=== PATIENT | male | born 1990 | race Caucasian/White ===

== ENCOUNTER 2016-09-19 21:28 | Inpatient (IN) | payer OTHER ==
[~2016-09-19] VITALS: Ht 185.4 cm; Wt 108.2 kg
[~2016-09-19 21:28] MED LIST: BENTYL PO; CIPR500T4 PO; METR500T14 PO
[2016-09-19 22:50] VITALS: Ht 185.4 cm; Wt 108.2 kg
[2016-09-19 23:10] VITALS: BP 111/62; RESP 20
[2016-09-20] MEDS: SOD CHLORIDE 0.9% 1,000 ML IV SCH ×4 (02:37→23:41)
[2016-09-20] MEDS: HYDROmorphONE 1 MG/ML SYG IV PRN ×6 (02:40→22:21)
[2016-09-20] MEDS: ONDANSETRON 4 MG INJ IV PRN ×6 (03:16→22:31)
[2016-09-20] MEDS ORDERED: NACL 0.9% 3 ML SYG IV SCH (03:30)
--- NOTE | 2016-09-20 04:44 | HP ---
Date/Time of Note Date/Time of Note DATE: 09/20/16 TIME: 04:12 Assessment/Plan VTE Prophylaxis VTE Prophylaxis Intervention: LMWH Lines/Catheters IV [facility]ter Type (from [facility]): Peripheral IV Central line still needed: No Urinary Cath still in place: No Assessment/Plan Chief Complaint/Hosp Course This is a 26-year-old male being admitted to the [facility] floor for: #1. Acute sigmoid diverticulitis - recurrent type - will admit the patient to med/surg, start Zosyn 3.375 every 6hrs, Zofran for nausea and Dilaudid for pain control. check occult blood stool. Patient previously was seen by general surgery and resection was discussed. Will consult GI. Likely will need outpatient colonoscopy and then eventual follow-up with general surgery. #2. PADDY -likely secondary to dehydration. Continue IV fluids. Repeat CMP in the a.m. #3 headache: This likely appears secondary to his infection is going on. No signs of any nuchal rigidity. Will provide Tylenol. And continue to monitor. No focal neurological deficits noted on exam. #4 GI and DVT prophylaxis: Protonix, Lovenox Problems: HPI/ROS Admit Date/Time Admit Date/Time September 19, 2016 at 22:36 Hx of Present Illness This is a 26-year-old male who presented to [facility] complaining of abdominal pain and headache 3 days. Patient states that he had been experiencing headache he may have a possible history of migraines. He was taking Advil but with no relief. He also had bilateral lower quadrant abdominal pain greater on the left side. The pain was 8 out of 10 and sharp on the left side lower abdominal quadrant. Patient said he had nausea. He states that he gets a headache approximately 3 times a month. But has not been formally diagnosed with migraines. His vital signs on admission at the hospital there were temperature of 10 2.9 pulse was 115 respirations are 20 BP was 114/69 he was satting at 95% on room air. White blood cell count was within normal range. Lactate was 1.1. Creatinine was 1.18. Patient had a CT scan of the abdomen and pelvis. Which showed likely sigmoid diverticulitis. Infectious colitis inflammatory bowel disease and neoplasm was also recommended to be considered. Patient then was subsequently transferred to [facility]. Currently at the bedside patient has pain at the left lower quadrant. He feels nauseated. Allergies: NKDA Medications: None ROS Const: Nausea, mild headache Eyes : No pain discharge or redness or change in visual acuity ENT: No pain, sore throat, congestion, congestion, dysphagia or discharge Respiratory: No shortness of breath, cough, sputum, wheezing, or pleuritic pain Cardiovascular: No chest pain, palpitation, PND, or edema GI : As per HPI Genitourinary: No dysuria, hematuria, flank pain , discharge or CVA tenderness Musculoskeletal: No joint pain, back pain, neck pain, restricted range of motion in neck or joints Skin: No rash, bruising or hives Neuro: No headache, dizziness, syncope, seizure, focal weakness Endocrine: No polyuria, polydipsia, temperature intolerance Psych: No hallucination, depression, anxiety or suicidal ideation PMH/Family/Social Past Medical History Sigmoid diverticulitis Past Surgical History Left inguinal hernia repair Past Surgical Hx: other Family History Significant Family History: no pertinent family hx Social History Alcohol Use: rarely Smoking Status: Former smoker Exam/Review of Systems Vital Signs Vitals Vital Signs Date Time Temp Pulse Resp B/P Pulse Ox O2 Delivery O2 Flow Rate FiO2 09/19/16 23:10 100.3 89 20 111/62 98 Exam Exam General: Patient is in moderate distress from pain The patient is alert oriented -3 HEENT: Atraumatic, normocephalic. The pupils are equal, round and reactive. Extraocular motor are intact Neck: Supple with full range of motion. No rigidity or meningismus Chest: Nontender Lungs: Clear to auscultation bilaterally no crackles rales or wheezing Heart: Normal S1-S2, Regular rhythm and rate. No murmur, Abdomen: Soft, diffuse lower quadrant tenderness to palpation with left side greater than the right, positive bowel sounds Extremities: Normal to inspection, no edema no cyanosis Neurologic: Normal mental status, speech normal, cranial nerves II through XII are intact, motor and sensory are intact, no focal weakness Additional Comments CT of the abdomen and pelvis performed the transferring facility [place] showed likely sigmoid diverticulitis, infectious colitis inflammatory bowel disease or neoplasm also possibility Medications Medications Current Medications Hydromorphone HCl 1 mg 1 mg Q4H PRN IV PAIN Last administered on 09/20/16t 02:40 ; Admin Dose 1 MG; Start 09/20/16 at 01:30 Sodium Chloride (NS) 1,000 ml @ 100 mls/hr Q10H IV Last administered on 02:37; Admin Dose 100 MLS/HR; Start 09/20/16 at 01:30 Ondansetron HCl 4 mg 4 mg Q4H PRN IV NAUSEA AND/OR VOMITING Last administered on 09/20/16 03:16; Admin Dose 4 MG; Start 09/20/16 at 03:00 Piperacillin Sod/ Tazobactam Sod (Zosyn 3.375gm/ 100 ml (Pmx)) 100 ml @ 200 mls /hr Q6 IVPB ; Start 09/20/16 at 06:00 Acetaminophen (Tylenol Tab) 650 mg Q6H PRN PO PAIN LEVEL 1-3 OR FEVER; Start at 03:30 Pantoprazole (Protonix Iv) 40 mg DAILY@06 IV ; Start 09/20/16 at 06:00 PAM BERG September 20, 2016 04:23
[2016-09-20] MEDS: PIPER-TAZO 3.375 GM IV (PMX) 100 ML IVPB SCH ×4 (05:06→23:39)
[2016-09-20] MEDS: PANTOPRAZOLE 40 MG INJ IV SCH (05:06)
[2016-09-20 07:30] VITALS: BP 121/67; RESP 18
--- NOTE | 2016-09-20 08:57 | CONS ---
Date/Time of Note Date/Time of Note DATE: 09/20/16 TIME: 08:50 Assessment/Plan Assessment/Plan Additional Assessment/Plan Diverticulitis Continue antibiotic treatment Start trial of clears Colonoscopy in 6 - [address] abdomen Rule out abscess, recommend Surgical consult if positive Headache Management per Primary Obesity Management per Primary Encourage weight loss Further recommendations depend on clinical course Patient seen in collaboration with Dr. Ribeiro Consultation Date/Type/Reason Admit Date/Time September 19, 2016 at 22:36 Type of Consultation: Gastroenterology Reason for Consultation Diverticulitis Hx of Present Illness Mr. Melisa Andrews is a 26-year-old male that presented at [facility] secondary to fever and headache. Per patient, CT completed at [place] noted diverticulitis. Currently paper CT abdomen and pelvis report notes "sigmoid thickening at a location where there are several diverticula. There is mild perisigmoid edema at this location as well. The findings are probably due to acute sigmoid diverticulitis". Few segments of small intestine are mildly distended.. Patient notes diagnosis with diverticulitis 2 years ago and reports a total of 4 flares up till today since diagnosis. Presently patient denies nausea, vomiting, fever, chills, abdominal pain, diarrhea, sick contacts , and travel outside the [place]. Patient states that he did not feel flare symptoms and denies any pain with eating. Patient reports normal bowel movement yesterday and denies hematochezia or black tarry stools. On exam, patient experiencing lower abdominal tenderness with palpation only. Patient would like to start trial of clears and is currently receiving Zosyn every 6 hours for diverticulitis treatment. Patient does not report previous colonoscopy and significant past medical history other than diverticulitis and migraine headache. Past Surgical History Past Surgical Hx: other Social History Alcohol Use: rarely Smoking Status: Former smoker Exam/Review of Systems Vital Signs Vitals Vital Signs Date Time Temp Pulse Resp B/P Pulse Ox O2 Delivery O2 Flow Rate FiO2 09/20/16 07:30 99.6 94 18 121/67 97 Intake and Output 09/19/16 09/19/16 09/20/16 15:00 23:00 07:00 Intake Total 380 ml Balance 380 ml Exam Constitutional: alert, oriented, well developed Psych: nl mood/affect Head: normocephalic Eyes: EOMI, nl conjunctiva, nl lids ENMT: nl external ears & nose, nl lips & teeth, nl nasal mucosa & septum Respiratory: clear to auscultation, normal air movement Cardiovascular: regular rate and rhythm Gastrointestinal: soft, lower abdominal tenderness bilaterally Musculoskeletal: nl extremities to inspection Neurological: AIR TRANSPORTATION PROVIDER II-XII intact Medications Medications Current Medications Hydromorphone HCl 1 mg 1 mg Q4H PRN IV PAIN Last administered on 09/20/16 06:29 ; Admin Dose 1 MG; Start 09/20/16 at 01:30 Sodium Chloride (NS) 1,000 ml @ 100 mls/hr Q10H IV Last administered on 02:37; Admin Dose 100 MLS/HR; Start 09/20/16 at 01:30 Ondansetron HCl 4 mg 4 mg Q4H PRN IV NAUSEA AND/OR VOMITING Last administered on 09/20/16 06:29; Admin Dose 4 MG; Start 09/20/16 at 03:00 Piperacillin Sod/ Tazobactam Sod (Zosyn 3.375gm/ 100 ml (Pmx)) 100 ml @ 200 mls /hr Q6 IVPB Last administered on 09/20/16 05:06; Admin Dose 200 MLS/HR; Start 09/20/16 at 06:00 Acetaminophen (Tylenol Tab) 650 mg Q6H PRN PO PAIN LEVEL 1-3 OR FEVER; Start at 03:30 Pantoprazole (Protonix Iv) 40 mg DAILY@06 IV Last administered on 09/20/16 05: 06; Admin Dose 40 MG; Start 09/20/16 at 06:00 Enoxaparin Sodium (Lovenox) 40 mg DAILY SC ; Start 09/20/16 at 09:00 ROBERTO MARTINEZ September 20, 2016 08:57
[2016-09-20] MEDS: ENOXAPARIN 40 MG/0.4 ML SYG SC SCH (09:00)
--- NOTE | 2016-09-20 15:05 | CONS ---
Date/Time of Note Date/Time of Note DATE: 09/20/16 TIME: 15:00 Assessment/Plan Assessment/Plan Chief Complaint/Hosp Course 26-year-old male with recurrent acute sigmoid diverticulitis * Continue broad-spectrum intravenous antibiotics, IV fluid hydration, pain control * Patient with minimal left lower quadrant pain at this time. Agree with trial of clear liquids. * Again recommend colonoscopy in 6 weeks after resolution of acute inflammatory phase to evaluate the rest of the colon * This is now the fourth attack of recurrent diverticulitis for this young patient. I again strongly recommended elective colon resection to prevent further attacks and complications associated with recurrent diverticulitis. The patient verbalizes understanding. Further recommendations will be made based on patient's clinical course Problems: Consultation Date/Type/Reason Admit Date/Time September 19, 2016 at 22:36 Date of Consultation: September 20, 2016 Type of Consultation: GENERAL SURGERY Reason for Consultation Acute diverticulitis Hx of Present Illness Patient is an overweight 26-year-old male with a known history of recurrent sigmoid diverticulitis who was transferred from [facility] with a recurrent attack of diverticulitis. Patient presented there with a 3 day history of fever and lower back pain. He also reported some mild left lower quadrant abdominal pain. On arrival to the emergency room at [place] he was found to be febrile with a temperature of 102.6. CT scan of the abdomen and pelvis which was done showed mild sigmoid diverticulitis without abscess. Patient was transferred to [facility] for insurance reasons. I had actually seen the patient during an attack in November 2015. His last attack was in April 2016. Patient has not had a colonoscopy since his prior admission despite recommendations for so. Currently states he feels better with improvement in his pain. T-max since arrival to [facility] was 100.3. A 14 point review of systems was conducted and was negative except for that which is mentioned in HPI Past Medical History As in HPI Past Surgical History Past Surgical Hx: other Social History Alcohol Use: rarely Smoking Status: Former smoker Exam/Review of Systems Vital Signs Vitals Vital Signs Date Time Temp Pulse Resp B/P Pulse Ox O2 Delivery O2 Flow Rate FiO2 09/20/16 07:30 99.6 94 18 121/67 97 Intake and Output 09/19/16 09/19/16 09/20/16 15:00 23:00 07:00 Intake Total 380 ml Balance 380 ml Exam GENERAL: Awake, alert, oriented x 3. No acute distress. SKIN: No jaundice. HEENT: PERRLA, EOMI, No Scleral Icterus NECK: Supple without JVD CARDIOVASCULAR: S1S2, regular rate and rhythm. No murmurs appreciated. RESPIRATORY: Clear to auscultation bilaterally. ABDOMEN: Soft, bowel sounds present, nondistended, mild left lower quadrant tenderness to deep palpation without any rebound or guarding. No signs of diffuse peritonitis. EXTREMITIES: Free range of motion x 4. No cyanosis, edema, or clubbing. NEUROLOGIC: Cranial nerves II-XII are intact. Sensation is intact grossly. Medications Medications Current Medications Hydromorphone HCl 1 mg 1 mg Q4H PRN IV PAIN Last administered on 09/20/16 14:34 ; Admin Dose 1 MG; Start 09/20/16 at 01:30 Sodium Chloride (NS) 1,000 ml @ 100 mls/hr Q10H IV Last administered on 12:50; Admin Dose 100 MLS/HR; Start 09/20/16 at 01:30 Ondansetron HCl 4 mg 4 mg Q4H PRN IV NAUSEA AND/OR VOMITING Last administered on 09/20/16 14:33; Admin Dose 4 MG; Start 09/20/16 at 03:00 Piperacillin Sod/ Tazobactam Sod (Zosyn 3.375gm/ 100 ml (Pmx)) 100 ml @ 200 mls /hr Q6 IVPB Last administered on 09/20/16 12:50; Admin Dose 200 MLS/HR; Start 09/20/16 at 06:00 Acetaminophen (Tylenol Tab) 650 mg Q6H PRN PO PAIN LEVEL 1-3 OR FEVER; Start at 03:30 Pantoprazole (Protonix Iv) 40 mg DAILY@06 IV Last administered on 09/20/16 05: 06; Admin Dose 40 MG; Start 09/20/16 at 06:00 Enoxaparin Sodium (Lovenox) 40 mg DAILY SC ; Start 09/20/16 at 09:00 MIKE MONTENEGRO MD September 20, 2016 15:05
[2016-09-20 20:16] VITALS: BP 128/72; RESP 18
[2016-09-20] MEDS: ACETAMINOPHEN 325 MG TAB PO PRN (22:21)
[2016-09-21] MEDS: DIPHENHYDRAMINE 25 MG CAP PO PRN ×3 (00:10→23:57)
[2016-09-21] MEDS: ONDANSETRON 4 MG INJ IV PRN ×5 (03:12→20:17)
[2016-09-21] MEDS: HYDROmorphONE 1 MG/ML SYG IV PRN ×6 (03:12→23:58)
[2016-09-21 05:17] LABS: ADD SCAN DIFF NO
[2016-09-21 05:38] LABS: CHOL/HDL RATIO 7.3 RATIO
[2016-09-21 05:39] LABS: ABNORMAL IP MESSAGE 1; HEMATOCRIT 36.5 % (42.0-52.0); HEMOGLOBIN 12.4 g/dl (14.0-18.0); MEAN CORPUSCULAR HEMOGLOBIN 29.8 pg (29.0-33.0); MEAN CORPUSCULAR VOLUME 87.7 fl (82.0-101.0); RED BLOOD COUNT 4.16 10^6/ul (4.70-6.10); RED CELL DISTRIBUTION WIDTH 11.7 % (11.5-14.5)
[2016-09-21 05:40] LABS: ALBUMIN 3.5 g/dl (3.3-4.9); POTASSIUM 3.9 mmol/L (3.5-5.1)
[2016-09-21 05:42] LABS: ALBUMIN/GLOBULIN RATIO 0.97; CREATININE 1.04 mg/dl (0.61-1.24); TOTAL PROTEIN 7.1 g/dl (6.1-8.1)
[2016-09-21] MEDS: PANTOPRAZOLE 40 MG INJ IV SCH (05:42)
[2016-09-21] MEDS: PIPER-TAZO 3.375 GM IV (PMX) 100 ML IVPB SCH ×3 (05:42→18:13)
[2016-09-21 05:43] LABS: CALCIUM 8.3 mg/dl (8.4-10.2); PHOSPHORUS 3.6 mg/dl (2.5-4.9)
[2016-09-21] MEDS: SOD CHLORIDE 0.9% 1,000 ML IV SCH ×3 (07:30→17:30)
[2016-09-21 07:31] VITALS: BP 113/65; RESP 20
[2016-09-21 08:17] LABS: MEAN PLATELET VOLUME 10.5 fl (7.4-10.4); PLATELET COUNT 88 10^3/UL (140-415)
[2016-09-21] MEDS: ENOXAPARIN 40 MG/0.4 ML SYG SC SCH (09:00)
[2016-09-21 09:11] LABS: LYMPHOCYTES # 0.9 10^3/ul (0.8-2.9); MONOCYTE # 0.3 10^3/ul (0.3-0.9); NEUTROPHIL # 1.7 10^3/ul (1.6-7.5)
[2016-09-21 09:12] LABS: PLATELET ESTIMATE PLT APPEAR DECREASED
[2016-09-21] MEDS: ACETAMINOPHEN 325 MG TAB PO PRN ×2 (09:47→23:57)
--- NOTE | 2016-09-21 14:52 | PN ---
Date/Time of Note Date/Time of Note DATE: 09/21/16 TIME: 14:50 Assessment/Plan Lines/Catheters IV Catheter Type (from Nrs): Peripheral IV Navarro in Place (from Nrs): No Assessment/Plan Assessment/Plan 26-year-old male with recurrent acute sigmoid diverticulitis * Continue broad-spectrum intravenous antibiotics, IV fluid hydration, pain control * May need to repeat CT scan with p.o. and IV contrast to evaluate for abscess if the patient continues to have fever. Subjective 24 Hr Interval Summary Still with left lower quadrant abdominal pain, however controlled. Denies any nausea. Had a bowel movement. Tolerating diet. T-max 102.9 Exam/Review of Systems Vital Signs Vitals Vital Signs Date Time Temp Pulse Resp B/P Pulse Ox O2 Delivery O2 Flow Rate FiO2 09/21/16 07:31 100.0 90 20 113/65 95 Intake and Output 09/20/16 09/20/16 09/21/16 15:00 23:00 07:00 Intake Total 820 ml 1400 ml 2440 ml Balance 820 ml 1400 ml 2440 ml Exam Free Text/Dictation GENERAL: Awake, alert, oriented x 3. No acute distress. CARDIOVASCULAR: S1S2, regular rate and rhythm. No murmurs appreciated. RESPIRATORY: Clear to auscultation bilaterally. ABDOMEN: Soft, bowel sounds present, nondistended, mild left lower quadrant tenderness to deep palpation without any rebound or guarding. No signs of diffuse peritonitis. EXTREMITIES: Free range of motion x 4. No cyanosis, edema, or clubbing. Results Result Diagram: 09/21/16 0448 09/21/16 0448 MIKE MONTENEGRO MD September 21, 2016 14:52
--- NOTE | 2016-09-21 16:21 | PN ---
Date/Time of Note Date/Time of Note DATE: 09/21/16 TIME: 16:17 Assessment/Plan VTE Prophylaxis VTE Prophylaxis Intervention: SCD's Lines/Catheters IV Catheter Type (from Nrs): Peripheral IV Urinary Cath still in place: No Assessment/Plan Assessment/Plan Assessment * Abdominal pain improved * Diverticulitis,sigmoid * Plan * adequate hydration * pain control * continue IV antibiotics Subjective 24 Hr Interval Summary Free Text/Dictation * Course reviewed with RN * patient seen and examined * denies abdominal pain,afebrile Exam/Review of Systems Vital Signs Vitals Vital Signs Date Time Temp Pulse Resp B/P Pulse Ox O2 Delivery O2 Flow Rate FiO2 09/21/16 07:31 100.0 90 20 113/65 95 Intake and Output 09/20/16 09/20/16 09/21/16 14:59 22:59 06:59 Intake Total 820 ml 1400 ml 2440 ml Balance 820 ml 1400 ml 2440 ml Exam Constitutional: alert, oriented Neck: non-tender, supple Respiratory: clear to auscultation, normal air movement Cardiovascular: nl pulses, regular rate and rhythm Gastrointestinal: bowel sounds, nl liver, spleen, non-tender, soft, No rebound or guarding Musculoskeletal: nl extremities to inspection, nl gait and stance Results Result Diagram: 09/21/168 09/21/16 0448 Results 24 hrs Laboratory Tests Test 09/21/16 04:48 White Blood Count 3.0 #L Red Blood Count 4.16 L Hemoglobin 12.4 L Hematocrit 36.5 L Mean Corpuscular Volume 87.7 Mean Corpuscular Hemoglobin 29.8 Mean Corpuscular Hemoglobin Concent 34.0 Red Cell Distribution Width 11.7 Platelet Count 88 L Mean Platelet Volume 10.5 #H Neutrophils % 57.0 Band Neutrophils % 1.0 Lymphocytes % 31.0 Monocytes % 10.0 Eosinophils % Basophils % 1.0 Nucleated Red Blood Cells % Neutrophils # 1.7 Lymphocytes # 0.9 Monocytes # 0.3 Eosinophils # Basophils # 0.0 Nucleated Red Blood Cells # Platelet Estimate PLT APPEAR DECREASED Sodium Level 140 Potassium Level 3.9 Chloride Level 101 Carbon Dioxide Level 29 Anion Gap 14 Blood Urea Nitrogen 12 Creatinine 1.04 Glucose Level 85 Hemoglobin A1c 4.5 Calcium Level 8.3 L Phosphorus Level 3.6 Magnesium Level 2.0 Total Bilirubin 1.0 Direct Bilirubin 0.00 Indirect Bilirubin 1.0 Aspartate Amino Transf (AST/SGOT) 53 H Alanine Aminotransferase (ALT/SGPT) 60 Alkaline Phosphatase 39 L Total Protein 7.1 Albumin 3.5 Globulin 3.60 H Albumin/Globulin Ratio 0.97 Triglycerides Level 353 H Cholesterol Level 132 LDL Cholesterol, Calculated 43 HDL Cholesterol 18 L Cholesterol/HDL Ratio 7.3 Medications Medications Current Medications Hydromorphone HCl 1 mg 1 mg Q4H PRN IV PAIN Last administered on 09/21/16 11:40 ; Admin Dose 1 MG; Start 09/20/16 at 01:30 Sodium Chloride (NS) 1,000 ml @ 100 mls/hr Q10H IV Last administered on 11:37; Admin Dose 100 MLS/HR; Start 09/20/16 at 01:30 Ondansetron HCl 4 mg 4 mg Q4H PRN IV NAUSEA AND/OR VOMITING Last administered on 09/21/16 11:40; Admin Dose 4 MG; Start 09/20/16 at 03:00 Piperacillin Sod/ Tazobactam Sod (Zosyn 3.375gm/ 100 ml (Pmx)) 100 ml @ 200 mls /hr Q6 IVPB Last administered on 09/21/16 11:38; Admin Dose 200 MLS/HR; Start 09/20/16 at 06:00 Acetaminophen (Tylenol Tab) 650 mg Q6H PRN PO PAIN LEVEL 1-3 OR FEVER Last administered on 09/21/16 09:47; Admin Dose 650 MG; Start 09/20/16 at 03:30 Enoxaparin Sodium (Lovenox) 40 mg DAILY SC ; Start 09/20/16 at 09:00 Diphenhydramine HCl (Benadryl) 25 mg Q6H PRN PO ITCHING Last administered on 06:06; Admin Dose 25 MG; Start 09/21/16 at 00:00 Pantoprazole (Protonix Tab) 40 mg DAILY@06 PO ; Start 09/22/16 at 06:00 SKYE FORD MD September 21, 2016 16:21
--- NOTE | 2016-09-21 17:00 | PN ---
Date/Time of Note Date/Time of Note DATE: 09/21/16 TIME: 16:55 Assessment/Plan VTE Prophylaxis VTE Prophylaxis Intervention: SCD's Lines/Catheters IV Catheter Type (from Nrs): Peripheral IV Urinary Cath still in place: No Assessment/Plan Chief Complaint/Hosp Course Assessment and plan 1. Acute sigmoid diverticulitis (recurrent). Continue antibiotics. Noted with less pain at this time. Continue with analgesics as needed. Surgeon and GI following. Patient recommended for elective colon resection considering patient's recurrent attacks. Patient refusing intervention at this time. Follow-up with surgeon and GI recommendations 2. Reported acute kidney injury. Likely secondary to dehydration. Stable at present. Will monitor 3. Hypertriglyceridemia. Will start patient on antilipid medication DVT prophylaxis: Lovenox GERD prophylaxis: Protonix Disposition and plan: Still remains febrile. Continue on antibiotics and antipyretics as needed. Follow-up with surgeon and GI recommendations. Discharged in medically stable and cleared by consultants Discussed plan with Dr. Cali Problems: Subjective 24 Hr Interval Summary Free Text/Dictation Denies any abdominal pain at this time. Still noted to be febrile Exam/Review of Systems Vital Signs Vitals Vital Signs Date Time Temp Pulse Resp B/P Pulse Ox O2 Delivery O2 Flow Rate FiO2 09/21/16 07:31 100.0 90 20 113/65 95 Intake and Output 09/20/16 09/20/16 09/21/16 15:00 23:00 07:00 Intake Total 820 ml 1400 ml 2440 ml Balance 820 ml 1400 ml 2440 ml Exam Constitutional: alert, oriented Psych: nl mood/affect Head: normocephalic Eyes: nl conjunctiva Neck: non-tender, supple, No jvd Respiratory: clear to auscultation Cardiovascular: regular rate and rhythm Gastrointestinal: non-tender, soft Musculoskeletal: nl extremities to inspection Neurological: LEATHER TACKER II-XII intact, nl mental status, nl speech Skin: nl turgor Results Result Diagram: 09/21/168 09/21/16447 Results 24 hrs Laboratory Tests Test 09/21/16 04:48 White Blood Count 3.0 #L Red Blood Count 4.16 L Hemoglobin 12.4 L Hematocrit 36.5 L Mean Corpuscular Volume 87.7 Mean Corpuscular Hemoglobin 29.8 Mean Corpuscular Hemoglobin Concent 34.0 Red Cell Distribution Width 11.7 Platelet Count 88 L Mean Platelet Volume 10.5 #H Neutrophils % 57.0 Band Neutrophils % 1.0 Lymphocytes % 31.0 Monocytes % 10.0 Eosinophils % Basophils % 1.0 Nucleated Red Blood Cells % Neutrophils # 1.7 Lymphocytes # 0.9 Monocytes # 0.3 Eosinophils # Basophils # 0.0 Nucleated Red Blood Cells # Platelet Estimate PLT APPEAR DECREASED Sodium Level 140 Potassium Level 3.9 Chloride Level 101 Carbon Dioxide Level 29 Anion Gap 14 Blood Urea Nitrogen 12 Creatinine 1.04 Glucose Level 85 Hemoglobin A1c 4.5 Calcium Level 8.3 L Phosphorus Level 3.6 Magnesium Level 2.0 Total Bilirubin 1.0 Direct Bilirubin 0.00 Indirect Bilirubin 1.0 Aspartate Amino Transf (AST/SGOT) 53 H Alanine Aminotransferase (ALT/SGPT) 60 Alkaline Phosphatase 39 L Total Protein 7.1 Albumin 3.5 Globulin 3.60 H Albumin/Globulin Ratio 0.97 Triglycerides Level 353 H Cholesterol Level 132 LDL Cholesterol, Calculated 43 HDL Cholesterol 18 L Cholesterol/HDL Ratio 7.3 Medications Medications Current Medications Hydromorphone HCl 1 mg 1 mg Q4H PRN IV PAIN Last administered on 09/21/16 16:22 ; Admin Dose 1 MG; Start 09/20/16 at 01:30 Sodium Chloride (NS) 1,000 ml @ 100 mls/hr Q10H IV Last administered on 11:37; Admin Dose 100 MLS/HR; Start 09/20/16 at 01:30 Ondansetron HCl 4 mg 4 mg Q4H PRN IV NAUSEA AND/OR VOMITING Last administered on 09/21/16 16:16; Admin Dose 4 MG; Start 09/20/16 at 03:00 Piperacillin Sod/ Tazobactam Sod (Zosyn 3.375gm/ 100 ml (Pmx)) 100 ml @ 200 mls /hr Q6 IVPB Last administered on 09/21/16 11:38; Admin Dose 200 MLS/HR; Start 09/20/16 at 06:00 Acetaminophen (Tylenol Tab) 650 mg Q6H PRN PO PAIN LEVEL 1-3 OR FEVER Last administered on 09/21/16 09:47; Admin Dose 650 MG; Start 09/20/16 at 03:30 Enoxaparin Sodium (Lovenox) 40 mg DAILY SC ; Start 09/20/16 at 09:00 Diphenhydramine HCl (Benadryl) 25 mg Q6H PRN PO ITCHING Last administered on t 06:06; Admin Dose 25 MG; Start 09/21/16 at 00:00 Pantoprazole (Protonix Tab) 40 mg DAILY@06 PO ; Start 09/22/16 at 06:00 CAMILLE TANG September 21, 2016 17:00
[2016-09-22] MEDS: SOD CHLORIDE 0.9% 1,000 ML IV SCH ×4 (00:08→22:05)
[2016-09-22] MEDS: PIPER-TAZO 3.375 GM IV (PMX) 100 ML IVPB SCH ×5 (00:08→23:55)
[2016-09-22] MEDS: ONDANSETRON 4 MG INJ IV PRN ×6 (00:08→20:00)
[2016-09-22] MEDS: HYDROmorphONE 1 MG/ML SYG IV PRN ×5 (04:45→20:00)
[2016-09-22 06:12] LABS: ADD SCAN DIFF NO
[2016-09-22] MEDS: PANTOPRAZOLE (EC) 40 MG TAB PO SCH (06:19)
[2016-09-22 06:39] LABS: ABNORMAL IP MESSAGE 1; BASOPHILS % 0.3 % (0.0-2.0); EOSINOPHILS % 0.6 % (0.0-7.0); HEMATOCRIT 32.4 % (42.0-52.0); HEMOGLOBIN 10.9 g/dl (14.0-18.0); LYMPHOCYTES # 1.2 10^3/ul (0.8-2.9); LYMPHOCYTES % 33.6 % (15.0-51.0); MEAN CORPUSCULAR HEMOGLOBIN 29.5 pg (29.0-33.0); MEAN CORPUSCULAR HGB CONC 33.6 g/dl (32.0-37.0); MEAN CORPUSCULAR VOLUME 87.8 fl (82.0-101.0); MEAN PLATELET VOLUME 10.8 fl (7.4-10.4); MONOCYTE # 0.4 10^3/ul (0.3-0.9); NEUTROPHIL # 1.9 10^3/ul (1.6-7.5); NEUTROPHILS % 53.2 % (39.0-77.0); PLATELET COUNT 79 10^3/UL (140-415); RED BLOOD COUNT 3.69 10^6/ul (4.70-6.10); RED CELL DISTRIBUTION WIDTH 11.7 % (11.5-14.5); WHITE BLOOD COUNT 3.6 10^3/ul (4.8-10.8)
[2016-09-22 07:26] VITALS: BP 100/54; RESP 20
[2016-09-22 07:49] LABS: CALCIUM 8.6 mg/dl (8.4-10.2); CREATININE 1.04 mg/dl (0.61-1.24); POTASSIUM 4.5 mmol/L (3.5-5.1)
[2016-09-22] MEDS: ENOXAPARIN 40 MG/0.4 ML SYG SC SCH (08:34)
--- NOTE | 2016-09-22 09:37 | PN ---
Date/Time of Note Date/Time of Note DATE: 09/22/16 TIME: 09:36 Assessment/Plan Lines/Catheters IV Catheter Type (from Nrs): Peripheral IV Navarro in Place (from Nrs): No Assessment/Plan Assessment/Plan 26-year-old male with recurrent acute sigmoid diverticulitis * Continue broad-spectrum intravenous antibiotics, IV fluid hydration, pain control * Clinically improving, but still having fever * May need to repeat CT scan with p.o. and IV contrast to evaluate for abscess if the patient continues to have fever. Subjective 24 Hr Interval Summary No complaints. Denies abdominal pain. Is up in bed eating a burger. Did have a temperature as high as 102 last night. Currently afebrile. Bowel movement yesterday. Exam/Review of Systems Vital Signs Vitals Vital Signs Date Time Temp Pulse Resp B/P Pulse Ox O2 Delivery O2 Flow Rate FiO2 09/22/16 07:26 98.9 84 20 100/54 96 Intake and Output 09/21/16 09/21/16 09/22/16 15:00 23:00 07:00 Intake Total 400 ml 1660 ml 2170 ml Balance 400 ml 1660 ml 2170 ml Exam Free Text/Dictation GENERAL: Awake, alert, oriented x 3. No acute distress. CARDIOVASCULAR: S1S2, regular rate and rhythm. No murmurs appreciated. RESPIRATORY: Clear to auscultation bilaterally. ABDOMEN: Soft, bowel sounds present, nondistended, nontender to palpation. No signs of diffuse peritonitis. EXTREMITIES: Free range of motion x 4. No cyanosis, edema, or clubbing. Results Result Diagram: 09/22/16 0540 09/22/16 0540 MIKE MONTENEGRO MD September 22, 2016 09:37
--- NOTE | 2016-09-22 15:49 | PN ---
Date/Time of Note Date/Time of Note DATE: 09/22/16 TIME: 15:47 Assessment/Plan VTE Prophylaxis VTE Prophylaxis Intervention: ambulation Lines/Catheters IV Catheter Type (from Nrs): Peripheral IV Urinary Cath still in place: No Assessment/Plan Assessment/Plan Assessment * Abdominal pain improved * Diverticulitis,sigmoid * Plan * adequate hydration * pain control * continue IV antibiotics * progress diet Subjective 24 Hr Interval Summary Free Text/Dictation * Course reviewed with RN * patient seen and examined * Denies abdominal pain/afebrile Exam/Review of Systems Vital Signs Vitals Vital Signs Date Time Temp Pulse Resp B/P Pulse Ox O2 Delivery O2 Flow Rate FiO2 09/22/16 07:26 98.9 84 20 100/54 96 Intake and Output 09/21/16 09/21/16 09/22/16 15:00 23:00 07:00 Intake Total 400 ml 1660 ml 2170 ml Balance 400 ml 1660 ml 2170 ml Exam Constitutional: alert, oriented Eyes: nl conjunctiva Neck: non-tender, supple Respiratory: clear to auscultation, normal air movement Cardiovascular: nl pulses, regular rate and rhythm Gastrointestinal: bowel sounds, non-tender, soft Musculoskeletal: nl extremities to inspection, nl gait and stance Extremities: normal pulses Results Result Diagram: 09/22/16 0540 09/22/16 0540 Results 24 hrs Laboratory Tests Test 09/22/16 05:40 White Blood Count 3.6 L Red Blood Count 3.69 L Hemoglobin 10.9 L Hematocrit 32.4 L Mean Corpuscular Volume 87.8 Mean Corpuscular Hemoglobin 29.5 Mean Corpuscular Hemoglobin Concent 33.6 Red Cell Distribution Width 11.7 Platelet Count 79 L Mean Platelet Volume 10.8 H Neutrophils % 53.2 Lymphocytes % 33.6 Monocytes % 12.0 H Eosinophils % 0.6 Basophils % 0.3 Nucleated Red Blood Cells % 0.0 Neutrophils # 1.9 Lymphocytes # 1.2 Monocytes # 0.4 Eosinophils # 0.0 Basophils # 0.0 Nucleated Red Blood Cells # 0.0 Sodium Level 136 Potassium Level 4.5 Chloride Level 104 Carbon Dioxide Level 28 Anion Gap 9 # Blood Urea Nitrogen 9 Creatinine 1.04 Glucose Level 87 Calcium Level 8.6 Medications Medications Current Medications Hydromorphone HCl 1 mg 1 mg Q4H PRN IV PAIN Last administered on 09/22/16 12:35 ; Admin Dose 1 MG; Start 09/20/16 at 01:30 Sodium Chloride (NS) 1,000 ml @ 100 mls/hr Q10H IV Last administered on 11:12; Admin Dose 100 MLS/HR; Start 09/20/16 at 01:30 Ondansetron HCl 4 mg 4 mg Q4H PRN IV NAUSEA AND/OR VOMITING Last administered on 09/22/16 12:35; Admin Dose 4 MG; Start 09/20/16 at 03:00 Piperacillin Sod/ Tazobactam Sod (Zosyn 3.375gm/ 100 ml (Pmx)) 100 ml @ 200 mls /hr Q6 IVPB Last administered on 09/22/16 11:12; Admin Dose 200 MLS/HR; Start 09/20/16 at 06:00 Acetaminophen (Tylenol Tab) 650 mg Q6H PRN PO PAIN LEVEL 1-3 OR FEVER Last administered on 09/21/16 23:57; Admin Dose 650 MG; Start 09/20/16 at 03:30 Enoxaparin Sodium (Lovenox) 40 mg DAILY SC ; Start 09/20/16 at 09:00 Diphenhydramine HCl (Benadryl) 25 mg Q6H PRN PO ITCHING Last administered on 23:57; Admin Dose 25 MG; Start 09/21/16 at 00:00 Pantoprazole (Protonix Tab) 40 mg DAILY@06 PO Last administered on 09/22/16 06: 19; Admin Dose 40 MG; Start 09/22/16 at 06:00 Acetaminophen/ Butalbital/ Caffeine (Fioricet) 2 tab Q4H PRN PO cephalgia; Start 09/22/16 at 15:00 SKYE FORD MD September 22, 2016 15:49
[2016-09-22] MEDS: ACET/BUTAL/CAFF TAB PO PRN ×2 (17:45→22:05)
--- NOTE | 2016-09-22 17:48 | PN ---
Date/Time of Note Date/Time of Note DATE: 09/22/16 TIME: 17:46 Assessment/Plan VTE Prophylaxis VTE Prophylaxis Intervention: ambulation Lines/Catheters IV Catheter Type (from [facility]): Peripheral IV Urinary Cath still in place: No Assessment/Plan Chief Complaint/Hosp Course Assessment and plan 1. Acute sigmoid diverticulitis (recurrent). Continue antibiotics. Noted with less pain at this time. Continue with analgesics as needed. Surgeon and GI following. Patient recommended for elective colon resection considering patient's recurrent attacks. Patient refusing intervention at this time. advance diet per GI recs. 2. Reported acute kidney injury. Likely secondary to dehydration. Stable at present. Will monitor 3. Hypertriglyceridemia. cont on antilipid medication DVT prophylaxis: Lovenox GERD prophylaxis: Protonix Disposition and plan: continue on diet. monitor for fevers. d/c when medically stable and cleared by consultants Discussed plan with Dr. Cali Problems: Subjective 24 Hr Interval Summary Free Text/Dictation resting at this time. reports some occasional abdominal pain, but overall improved. Exam/Review of Systems Vital Signs Vitals Vital Signs Date Time Temp Pulse Resp B/P Pulse Ox O2 Delivery O2 Flow Rate FiO2 09/22/16 07:26 98.9 84 20 100/54 96 Intake and Output 09/21/16 09/21/16 09/22/16 15:00 23:00 07:00 Intake Total 400 ml 1660 ml 2170 ml Balance 400 ml 1660 ml 2170 ml Exam Constitutional: alert, oriented Psych: nl mood/affect Head: normocephalic Neck: supple, No jvd Respiratory: clear to auscultation Cardiovascular: regular rate and rhythm Gastrointestinal: soft, tender (minimally) Musculoskeletal: nl extremities to inspection Extremities: normal pulses Neurological: MISSILE INSPECTOR PREFLIGHT II-XII intact, nl mental status Skin: nl turgor Results Result Diagram: 09/22/16 0540 09/22/16 0540 Results 24 hrs Laboratory Tests Test 09/22/16 05:40 White Blood Count 3.6 L Red Blood Count 3.69 L Hemoglobin 10.9 L Hematocrit 32.4 L Mean Corpuscular Volume 87.8 Mean Corpuscular Hemoglobin 29.5 Mean Corpuscular Hemoglobin Concent 33.6 Red Cell Distribution Width 11.7 Platelet Count 79 L Mean Platelet Volume 10.8 H Neutrophils % 53.2 Lymphocytes % 33.6 Monocytes % 12.0 H Eosinophils % 0.6 Basophils % 0.3 Nucleated Red Blood Cells % 0.0 Neutrophils # 1.9 Lymphocytes # 1.2 Monocytes # 0.4 Eosinophils # 0.0 Basophils # 0.0 Nucleated Red Blood Cells # 0.0 Sodium Level 136 Potassium Level 4.5 Chloride Level 104 Carbon Dioxide Level 28 Anion Gap 9 # Blood Urea Nitrogen 9 Creatinine 1.04 Glucose Level 87 Calcium Level 8.6 Medications Medications Current Medications Hydromorphone HCl 1 mg 1 mg Q4H PRN IV PAIN Last administered on 09/22/16 16:08 ; Admin Dose 1 MG; Start 09/20/16 at 01:30 Sodium Chloride (NS) 1,000 ml @ 100 mls/hr Q10H IV Last administered on 11:12; Admin Dose 100 MLS/HR; Start 09/20/16 at 01:30 Ondansetron HCl 4 mg 4 mg Q4H PRN IV NAUSEA AND/OR VOMITING Last administered on 09/22/16 16:08; Admin Dose 4 MG; Start 09/20/16 at 03:00 Piperacillin Sod/ Tazobactam Sod (Zosyn 3.375gm/ 100 ml (Pmx)) 100 ml @ 200 mls /hr Q6 IVPB Last administered on 09/22/16 11:12; Admin Dose 200 MLS/HR; Start 09/20/16 at 06:00 Acetaminophen (Tylenol Tab) 650 mg Q6H PRN PO PAIN LEVEL 1-3 OR FEVER Last administered on 09/21/16 23:57; Admin Dose 650 MG; Start 09/20/16 at 03:30 Enoxaparin Sodium (Lovenox) 40 mg DAILY SC ; Start 09/20/16 at 09:00 Diphenhydramine HCl (Benadryl) 25 mg Q6H PRN PO ITCHING Last administered on 23:57; Admin Dose 25 MG; Start 09/21/16 at 00:00 Pantoprazole (Protonix Tab) 40 mg DAILY@06 PO Last administered on 09/22/16 06: 19; Admin Dose 40 MG; Start 09/22/16 at 06:00 Acetaminophen/ Butalbital/ Caffeine (Fioricet) 2 tab Q4H PRN PO cephalgia; Start 09/22/16 at 15:00 CAMILLE TANG September 22, 2016 17:48
[2016-09-22 20:06] VITALS: BP 115/58; RESP 16
[2016-09-22] MEDS: DIPHENHYDRAMINE 25 MG CAP PO PRN (23:55)
[2016-09-23] MEDS: ACET/BUTAL/CAFF TAB PO PRN ×4 (01:57→20:53)
[2016-09-23] MEDS: HYDROmorphONE 1 MG/ML SYG IV PRN ×6 (04:10→19:51)
[2016-09-23] MEDS: ONDANSETRON 4 MG INJ IV PRN ×5 (04:10→16:11)
[2016-09-23 05:48] LABS: ADD SCAN DIFF NO
[2016-09-23 05:51] LABS: ABNORMAL IP MESSAGE 1; BASOPHILS % 0.3 % (0.0-2.0); EOSINOPHILS # 0.1 10^3/ul (0.0-0.5); HEMATOCRIT 30.8 % (42.0-52.0); HEMOGLOBIN 10.4 g/dl (14.0-18.0); LYMPHOCYTES % 32.1 % (15.0-51.0); MEAN CORPUSCULAR HEMOGLOBIN 29.6 pg (29.0-33.0); MEAN CORPUSCULAR HGB CONC 33.8 g/dl (32.0-37.0); MEAN CORPUSCULAR VOLUME 87.7 fl (82.0-101.0); MEAN PLATELET VOLUME 10.8 fl (7.4-10.4); MONOCYTE # 0.2 10^3/ul (0.3-0.9); MONOCYTES % 7.4 % (0.0-11.0); NEUTROPHIL # 1.7 10^3/ul (1.6-7.5); NEUTROPHILS % 57.9 % (39.0-77.0); PLATELET COUNT 97 10^3/UL (140-415); RED BLOOD COUNT 3.51 10^6/ul (4.70-6.10); RED CELL DISTRIBUTION WIDTH 11.9 % (11.5-14.5)
[2016-09-23] MEDS: PANTOPRAZOLE (EC) 40 MG TAB PO SCH (06:01)
[2016-09-23] MEDS: PIPER-TAZO 3.375 GM IV (PMX) 100 ML IVPB SCH ×3 (06:01→17:47)
[2016-09-23 06:03] LABS: POTASSIUM 4.6 mmol/L (3.5-5.1)
[2016-09-23 06:05] LABS: CREATININE 1.04 mg/dl (0.61-1.24)
[2016-09-23 06:06] LABS: CALCIUM 8.5 mg/dl (8.4-10.2)
[2016-09-23 07:55] VITALS: BP 108/57; RESP 16
[2016-09-23] MEDS: ENOXAPARIN 40 MG/0.4 ML SYG SC SCH (08:21)
[2016-09-23] MEDS: SOD CHLORIDE 0.9% 1,000 ML IV SCH ×2 (10:11→19:56)
--- NOTE | 2016-09-23 11:52 | PN ---
Date/Time of Note Date/Time of Note DATE: 09/23/16 TIME: 11:50 Assessment/Plan VTE Prophylaxis VTE Prophylaxis Intervention: ambulation Lines/Catheters IV C[facility]ter Type (from [facility]): Peripheral IV Urinary Cath still in place: No Assessment/Plan Chief Complaint/Hosp Course Assessment and plan 1. Acute sigmoid diverticulitis (recurrent). Continue antibiotics. No pain reported today Continue with analgesics as needed. Surgeon and GI following. Patient recommended for elective colon resection considering patient's recurrent attacks. Patient refusing intervention at this time. Appears to be improving. No fevers today so far. Will follow up with surgeon/GI Recs 2. Reported acute kidney injury. Likely secondary to dehydration. Stable at present. Will monitor 3. Hypertriglyceridemia. cont on antilipid medication DVT prophylaxis: Lovenox GERD prophylaxis: Protonix Disposition and plan: No fever so far today. Noted with fever last night. Continue antibiotic therapy. Discharged when medically stable and cleared by consultants Discussed plan with Dr. Cali Problems: Subjective 24 Hr Interval Summary Free Text/Dictation Denies abdominal pain. Noted fever last night but none this morning. Appears comfortable at present Exam/Review of Systems Vital Signs Vitals Vital Signs Date Time Temp Pulse Resp B/P Pulse Ox O2 Delivery O2 Flow Rate FiO2 09/23/16 07:55 98.3 66 16 108/57 92 Intake and Output 09/22/16 09/22/16 09/23/16 15:00 23:00 07:00 Intake Total 250 ml 2660 ml 1120 ml Output Total 0 ml Balance 250 ml 2660 ml 1120 ml Exam Constitutional: alert, obese, oriented Psych: nl mood/affect Head: normocephalic Neck: non-tender, supple Respiratory: normal air movement Cardiovascular: regular rate and rhythm Gastrointestinal: ascites, soft Musculoskeletal: nl extremities to inspection Extremities: normal pulses Neurological: COMPLIANCE ASSISTANT II-XII intact, nl mental status, nl speech Skin: nl turgor Results Result Diagram: 09/23/1625 09/23/1625 Results 24 hrs Laboratory Tests Test 09/23/16 05:25 White Blood Count 3.0 L Red Blood Count 3.51 L Hemoglobin 10.4 L Hematocrit 30.8 L Mean Corpuscular Volume 87.7 Mean Corpuscular Hemoglobin 29.6 Mean Corpuscular Hemoglobin Concent 33.8 Red Cell Distribution Width 11.9 Platelet Count 97 #L Mean Platelet Volume 10.8 H Neutrophils % 57.9 Lymphocytes % 32.1 Monocytes % 7.4 Eosinophils % 2.0 Basophils % 0.3 Nucleated Red Blood Cells % 0.0 Neutrophils # 1.7 Lymphocytes # 1.0 Monocytes # 0.2 L Eosinophils # 0.1 Basophils # 0.0 Nucleated Red Blood Cells # 0.0 Sodium Level 141 Potassium Level 4.6 Chloride Level 104 Carbon Dioxide Level 30 Anion Gap 12 Blood Urea Nitrogen 8 Creatinine 1.04 Glucose Level 86 Calcium Level 8.5 Medications Medications Current Medications Hydromorphone HCl 1 mg 1 mg Q4H PRN IV PAIN Last administered on 09/23/16 08: 19; Admin Dose 1 MG; Start 09/20/16 at 01:30 Sodium Chloride (NS) 1,000 ml @ 100 mls/hr Q10H IV Last administered on 10:11; Admin Dose 100 MLS/HR; Start 09/20/16 at 01:30 Ondansetron HCl 4 mg 4 mg Q4H PRN IV NAUSEA AND/OR VOMITING Last administered on 09/23/16 08:18; Admin Dose 4 MG; Start 09/20/16 at 03:00 Piperacillin Sod/ Tazobactam Sod (Zosyn 3.375gm/ 100 ml (Pmx)) 100 ml @ 200 mls /hr Q6 IVPB Last administered on 09/23/16 06:01; Admin Dose 200 MLS/HR; Start 09/20/16 at 06:00 Acetaminophen (Tylenol Tab) 650 mg Q6H PRN PO PAIN LEVEL 1-3 OR FEVER Last administered on 09/21/16 23:57; Admin Dose 650 MG; Start 09/20/16 at 03:30 Enoxaparin Sodium (Lovenox) 40 mg DAILY SC ; Start 09/20/16 at 09:00 Diphenhydramine HCl (Benadryl) 25 mg Q6H PRN PO ITCHING Last administered on 23:55; Admin Dose 25 MG; Start 09/21/16 at 00:00 Pantoprazole (Protonix Tab) 40 mg DAILY@06 PO Last administered on 09/23/16 06 :01; Admin Dose 40 MG; Start 09/22/16 at 06:00 Acetaminophen/ Butalbital/ Caffeine (Fioricet) 2 tab Q4H PRN PO cephalgia Last administered on 09/23/16t 10:10; Admin Dose 2 TAB; Start 09/22/16 at 15:00 CAMILLE TANG September 23, 2016 11:52
--- NOTE | 2016-09-23 12:48 | PN ---
Date/Time of Note Date/Time of Note DATE: 09/23/16 TIME: 12:46 Assessment/Plan Lines/Catheters IV Catheter Type (from Nrs): Peripheral IV Navarro in Place (from Nrs): No Assessment/Plan Assessment/Plan 26-year-old male with recurrent acute sigmoid diverticulitis * Continue broad-spectrum intravenous antibiotics, IV fluid hydration, pain control * Clinically improved * If remains stable and afebrile then can d/c home on PO abx if medically cleared * Will need to follow up with GI for colonoscopy in 6 weeks. * Ultimately recommend elective colon resection Subjective 24 Hr Interval Summary No acute events. Denies abdominal pain. Tolerating diet. +BMs. Tmax 100.0 Exam/Review of Systems Vital Signs Vitals Vital Signs Date Time Temp Pulse Resp B/P Pulse Ox O2 Delivery O2 Flow Rate FiO2 09/23/16 07:55 98.3 66 16 108/57 92 Intake and Output 09/22/16 09/22/16 09/23/16 15:00 23:00 07:00 Intake Total 250 ml 2660 ml 1120 ml Output Total 0 ml Balance 250 ml 2660 ml 1120 ml Exam Free Text/Dictation GENERAL: Awake, alert, oriented x 3. No acute distress. CARDIOVASCULAR: S1S2, regular rate and rhythm. No murmurs appreciated. RESPIRATORY: Clear to auscultation bilaterally. ABDOMEN: Soft, bowel sounds present, nondistended, nontender to palpation. No signs of diffuse peritonitis. EXTREMITIES: Free range of motion x 4. No cyanosis, edema, or clubbing. Results Result Diagram: 09/23/16 0525 09/23/16 0525 MIKE MONTENEGRO MD September 23, 2016 12:48
--- NOTE | 2016-09-23 15:19 | PN ---
Date/Time of Note Date/Time of Note DATE: 09/23/16 TIME: 15:16 Assessment/Plan VTE Prophylaxis VTE Prophylaxis Intervention: ambulation Lines/Catheters IV [facility] Type (from [facility]): Peripheral IV Urinary Cath still in place: No Assessment/Plan Assessment/Plan Assessment * Abdominal pain improved * Diverticulitis,sigmoid * Plan * Stable for outpatient management * continue antibiotics for 2 weeks * for elective colonoscopy after 6-8 weeks Subjective 24 Hr Interval Summary Free Text/Dictation * Course reviewed with RN * patient seen and examined * Denies abdominal pain/afebrile * Tolerating diet Exam/Review of Systems Vital Signs Vitals Vital Signs Date Time Temp Pulse Resp B/P Pulse Ox O2 Delivery O2 Flow Rate FiO2 09/23/16 07:55 98.3 66 16 108/57 92 Intake and Output 09/22/16 09/22/16 09/23/16 15:00 23:00 07:00 Intake Total 250 ml 2660 ml 1120 ml Output Total 0 ml Balance 250 ml 2660 ml 1120 ml Exam Constitutional: alert, oriented Psych: no complaints Eyes: nl conjunctiva, nl sclera Neck: non-tender, supple Respiratory: clear to auscultation, normal air movement Cardiovascular: nl pulses, regular rate and rhythm Gastrointestinal: bowel sounds, non-tender, soft, No rebound or guarding Musculoskeletal: nl extremities to inspection, nl gait and stance Extremities: normal pulses Neurological: nl speech, nl strength Results Result Diagram: 09/23/16 0525 09/23/16 0525 Results 24 hrs Laboratory Tests Test 09/23/16 05:25 White Blood Count 3.0 L Red Blood Count 3.51 L Hemoglobin 10.4 L Hematocrit 30.8 L Mean Corpuscular Volume 87.7 Mean Corpuscular Hemoglobin 29.6 Mean Corpuscular Hemoglobin Concent 33.8 Red Cell Distribution Width 11.9 Platelet Count 97 #L Mean Platelet Volume 10.8 H Neutrophils % 57.9 Lymphocytes % 32.1 Monocytes % 7.4 Eosinophils % 2.0 Basophils % 0.3 Nucleated Red Blood Cells % 0.0 Neutrophils # 1.7 Lymphocytes # 1.0 Monocytes # 0.2 L Eosinophils # 0.1 Basophils # 0.0 Nucleated Red Blood Cells # 0.0 Sodium Level 141 Potassium Level 4.6 Chloride Level 104 Carbon Dioxide Level 30 Anion Gap 12 Blood Urea Nitrogen 8 Creatinine 1.04 Glucose Level 86 Calcium Level 8.5 Medications Medications Current Medications Hydromorphone HCl 1 mg 1 mg Q4H PRN IV PAIN Last administered on 09/23/16 12: 07; Admin Dose 1 MG; Start 09/20/16 at 01:30 Sodium Chloride (NS) 1,000 ml @ 100 mls/hr Q10H IV Last administered on 10:11; Admin Dose 100 MLS/HR; Start 09/20/16 at 01:30 Ondansetron HCl 4 mg 4 mg Q4H PRN IV NAUSEA AND/OR VOMITING Last administered on 09/23/16 12:06; Admin Dose 4 MG; Start 09/20/16 at 03:00 Piperacillin Sod/ Tazobactam Sod (Zosyn 3.375gm/ 100 ml (Pmx)) 100 ml @ 200 mls /hr Q6 IVPB Last administered on 09/23/16 12:07; Admin Dose 200 MLS/HR; Start 09/20/16 at 06:00 Acetaminophen (Tylenol Tab) 650 mg Q6H PRN PO PAIN LEVEL 1-3 OR FEVER Last administered on 09/21/16 23:57; Admin Dose 650 MG; Start 09/20/16 at 03:30 Enoxaparin Sodium (Lovenox) 40 mg DAILY SC ; Start 09/20/16 at 09:00 Diphenhydramine HCl (Benadryl) 25 mg Q6H PRN PO ITCHING Last administered on 23:55; Admin Dose 25 MG; Start 09/21/16 at 00:00 Pantoprazole (Protonix Tab) 40 mg DAILY@06 PO Last administered on 09/23/16 06 :01; Admin Dose 40 MG; Start 09/22/16 at 06:00 Acetaminophen/ Butalbital/ Caffeine (Fioricet) 2 tab Q4H PRN PO cephalgia Last administered on 09/23/16 10:10; Admin Dose 2 TAB; Start 09/22/16 at 15:00 SKYE FORD MD September 23, 2016 15:19
[2016-09-23 20:31] VITALS: BP 116/58; RESP 16
[2016-09-24] MEDS: HYDROmorphONE 1 MG/ML SYG IV PRN ×6 (00:06→21:07)
[2016-09-24] MEDS: ONDANSETRON 4 MG INJ IV PRN ×6 (00:06→21:07)
[2016-09-24] MEDS: PIPER-TAZO 3.375 GM IV (PMX) 100 ML IVPB SCH ×4 (00:17→17:29)
[2016-09-24] MEDS: PANTOPRAZOLE (EC) 40 MG TAB PO SCH (05:25)
[2016-09-24] MEDS: SOD CHLORIDE 0.9% 1,000 ML IV SCH ×3 (05:25→17:34)
[2016-09-24 05:32] LABS: ADD SCAN DIFF NO
[2016-09-24 05:36] LABS: EOSINOPHILS % 0.8 % (0.0-7.0); HEMATOCRIT 30.8 % (42.0-52.0); HEMOGLOBIN 10.6 g/dl (14.0-18.0); LYMPHOCYTES % 25.2 % (15.0-51.0); MEAN CORPUSCULAR HGB CONC 34.4 g/dl (32.0-37.0); MEAN CORPUSCULAR VOLUME 87.3 fl (82.0-101.0); MONOCYTE # 0.2 10^3/ul (0.3-0.9); NEUTROPHIL # 2.6 10^3/ul (1.6-7.5); NEUTROPHILS % 68.5 % (39.0-77.0); PLATELET COUNT 149 10^3/UL (140-415); RED BLOOD COUNT 3.53 10^6/ul (4.70-6.10); RED CELL DISTRIBUTION WIDTH 11.7 % (11.5-14.5); WHITE BLOOD COUNT 3.8 10^3/ul (4.8-10.8)
[2016-09-24 06:44] LABS: POTASSIUM 3.7 mmol/L (3.5-5.1)
[2016-09-24 06:47] LABS: CREATININE 1.17 mg/dl (0.61-1.24)
[2016-09-24 06:48] LABS: CALCIUM 8.2 mg/dl (8.4-10.2)
[2016-09-24 07:42] VITALS: BP 115/56; RESP 29
[2016-09-24] MEDS: ACET/BUTAL/CAFF TAB PO PRN (07:50)
[2016-09-24] MEDS: ENOXAPARIN 40 MG/0.4 ML SYG SC SCH (08:40)
--- NOTE | 2016-09-24 09:16 | PN ---
Date/Time of Note Date/Time of Note DATE: 09/24/16 TIME: 09:15 Assessment/Plan Lines/Catheters IV Catheter Type (from [facility]): Peripheral IV Navarro in Place (from [facility]): No Assessment/Plan Assessment/Plan 26-year-old male with recurrent acute sigmoid diverticulitis * Continue broad-spectrum intravenous antibiotics, IV fluid hydration, pain control * Clinically improved * If remains stable and afebrile then can d/c home on PO abx if medically cleared * Will need to follow up with GI for colonoscopy in 6 weeks. * Ultimately recommend elective colon resection Subjective 24 Hr Interval Summary Denies abdominal pain. Moving bowels. T-max 100.8. Currently afebrile. Exam/Review of Systems Vital Signs Vitals Vital Signs Date Time Temp Pulse Resp B/P Pulse Ox O2 Delivery O2 Flow Rate FiO2 09/24/16 07:42 98.8 87 29 115/56 96 Intake and Output 09/23/16 09/23/16 09/24/16 14:59 22:59 06:59 Intake Total 2720 ml 1920 ml Balance 2720 ml 1920 ml Exam Free Text/Dictation GENERAL: Awake, alert, oriented x 3. No acute distress. CARDIOVASCULAR: S1S2, regular rate and rhythm. No murmurs appreciated. RESPIRATORY: Clear to auscultation bilaterally. ABDOMEN: Soft, bowel sounds present, nondistended, nontender to palpation. No signs of diffuse peritonitis. EXTREMITIES: Free range of motion x 4. No cyanosis, edema, or clubbing. Results Result Diagram: 09/24/16 0500 09/24/16 0500 MIKE MONTENEGRO MD September 24, 2016 09:16
[2016-09-24] MEDS ORDERED: ONDA4TAB14 PO (11:01)
[2016-09-24] MEDS ORDERED: CIPR500T4 PO (11:01)
[2016-09-24] MEDS ORDERED: FIORICET PO (11:01)
[2016-09-24] MEDS ORDERED: METR500T14 PO (11:01)
[2016-09-24] MEDS ORDERED: HYDR-906 PO (11:01)
[2016-09-24] MEDS ORDERED: HYDROCODONE/APAP (5/325) TAB PO PRN ×2 (11:30)
[2016-09-24] MEDS ORDERED: morphine 2 MG INJ IV PRN (11:30)
--- NOTE | 2016-09-24 13:57 | CONS ---
DATE OF ADMISSION: 09/19/2016 DATE OF CONSULTATION: 09/24/2016 INFECTIOUS DISEASE CONSULTATION REASON FOR CONSULTATION: Antibiotic management. HISTORY OF PRESENT ILLNESS: Melisa Andrews is a 26-year-old male who presented to [facility] with abdominal pain and headaches for 3 days. He may have a possible history of cayetano anel. He takes Advil, with no relief. He had bilateral lower quadrant abdominal pain, greater on the left side. The pain was 8/10 and sharp, on the left side lower abdominal quadrant. He says he gets a headache 3 times a month. Vital signs: Temperature 102.9, pulse of 115, respirations 20 and BP 114/69 and oxygen saturation was 95%. On admission his white count was 3.0, H and H of 12.4 and 36.5, and platelet count 88,000. Today his white count is 3.8. His BUN and creatinine are 12/1.04 , today it is 7/1.17. Occult blood is negative. Blood cultures are negative. HOSPITAL COURSE: The patient was seen by Dr. Brasher, surgeon, who felt he had acute diverticulitis. Continued broad spectrum IV antibiotics. Agree with clear fluid and colonoscopy 6 weeks after reso lution of acute inflammatory phase to evaluate the rest of the colon. There is now the fourth attac k of recurrent diverticulitis in this young man. I strongly recommend elective colon resection to p revent further attacks and complications associated with recurrent diverticulitis. The patient was on Zosyn. The patient was also seen by Dr. Ribeiro, who noted abdominal pain was improving on the . He continued to improve, though his white count is still 3.0 and he is still on Zosyn. Arianei ng to Dr. Brasher, if he is stable he can go home on p.o. antibiotics. [facility] PAST MEDICAL HISTORY: Operations as outlined. FAMILY HISTORY: Noncontributory. SOCIAL HISTORY: He does not smoke, drink or abuse drugs. ALLERGIES: NONE TO PENICILLIN, SULFA OR FOODS. MEDICATIONS: Per chart. SURGICAL HISTORY: Status post left inguinal hernia repair. SOCIAL HISTORY: He is a former smoker, does not drink or abuse drugs. MEDICATIONS: Per chart. REVIEW OF SYSTEMS: Noncontributory. PHYSICAL EXAMINATION: GENERAL: The patient is a well-developed, well-nourished male, alert, responsive, in no acute distr ess. VITAL SIGNS: Stable. He is afebrile. SKIN: Without generalized rash. HEENT: Within normal limits. NECK: Supple. LYMPH NODES: None palpable. CHEST: Decreased breath sounds at the bases. HEART: Without murmur or gallop. ABDOMEN: Soft, nontender, without organosplenomegaly or masses. EXTREMITIES: Without cyanosis, clubbing, or edema. RECTAL AND GENITAL EXAM: Deferred. NEUROLOGICAL EVALUATION: No focal neurological abnormalities. IMPRESSION AND PLAN: Continue the current regimen. When ready to go home, he can probably go home on Cipro and Flagyl. I will dictate my findings to the hospitalist, as well as to Dr. Brasher and Dr. Ribeiro. Dictated By: ADRIANO YADAV MD, JD/JOSE Conf#: [id number] DID#: [id number]
--- NOTE | 2016-09-24 15:17 | PN ---
Date/Time of Note Date/Time of Note DATE: 09/24/16 TIME: 15:15 Assessment/Plan VTE Prophylaxis VTE Prophylaxis Intervention: SCD's Lines/Catheters IV Catheter Type (from [facility]): Peripheral IV Urinary Cath still in place: No Assessment/Plan Assessment/Plan Assessment * Abdominal pain improved * Diverticulitis,sigmoid * Plan * Stable for outpatient management * continue antibiotics for 2 weeks * for elective colonoscopy after 6-8 weeks Subjective 24 Hr Interval Summary Free Text/Dictation * Course reviewed with RN * patient seen and examined * episode of low grade fever last night,today afebrile * denies abdominal pain Exam/Review of Systems Vital Signs Vitals Vital Signs Date Time Temp Pulse Resp B/P Pulse Ox O2 Delivery O2 Flow Rate FiO2 09/24/16 07:42 98.8 87 29 115/56 96 Intake and Output 09/23/16 09/23/16 09/24/16 15:00 23:00 07:00 Intake Total 2720 ml 1920 ml Balance 2720 ml 1920 ml Exam Constitutional: alert, oriented Neck: non-tender, supple Respiratory: clear to auscultation, normal air movement Cardiovascular: nl pulses, regular rate and rhythm Gastrointestinal: bowel sounds, non-tender, soft, No rebound or guarding Musculoskeletal: nl extremities to inspection, nl gait and stance Results Result Diagram: 09/24/16 0500 09/24/16 0500 Results 24 hrs Laboratory Tests Test 09/24/16 05:00 White Blood Count 3.8 #L Red Blood Count 3.53 L Hemoglobin 10.6 L Hematocrit 30.8 L Mean Corpuscular Volume 87.3 Mean Corpuscular Hemoglobin 30.0 Mean Corpuscular Hemoglobin Concent 34.4 Red Cell Distribution Width 11.7 Platelet Count 149 # Mean Platelet Volume 11.0 H Neutrophils % 68.5 Lymphocytes % 25.2 Monocytes % 5.0 Eosinophils % 0.8 Basophils % 0.0 Nucleated Red Blood Cells % 0.0 Neutrophils # 2.6 Lymphocytes # 1.0 Monocytes # 0.2 L Eosinophils # 0.0 Basophils # 0.0 Nucleated Red Blood Cells # 0.0 Sodium Level 141 Potassium Level 3.7 Chloride Level 103 Carbon Dioxide Level 27 Anion Gap 15 Blood Urea Nitrogen 7 Creatinine 1.17 Glucose Level 84 Calcium Level 8.2 L Medications Medications Current Medications Hydromorphone HCl 1 mg 1 mg Q4H PRN IV PAIN Last administered on 09/24/16 13: 27; Admin Dose 1 MG; Start 09/20/16 at 01:30 Sodium Chloride (NS) 1,000 ml @ 100 mls/hr Q10H IV Last administered on 05:25; Admin Dose 100 MLS/HR; Start 09/20/16 at 01:30 Ondansetron HCl 4 mg 4 mg Q4H PRN IV NAUSEA AND/OR VOMITING Last administered on 09/24/16 13:26; Admin Dose 4 MG; Start 09/20/16 at 03:00 Piperacillin Sod/ Tazobactam Sod (Zosyn 3.375gm/ 100 ml (Pmx)) 100 ml @ 200 mls /hr Q6 IVPB Last administered on 09/24/16 12:46; Admin Dose 200 MLS/HR; Start 09/20/16 at 06:00 Acetaminophen (Tylenol Tab) 650 mg Q6H PRN PO PAIN LEVEL 1-3 OR FEVER Last administered on 09/21/16 23:57; Admin Dose 650 MG; Start 09/20/16 at 03:30 Enoxaparin Sodium (Lovenox) 40 mg DAILY SC ; Start 09/20/16 at 09:00 Diphenhydramine HCl (Benadryl) 25 mg Q6H PRN PO ITCHING Last administered on 23:55; Admin Dose 25 MG; Start 09/21/16 at 00:00 Pantoprazole (Protonix Tab) 40 mg DAILY@06 PO Last administered on 09/24/16 05 :25; Admin Dose 40 MG; Start 09/22/16 at 06:00 Acetaminophen/ Butalbital/ Caffeine (Fioricet) 2 tab Q4H PRN PO cephalgia Last administered on 09/24/16 07:50; Admin Dose 2 TAB; Start 09/22/16 at 15:00 Morphine Sulfate (morphine) 2 mg Q4H PRN IV pain; Start 09/24/16 at 11:30 Acetaminophen/ Hydrocodone Bitart ([place] (5/325)) 2 tab Q4H PRN PO pain; Start 09/24/16 at 11:30 Acetaminophen/ Hydrocodone Bitart ([place] (5/325)) 1 tab Q4H PRN PO pain; Start 09/24/16 at 11:30 SKYE FORD MD September 24, 2016 15:17
--- NOTE | 2016-09-24 15:54 | PN ---
Date/Time of Note Date/Time of Note DATE: 09/24/16 TIME: 15:53 Assessment/Plan VTE Prophylaxis VTE Prophylaxis Intervention: SCD's Lines/Catheters IV C[facility]ter Type (from [facility]): Peripheral IV Urinary Cath still in place: No Assessment/Plan Chief Complaint/Hosp Course Assessment and plan 1. Acute sigmoid diverticulitis (recurrent). Continue antibiotics. No pain reported today Continue with analgesics as needed. Surgeon and GI following. Patient recommended for elective colon resection considering patient's recurrent attacks. Patient refusing intervention at this time. With reported fevers overnight. ID consult to follow 2. Reported acute kidney injury. Likely secondary to dehydration. Stable at present. Will monitor 3. Hypertriglyceridemia. cont on antilipid medication DVT prophylaxis: Lovenox GERD prophylaxis: Protonix Disposition and plan: Continue antibiotic regimen. Still with noted fever overnight. ID consult to follow Discussed plan with Dr. Cali Problems: Subjective 24 Hr Interval Summary Free Text/Dictation Reports less pain in abdomen. Exam/Review of Systems Vital Signs Vitals Vital Signs Date Time Temp Pulse Resp B/P Pulse Ox O2 Delivery O2 Flow Rate FiO2 09/24/16 07:42 98.8 87 29 115/56 96 Intake and Output 09/23/16 09/23/16 09/24/16 15:00 23:00 07:00 Intake Total 2720 ml 1920 ml Balance 2720 ml 1920 ml Exam Constitutional: alert, obese, oriented Head: normocephalic Neck: No jvd Respiratory: normal air movement Cardiovascular: regular rate and rhythm Gastrointestinal: non-tender, soft Neurological: nl mental status, nl speech Skin: nl turgor Results Result Diagram: 09/24/16 0500 09/24/16 0500 Results 24 hrs Laboratory Tests Test 09/24/16 05:00 White Blood Count 3.8 #L Red Blood Count 3.53 L Hemoglobin 10.6 L Hematocrit 30.8 L Mean Corpuscular Volume 87.3 Mean Corpuscular Hemoglobin 30.0 Mean Corpuscular Hemoglobin Concent 34.4 Red Cell Distribution Width 11.7 Platelet Count 149 # Mean Platelet Volume 11.0 H Neutrophils % 68.5 Lymphocytes % 25.2 Monocytes % 5.0 Eosinophils % 0.8 Basophils % 0.0 Nucleated Red Blood Cells % 0.0 Neutrophils # 2.6 Lymphocytes # 1.0 Monocytes # 0.2 L Eosinophils # 0.0 Basophils # 0.0 Nucleated Red Blood Cells # 0.0 Sodium Level 141 Potassium Level 3.7 Chloride Level 103 Carbon Dioxide Level 27 Anion Gap 15 Blood Urea Nitrogen 7 Creatinine 1.17 Glucose Level 84 Calcium Level 8.2 L Medications Medications Current Medications Hydromorphone HCl 1 mg 1 mg Q4H PRN IV PAIN Last administered on 09/24/16 13: 27; Admin Dose 1 MG; Start 09/20/16 at 01:30 Sodium Chloride (NS) 1,000 ml @ 100 mls/hr Q10H IV Last administered on 05:25; Admin Dose 100 MLS/HR; Start 09/20/16 at 01:30 Ondansetron HCl 4 mg 4 mg Q4H PRN IV NAUSEA AND/OR VOMITING Last administered on 09/24/16 13:26; Admin Dose 4 MG; Start 09/20/16 at 03:00 Piperacillin Sod/ Tazobactam Sod (Zosyn 3.375gm/ 100 ml (Pmx)) 100 ml @ 200 mls /hr Q6 IVPB Last administered on 09/24/16 12:46; Admin Dose 200 MLS/HR; Start 09/20/16 at 06:00 Acetaminophen (Tylenol Tab) 650 mg Q6H PRN PO PAIN LEVEL 1-3 OR FEVER Last administered on 09/21/16 23:57; Admin Dose 650 MG; Start 09/20/16 at 03:30 Enoxaparin Sodium (Lovenox) 40 mg DAILY SC ; Start 09/20/16 at 09:00 Diphenhydramine HCl (Benadryl) 25 mg Q6H PRN PO ITCHING Last administered on 23:55; Admin Dose 25 MG; Start 09/21/16 at 00:00 Pantoprazole (Protonix Tab) 40 mg DAILY@06 PO Last administered on 09/24/16 05 :25; Admin Dose 40 MG; Start 09/22/16 at 06:00 Acetaminophen/ Butalbital/ Caffeine (Fioricet) 2 tab Q4H PRN PO cephalgia Last administered on 09/24/16 07:50; Admin Dose 2 TAB; Start 09/22/16 at 15:00 Morphine Sulfate (morphine) 2 mg Q4H PRN IV pain; Start 09/24/16 at 11:30 Acetaminophen/ Hydrocodone Bitart ([place] (5/325)) 2 tab Q4H PRN PO pain; Start 09/24/16 at 11:30 Acetaminophen/ Hydrocodone Bitart ([place] (5/325)) 1 tab Q4H PRN PO pain; Start 09/24/16 at 11:30 CAMILLE TANG September 24, 2016 15:54
[2016-09-24 19:45] VITALS: BP 115/66; RESP 20
[2016-09-25] MEDS: PIPER-TAZO 3.375 GM IV (PMX) 100 ML IVPB SCH ×3 (00:11→12:52)
[2016-09-25] MEDS: SOD CHLORIDE 0.9% 1,000 ML IV SCH ×2 (01:30→05:12)
[2016-09-25] MEDS: ONDANSETRON 4 MG INJ IV PRN ×3 (01:54→12:52)
[2016-09-25] MEDS: HYDROmorphONE 1 MG/ML SYG IV PRN ×5 (01:57→17:22)
[2016-09-25] MEDS: PANTOPRAZOLE (EC) 40 MG TAB PO SCH (05:09)
[2016-09-25 06:23] LABS: ADD SCAN DIFF NO
[2016-09-25 06:34] LABS: BASOPHILS % 0.2 % (0.0-2.0); EOSINOPHILS % 0.7 % (0.0-7.0); HEMATOCRIT 30.6 % (42.0-52.0); HEMOGLOBIN 10.2 g/dl (14.0-18.0); LYMPHOCYTES # 0.9 10^3/ul (0.8-2.9); MEAN CORPUSCULAR HEMOGLOBIN 29.5 pg (29.0-33.0); MEAN CORPUSCULAR HGB CONC 33.3 g/dl (32.0-37.0); MEAN CORPUSCULAR VOLUME 88.4 fl (82.0-101.0); MEAN PLATELET VOLUME 10.6 fl (7.4-10.4); MONOCYTE # 0.2 10^3/ul (0.3-0.9); MONOCYTES % 4.5 % (0.0-11.0); NEUTROPHIL # 3.2 10^3/ul (1.6-7.5); NEUTROPHILS % 74.1 % (39.0-77.0); PLATELET COUNT 188 10^3/UL (140-415); RED BLOOD COUNT 3.46 10^6/ul (4.70-6.10); RED CELL DISTRIBUTION WIDTH 12.1 % (11.5-14.5); WHITE BLOOD COUNT 4.3 10^3/ul (4.8-10.8)
[2016-09-25 06:50] LABS: POTASSIUM 3.6 mmol/L (3.5-5.1)
[2016-09-25 06:53] LABS: CREATININE 0.99 mg/dl (0.61-1.24)
[2016-09-25 06:54] LABS: CALCIUM 8.2 mg/dl (8.4-10.2)
[2016-09-25 07:35] VITALS: BP 114/56; RESP 18
[2016-09-25] MEDS: ENOXAPARIN 40 MG/0.4 ML SYG SC SCH (09:00)
--- NOTE | 2016-09-25 12:57 | CONS ---
Date/Time of Note Date/Time of Note DATE: 09/25/16 TIME: 12:54 Assessment/Plan Assessment/Plan Chief Complaint/Hosp Course Mr. Melisa Andrews is a 26-year-old male that presented at [facility] secondary to fever and headache. Per patient, CT completed at [place] noted diverticulitis. Currently paper CT abdomen and pelvis report notes "sigmoid thickening at a location where there are several diverticula. There is mild perisigmoid edema at this location as well. The findings are probably due to acute sigmoid diverticulitis". Few segments of small intestine are mildly distended.. Patient notes diagnosis with diverticulitis 2 years ago and reports a total of 4 flares up till today since diagnosis. Presently patient denies nausea, vomiting, fever, chills, abdominal pain, diarrhea, sick contacts , and travel outside the [place]. Patient states that he did not feel flare symptoms and denies any pain with eating. Patient reports normal bowel movement yesterday and denies hematochezia or black tarry stools. On exam, patient experiencing lower abdominal tenderness with palpation only. Patient would like to start trial of clears and is currently receiving Zosyn every 6 hours for diverticulitis treatment. Patient does not report previous colonoscopy and significant past medical history other than diverticulitis and migraine headache. Problems: Additional Assessment/Plan * Abdominal pain improved * Diverticulitis,sigmoid Plan * Stable for outpatient management * continue antibiotics for 2 weeks * for elective colonoscopy after 6-8 weeks * Further recommendations depend on clinical course * Patient seen in collaboration with Dr. Ribeiro Consultation Date/Type/Reason Admit Date/Time September 19, 2016 at 22:36 Initial Consult Date 09/20/16 Type of Consultation: Gastroenterology 24 HR Interval Summary Free Text/Dictation Reports abdominal pain with dairy Patient states pain comes and goes and lasts for up to 30 minutes Presently reports headache, and info given to nurse Ordered case management consult for GI follow-up with Dr. Ribeiro Exam/Review of Systems Vital Signs Vitals Vital Signs Date Time Temp Pulse Resp B/P Pulse Ox O2 Delivery O2 Flow Rate FiO2 09/25/16 07:35 98.8 84 18 114/56 93 Intake and Output 09/24/16 09/24/16 09/25/16 15:00 23:00 07:00 Intake Total 2280 ml 1440 ml Balance 2280 ml 1440 ml Exam Constitutional: alert, oriented, well developed Psych: nl mood/affect Head: normocephalic Eyes: EOMI, nl conjunctiva, nl lids ENMT: nl external ears & nose, nl lips & teeth, nl nasal mucosa & septum Respiratory: clear to auscultation, normal air movement Cardiovascular: regular rate and rhythm Gastrointestinal: soft, left lower quadrant tenderness Musculoskeletal: nl extremities to inspection Neurological: RUG CLEANER HAND II-XII intact Results Result Diagram: 09/25/1645 09/25/16 0545 Results 24 hrs Laboratory Tests Test 09/25/16 05:45 White Blood Count 4.3 L Red Blood Count 3.46 L Hemoglobin 10.2 L Hematocrit 30.6 L Mean Corpuscular Volume 88.4 Mean Corpuscular Hemoglobin 29.5 Mean Corpuscular Hemoglobin Concent 33.3 Red Cell Distribution Width 12.1 Platelet Count 188 # Mean Platelet Volume 10.6 H Neutrophils % 74.1 Lymphocytes % 20.0 Monocytes % 4.5 Eosinophils % 0.7 Basophils % 0.2 Nucleated Red Blood Cells % 0.0 Neutrophils # 3.2 Lymphocytes # 0.9 Monocytes # 0.2 L Eosinophils # 0.0 Basophils # 0.0 Nucleated Red Blood Cells # 0.0 Sodium Level 138 Potassium Level 3.6 Chloride Level 104 Carbon Dioxide Level 26 Anion Gap 12 Blood Urea Nitrogen 8 Creatinine 0.99 Glucose Level 86 Calcium Level 8.2 L Medications Medications Current Medications Hydromorphone HCl 1 mg 1 mg Q4H PRN IV PAIN Last administered on 09/25/16 12: 52; Admin Dose 1 MG; Start 09/20/16 at 01:30 Sodium Chloride (NS) 1,000 ml @ 100 mls/hr Q10H IV Last administered on 05:12; Admin Dose 100 MLS/HR; Start 09/20/16 at 01:30 Ondansetron HCl 4 mg 4 mg Q4H PRN IV NAUSEA AND/OR VOMITING Last administered on 09/25/16 12:52; Admin Dose 4 MG; Start 09/20/16 at 03:00 Piperacillin Sod/ Tazobactam Sod (Zosyn 3.375gm/ 100 ml (Pmx)) 100 ml @ 200 mls /hr Q6 IVPB Last administered on 5/12/17at 12:52; Admin Dose 200 MLS/HR; Start 09/20/16 at 06:00 Acetaminophen (Tylenol Tab) 650 mg Q6H PRN PO PAIN LEVEL 1-3 OR FEVER Last administered on 09/21/16 23:57; Admin Dose 650 MG; Start 09/20/16 at 03:30 Enoxaparin Sodium (Lovenox) 40 mg DAILY SC ; Start 09/20/16 at 09:00 Diphenhydramine HCl (Benadryl) 25 mg Q6H PRN PO ITCHING Last administered on 23:55; Admin Dose 25 MG; Start 09/21/16 at 00:00 Pantoprazole (Protonix Tab) 40 mg DAILY@06 PO Last administered on 09/25/16 05 :09; Admin Dose 40 MG; Start 09/22/16 at 06:00 Acetaminophen/ Butalbital/ Caffeine (Fioricet) 2 tab Q4H PRN PO cephalgia Last administered on 09/24/16 07:50; Admin Dose 2 TAB; Start 09/22/16 at 15:00 Morphine Sulfate (morphine) 2 mg Q4H PRN IV pain; Start 09/24/16 at 11:30 Acetaminophen/ Hydrocodone Bitart ([place] (5/325)) 2 tab Q4H PRN PO pain; Start 09/24/16 at 11:30 Acetaminophen/ Hydrocodone Bitart ([place] (5/325)) 1 tab Q4H PRN PO pain; Start 09/24/16 at 11:30 ROBERTO MARTINEZ September 25, 2016 12:57
--- NOTE | 2016-09-25 14:22 | PN ---
DATE: 09/25/2016 SUBJECTIVE: Patient is alert, feels better. Looks comfortable, tolerates a regular diet. No fever s. ANTIMICROBIALS: Zosyn. PHYSICAL EXAMINATION: GENERAL: Well-nourished, well-developed young man who is alert, in no distress. HEENT: Head atraumatic, normocephalic. Sclerae anicteric. Buccal mucosa pink. NECK: Supple, trachea midline. CHEST: Rise symmetrical. Breath sounds clear. HEART: S1, S2. ABDOMEN: Soft. Bowel tones present. ASSESSMENT: 1. Abdominal pain secondary to sigmoid diverticulitis. 2. Systemic inflammatory response syndrome with low grade fevers secondary to above. PLAN: The patient remains stable, anticipate discharge on Flagyl and Cipro when he is cleared by co nsultants. Dictated By: MARIPOSA RODRIGUEZ TRIMMER AND B[employer]ER MACHINE OPERATOR for ADRIANO YADAV MD NI/NTS Conf#: [id number] DID#: [id number]
--- NOTE | 2016-09-25 14:24 | PDOCDIS ---
Discharge Instructions DIAGNOSIS Discharge Diagnosis: 1. Acute sigmoid diverticulitis 2. Acute kidney injury 3. Hypertriglycer CONDITION Patient Condition: Stable FOLLOW UP/APPOINTMENTS Appointments 1. Follow up with Dr. Rafael Ribeiro in one week 2. Follow up with Dr. Margarito Brasher in one week CAMILLE TANG September 25, 2016 14:24
[2016-09-25] MEDS: ACET/BUTAL/CAFF TAB PO PRN (15:04)
== END 2016-09-25 18:25 | disposition home or self-care (01) | DRG 392 ==
LOC: MS2 22:36
PROVIDERS: ADMIT Family Medicine; ATTEND Family Medicine
DX: K57.92 Diverticulitis of intestine, part unspecified, without perforation or abscess without bleeding (principal); N17.9 Acute kidney failure, unspecified; R51 Headache; E78.1 Pure hyperglyceridemia
CPT/HCPCS: 80048; 80053; 80061; 82270; 83036; 83735; 84100; 85025; 87040; C9113; J1170; J1650; J2405; J2543; J7030

== ENCOUNTER 2016-10-23 02:22 | Inpatient (IN) | payer OTHER ==
[~2016-10-23] VITALS: Ht 185.4 cm; Wt 99.0 kg
[~2016-10-23 02:22] MED LIST changes: -BENTYL PO; +FIORICET PO; +HYDR-906 PO; +ONDA4TAB14 PO
[2016-10-23 02:29] VITALS: Ht 185.4 cm; Wt 99.0 kg
--- NOTE | 2016-10-23 02:36 | ERA ---
ER Documentation Chief Complaint Date/Time DATE: 10/23/16 TIME: 02:34 Chief Complaint ABDOMINAL PAIN HPI The patient is a 26-year-old male with recurrent diverticulitis, transferred from [place] emergency department due to insurance reasons. The patient was capitated to [facility]. He had history of frequent diverticulitis. He was admitted in September 2016 for acute diverticulitis. He was seen at [facility] ER 2 days ago and discharged with Cipro and Flagyl. He returned to the ER today because he did not get better. He had multiple CT scan due to history of recurrent diverticulitis and stated that he only had an abdominal x-ray yesterday. However in the [place] ER physician dictation, he had a CT scan of the abdomen and the pelvic 2 days ago that showed acute diverticulitis. He complains of diffuse abdominal pain, more painful at the left lower quadrant, had similar pain when he had diverticulitis. He does not smoke nor drink He was already accepted by the hospitalist Dr. Sepulveda Past medical history: History of diverticulitis, dyslipidemia Past surgical history: Left inguinal herniorrhaphy ROS All systems reviewed and are negative except as per history of present illness. Medications Home Meds Active Scripts Ondansetron (Ondansetron Odt) 4 Mg Tab.rapdis, 4 MG PO Q6H Y for NAUSEA AND/OR VOMITING, #30 TAB Prov:CAMILLE TANG 09/24/16 Hydrocodone/Acetaminophen ([place] 5-325 Tablet) 1 Each Tablet, 1 EACH PO Q4, #20 TAB Prov:CAMILLE TANG 09/24/16 Acetamin/Butalbital/Caffeine* (Fioricet*) [id number] Tab, 2 TAB PO Q4H Y for cephalgia, #30 TAB Prov:REGIDOCAMILLE Narayanan 09/24/16 Metronidazole (Flagyl) 500 Mg Tab, 500 MG PO TID for 14 Days, TAB Prov:REGCAMILLE DOSS 09/24/16 Ciprofloxacin Hcl* (Ciprofloxacin Hcl*) 500 Mg Tablet, 500 MG PO BID, #14 TAB Prov:REGCAMILLE DOSS 09/24/16 Allergies Allergies: Coded Allergies: No Known Allergy (Unverified , 11/21/15) PMhx/Soc History of Surgery: Yes (HERNIA 2 YEARS AG0) Anesthesia Reaction: No Hx Neurological Disorder: No Hx Respiratory Disorders: No Hx Cardiac Disorders: No Hx Psychiatric Problems: No Hx Miscellaneous Medical Probl: Yes (DIVERTICULITIS) Hx Alcohol Use: Yes (SOCIALLY) Hx Substance Use: No Hx Tobacco Use: No Smoking Status: Unknown if ever smoked Physical Exam Vitals Vital Signs Date Time Temp Pulse Resp B/P Pulse Ox O2 Delivery O2 Flow Rate FiO2 10/23/16 02:29 99.1 70 18 115/63 94 Physical Exam Const: No acute distress. Head: Atraumatic. Eyes: Normal Conjunctiva. ENT: Normal External Ears, Nose and Mouth. Neck: Full range of motion. No meningismus. Resp: Clear to auscultation bilaterally. Cardio: Regular rate and rhythm. Abd: Soft, non distended, normal bowel sounds, moderate left lower quadrant tenderness Skin: No petechiae or rashes. Back: No midline or flank tenderness. Ext: No cyanosis, or edema. Neur: Awake and alert. No focal deficit Psych: Normal Mood and Affect. Results 24 hrs Current Medications Medications (Trade) Dose Ordered Sig/Bernie Route PRN Reason Start Time Stop Time Status Last Admin Dose Admin Sodium Chloride (NS) 1,000 ml @ 1,000 mls/hr Q1H ONCE IV 10/23/16 03:00 10/23/16 03:59 10/23/16 03:06 Hydromorphone HCl (Dilaudid) 1 mg ONCE STAT IV 10/23/16 02:45 10/23/16 02:46 DC 10/23/16 03:06 Ondansetron HCl (Zofran Inj) 4 mg ONCE STAT IV 10/23/16 02:45 10/23/16 02:46 DC 10/23/16 03:06 Procedures/MDM MEDICAL MAKING DECISION: The patient is a 36-year-old male, presenting with recurrent diverticulitis. He was already treated with IV fluids, Dilaudid IV, Zofran IV, Levaquin IV and Flagyl IV prior to being transferred to [facility] ER. He was treated with Dilaudid 1 mg IV for pain, Zofran 4 mg IV nausea and 1 L normal saline for clinical dehydration with good response Repeat labs are pending Departure Diagnosis: Primary Impression: Diverticulitis Condition: Stable Comments I discussed the findings with the patient. I discussed the patient with the on- call hospitalist Dr. Sepulveda at 3 AM who was made aware of the pending lab, the treatment, the patient condition. The patient is admitted to MIKE JACKSON MD Oct 23, 2016 02:36 MIKE HERNANDEZ MD Oct 23, 2016 02:36
[2016-10-23] MEDS ORDERED: HYDROmorphONE 1 MG/ML SYG IV STA (02:45)
[2016-10-23] MEDS ORDERED: ONDANSETRON 4 MG INJ IV STA (02:45)
[2016-10-23] MEDS ORDERED: SOD CHLORIDE 0.9% 1,000 ML IV ONE (03:00)
[2016-10-23] MEDS ORDERED: CIPR500T4 PO (04:17)
[2016-10-23] MEDS ORDERED: METR500T14 PO (04:17)
[2016-10-23] MEDS ORDERED: MULTI PO (04:17)
[2016-10-23] MEDS ORDERED: MULT-861 PO (04:27)
[2016-10-23] MEDS ORDERED: ACET-820 PO (04:32)
[2016-10-23] MEDS ORDERED: morphine 2 MG INJ IV PRN (05:00)
[2016-10-23] MEDS ORDERED: NACL 0.9% 3 ML SYG IV SCH (05:00)
[2016-10-23] MEDS: PIPER-TAZO 3.375 GM IV (PMX) 100 ML IVPB SCH ×4 (05:08→23:40)
[2016-10-23] MEDS: DEXTROSE 5%-0.45% NACL 1,000 ML IV SCH ×3 (05:08→23:10)
[2016-10-23 05:21] LABS: ADD SCAN DIFF NO
[2016-10-23 05:23] LABS: BASOPHILS % 0.3 % (0.0-2.0); EOSINOPHILS # 0.1 10^3/ul (0.0-0.5); HEMATOCRIT 35.2 % (42.0-52.0); HEMOGLOBIN 11.7 g/dl (14.0-18.0); LYMPHOCYTES # 1.8 10^3/ul (0.8-2.9); LYMPHOCYTES % 24.5 % (15.0-51.0); MEAN CORPUSCULAR HEMOGLOBIN 29.4 pg (29.0-33.0); MEAN CORPUSCULAR HGB CONC 33.2 g/dl (32.0-37.0); MEAN CORPUSCULAR VOLUME 88.4 fl (82.0-101.0); MEAN PLATELET VOLUME 9.4 fl (7.4-10.4); MONOCYTE # 0.6 10^3/ul (0.3-0.9); MONOCYTES % 8.4 % (0.0-11.0); NEUTROPHIL # 4.8 10^3/ul (1.6-7.5); NEUTROPHILS % 65.7 % (39.0-77.0); PLATELET COUNT 170 10^3/UL (140-415); RED BLOOD COUNT 3.98 10^6/ul (4.70-6.10); RED CELL DISTRIBUTION WIDTH 12.3 % (11.5-14.5); WHITE BLOOD COUNT 7.4 10^3/ul (4.8-10.8)
[2016-10-23] MEDS: ONDANSETRON 4 MG INJ IV PRN ×2 (05:32→16:05)
[2016-10-23 05:38] LABS: ALBUMIN 4.2 g/dl (3.3-4.9); ALBUMIN/GLOBULIN RATIO 1.75; BILIRUBIN,INDIRECT 0.3 mg/dl (0-1.1); BILIRUBIN,TOTAL 0.3 mg/dl (0.2-1.3); CALCIUM 8.6 mg/dl (8.4-10.2); CREATININE 1.1 mg/dl (0.61-1.24); POTASSIUM 4.5 mmol/L (3.5-5.1); TOTAL PROTEIN 6.6 g/dl (6.1-8.1)
[2016-10-23] MEDS: morphine 4 MG/ML VIAL IV PRN ×4 (08:00→20:00)
--- NOTE | 2016-10-23 08:30 | HP ---
DATE OF ADMISSION: 10/23/2016 TIME SEEN: 6 a.m. CHIEF COMPLAINT: Abdominal pain and diverticulitis. HISTORY OF PRESENT ILLNESS: The patient is a 26-year-old male with a history of recurrent diverticu litis and probable migraine headache who was transferred from an outside hospital for abdominal pain and diverticulitis. The patient was just admitted here a month ago for about a week and was discha rged on 09/25/2016. At that time, he presented with abdominal pain and found to have a sigmoid dive rticulitis and also he was febrile. The patient was seen in consultation with the specialists. He was offered elective colon resection due to the recurrent nature of his diverticulitis; however, he refused, but said he would follow up as outpatient. Yesterday he went to an outside hospital for ab dominal pain, and imaging shows sigmoid diverticulitis. He was febrile with a temperature of 102.3. Since the patient is capitated to the hospital, he was transferred here. Denies nausea, vomiting, chest pain, shortness of breath. REVIEW OF SYSTEMS: A 12-point review was performed, negative except as mentioned in the HPI. PAST MEDICAL HISTORY: As per HPI. PAST SURGICAL HISTORY: Hernia repair. SOCIAL HISTORY: Denied a history of tobacco or illicit drug use, but drinks alcohol occasionally. ALLERGIES: NO KNOWN DRUG ALLERGIES. HOME MEDICATIONS: 1. Tylenol 4. 2. Zofran. 3. Multivitamin. 4. Recently he has been started on Cipro and Flagyl. PHYSICAL EXAMINATION: VITAL SIGNS: Stable. GENERAL: No acute distress, answering questions appropriately, alert and oriented. HEENT: No obvious head deformity. Pupils react to light. Extraocular muscles intact. CARDIOVASCULAR: Regular rate and rhythm with no extra sounds. LUNGS: Clear. ABDOMEN: Soft. There is tenderness to palpation with no guarding, rebound tenderness, or rigidity. EXTREMITIES: No edema. NEUROLOGIC: No focal deficits. LABORATORY DATA: Hemoglobin 11.7, which is his baseline. Otherwise, CBC and CMP are within normal limits. IMPRESSION: 1. Recurrent diverticulitis. 2. Normocytic anemia, evaluate for iron deficiency and GI bleed. 3. History of triglyceridemia. PLAN: Will keep n.p.o. for now with IV fluids. He will be placed on Zosyn. We will provide pain m edication as needed. Will work up his anemia by sending iron studies and FOBT. The patient's labs from recent hospitalization shows elevated triglycerides and as such, will start him on a medication for that. Further workup and management per clinical course. Dictated By: EUFEMIA ASTORGA/JOSE Conf#: [id number] DID#: [id number]
[2016-10-23 17:15] VITALS: PULSE 61
[2016-10-23 17:47] VITALS: BP 121/68; RESP 20
[2016-10-23 19:53] VITALS: BP 108/59; RESP 20
[2016-10-23] MEDS: KETOROLAC 30 MG INJ IV PRN (21:50)
[2016-10-23 23:20] LABS: ADD UMIC NO; URINE BILIRUBIN (Dip) NEGATIVE (NEGATIVE); URINE BLOOD (Dip) NEGATIVE (NEGATIVE); URINE COLOR LT. YELLOW (YELLOW); URINE GLUCOSE (Dip) NEGATIVE (NEGATIVE); URINE KETONES (Dip) NEGATIVE (NEGATIVE); URINE LEUKOCYTE ESTERASE (Dip) NEGATIVE (NEGATIVE); URINE NITRITE (Dip) NEGATIVE (NEGATIVE); URINE TOTAL PROTEIN (Dip) NEGATIVE (NEGATIVE); URINE UROBILINOGEN (Dip) 0.2 E.U./dL (0.1-1.0)
[2016-10-24] MEDS: morphine 4 MG/ML VIAL IV PRN ×4 (03:54→18:09)
[2016-10-24] MEDS: ONDANSETRON 4 MG INJ IV PRN (03:55)
[2016-10-24] MEDS: DEXTROSE 5%-0.45% NACL 1,000 ML IV SCH ×4 (04:57→20:13)
[2016-10-24] MEDS: PIPER-TAZO 3.375 GM IV (PMX) 100 ML IVPB SCH ×4 (05:35→23:48)
[2016-10-24 05:44] LABS: ADD SCAN DIFF NO
[2016-10-24 05:51] LABS: BASOPHILS % 0.4 % (0.0-2.0); EOSINOPHILS # 0.1 10^3/ul (0.0-0.5); EOSINOPHILS % 1.9 % (0.0-7.0); HEMATOCRIT 36.6 % (42.0-52.0); HEMOGLOBIN 12.2 g/dl (14.0-18.0); LYMPHOCYTES # 1.6 10^3/ul (0.8-2.9); LYMPHOCYTES % 33.5 % (15.0-51.0); MEAN CORPUSCULAR HEMOGLOBIN 29.5 pg (29.0-33.0); MEAN CORPUSCULAR HGB CONC 33.3 g/dl (32.0-37.0); MEAN CORPUSCULAR VOLUME 88.4 fl (82.0-101.0); MEAN PLATELET VOLUME 9.4 fl (7.4-10.4); MONOCYTE # 0.4 10^3/ul (0.3-0.9); NEUTROPHIL # 2.6 10^3/ul (1.6-7.5); NEUTROPHILS % 55.2 % (39.0-77.0); PLATELET COUNT 197 10^3/UL (140-415); RED BLOOD COUNT 4.14 10^6/ul (4.70-6.10); RED CELL DISTRIBUTION WIDTH 12.3 % (11.5-14.5); WHITE BLOOD COUNT 4.7 10^3/ul (4.8-10.8)
[2016-10-24 06:12] LABS: CALCIUM 9.1 mg/dl (8.4-10.2); CREATININE 1.04 mg/dl (0.61-1.24); POTASSIUM 4.1 mmol/L (3.5-5.1)
[2016-10-24 06:30] LABS: MAGNESIUM 1.9 mg/dl (1.7-2.5); PHOSPHORUS 4.6 mg/dl (2.5-4.9)
[2016-10-24 07:58] VITALS: BP 110/66; RESP 18
--- NOTE | 2016-10-24 10:32 | PN ---
Date/Time of Note Date/Time of Note DATE: 10/24/16 TIME: 10:19 Assessment/Plan VTE Prophylaxis VTE Prophylaxis Intervention: ambulation Lines/Catheters IV Catheter Type (from Nrsg): Peripheral IV Assessment/Plan Chief Complaint/Hosp Course Assessment/Plan: 1. Recurrent diverticulitis. Continue on abx. still with pain. Will get pain management physician to follow. Will consult surgery again. , 2. Normocytic anemia. Iron panel pending. anemia stable at present. Will monitor for now 3. History of triglyceridemia. Follow up on fasting lipid panel Disposition and Plan: continue on abx. Will get surgical consult and painter plate to follow Discussed plan of care with Dr. Cali Problems: Subjective 24 Hr Interval Summary Free Text/Dictation still reports having pain on abdomen, however appears comfortable Exam/Review of Systems Vital Signs Vitals Vital Signs Date Time Temp Pulse Resp B/P Pulse Ox O2 Delivery O2 Flow Rate FiO2 10/24/16 07:58 98.6 67 18 110/66 97 10/23/16 17:15 Room Air Intake and Output 10/23/16 10/23/16 10/24/16 15:00 23:00 07:00 Intake Total 550 ml 1425 ml Output Total 350 ml Balance 550 ml 1075 ml Exam Constitutional: alert, oriented Head: normocephalic Neck: supple, No jvd Respiratory: clear to auscultation Cardiovascular: regular rate and rhythm Gastrointestinal: soft, tender Neurological: SAUTE CHEF II-XII intact, nl mental status, nl speech Skin: nl turgor Results Result Diagram: 10/24/16 0523 10/24/16 0523 Results 24 hrs Laboratory Tests Test 10/23/16 21:50 10/24/16 05:23 Urine Color LT. YELLOW Urine Clarity CLEAR Urine pH 6.0 Urine Specific [place] 1.010 Urine Ketones NEGATIVE Urine Nitrite NEGATIVE Urine Bilirubin NEGATIVE Urine Urobilinogen 0.2 E.U./dL Urine Leukocyte Esterase NEGATIVE Urine Hemoglobin NEGATIVE Urine Glucose NEGATIVE Urine Total Protein NEGATIVE White Blood Count 4.7 #L Red Blood Count 4.14 L Hemoglobin 12.2 L Hematocrit 36.6 L Mean Corpuscular Volume 88.4 Mean Corpuscular Hemoglobin 29.5 Mean Corpuscular Hemoglobin Concent 33.3 Red Cell Distribution Width 12.3 Platelet Count 197 Mean Platelet Volume 9.4 Neutrophils % 55.2 Lymphocytes % 33.5 Monocytes % 9.0 Eosinophils % 1.9 Basophils % 0.4 Nucleated Red Blood Cells % 0.0 Neutrophils # 2.6 Lymphocytes # 1.6 Monocytes # 0.4 Eosinophils # 0.1 Basophils # 0.0 Nucleated Red Blood Cells # 0.0 Sodium Level 143 Potassium Level 4.1 Chloride Level 106 Carbon Dioxide Level 30 Anion Gap 11 Blood Urea Nitrogen 7 Creatinine 1.04 Glucose Level 95 Calcium Level 9.1 Phosphorus Level 4.6 Magnesium Level 1.9 Medications Medications Current Medications Dextrose/Sodium Chloride (D5-1/2ns) 1,000 ml @ 125 mls/hr Q8H IV Last administered on 10/23/16 23:10; Admin Dose 125 MLS/HR; Start 10/23/16 at 04:57 Ondansetron HCl 4 mg 4 mg Q6H PRN IV NAUSEA AND/OR VOMITING Last administered on 10/24/16 03:55; Admin Dose 4 MG; Start 10/23/16 at 05:00 Piperacillin Sod/ Tazobactam Sod (Zosyn 3.375gm/ 100 ml (Pmx)) 100 ml @ 200 mls /hr Q6 IVPB Last administered on 10/24/16 05:35; Admin Dose 200 MLS/HR; Start 10/23/16 at 05:00 Morphine Sulfate (morphine) 4 mg Q4H PRN IV SEVERE PAIN LEVEL 7-10 Last administered on 10/24/16 08:18; Admin Dose 4 MG; Start 10/23/16 at 08:00 Ketorolac Tromethamine (Toradol) 30 mg Q6H PRN IV PAIN Last administered on 10/23 21:50; Admin Dose 30 MG; Start 10/23/16 at 20:30; Stop 10/26/16 at 20:29 CAMILLE TANG Oct 24, 2016 10:31
[2016-10-24] MEDS: KETOROLAC 30 MG INJ IV PRN ×2 (10:33→15:51)
[2016-10-24 11:10] LABS: IRON 63 ug/dl (35-150)
[2016-10-24 11:11] LABS: CHOL/HDL RATIO 6.4 RATIO
[2016-10-24 11:19] LABS: TOTAL IRON BINDING CAPACITY 257 ug/dl (241-421)
--- NOTE | 2016-10-24 19:27 | CONS ---
Date/Time of Note Date/Time of Note DATE: 10/24/16 TIME: 19:21 Assessment/Plan Assessment/Plan Chief Complaint/Hosp Course 26-year-old male with recurrent acute sigmoid diverticulitis * Continue broad-spectrum intravenous antibiotics, IV fluid hydration, pain control * Patient with minimal left lower quadrant pain at this time. Start on clear liquids. * Again recommend colonoscopy in 6 weeks after resolution of acute inflammatory phase to evaluate the rest of the colon * This is now the fifth attack of recurrent diverticulitis for this young patient. I again strongly recommended elective colon resection to prevent further attacks and complications associated with recurrent diverticulitis. The patient verbalizes understanding and agrees. Prefer to do this in outpatient setting upon resolution of acute inflammatory phase in order to minimize the possibility of colostomy. Further recommendations will be made based on patient's clinical course Problems: Consultation Date/Type/Reason Admit Date/Time Oct 23, 2016 at 02:56 Date of Consultation: Oct 24, 2016 Type of Consultation: GENERAL SURGERY Reason for Consultation Recurrent sigmoid diverticulitis Hx of Present Illness Patient is an overweight 26-year-old male with a known history of recurrent sigmoid diverticulitis who was transferred from [facility] with a recurrent attack of diverticulitis. Patient presented there with a 2 day history of fever and left lower quadrant abdominal pain. He was initially seen in the emergency room and sent home, however, returned with increasing symptoms. CT scan of the abdomen and pelvis which was done showed mild sigmoid diverticulitis without abscess. Patient was transferred to [facility] for insurance reasons. The patient was recently admitted here approximately 1 month ago for similar symptoms and was managed successfully nonoperatively. He was scheduled to follow-up with combination welder for colonoscopy prior to the onset of the most recent symptoms. Currently states he feels better with improvement in his pain. He has been afebrile here without leukocytosis A 14 point review of systems was conducted and was negative except for that which is mentioned in HPI Past Medical History As in HPI Past Surgical History Past Surgical Hx: other Social History Smoking Status: Never smoker Exam/Review of Systems Vital Signs Vitals Vital Signs Date Time Temp Pulse Resp B/P Pulse Ox O2 Delivery O2 Flow Rate FiO2 10/24/16 07:58 98.6 67 18 110/66 97 10/23/16 17:15 Room Air Intake and Output 10/23/16 10/23/16 10/24/16 15:00 23:00 07:00 Intake Total 550 ml 1425 ml Output Total 350 ml Balance 550 ml 1075 ml Exam GENERAL: Awake, alert, oriented x 3. No acute distress. SKIN: No jaundice. HEENT: PERRLA, EOMI, No Scleral Icterus NECK: Supple without JVD CARDIOVASCULAR: S1S2, regular rate and rhythm. No murmurs appreciated. RESPIRATORY: Clear to auscultation bilaterally. ABDOMEN: Obese, soft, bowel sounds present, nondistended, mild left lower quadrant tenderness to deep palpation without any rebound or guarding. No signs of diffuse peritonitis. EXTREMITIES: Free range of motion x 4. No cyanosis, edema, or clubbing. NEUROLOGIC: Cranial nerves II-XII are intact. Sensation is intact grossly. Results Result Diagram: 10/24/1652210/24/16522 Results 24 hrs Laboratory Tests Test 10/23/16 21:50 10/24/16 05:23 10/24/16 05:35 Urine Color LT. YELLOW Urine Clarity CLEAR Urine pH 6.0 Urine Specific [place] 1.010 Urine Ketones NEGATIVE Urine Nitrite NEGATIVE Urine Bilirubin NEGATIVE Urine Urobilinogen 0.2 E.U./dL Urine Leukocyte Esterase NEGATIVE Urine Hemoglobin NEGATIVE Urine Glucose NEGATIVE Urine Total Protein NEGATIVE White Blood Count 4.7 #L Red Blood Count 4.14 L Hemoglobin 12.2 L Hematocrit 36.6 L Mean Corpuscular Volume 88.4 Mean Corpuscular Hemoglobin 29.5 Mean Corpuscular Hemoglobin Concent 33.3 Red Cell Distribution Width 12.3 Platelet Count 197 Mean Platelet Volume 9.4 Neutrophils % 55.2 Lymphocytes % 33.5 Monocytes % 9.0 Eosinophils % 1.9 Basophils % 0.4 Nucleated Red Blood Cells % 0.0 Neutrophils # 2.6 Lymphocytes # 1.6 Monocytes # 0.4 Eosinophils # 0.1 Basophils # 0.0 Nucleated Red Blood Cells # 0.0 Sodium Level 143 Potassium Level 4.1 Chloride Level 106 Carbon Dioxide Level 30 Anion Gap 11 Blood Urea Nitrogen 7 Creatinine 1.04 Glucose Level 95 Calcium Level 9.1 Phosphorus Level 4.6 Magnesium Level 1.9 Triglycerides Level 215 H Cholesterol Level 148 LDL Cholesterol, Calculated 82 HDL Cholesterol 23 L Cholesterol/HDL Ratio 6.4 Iron Level 63 Total Iron Binding Capacity 257 Percent Iron Saturation 25 Medications Medications Current Medications Dextrose/Sodium Chloride (D5-1/2ns) 1,000 ml @ 125 mls/hr Q8H IV Last administered on 10/24/16 10:19; Admin Dose 125 MLS/HR; Start 10/23/16 at 04:57 Ondansetron HCl 4 mg 4 mg Q6H PRN IV NAUSEA AND/OR VOMITING Last administered on 10/24/16 03:55; Admin Dose 4 MG; Start 10/23/16 at 05:00 Piperacillin Sod/ Tazobactam Sod (Zosyn 3.375gm/ 100 ml (Pmx)) 100 ml @ 200 mls /hr Q6 IVPB Last administered on 10/24/16 18:08; Admin Dose 200 MLS/HR; Start 10/23/16 at 05:00 Morphine Sulfate (morphine) 4 mg Q4H PRN IV SEVERE PAIN LEVEL 7-10 Last administered on 10/24/16 18:09; Admin Dose 4 MG; Start 10/23/16 at 08:00 Ketorolac Tromethamine (Toradol) 30 mg Q6H PRN IV PAIN Last administered on 15:51; Admin Dose 30 MG; Start 10/23/16 at 20:30; Stop 10/26/16 at 20:29 MIKE MONTENEGRO MD Oct 24, 2016 19:27
[2016-10-24 19:31] VITALS: BP 124/70; RESP 20
[2016-10-24] MEDS: DOCUSATE SODIUM 100 MG CAP PO SCH (20:11)
[2016-10-24] MEDS: ACETAMINOPHEN 1000MG/100ML IV 100 ML IVPB SCH ×2 (21:00→22:29)
[2016-10-24] MEDS: METHYLPREDNISOLONE 125 MG INJ IV SCH (21:30)
[2016-10-24] MEDS: HYDROmorphONE 2 MG/ML SYG IV PRN (21:32)
[2016-10-25] MEDS: HYDROmorphONE 2 MG/ML SYG IV PRN ×6 (01:35→21:54)
[2016-10-25] MEDS: ACETAMINOPHEN 1000MG/100ML IV 100 ML IVPB SCH ×4 (03:41→20:41)
[2016-10-25] MEDS: DEXTROSE 5%-0.45% NACL 1,000 ML IV SCH ×4 (04:57→15:28)
[2016-10-25] MEDS: PIPER-TAZO 3.375 GM IV (PMX) 100 ML IVPB SCH ×4 (05:34→23:52)
[2016-10-25] MEDS: METHYLPREDNISOLONE 125 MG INJ IV SCH ×3 (05:34→21:54)
[2016-10-25 05:59] LABS: ADD SCAN DIFF NO
[2016-10-25 06:14] LABS: ABNORMAL IP MESSAGE 1; HEMATOCRIT 38.3 % (42.0-52.0); HEMOGLOBIN 13.3 g/dl (14.0-18.0); LYMPHOCYTES # 0.6 10^3/ul (0.8-2.9); LYMPHOCYTES % 11.6 % (15.0-51.0); MEAN CORPUSCULAR HEMOGLOBIN 29.7 pg (29.0-33.0); MEAN CORPUSCULAR HGB CONC 34.7 g/dl (32.0-37.0); MEAN CORPUSCULAR VOLUME 85.5 fl (82.0-101.0); MEAN PLATELET VOLUME 9.4 fl (7.4-10.4); MONOCYTES % 0.4 % (0.0-11.0); NEUTROPHIL # 4.2 10^3/ul (1.6-7.5); NEUTROPHILS % 87.8 % (39.0-77.0); PLATELET COUNT 259 10^3/UL (140-415); RED BLOOD COUNT 4.48 10^6/ul (4.70-6.10); RED CELL DISTRIBUTION WIDTH 11.8 % (11.5-14.5); WHITE BLOOD COUNT 4.8 10^3/ul (4.8-10.8)
[2016-10-25 06:43] LABS: CALCIUM 9.6 mg/dl (8.4-10.2); CREATININE 0.96 mg/dl (0.61-1.24); POTASSIUM 4.1 mmol/L (3.5-5.1)
[2016-10-25 07:41] VITALS: BP 123/57; RESP 18
[2016-10-25] MEDS: DOCUSATE SODIUM 100 MG CAP PO SCH ×3 (08:47→20:42)
--- NOTE | 2016-10-25 10:28 | PN ---
Date/Time of Note Date/Time of Note DATE: 10/25/16 TIME: 10:25 Assessment/Plan VTE Prophylaxis VTE Prophylaxis Intervention: SCD's Lines/Catheters IV Catheter Type (from Nrs): Peripheral IV Assessment/Plan Chief Complaint/Hosp Course Assessment/Plan: 1. Recurrent diverticulitis. Continue on abx. Pain management physician is following. Continue the recommendations. Surgeon also following. Plan for outpatient surgical intervention once acute inflammatory stage improved 2. Normocytic anemia. Stable at present. Will monitor for now. 3. History of triglyceridemia. Start on atorvastatin Disposition and Plan: Continue antibiotics and analgesics. Await for clinical improvement. On clear liquid diet now. Will advance diet once pain subsides. Tentative plan for outpatient surgical intervention once acute inflammatory process improved. Discussed plan of care with Dr. Cali Problems: Subjective 24 Hr Interval Summary Free Text/Dictation Reports some abdominal pain but little less today. States it is 6 out of 10 in intensity Exam/Review of Systems Vital Signs Vitals Vital Signs Date Time Temp Pulse Resp B/P Pulse Ox O2 Delivery O2 Flow Rate FiO2 10/25/16 07:41 98.4 77 18 123/57 92 10/23/16 17:15 Room Air Intake and Output 10/24/16 10/24/16 10/25/16 15:00 23:00 07:00 Intake Total 1200 ml 2640 ml Output Total 1450 ml 2400 ml Balance -250 ml 240 ml Exam Constitutional: alert, oriented Psych: nl mood/affect Head: normocephalic Neck: supple Respiratory: clear to auscultation, normal air movement Cardiovascular: regular rate and rhythm Gastrointestinal: soft, tender Extremities: normal pulses Neurological: 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 intact, nl mental status, nl speech Skin: nl turgor Results Result Diagram: 10/25/1628 10/25/1628 Results 24 hrs Laboratory Tests Test 10/25/16 05:28 White Blood Count 4.8 Red Blood Count 4.48 L Hemoglobin 13.3 L Hematocrit 38.3 L Mean Corpuscular Volume 85.5 Mean Corpuscular Hemoglobin 29.7 Mean Corpuscular Hemoglobin Concent 34.7 Red Cell Distribution Width 11.8 Platelet Count 259 # Mean Platelet Volume 9.4 Neutrophils % 87.8 H Lymphocytes % 11.6 L Monocytes % 0.4 Eosinophils % 0.0 Basophils % 0.0 Nucleated Red Blood Cells % 0.0 Neutrophils # 4.2 Lymphocytes # 0.6 L Monocytes # 0.0 L Eosinophils # 0.0 Basophils # 0.0 Nucleated Red Blood Cells # 0.0 Sodium Level 144 Potassium Level 4.1 Chloride Level 105 Carbon Dioxide Level 28 Anion Gap 15 Blood Urea Nitrogen 7 Creatinine 0.96 Glucose Level 139 # Calcium Level 9.6 Medications Medications Current Medications Dextrose/Sodium Chloride (D5-1/2ns) 1,000 ml @ 125 mls/hr Q8H IV Last administered on 10/25/16 06:25; Admin Dose 125 MLS/HR; Start 10/23/16 at 04:57 Ondansetron HCl 4 mg 4 mg Q6H PRN IV NAUSEA AND/OR VOMITING Last administered on 10/24/16 03:55; Admin Dose 4 MG; Start 10/23/16 at 05:00 Piperacillin Sod/ Tazobactam Sod (Zosyn 3.375gm/ 100 ml (Pmx)) 100 ml @ 200 mls /hr Q6 IVPB Last administered on 10/25/16 05:34; Admin Dose 200 MLS/HR; Start 10/23/16 at 05:00 Docusate Sodium 100 mg 100 mg TID PO Last administered on 10/25/16 08:47; Admin Dose 100 MG; Start 10/24/16 at 21:00 Acetaminophen (Ofirmev 1000mg/ 100ml Iv) 100 ml @ 400 mls/hr Q6H IVPB Last administered on 10/25/16 08:47; Admin Dose 400 MLS/HR; Start 10/24/16 at 21:00 Hydromorphone HCl (Dilaudid) 2 mg Q4H PRN IV PAIN Last administered on 09:41; Admin Dose 2 MG; Start 10/24/16 at 21:00 Methylprednisolone Sodium Succinate (Solu-Medrol) 60 mg Q8 IV Last administered on 10/25/16 05:34; Admin Dose 60 MG; Start 10/24/16 at 22:00 Atorvastatin Calcium (Lipitor) 40 mg HS PO ; Start 10/25/16 at 21:00 CAMILLE TANG Oct 25, 2016 10:28
--- NOTE | 2016-10-25 11:47 | PN ---
Date/Time of Note Date/Time of Note DATE: 10/25/16 TIME: 11:45 Assessment/Plan Lines/Catheters IV [facility] (from [facility]): Peripheral IV Assessment/Plan Assessment/Plan 26-year-old male with recurrent acute sigmoid diverticulitis * Continue broad-spectrum intravenous antibiotics, IV fluid hydration, pain control * Clinically improving. Advance to low residual diet as tolerated. * Again recommend colonoscopy in 6 weeks after resolution of acute inflammatory phase to evaluate the rest of the colon * This is now the fifth attack of recurrent diverticulitis for this young patient. I again strongly recommended elective colon resection to prevent further attacks and complications associated with recurrent diverticulitis. The patient verbalizes understanding and agrees. Prefer to do this in outpatient setting upon resolution of acute inflammatory phase in order to minimize the possibility of colostomy. * Recommend bowel regimen and dietary education for patient upon discharge. Further recommendations will be made based on patient's clinical course Subjective 24 Hr Interval Summary Mild lower abdominal pain which is intermittent and controlled with medication. Tolerating clear liquids. Positive flatus. Afebrile. Exam/Review of Systems Vital Signs Vitals Vital Signs Date Time Temp Pulse Resp B/P Pulse Ox O2 Delivery O2 Flow Rate FiO2 10/25/16 07:41 98.4 77 18 123/57 92 10/23/16 17:15 Room Air Intake and Output 10/24/16 10/24/16 10/25/16 15:00 23:00 07:00 Intake Total 1200 ml 2640 ml Output Total 1450 ml 2400 ml Balance -250 ml 240 ml Exam Free Text/Dictation GENERAL: Awake, alert, oriented x 3. No acute distress. SKIN: No jaundice. HEENT: PERRLA, EOMI, No Scleral Icterus CARDIOVASCULAR: S1S2, regular rate and rhythm. No murmurs appreciated. RESPIRATORY: Clear to auscultation bilaterally. ABDOMEN: Obese, soft, bowel sounds present, nondistended, minimal suprapubic tenderness to deep palpation without any rebound or guarding. No signs of diffuse peritonitis. EXTREMITIES: Free range of motion x 4. No cyanosis, edema, or clubbing. Results Result Diagram: 10/25/16 0528 10/25/16 0528 MIKE MONTENEGRO MD Oct 25, 2016 11:47
[2016-10-25 20:08] VITALS: BP 124/68; RESP 18
[2016-10-25] MEDS: ATORVASTATIN 40 MG TAB PO SCH (20:40)
[2016-10-26] MEDS: DEXTROSE 5%-0.45% NACL 1,000 ML IV SCH ×4 (01:53→20:41)
[2016-10-26] MEDS: HYDROmorphONE 2 MG/ML SYG IV PRN ×6 (01:56→22:01)
[2016-10-26] MEDS: ACETAMINOPHEN 1000MG/100ML IV 100 ML IVPB SCH ×4 (03:19→20:41)
[2016-10-26 05:43] LABS: ADD SCAN DIFF NO
[2016-10-26] MEDS: ONDANSETRON 4 MG INJ IV PRN (05:46)
[2016-10-26] MEDS: PIPER-TAZO 3.375 GM IV (PMX) 100 ML IVPB SCH ×4 (05:51→23:37)
[2016-10-26 06:02] LABS: BASOPHILS % 0.1 % (0.0-2.0); HEMATOCRIT 39.3 % (42.0-52.0); HEMOGLOBIN 13.1 g/dl (14.0-18.0); LYMPHOCYTES % 9.6 % (15.0-51.0); MEAN CORPUSCULAR HEMOGLOBIN 29.4 pg (29.0-33.0); MEAN CORPUSCULAR HGB CONC 33.3 g/dl (32.0-37.0); MEAN CORPUSCULAR VOLUME 88.3 fl (82.0-101.0); MEAN PLATELET VOLUME 9.5 fl (7.4-10.4); MONOCYTES % 3.2 % (0.0-11.0); NEUTROPHIL # 10.8 10^3/ul (1.6-7.5); NEUTROPHILS % 86.7 % (39.0-77.0); PLATELET COUNT 273 10^3/UL (140-415); RED BLOOD COUNT 4.45 10^6/ul (4.70-6.10); RED CELL DISTRIBUTION WIDTH 12.3 % (11.5-14.5); WHITE BLOOD COUNT 12.4 10^3/ul (4.8-10.8)
[2016-10-26 06:03] LABS: LYMPHOCYTES # 1.2 10^3/ul (0.8-2.9); MONOCYTE # 0.4 10^3/ul (0.3-0.9)
[2016-10-26 06:18] LABS: CREATININE 0.9 mg/dl (0.61-1.24); POTASSIUM 4.8 mmol/L (3.5-5.1)
[2016-10-26 07:21] VITALS: BP 105/73; RESP 18
[2016-10-26] MEDS: DOCUSATE SODIUM 100 MG CAP PO SCH ×3 (08:58→20:41)
--- NOTE | 2016-10-26 10:07 | CONS ---
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 Will add relistor to his current medical management. Consultation Date/Type/Reason Admit Date/Time Oct 23, 2016 at 02:56 Type of Consultation: Pain management Hx of Present Illness This is a 26-year-old male who is a long-standing history of diverticulitis and recurrent hospitalizations for the above. Patient has reviewed any surgical and interventions in the past. Described his pain is generalized abdominal discomfort primarily in bilateral lower quadrants. Disguises pain as 7/10 at rest with some alleviation of his pain down to moderate with current medications , dilaudid 2 mg Q4 as needed and ultram 50 mg Q6 hours as needed. Patient is not taking anything by mouth at this time. He states it's interferes with his physical functioning but not family relationship social relationship his mood is positive. Sleeping patterns overall functioning has not been affected during his hospitalization. Deny systemic symptoms of nausea vomiting itching mental cloudiness fatigue drowsiness. Patient is a non-smoker nondrinker there's no past history of purposeful oversedation. He takes only [place] as an outpatient. Is no history of intoxication involvement in car accidents drug treatment programs family history of addictions. He is bargaining with me to change his current control pain control medications but not excessively high doses. Denies use of any illicit drugs prior to this hospitalization. Constitutional: improved, no complaints Eyes: no complaints ENT: no complaints Respiratory: no complaints Cardiovascular: no complaints Gastrointestinal: no complaints Genitourinary: no complaints Musculoskeletal: no complaints Neurologic: no complaints Psychological: nl mood/affect Past Surgical History Past Surgical Hx: no surgical history, other Family History Significant Family History: no pertinent family hx Social History Alcohol Use: none Smoking Status: Never smoker Drug Use: none Exam/Review of Systems Vital Signs Vitals Vital Signs Date Time Temp Pulse Resp B/P Pulse Ox O2 Delivery O2 Flow Rate FiO2 10/26/16 07:21 97.6 69 18 105/73 95 10/23/16 17:15 Room Air Intake and Output 10/25/16 10/25/1610/26/17 15:00 23:00 07:00 Intake Total 200 ml 3120 ml 1845 ml Output Total 2000 ml 1300 ml Balance 200 ml 1120 ml 545 ml Exam Constitutional: alert, oriented, well developed Head: atraumatic, normocephalic Respiratory: clear to auscultation, normal air movement Cardiovascular: nl pulses, regular rate and rhythm Gastrointestinal: bowel sounds, nl liver, spleen, non-tender, other, soft, tender Neurological: NEON TECHNICIAN II-XII intact, nl mental status, nl speech, nl strength Results Result Diagram: 10/26/16 0500 10/26/16 0500 Results 24 hrs Laboratory Tests Test 10/26/16 05:00 White Blood Count 12.4 #H Red Blood Count 4.45 L Hemoglobin 13.1 L Hematocrit 39.3 L Mean Corpuscular Volume 88.3 Mean Corpuscular Hemoglobin 29.4 Mean Corpuscular Hemoglobin Concent 33.3 Red Cell Distribution Width 12.3 Platelet Count 273 Mean Platelet Volume 9.5 Neutrophils % 86.7 H Lymphocytes % 9.6 L Monocytes % 3.2 Eosinophils % 0.0 Basophils % 0.1 Nucleated Red Blood Cells % 0.0 Neutrophils # 10.8 H Lymphocytes # 1.2 Monocytes # 0.4 Eosinophils # 0.0 Basophils # 0.0 Nucleated Red Blood Cells # 0.0 Sodium Level 145 H Potassium Level 4.8 Chloride Level 107 Carbon Dioxide Level 26 Anion Gap 17 H Blood Urea Nitrogen 9 Creatinine 0.90 Glucose Level 112 Calcium Level 10.0 Medications Medications Current Medications Dextrose/Sodium Chloride (D5-1/2ns) 1,000 ml @ 125 mls/hr Q8H IV Last administered on 10/26/16 01:53; Admin Dose 125 MLS/HR; Start 10/23/16 at 04:57 Ondansetron HCl 4 mg 4 mg Q6H PRN IV NAUSEA AND/OR VOMITING Last administered on 10/26/16 05:46; Admin Dose 4 MG; Start 10/23/16 at 05:00 Piperacillin Sod/ Tazobactam Sod (Zosyn 3.375gm/ 100 ml (Pmx)) 100 ml @ 200 mls /hr Q6 IVPB Last administered on 10/26/16 05:51; Admin Dose 200 MLS/HR; Start 10/23/16 at 05:00 Docusate Sodium 100 mg 100 mg TID PO Last administered on 10/25/16 12:21; Admin Dose 100 MG; Start 10/24/16 at 21:00 Acetaminophen (Ofirmev 1000mg/ 100ml Iv) 100 ml @ 400 mls/hr Q6H IVPB Last administered on 10/26/16 08:57; Admin Dose 400 MLS/HR; Start 10/24/16 at 21:00 Atorvastatin Calcium (Lipitor) 40 mg HS PO Last administered on 10/25/16 20:40 ; Admin Dose 40 MG; Start 10/25/16 at 21:00 Hydromorphone HCl (Dilaudid) 3 mg Q4H PRN IV PAIN Last administered on 05:48; Admin Dose 3 MG; Start 10/25/16 at 21:00 ALEXANDER NELSON Oct 26, 2016 10:07
--- NOTE | 2016-10-26 11:44 | PN ---
Date/Time of Note Date/Time of Note DATE: 10/26/16 TIME: 11:41 Assessment/Plan Lines/Catheters IV C[facility]ter Type (from [facility]): Peripheral IV Assessment/Plan Assessment/Plan 26-year-old male with recurrent acute sigmoid diverticulitis * Continue broad-spectrum intravenous antibiotics, IV fluid hydration, pain control * White blood cell count a little elevated today. Continue to monitor. * Again recommend colonoscopy in 6 weeks after resolution of acute inflammatory phase to evaluate the rest of the colon * This is now the fifth attack of recurrent diverticulitis for this young patient. I again strongly recommended elective colon resection to prevent further attacks and complications associated with recurrent diverticulitis. The patient verbalizes understanding and agrees. Prefer to do this in outpatient setting upon resolution of acute inflammatory phase in order to minimize the possibility of colostomy. * Recommend bowel regimen and dietary education for patient upon discharge. Further recommendations will be made based on patient's clinical course Subjective 24 Hr Interval Summary Feels better. Tolerating regular diet. Having loose bowel movements. Afebrile. Exam/Review of Systems Vital Signs Vitals Vital Signs Date Time Temp Pulse Resp B/P Pulse Ox O2 Delivery O2 Flow Rate FiO2 10/26/16 07:21 97.6 69 18 105/73 95 10/23/16 17:15 Room Air Intake and Output 10/25/16 10/25/16 10/26/16 15:00 23:00 07:00 Intake Total 200 ml 3120 ml 1845 ml Output Total 2000 ml 1300 ml Balance 200 ml 1120 ml 545 ml Exam Free Text/Dictation GENERAL: Awake, alert, oriented x 3. No acute distress. CARDIOVASCULAR: S1S2, regular rate and rhythm. No murmurs appreciated. RESPIRATORY: Clear to auscultation bilaterally. ABDOMEN: Obese, soft, bowel sounds present, nondistended, mild suprapubic tenderness to deep palpation without any rebound or guarding. No signs of diffuse peritonitis. EXTREMITIES: Free range of motion x 4. No cyanosis, edema, or clubbing. Results Result Diagram: 10/26/16 0500 10/26/16 0500 MIKE MONTENEGRO MD Oct 26, 2016 11:44
[2016-10-26] MEDS ORDERED: METHYLNALTREXONE 12 MG/0.6 ML VIAL SC SCH (12:00)
--- NOTE | 2016-10-26 17:16 | PN ---
Date/Time of Note Date/Time of Note DATE: 10/26/16 TIME: 17:13 Assessment/Plan VTE Prophylaxis VTE Prophylaxis Intervention: SCD's Lines/Catheters IV Catheter Type (from Nrsg): Peripheral IV Assessment/Plan Assessment/Plan 1. Recurrent diverticulitis. acute intractable abdominal apin 2. Normocytic anemia, 3. History of triglyceridemia. PLAN: WBC bumped to 12.4, on IV abx broad spectrum, IVF< pain control tolerated diet well Possible d/c plan tomorrow As per G surgery recommendations- pt will need Outpatient elective Colectomy due to recurrent diverticulitis SCD for DVT prophylaxis Subjective 24 Hr Interval Summary Free Text/Dictation WBC bumped upto 12.4, pt tolerated PO diet, afebrile Exam/Review of Systems Vital Signs Vitals Vital Signs Date Time Temp Pulse Resp B/P Pulse Ox O2 Delivery O2 Flow Rate FiO2 10/26/16 07:21 97.6 69 18 105/73 95 10/23/16 17:15 Room Air Intake and Output 10/25/16 10/25/16 10/26/16 15:00 23:00 07:00 Intake Total 200 ml 3120 ml 1845 ml Output Total 2000 ml 1300 ml Balance 200 ml 1120 ml 545 ml Exam Constitutional: alert Psych: no complaints Head: normocephalic ENMT: nl external ears & nose Neck: supple Respiratory: clear to auscultation, diminished breath sounds Cardiovascular: regular rate and rhythm Gastrointestinal: non-tender, soft Extremities: normal pulses Neurological: 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 intact Results Result Diagram: 10/26/16 0500 10/26/16 0500 Results 24 hrs Laboratory Tests Test 10/26/16 05:00 White Blood Count 12.4 #H Red Blood Count 4.45 L Hemoglobin 13.1 L Hematocrit 39.3 L Mean Corpuscular Volume 88.3 Mean Corpuscular Hemoglobin 29.4 Mean Corpuscular Hemoglobin Concent 33.3 Red Cell Distribution Width 12.3 Platelet Count 273 Mean Platelet Volume 9.5 Neutrophils % 86.7 H Lymphocytes % 9.6 L Monocytes % 3.2 Eosinophils % 0.0 Basophils % 0.1 Nucleated Red Blood Cells % 0.0 Neutrophils # 10.8 H Lymphocytes # 1.2 Monocytes # 0.4 Eosinophils # 0.0 Basophils # 0.0 Nucleated Red Blood Cells # 0.0 Sodium Level 145 H Potassium Level 4.8 Chloride Level 107 Carbon Dioxide Level 26 Anion Gap 17 H Blood Urea Nitrogen 9 Creatinine 0.90 Glucose Level 112 Calcium Level 10.0 Medications Medications Current Medications Dextrose/Sodium Chloride (D5-1/2ns) 1,000 ml @ 125 mls/hr Q8H IV Last administered on 10/26/16 12:06; Admin Dose 125 MLS/HR; Start 10/23/16 at 04:57 Ondansetron HCl 4 mg 4 mg Q6H PRN IV NAUSEA AND/OR VOMITING Last administered on 10/26/16 05:46; Admin Dose 4 MG; Start 10/23/16 at 05:00 Piperacillin Sod/ Tazobactam Sod (Zosyn 3.375gm/ 100 ml (Pmx)) 100 ml @ 200 mls /hr Q6 IVPB Last administered on 10/26/16 12:03; Admin Dose 200 MLS/HR; Start 10/23/16 at 05:00 Docusate Sodium 100 mg 100 mg TID PO Last administered on 10/25/16 12:21; Admin Dose 100 MG; Start 10/24/16 at 21:00 Acetaminophen (Ofirmev 1000mg/ 100ml Iv) 100 ml @ 400 mls/hr Q6H IVPB Last administered on 10/26/16 15:17; Admin Dose 400 MLS/HR; Start 10/24/16 at 21:00 Atorvastatin Calcium (Lipitor) 40 mg HS PO Last administered on 10/25/16 20:40 ; Admin Dose 40 MG; Start 10/25/16 at 21:00 Hydromorphone HCl (Dilaudid) 3 mg Q4H PRN IV PAIN Last administered on 14:02; Admin Dose 3 MG; Start 10/25/16 at 21:00 Methylnaltrexone [place] (Relistor) 12 mg Q48H SC Last administered on 14:02; Admin Dose 12 MG; Start 10/26/16 at 12:00 CHERRI CARR MD Oct 26, 2016 17:16
[2016-10-26 20:13] VITALS: BP 139/82; RESP 18
[2016-10-26] MEDS: ATORVASTATIN 40 MG TAB PO SCH (20:41)
[2016-10-27] MEDS: HYDROmorphONE 2 MG/ML SYG IV PRN ×3 (01:55→09:53)
[2016-10-27] MEDS: ACETAMINOPHEN 1000MG/100ML IV 100 ML IVPB SCH ×2 (02:59→09:23)
[2016-10-27] MEDS: DEXTROSE 5%-0.45% NACL 1,000 ML IV SCH ×2 (05:03→12:28)
[2016-10-27 05:49] LABS: ADD SCAN DIFF NO
[2016-10-27] MEDS: PIPER-TAZO 3.375 GM IV (PMX) 100 ML IVPB SCH ×2 (05:52→12:23)
[2016-10-27 05:53] LABS: BASOPHILS % 0.3 % (0.0-2.0); EOSINOPHILS % 0.3 % (0.0-7.0); HEMATOCRIT 36.5 % (42.0-52.0); HEMOGLOBIN 12.2 g/dl (14.0-18.0); LYMPHOCYTES # 3.2 10^3/ul (0.8-2.9); LYMPHOCYTES % 42.3 % (15.0-51.0); MEAN CORPUSCULAR HGB CONC 33.4 g/dl (32.0-37.0); MEAN CORPUSCULAR VOLUME 89.7 fl (82.0-101.0); MEAN PLATELET VOLUME 9.2 fl (7.4-10.4); MONOCYTE # 0.5 10^3/ul (0.3-0.9); NEUTROPHIL # 3.7 10^3/ul (1.6-7.5); NEUTROPHILS % 49.8 % (39.0-77.0); PLATELET COUNT 224 10^3/UL (140-415); RED BLOOD COUNT 4.07 10^6/ul (4.70-6.10); RED CELL DISTRIBUTION WIDTH 12.2 % (11.5-14.5); WHITE BLOOD COUNT 7.5 10^3/ul (4.8-10.8)
[2016-10-27 06:51] LABS: CALCIUM 9.2 mg/dl (8.4-10.2); CREATININE 0.95 mg/dl (0.61-1.24); POTASSIUM 4.6 mmol/L (3.5-5.1)
[2016-10-27 07:49] VITALS: BP 113/65; RESP 18
[2016-10-27] MEDS: DOCUSATE SODIUM 100 MG CAP PO SCH ×2 (09:00→13:00)
--- NOTE | 2016-10-27 09:54 | PN ---
Date/Time of Note Date/Time of Note DATE: 10/27/16 TIME: 09:51 Assessment/Plan Lines/Catheters IV Catheter Type (from [facility]): Peripheral IV Assessment/Plan Assessment/Plan 26-year-old male with recurrent acute sigmoid diverticulitis * White blood cell count normalized * Again recommend colonoscopy in 6 weeks after resolution of acute inflammatory phase to evaluate the rest of the colon * This is now the fifth attack of recurrent diverticulitis for this young patient. I again strongly recommended elective colon resection to prevent further attacks and complications associated with recurrent diverticulitis. The patient verbalizes understanding and agrees. Prefer to do this in outpatient setting upon resolution of acute inflammatory phase in order to minimize the possibility of colostomy. * Recommend bowel regimen and dietary education for patient upon discharge. * Patient surgically stable for discharge home on PO antibiotics once medically cleared * Follow up with GI for outpatient colonoscopy. Further recommendations will be made based on patient's clinical course Subjective 24 Hr Interval Summary Stable without acute events overnight. Tolerating diet. Afebrile. Exam/Review of Systems Vital Signs Vitals Vital Signs Date Time Temp Pulse Resp B/P Pulse Ox O2 Delivery O2 Flow Rate FiO2 10/27/16 07:49 97.9 18 18 113/65 97 10/23/16 17:15 Room Air Intake and Output 10/26/16 10/26/16 10/27/16 15:00 23:00 07:00 Intake Total 875 ml 1300 ml 1540 ml Output Total 1550 ml Balance 875 ml 1300 ml -10 ml Exam Free Text/Dictation GENERAL: Awake, alert, oriented x 3. No acute distress. CARDIOVASCULAR: S1S2, regular rate and rhythm. No murmurs appreciated. RESPIRATORY: Clear to auscultation bilaterally. ABDOMEN: Obese, soft, bowel sounds present, nondistended, mild suprapubic tenderness to deep palpation without any rebound or guarding. No signs of diffuse peritonitis. EXTREMITIES: Free range of motion x 4. No cyanosis, edema, or clubbing. Results Result Diagram: 10/27/16 0521 10/27/16 0521 MIKE MONTENEGRO MD Oct 27, 2016 09:54
--- NOTE | 2016-10-27 12:31 | PDOCDIS ---
Discharge Instructions CONDITION Patient Condition: Good HOME CARE INSTRUCTIONS: Special Diet: soft consistency high fiber diet ACTIVITY: Activity Restrictions: Slowly Increase Activity Rest between Activity Avoid heavy lifting Avoid Heavy Housework FOLLOW UP/APPOINTMENTS Appointments follow up with his own PMD through HMO insurance in 1-2 week after discharge. Follow up with Gen surgery in 3-4 week after discharge CHERRI CARR MD Oct 27, 2016 12:31
[2016-10-27] MEDS ORDERED: METR500T14 PO (12:33)
[2016-10-27] MEDS ORDERED: HYDR2TAB15 PO (12:33)
[2016-10-27] MEDS ORDERED: CIPR500T4 PO (12:33)
[2016-10-27] MEDS ORDERED: METO10TA92 PO (12:33)
--- NOTE | 2016-10-27 13:34 | CONS ---
Date/Time of Note Date/Time of Note DATE: 10/27/16 TIME: 13:33 Assessment/Plan Assessment/Plan Chief Complaint/Hosp Course This is a 26-year-old male who is a long-standing history of diverticulitis and recurrent hospitalizations for the above. Patient has reviewed any surgical and interventions in the past. Described his pain is generalized abdominal discomfort primarily in bilateral lower quadrants. Disguises pain as 7/10 at rest with some alleviation of his pain down to moderate with current medications , dilaudid 2 mg Q4 as needed and ultram 50 mg Q6 hours as needed. Patient is not taking anything by mouth at this time. He states it's interferes with his physical functioning but not family relationship social relationship his mood is positive. Sleeping patterns overall functioning has not been affected during his hospitalization. Deny systemic symptoms of nausea vomiting itching mental cloudiness fatigue drowsiness. Patient is a non-smoker nondrinker there's no past history of purposeful oversedation. He takes only Martin as an outpatient. Is no history of intoxication involvement in car accidents drug treatment programs family history of addictions. He is bargaining with me to change his current control pain control medications but not excessively high doses. Denies use of any illicit drugs prior to this hospitalization. Problems: Additional Assessment/Plan Scheduled to home today. He has done well on intravenous Tylenol and Dilaudid as needed with relistor. Suggest only short-term prescription for opioids. Consultation Date/Type/Reason Admit Date/Time Oct 23, 2016 at 02:56 Initial Consult Date 10/24/16 Type of Consultation: Pain management Exam/Review of Systems Vital Signs Vitals Vital Signs Date Time Temp Pulse Resp B/P Pulse Ox O2 Delivery O2 Flow Rate FiO2 10/27/16 07:49 97.9 18 18 113/65 97 10/23/16 17:15 Room Air Intake and Output 10/26/16 10/26/16 10/27/16 15:00 23:00 07:00 Intake Total 875 ml 1300 ml 1540 ml Output Total 1550 ml Balance 875 ml 1300 ml -10 ml Exam Neurological: HAIR CUTTER II-XII intact, nl mental status, nl speech, nl strength, No DTR's symmetric, No confused, No focal weakness, No lethargic, No numbness , No other, No reflexes, No unresponsive Results Result Diagram: 10/27/1652010/27/16520 Results 24 hrs Laboratory Tests Test 10/27/16 05:21 White Blood Count 7.5 # Red Blood Count 4.07 L Hemoglobin 12.2 L Hematocrit 36.5 L Mean Corpuscular Volume 89.7 Mean Corpuscular Hemoglobin 30.0 Mean Corpuscular Hemoglobin Concent 33.4 Red Cell Distribution Width 12.2 Platelet Count 224 Mean Platelet Volume 9.2 Neutrophils % 49.8 Lymphocytes % 42.3 Monocytes % 7.0 Eosinophils % 0.3 Basophils % 0.3 Nucleated Red Blood Cells % 0.0 Neutrophils # 3.7 Lymphocytes # 3.2 H Monocytes # 0.5 Eosinophils # 0.0 Basophils # 0.0 Nucleated Red Blood Cells # 0.0 Sodium Level 145 H Potassium Level 4.6 Chloride Level 108 Carbon Dioxide Level 28 Anion Gap 14 Blood Urea Nitrogen 10 Creatinine 0.95 Glucose Level 99 Calcium Level 9.2 Medications Medications Current Medications Dextrose/Sodium Chloride (D5-1/2ns) 1,000 ml @ 125 mls/hr Q8H IV Last administered on 10/27/16 05:03; Admin Dose 125 MLS/HR; Start 10/23/16 at 04:57 Ondansetron HCl 4 mg 4 mg Q6H PRN IV NAUSEA AND/OR VOMITING Last administered on 10/26/16 05:46; Admin Dose 4 MG; Start 10/23/16 at 05:00 Piperacillin Sod/ Tazobactam Sod (Zosyn 3.375gm/ 100 ml (Pmx)) 100 ml @ 200 mls /hr Q6 IVPB Last administered on 10/27/16 12:23; Admin Dose 200 MLS/HR; Start 10/23/16 at 05:00 Docusate Sodium 100 mg 100 mg TID PO Last administered on 10/25/16 12:21; Admin Dose 100 MG; Start 10/24/16 at 21:00 Acetaminophen (Ofirmev 1000mg/ 100ml Iv) 100 ml @ 400 mls/hr Q6H IVPB Last administered on 10/27/16 09:23; Admin Dose 400 MLS/HR; Start 10/24/16 at 21:00 Atorvastatin Calcium (Lipitor) 40 mg HS PO Last administered on 10/26/16 20:41 ; Admin Dose 40 MG; Start 10/25/16 at 21:00 Hydromorphone HCl (Dilaudid) 3 mg Q4H PRN IV PAIN Last administered on 09:53; Admin Dose 3 MG; Start 10/25/16 at 21:00 Methylnaltrexone [place] (Relistor) 12 mg Q48H SC Last administered on 14:02; Admin Dose 12 MG; Start 10/26/16 at 12:00 ALEXANDER NELSON Oct 27, 2016 13:34
[2016-10-27] MEDS ORDERED: HYDROmorphONE 2 MG/ML SYG IV STA (14:46)
== END 2016-10-27 16:10 | disposition home or self-care (01) | DRG 392 ==
LOC: E/R 02:22 → MS2 02:56
PROVIDERS: ADMIT Internal Medicine; ATTEND Internal Medicine
DX: K57.32 Diverticulitis of large intestine without perforation or abscess without bleeding (principal); E78.1 Pure hyperglyceridemia; D64.9 Anemia, unspecified; E66.3 Overweight; Z68.28 Body mass index [BMI] 28.0-28.9, adult
CPT/HCPCS: 36415; 80048; 80053; 80061; 81003; 83540; 83690; 83735; 84100; 85025; 96374; 96375; 96376; J0131; J1170; J1885; J2270; J2405; J2543; J2930; J7030; J7042

== ENCOUNTER 2016-11-14 18:03 | Inpatient (IN) | payer OTHER ==
[~2016-11-14] VITALS: Ht 182.9 cm; Wt 96.8 kg
[~2016-11-14 18:03] MED LIST changes: -FIORICET PO; -HYDR-906 PO; +HYDR2TAB15 PO; +METO10TA92 PO; +MULT-861 PO; -ONDA4TAB14 PO
[2016-11-14] MEDS ORDERED: ONDANSETRON 4 MG INJ IV STA (18:33)
[2016-11-14] MEDS ORDERED: HYDROmorphONE 1 MG/ML SYG IV STA (18:33)
[2016-11-14] MEDS ORDERED: SOD CHLORIDE 0.9% 1,000 ML IV STA (18:33)
--- NOTE | 2016-11-14 18:44 | ERD ---
ER Documentation Chief Complaint Date/Time DATE: 11/14/16 TIME: 18:37 Chief Complaint generalized abdominal pain nausea, vomitting and diarrhea HPI 26-year-old male presents here in emergency department for complaints of generalized abdominal pain nausea and vomiting diarrhea for the last 3 days. Patient has history of chronic diverticulitis, as already seen a GI specialist, is scheduled to have colonic enemas while waiting for appointment. Patient has been admitted here 3 weeks ago for the same problem, has been admitted here in the hospital multiple times for the same problem. Patient does not have any history of any abscess. Patient complaining of generalized abdominal pain and cramping pains 9/10 scale, comminuted with vomiting diarrhea. Patient denies any blood in the stool or black stool. Patient denies any flank pain. Patient denies any fever or chills. Patient to Tylenol No. 4 home to help with symptoms only mild relief. Patient currently sees pain specialist. ROS All systems reviewed and are negative except as per history of present illness. Medications Home Meds Active Scripts Hydromorphone Hcl* (Dilaudid*) 2 Mg Tablet, 2 MG PO Q4H Y for SEVERE PAIN LEVEL 7-10, #30 TAB Prov:CHERRI CARR MD 10/27/16 Metoclopramide* (Reglan*) 10 Mg Tablet, 10 MG PO Q6H Y for NAUSEA AND OR VOMITING, #30 TAB Prov:CHERRI CARR MD 10/27/16 Ciprofloxacin Hcl* (Ciprofloxacin Hcl*) 500 Mg Tablet, 500 MG PO BID, #20 TAB Prov:CHERRI CARR MD 10/27/16 Metronidazole (Flagyl) 500 Mg Tab, 500 MG PO TID for 10 Days, #30 TAB Prov:CHERRI CARR MD 10/27/16 Reported Medications Multivits,Ca,Min/Iron/FA/Lycop (Centrum Men's Tablet) 1 Each Tablet, 1 EACH PO, TAB 10/23/16 Allergies Allergies: Coded Allergies: No Known Allergy (Unverified , 10/23/16) PMhx/Soc History of Surgery: Yes (hernia lef tinguinal) Anesthesia Reaction: No Hx Neurological Disorder: No Hx Respiratory Disorders: No Hx Cardiac Disorders: No Hx Psychiatric Problems: No Hx Miscellaneous Medical Probl: Yes (diverticulitis) Hx Alcohol Use: Yes (social) Hx Substance Use: No Hx Tobacco Use: Yes Smoking Status: Former smoker FmHx Family History: No coronary disease, No diabetes, No other Physical Exam Vitals Vital Signs Date Time Temp Pulse Resp B/P Pulse Ox O2 Delivery O2 Flow Rate FiO2 11/14/16 18:05 97.9 80 19 130/91 97 Physical Exam GENERAL: The patient is well developed and appropriate for usual state of health, in no apparent distress. CHEST: Clear to auscultation bilaterally. There are no rales, wheezes or rhonchi. HEART: Regular rate and rhythm. No murmurs, clicks, rubs or gallops. No S3 or S4. ABDOMEN: Soft, nontender and nondistended. Hyperactive bowel sounds. No rebound or guarding. No gross peritonitis. No gross organomegaly or masses. No Shi sign or McBurney point tenderness. BACK: No midline or flank tenderness. EXTREMITIES: Equal pulses bilaterally. There is no peripheral clubbing, cyanosis or edema. No focal swelling or erythema. Full range of motion. Grossly neurovascularly intact. NEURO: Alert and oriented. Cranial nerves 2-12 intact. Motor strength in all 4 extremities with 5/5 strength. Sensation grossly intact. Normal speech and gait. SKIN: There is no apparent rash or petechia. The skin is warm and dry. HEMATOLOGIC AND LYMPHATIC: There is no evidence of excessive bruising or lymphedema. No gross cervical, axillary, or inguinal lymphadenopathy. Result Diagram: 11/14/16184911/14/16 1850 Results 24 hrs Laboratory Tests Test 11/14/16 18:50 White Blood Count 8.010^3/ul Red Blood Count 4.8010^6/ul Hemoglobin 14.0g/dl Hematocrit 41.7% Mean Corpuscular Volume 86.9fl Mean Corpuscular Hemoglobin 29.2pg Mean Corpuscular Hemoglobin Concent 33.6g/dl Red Cell Distribution Width 12.0% Platelet Count 41449^3/UL Mean Platelet Volume 9.4fl Neutrophils % 63.1% Lymphocytes % 28.5% Monocytes % 6.9% Eosinophils % 0.9% Basophils % 0.3% Nucleated Red Blood Cells % 0.0/100WBC Neutrophils # 5.110^3/ul Lymphocytes # 2.310^3/ul Monocytes # 0.610^3/ul Eosinophils # 0.110^3/ul Basophils # 0.010^3/ul Nucleated Red Blood Cells # 0.010^3/ul Urine Color STRAW Urine Clarity CLEAR Urine pH 6.0 Urine Specific [place] 1.006 Urine Ketones NEGATIVEmg/dL Urine Nitrite NEGATIVEmg/dL Urine Bilirubin NEGATIVEmg/dL Urine Urobilinogen NEGATIVEmg/dL Urine Leukocyte Esterase NEGATIVELeu/ul Urine Hemoglobin NEGATIVEmg/dL Urine Glucose NEGATIVEmg/dL Urine Total Protein NEGATIVEmg/dl Sodium Level 141mmol/L Potassium Level 3.9mmol/L Chloride Level 99mmol/L Carbon Dioxide Level 31mmol/L Anion Gap 15 Blood Urea Nitrogen 9mg/dl Creatinine 1.11mg/dl Glucose Level 101mg/dl Calcium Level 9.5mg/dl Total Bilirubin 0.3mg/dl Direct Bilirubin 0.00mg/dl Indirect Bilirubin 0.3mg/dl Aspartate Amino Transf (AST/SGOT) 21IU/L Alanine Aminotransferase (ALT/SGPT) 35IU/L Alkaline Phosphatase 46IU/L Total Protein 8.1g/dl Albumin 4.9g/dl Globulin 3.20g/dl Albumin/Globulin Ratio 1.53 Lipase 23U/L Current Medications Medications (Trade) Dose Ordered Sig/Bernie Route PRN Reason Start Time Stop Time Status Last Admin Dose Admin Sodium Chloride (NS) 1,000 ml @ 1,000 mls/hr Q1H STAT IV 11/14/16 18:33 11/14/16 19:32 DC 11/14/16 19:05 Hydromorphone HCl (Dilaudid) 1 mg ONCE STAT IV 11/14/16 18:33 11/14/16 18:36 DC 11/14/16 19:04 Ondansetron HCl (Zofran Inj) 4 mg ONCE STAT IV 11/14/16 18:33 11/14/16 18:36 DC 11/14/16 19:04 IV Flush 10 ml 10 ml STK-MED ONCE .ROUTE 11/14/16 18:58 11/14/16 18:59 DC 11/14/16 19:57 Sodium Chloride (NS) 100 ml @ ud STK-MED ONCE .ROUTE 11/14/16 18:58 11/14/16 18:59 DC 11/14/16 19:57 Iohexol (Omnipaque 300mg/ ml) 150 ml STK-MED ONCE .ROUTE 11/14/16 18:58 11/14/16 18:59 DC 11/14/16 18:58 Patient was given medication for pain here in emergency department, after treatment, patient verbalized feeling much better. Patient's pain is improved. Patient was given Zofran here in the emergency department. After treatment, patient was able to tolerate po fluids here in the emergency department without any vomiting. There is no signs and symptoms of dehydration. Normal saline IV bolus was given here in emergency department for rehydration, patient tolerated IV fluids. PROCEDURE: CT abdomen and pelvis with contrast and with 3-D reconstructions CLINICAL INDICATION: Abdominal Pain TECHNIQUE: CT scan of the abdomen and pelvis with intravenous contrast was performed on a multislice CT scanner. 3-D sagittal and coronal reformatted images were obtained from the axial source images. DLP 961.36 mGycm CTDIvol 15.14 mGy One or more of the following dose reduction techniques were used: - Automated exposure control. - Adjustment of the mA and/or kV according to patient size. - Use of iterative reconstruction technique. COMPARISON: None. FINDINGS: The visualized lung bases are unremarkable. The liver is homogenous in attenuation. There are no focal liver lesions. There is no intrahepatic or extrahepatic biliary ductal dilatation. The gallbladder is within normal limits. The spleen, pancreas, and adrenal glands are within normal limits. The kidneys are symmetric and without focal lesions. There are no renal calculi. There is no obstructive uropathy. There are no dilated or thickened loops of small bowel. The appendix is within normal limits. There are colonic diverticula with a focus of prominent thickening and surrounding mesenteric stranding in the redundant mid sigmoid colon on series 3 , image 150, likely due to diverticulitis. 2 tiny foci of adjacent air are noted on axial image 162 which may be extraluminal, indicating a possible contains microperforation. No drainable fluid collections are identified. The aorta is within normal limits. There are no enlarged mesenteric, periaortic , or retroperitoneal lymph nodes. The bladder is within normal limits. There is no free air. There is no free fluid. There are no enlarged intrapelvic or inguinal lymph nodes. Osseous and soft tissue structures are unremarkable. IMPRESSION: Colonic diverticula with a focus of prominent thickening and mesenteric stranding in the mid sigmoid colon, likely due to acute diverticulitis. A possible contain microperforation is noted without evidence of a drainable fluid collection. Normal appendix. RPTAT: EE Rick Mckeon Physician Date Time Electronically viewed and signed by Rick Mckeon, Physician on 11/14/2016 20:25 RA/ CC: REYES JAQUEZ NP Procedures/MDM Medical Decision Making: Patient has history of acute diverticulitis, has been having an acute flareup of acute Diverticulitis, at this time, CT scan abdomen and pelvis was done, shows possible microperforations. Patient was recently admitted here 3 weeks ago, just finished with his 10 day course of antibiotics, started to have the symptoms again. At this time, pain is controlled, stable at this time. I discussed this case with my attending physician, Dr. Hood, we'll admit the patient to the hospital for possible IV antibiotic treatment. Departure Diagnosis: Primary Impression: Acute diverticulitis Condition: Fair REYES JAQUEZ NP Nov 14, 2016 18:43 REYES JAQUEZ NP Nov 14, 2016 18:43
[2016-11-14] MEDS ORDERED: SOD CHLORIDE 0.9% 100 ML ONE (18:58)
[2016-11-14] MEDS ORDERED: IOHEXOL 300MG/ML 150 ML BTL ONE (18:58)
[2016-11-14 19:05] LABS: BASOPHILS % 0.3 % (0.0-2.0); EOSINOPHILS # 0.1 10^3/ul (0.0-0.5); EOSINOPHILS % 0.9 % (0.0-7.0); HEMATOCRIT 41.7 % (42.0-52.0); LYMPHOCYTES # 2.3 10^3/ul (0.8-2.9); LYMPHOCYTES % 28.5 % (15.0-51.0); MEAN CORPUSCULAR HEMOGLOBIN 29.2 pg (29.0-33.0); MEAN CORPUSCULAR HGB CONC 33.6 g/dl (32.0-37.0); MEAN CORPUSCULAR VOLUME 86.9 fl (82.0-101.0); MEAN PLATELET VOLUME 9.4 fl (7.4-10.4); MONOCYTE # 0.6 10^3/ul (0.3-0.9); MONOCYTES % 6.9 % (0.0-11.0); NEUTROPHIL # 5.1 10^3/ul (1.6-7.5); NEUTROPHILS % 63.1 % (39.0-77.0); PLATELET COUNT 215 10^3/UL (140-415)
[2016-11-14 19:06] LABS: ADD SCAN DIFF NO
[2016-11-14 19:08] LABS: ADD UMIC NO; UR ASCORBIC ACID NEGATIVE (NEGATIVE); UR BILIRUBIN (Dip) NEGATIVE (NEGATIVE); UR BLOOD (Dip) NEGATIVE (NEGATIVE); UR CLARITY CLEAR (CLEAR); UR COLOR STRAW (YELLOW); UR GLUCOSE (Dip) NEGATIVE (NEGATIVE); UR KETONES (Dip) NEGATIVE (NEGATIVE); UR LEUKOCYTE ESTERASE (Dip) NEGATIVE Leu/ul (NEGATIVE); UR NITRITE (Dip) NEGATIVE (NEGATIVE); UR SPECIFIC GRAVITY (Dip) 1.006 (1.003-1.030); UR TOTAL PROTEIN (Dip) NEGATIVE (NEGATIVE); UR UROBILINOGEN (Dip) NEGATIVE (NEGATIVE)
[2016-11-14 19:29] LABS: ALBUMIN 4.9 g/dl (3.3-4.9); ALBUMIN/GLOBULIN RATIO 1.53; BILIRUBIN,INDIRECT 0.3 mg/dl (0-1.1); BILIRUBIN,TOTAL 0.3 mg/dl (0.2-1.3); CALCIUM 9.5 mg/dl (8.4-10.2); CREATININE 1.11 mg/dl (0.61-1.24); POTASSIUM 3.9 mmol/L (3.5-5.1); TOTAL PROTEIN 8.1 g/dl (6.1-8.1)
--- NOTE | 2016-11-14 20:25 | RADRPT ---
PROCEDURE: CT abdomen and pelvis with contrast and with 3-D reconstructions CLINICAL INDICATION: Abdominal Pain TECHNIQUE: CT scan of the abdomen and pelvis with intravenous contrast was performed on a multisli ce CT scanner. 3-D sagittal and coronal reformatted images were obtained from the axial source image s. DLP 961.36 mGycm CTDIvol 15.14 mGy One or more of the following dose reduction techniques were used: - Automated exposure control. - Adjustment of the mA and/or kV according to patient size. - Use of iterative reconstruction technique. COMPARISON: None. FINDINGS: The visualized lung bases are unremarkable. The liver is homogenous in attenuation. There are no focal liver lesions. There is no intrahepatic or extrahepatic biliary ductal dilatation. The gallbladder is within normal limits. The spleen, pancreas, and adrenal glands are within normal limits. The kidneys are symmetric and without focal lesions. There are no renal calculi. There is no obstruc tive uropathy. There are no dilated or thickened loops of small bowel. The appendix is within normal limits. There are colonic diverticula with a focus of prominent thickening and surrounding mesenteric strand ing in the redundant mid sigmoid colon on series 3, image 150, likely due to diverticulitis. 2 tiny foci of adjacent air are noted on axial image 162 which may be extraluminal, indicating a possible c ontains microperforation. No drainable fluid collections are identified. The aorta is within normal limits. There are no enlarged mesenteric, periaortic, or retroperitoneal lymph nodes. The bladder is within normal limits. There is no free air. There is no free fluid. There are no enlarged intrapelvic or inguinal lymph nodes. Osseous and soft tissue structures are unremarkable. IMPRESSION: Colonic diverticula with a focus of prominent thickening and mesenteric stranding in the mid sigmoid colon, likely due to acute diverticulitis. A possible contain microperforation is noted without ev idence of a drainable fluid collection. Normal appendix. RPTAT: EE Physician [place] Date Time Electronically viewed and signed by Rick Mckeon Physician on 11/14/2016 20:25 /
--- NOTE | 2016-11-14 20:43 | QN ---
Documentation Comment My independent concise history is left lower quadrant abdominal pain. My pertinent physical exam findings are left lower quadrant abdominal pain. The plan is admission to Dr. Corona from the panel team for failed outpatient treatment of diverticulitis as the patient just finished a course of antibiotics. KEVAN ROBERTO MD Nov 14, 2016 20:43
[2016-11-14] MEDS ORDERED: HYDROmorphONE 1 MG/ML SYG IV PRN (21:00)
[2016-11-14] MEDS ORDERED: ONDANSETRON 4 MG INJ IV PRN (21:00)
[2016-11-14] MEDS ORDERED: NACL 0.9% 3 ML SYG IV SCH (21:00)
[2016-11-14] MEDS ORDERED: ACETAMINOPHEN 325 MG TAB PO PRN (21:00)
--- NOTE | 2016-11-14 21:17 | HP ---
Date/Time of Note Date/Time of Note DATE: 11/14/16 TIME: 21:12 Assessment/Plan VTE Prophylaxis VTE Prophylaxis Intervention: LMWH Assessment/Plan Chief Complaint/Hosp Course This is a 26-year-old male being admitted to the [facility] floor for: #1. Acute sigmoid diverticulitis - recurrent type, CAT scan does show some area of microperforation but no formation of any drainable fluid collection. As he has recurrent episodes and treated with multiple abx in the recent months will treat him as a high risk level with cefipime and flagyl IV. Zofran for nausea and Dilaudid for pain control. Patient follows up with his outpatient surgeon and eventually is going to undergo a possible colectomy. At the current time will hold off on any consultations. Will provide IV antibiotic care and if symptoms improve he will be advised to follow-up with a general surgeon. At the current time will hold his home oral oral pain medications. #2 GI and DVT prophylaxis: Protonix, Lovenox Further treatment strategy will be implemented as per the clinical course Problems: HPI/ROS Admit Date/Time Admit Date/Time Hx of Present Illness cc: abdominal pain 26-year-old male presents here in emergency department for complaints of generalized abdominal pain nausea and vomiting diarrhea for the last 3 days. Patient has history of chronic diverticulitis, as already seen a GI specialist, is scheduled to have colonic enemas while waiting for appointment. Patient has been admitted here 3 weeks ago for the same problem, has been admitted here in the hospital multiple times for the same problem. Patient does not have any history of any abscess. Patient complaining of generalized abdominal pain and cramping pains 9/10 scale, comminuted with vomiting diarrhea. Patient denies any blood in the stool or black stool. Patient denies any flank pain. Patient denies any fever or chills. Patient to Tylenol No. 4 home to help with symptoms only mild relief. . allergies: nkda meds: see ANGELA KHOURY Const: As per HPI Eyes : No pain discharge or redness or change in visual acuity ENT: No pain, sore throat, congestion, congestion, dysphagia or discharge Respiratory: No shortness of breath, cough, sputum, wheezing, or pleuritic pain Cardiovascular: No chest pain, palpitation, PND, or edema GI : As per HPI Genitourinary: No dysuria, hematuria, flank pain , discharge or CVA tenderness Musculoskeletal: No joint pain, back pain, neck pain, restricted range of motion in neck or joints Skin: No rash, bruising or hives Neuro: No headache, dizziness, syncope, seizure, focal weakness Endocrine: No polyuria, polydipsia, temperature intolerance Psych: No hallucination, depression, anxiety or suicidal ideation PMH/Family/Social Past Medical History sigmoid diverticulitis Past Surgical History Left inguinal hernia repair Past Surgical Hx: other Family History Significant Family History: no pertinent family hx Social History Alcohol Use: none Smoking Status: Former smoker Drug Use: none Exam/Review of Systems Vital Signs Vitals Vital Signs Date Time Temp Pulse Resp B/P Pulse Ox O2 Delivery O2 Flow Rate FiO2 11/14/16 18:05 97.9 80 19 130/91 97 Exam Exam General: Patient is a well-developed well-nourished male in mild distress. HEENT: Atraumatic, normocephalic. The pupils are equal, round and reactive. Extraocular motor are intact Neck: Supple with full range of motion. No rigidity or meningismus Chest: Nontender Lungs: Clear to auscultation bilaterally no crackles rales or wheezing Heart: Normal S1-S2, Regular rhythm and rate. No murmur, S3, or S4 Abdomen: Soft, left lower quadrant tenderness to palpation, normal bowel sounds. No abdominal distention. Extremities: Normal to inspection, no edema no cyanosis Neurologic: Normal mental status, speech normal, cranial nerves II through XII are intact, motor and sensory are intact, no focal weakness Additional Comments PROCEDURE: CT abdomen and pelvis with contrast and with 3-D reconstructions CLINICAL INDICATION: Abdominal Pain TECHNIQUE: CT scan of the abdomen and pelvis with intravenous contrast was performed on a multislice CT scanner. 3-D sagittal and coronal reformatted images were obtained from the axial source images. DLP 961.36 mGycm CTDIvol 15.14 mGy One or more of the following dose reduction techniques were used: - Automated exposure control. - Adjustment of the mA and/or kV according to patient size. - Use of iterative reconstruction technique. COMPARISON: None. FINDINGS: The visualized lung bases are unremarkable. The liver is homogenous in attenuation. There are no focal liver lesions. There is no intrahepatic or extrahepatic biliary ductal dilatation. The gallbladder is within normal limits. The spleen, pancreas, and adrenal glands are within normal limits. The kidneys are symmetric and without focal lesions. There are no renal calculi. There is no obstructive uropathy. There are no dilated or thickened loops of small bowel. The appendix is within normal limits. There are colonic diverticula with a focus of prominent thickening and surrounding mesenteric stranding in the redundant mid sigmoid colon on series 3 , image 150, likely due to diverticulitis. 2 tiny foci of adjacent air are noted on axial image 162 which may be extraluminal, indicating a possible contains microperforation. No drainable fluid collections are identified. The aorta is within normal limits. There are no enlarged mesenteric, periaortic , or retroperitoneal lymph nodes. The bladder is within normal limits. There is no free air. There is no free fluid. There are no enlarged intrapelvic or inguinal lymph nodes. Osseous and soft tissue structures are unremarkable. IMPRESSION: Colonic diverticula with a focus of prominent thickening and mesenteric stranding in the mid sigmoid colon, likely due to acute diverticulitis. A possible contain microperforation is noted without evidence of a drainable fluid collection. Normal appendix. RPTAT: EE Physician Marbella Date Time Electronically viewed and signed by Physician Marbella on 11/14/2016 20:25 Labs Result Diagram: 11/14/16 1850 11/14/16 1850 PAM BERG Nov 14, 2016 21:17
[2016-11-14 22:00] VITALS: BP 125/73; PULSE 58; RESP 18
[2016-11-14] MEDS: Metronidazole 500 MG in NS 100 ML IVPB SCH (22:13)
[2016-11-14] MEDS: SOD CHLORIDE 0.9% 1,000 ML IV SCH (22:13)
[2016-11-14 22:24] VITALS: Ht 182.9 cm; Wt 96.8 kg
[2016-11-14] MEDS: HYDROmorphONE 1 MG/ML SYG IV PRN (23:58)
[2016-11-15] MEDS: CEFEPIME 2GM/50 ML (PMX) 50 ML IVPB SCH ×2 (00:23→06:46)
[2016-11-15] MEDS: HYDROmorphONE 1 MG/ML SYG IV PRN ×12 (02:00→22:20)
[2016-11-15] MEDS: Metronidazole 500 MG in NS 100 ML IVPB SCH (05:48)
[2016-11-15] MEDS ORDERED: PANTOPRAZOLE 40 MG INJ IV SCH (06:00)
[2016-11-15 06:01] LABS: BASOPHILS % 0.3 % (0.0-2.0); EOSINOPHILS # 0.1 10^3/ul (0.0-0.5); EOSINOPHILS % 1.7 % (0.0-7.0); HEMATOCRIT 40.5 % (42.0-52.0); HEMOGLOBIN 13.7 g/dl (14.0-18.0); LYMPHOCYTES # 2.6 10^3/ul (0.8-2.9); LYMPHOCYTES % 40.4 % (15.0-51.0); MEAN CORPUSCULAR HEMOGLOBIN 29.3 pg (29.0-33.0); MEAN CORPUSCULAR HGB CONC 33.8 g/dl (32.0-37.0); MEAN CORPUSCULAR VOLUME 86.7 fl (82.0-101.0); MEAN PLATELET VOLUME 9.6 fl (7.4-10.4); MONOCYTE # 0.5 10^3/ul (0.3-0.9); MONOCYTES % 7.7 % (0.0-11.0); NEUTROPHIL # 3.2 10^3/ul (1.6-7.5); NEUTROPHILS % 49.7 % (39.0-77.0); PLATELET COUNT 201 10^3/UL (140-415); RED BLOOD COUNT 4.67 10^6/ul (4.70-6.10); RED CELL DISTRIBUTION WIDTH 12.2 % (11.5-14.5); WHITE BLOOD COUNT 6.4 10^3/ul (4.8-10.8)
[2016-11-15 06:20] LABS: ALBUMIN 4.4 g/dl (3.3-4.9); ALBUMIN/GLOBULIN RATIO 1.46; BILIRUBIN,INDIRECT 0.4 mg/dl (0-1.1); BILIRUBIN,TOTAL 0.4 mg/dl (0.2-1.3); CALCIUM 9.4 mg/dl (8.4-10.2); CREATININE 0.87 mg/dl (0.61-1.24); TOTAL PROTEIN 7.4 g/dl (6.1-8.1)
[2016-11-15] MEDS: SOD CHLORIDE 0.9% 1,000 ML IV SCH ×3 (06:27→23:41)
[2016-11-15 06:54] LABS: ADD SCAN DIFF NO
[2016-11-15 08:00] VITALS: BP 112/70; PULSE 72; RESP 18
[2016-11-15] MEDS: ENOXAPARIN 40 MG/0.4 ML SYG SC SCH (09:00)
--- NOTE | 2016-11-15 09:25 | PN ---
Date/Time of Note Date/Time of Note DATE: 11/15/16 TIME: 09:25 Assessment/Plan VTE Prophylaxis VTE Prophylaxis Intervention: LMWH Lines/Catheters IV Catheter Type (from Nrsg): Peripheral IV Urinary Cath still in place: No Assessment/Plan Assessment/Plan 26 yo M with h/o diverticulosis with frequent hospitalizations for abd pain 2/2 diverticulitis presented with abd pain, imaging with diverticulitis but no abscess. PLAN abx: streamline to zosyn, hope to convert to PO in 1-2 days IVFs inc dilaudid frequency CLD LMWH discharge within 2 days if abd pain improves. Consider advancing diet tomorrow Subjective 24 Hr Interval Summary Free Text/Dictation Pain control suboptimal Exam/Review of Systems Vital Signs Vitals Vital Signs Date Time Temp Pulse Resp B/P Pulse Ox O2 Delivery O2 Flow Rate FiO2 11/14/16 22:00 98.3 58 18 125/73 98 Room Air Intake and Output 11/14/16 11/14/16 11/15/16 15:00 23:00 07:00 Intake Total 750 ml Balance 750 ml Exam sitting up in bed, watching tv on his tablet no mrg lungs clear abd soft no rashes Results Result Diagram: 11/15/16 0530 11/15/16 0530 Results 24 hrs Laboratory Tests Test 11/14/16 18:50 11/15/16 05:30 White Blood Count 8.0 6.4 Red Blood Count 4.80 4.67 L Hemoglobin 14.0 13.7 L Hematocrit 41.7 L 40.5 L Mean Corpuscular Volume 86.9 86.7 Mean Corpuscular Hemoglobin 29.2 29.3 Mean Corpuscular Hemoglobin Concent 33.6 33.8 Red Cell Distribution Width 12.0 12.2 Platelet Count 215 201 Mean Platelet Volume 9.4 9.6 Neutrophils % 63.1 49.7 Lymphocytes % 28.5 40.4 Monocytes % 6.9 7.7 Eosinophils % 0.9 1.7 Basophils % 0.3 0.3 Nucleated Red Blood Cells % 0.0 0.0 Neutrophils # 5.1 3.2 Lymphocytes # 2.3 2.6 Monocytes # 0.6 0.5 Eosinophils # 0.1 0.1 Basophils # 0.0 0.0 Nucleated Red Blood Cells # 0.0 0.0 Urine Color STRAW Urine Clarity CLEAR Urine pH 6.0 Urine Specific [place] 1.006 Urine Ketones NEGATIVE Urine Nitrite NEGATIVE Urine Bilirubin NEGATIVE Urine Urobilinogen NEGATIVE Urine Leukocyte Esterase NEGATIVE Urine Hemoglobin NEGATIVE Urine Glucose NEGATIVE Urine Total Protein NEGATIVE Sodium Level 141 143 Potassium Level 3.9 4.0 Chloride Level 99 100 Carbon Dioxide Level 31 26 Anion Gap 15 21 H Blood Urea Nitrogen 9 8 Creatinine 1.11 0.87 Glucose Level 101 85 Calcium Level 9.5 9.4 Total Bilirubin 0.3 0.4 Direct Bilirubin 0.00 0.00 Indirect Bilirubin 0.3 0.4 Aspartate Amino Transf (AST/SGOT) 21 22 Alanine Aminotransferase (ALT/SGPT) 35 29 Alkaline Phosphatase 46 43 Total Protein 8.1 7.4 Albumin 4.9 4.4 Globulin 3.20 3.00 Albumin/Globulin Ratio 1.53 1.46 Lipase 23 Medications Medications Current Medications Sodium Chloride (NS) 1,000 ml @ 100 mls/hr Q10H IV Last administered on 22:13; Admin Dose 100 MLS/HR; Start 11/14/16 at 21:00 Ondansetron HCl (Zofran Inj) 4 mg Q6H PRN IV NAUSEA AND/OR VOMITING; Start 11/14 at 21:00 Acetaminophen (Tylenol Tab) 650 mg Q6H PRN PO PAIN LEVEL 1-3 OR FEVER; Start at 21:00 Enoxaparin Sodium 40 mg 40 mg DAILY SC ; Start 11/15/16 at 09:00 Cefepime HCl 50 ml @ 100 mls/hr Q8 IVPB Last administered on 11/15/16 06:46; Admin Dose 100 MLS/HR; Start 11/14/16 at 22:00 Metronidazole (Flagyl 500 Mg (Pmx)) 100 ml @ 100 mls/hr Q8 IVPB Last administered on 11/15/16 05:48; Admin Dose 100 MLS/HR; Start 11/14/16 at 22:00 Hydromorphone HCl (Dilaudid) 0.5 mg Q4H PRN IV breakthrough Last administered on 11/15/16 06:27; Admin Dose 0.5 MG; Start 11/15/16 at 02:00 Hydromorphone HCl (Dilaudid) 1 mg Q2H PRN IV SEVERE PAIN LEVEL 7-10; Start 11/15 at 11:00 CHRYSTAL LAWRENCE MD Nov 15, 2016 09:25
[2016-11-15] MEDS: PIPER-TAZO 3.375 GM IV (PMX) 100 ML IVPB SCH ×3 (11:46→23:48)
[2016-11-15] MEDS: ONDANSETRON 4 MG INJ IV PRN (18:40)
[2016-11-15 20:08] VITALS: BP 110/57; RESP 18
[2016-11-15] MEDS ORDERED: KETOROLAC 15 MG INJ IV ONE ×2 (22:30)
[2016-11-15] MEDS ORDERED: DIPHENHYDRAMINE 50 MG INJ IV ONE (23:30)
[2016-11-16] MEDS: HYDROmorphONE 1 MG/ML SYG IV PRN ×7 (00:24→13:56)
[2016-11-16] MEDS: SOD CHLORIDE 0.9% 1,000 ML IV SCH ×3 (03:00→22:28)
[2016-11-16] MEDS: PIPER-TAZO 3.375 GM IV (PMX) 100 ML IVPB SCH ×3 (06:00→18:27)
[2016-11-16 07:45] VITALS: BP 110/65; RESP 18
[2016-11-16] MEDS: ENOXAPARIN 40 MG/0.4 ML SYG SC SCH (08:39)
[2016-11-16] MEDS: ONDANSETRON 4 MG INJ IV PRN ×2 (10:10→16:35)
[2016-11-16] MEDS: HYDROmorphONE 2 MG/ML SYG IV PRN ×4 (15:52→22:28)
[2016-11-16] MEDS ORDERED: SUMATRIPTAN 6 MG/0.5 ML INJ SC ONE (18:30)
[2016-11-16] MEDS: FAMOTIDINE 20 MG INJ IV SCH (18:49)
--- NOTE | 2016-11-16 18:53 | PN ---
Date/Time of Note Date/Time of Note DATE: 11/16/16 TIME: 18:46 Assessment/Plan VTE Prophylaxis VTE Prophylaxis Intervention: LMWH Lines/Catheters IV [facility] Peripheral IV Urinary Cath still in place: No Assessment/Plan Chief Complaint/Hosp Course Subjective: Less abdominal pain. Vomited this morning. No hematemesis. Positive flatus. No dyspnea fever. Positive headache when he is not eating. Throbbing occipital without any photophobia or phonophobia. Ambulating well. Objective: Vss. Pain still 8 out of 10 Physical exam No pallor Regular Clear Bs +/ diminished; mild diffuse tender. No r/r/g No edema Assessment and plan 1. Acute recurrent sigmoid diverticulitis. Stable continue antibiotics pain control clear liquid for now. May need Relistor; TPN if worse. 2. Possible micro-perforationcontained. No evidence of sepsis continue supportive care. Outpatient general surgery or GI referral. 3. Tobacco abuse status post counseling, offered patch 4. Cephalgia possible migraine. Problems: Exam/Review of Systems Vital Signs Vitals Vital Signs Date Time Temp Pulse Resp B/P Pulse Ox O2 Delivery O2 Flow Rate FiO2 11/16/16 07:45 98.7 65 18 110/65 98 11/15/16 08:00 Room Air Intake and Output 11/15/16 11/15/16 11/16/16 15:00 23:00 07:00 Intake Total 150 ml 1680 ml 1000 ml Balance 150 ml 1680 ml 1000 ml Results Result Diagram: 11/15/16 0530 11/15/16 0530 Medications Medications Current Medications Sodium Chloride (NS) 1,000 ml @ 100 mls/hr Q10H IV Last administered on 10:48; Admin Dose 100 MLS/HR; Start 11/14/16 at 21:00 Ondansetron HCl (Zofran Inj) 4 mg Q6H PRN IV NAUSEA AND/OR VOMITING Last administered on 11/16/16 16:35; Admin Dose 4 MG; Start 11/14/16 at 21:00 Acetaminophen (Tylenol Tab) 650 mg Q6H PRN PO PAIN LEVEL 1-3 OR FEVER; Start at 21:00 Enoxaparin Sodium 40 mg 40 mg DAILY SC ; Start 11/15/16 at 09:00 Piperacillin Sod/ Tazobactam Sod (Zosyn 3.375gm/ 100 ml (Pmx)) 100 ml @ 200 mls /hr Q6 IVPB Last administered on 11/16/16 18:27; Admin Dose 200 MLS/HR; Start 11/15/16 at 12:00 Hydromorphone HCl (Dilaudid) 1.5 mg Q2H PRN IV SEVERE PAIN LEVEL 7-10 Last administered on 11/16/16 18:27; Admin Dose 1.5 MG; Start 11/16/16 at 15:00 Famotidine (Pepcid Iv) 20 mg DAILY IV ; Start 11/16/16 at 18:30 STEFAN ROCHA MD Nov 16, 2016 18:53
[2016-11-16 19:27] VITALS: BP 120/71; RESP 18
[2016-11-17] MEDS: PIPER-TAZO 3.375 GM IV (PMX) 100 ML IVPB SCH ×5 (00:16→23:32)
[2016-11-17] MEDS: ACETAMINOPHEN 325 MG TAB PO PRN ×3 (00:16→20:34)
[2016-11-17] MEDS: HYDROmorphONE 2 MG/ML SYG IV PRN ×11 (00:30→22:34)
[2016-11-17 05:41] LABS: ADD SCAN DIFF NO
[2016-11-17 05:54] LABS: BASOPHILS % 0.2 % (0.0-2.0); EOSINOPHILS # 0.1 10^3/ul (0.0-0.5); EOSINOPHILS % 2.3 % (0.0-7.0); HEMATOCRIT 37.7 % (42.0-52.0); HEMOGLOBIN 12.7 g/dl (14.0-18.0); LYMPHOCYTES # 1.9 10^3/ul (0.8-2.9); LYMPHOCYTES % 42.2 % (15.0-51.0); MEAN CORPUSCULAR HEMOGLOBIN 29.7 pg (29.0-33.0); MEAN CORPUSCULAR HGB CONC 33.7 g/dl (32.0-37.0); MEAN CORPUSCULAR VOLUME 88.1 fl (82.0-101.0); MEAN PLATELET VOLUME 9.3 fl (7.4-10.4); MONOCYTE # 0.3 10^3/ul (0.3-0.9); NEUTROPHIL # 2.1 10^3/ul (1.6-7.5); NEUTROPHILS % 48.1 % (39.0-77.0); PLATELET COUNT 186 10^3/UL (140-415); RED BLOOD COUNT 4.28 10^6/ul (4.70-6.10); WHITE BLOOD COUNT 4.4 10^3/ul (4.8-10.8)
[2016-11-17 06:33] LABS: BILIRUBIN,INDIRECT 0.2 mg/dl (0-1.1); BILIRUBIN,TOTAL 0.2 mg/dl (0.2-1.3); CALCIUM 9.4 mg/dl (8.4-10.2); CREATININE 0.97 mg/dl (0.61-1.24); PHOSPHORUS 4.9 mg/dl (2.5-4.9); POTASSIUM 5.2 mmol/L (3.5-5.1)
[2016-11-17 06:34] LABS: ALBUMIN 4.3 g/dl (3.3-4.9); ALBUMIN/GLOBULIN RATIO 1.59
[2016-11-17 06:36] LABS: THYROID STIMULATING HORMONE 7.26 MIU/L (0.465-4.680)
[2016-11-17 07:26] VITALS: BP 123/67; RESP 19
[2016-11-17] MEDS: ONDANSETRON 4 MG INJ IV PRN ×2 (07:53→16:18)
[2016-11-17] MEDS: ENOXAPARIN 40 MG/0.4 ML SYG SC SCH (09:00)
[2016-11-17] MEDS: FAMOTIDINE 20 MG INJ IV SCH (09:18)
[2016-11-17] MEDS: SOD CHLORIDE 0.9% 1,000 ML IV SCH (09:18)
--- NOTE | 2016-11-17 12:42 | PN ---
Date/Time of Note Date/Time of Note DATE: 11/17/16 TIME: 12:39 Assessment/Plan VTE Prophylaxis VTE Prophylaxis Intervention: LMWH Lines/Catheters IV Catheter Type (from Nrs): Peripheral IV Urinary Cath still in place: No Assessment/Plan Chief Complaint/Hosp Course S: 11/16 less abd pain. Vomited this am. No hematemesis. Positive flatus. No dyspnea fever. Positive headache when he is not eating. Throbbing occipital without any photophobia or phonophobia. Ambulating well. 11/17 states his pain is a little better however asking for narcotics on around- the-clock. Positive flatus. Vomited once this am. No hematemesis. O: Vss. Pain still /10 PE No pallor Regular Clear Bs +/ diminished; mild diffuse tender. No r/r/g No edema Assessment and plan 1. Acute recurrent sigmoid diverticulitis. Stable cont antibiotics/ pain control/ clear liquids for now. May need Relistor; TPN if worse. 2. Possible micro-perforation; contained. No sepsis, cont supportive care. Outpt general surgery or GI referral. 3. Tobacco abuse status post counseling, offered patch 4. Cephalgia possible migraine. Problems: Exam/Review of Systems Vital Signs Vitals Vital Signs Date Time Temp Pulse Resp B/P Pulse Ox O2 Delivery O2 Flow Rate FiO2 11/17/16 07:26 97.5 78 19 123/67 99 11/16/16 20:00 Room Air Intake and Output 11/16/16 11/16/16 11/17/16 15:00 23:00 07:00 Intake Total 700 ml 2340 ml 1320 ml Balance 700 ml 2340 ml 1320 ml Results Result Diagram: 11/17/16 0525 11/17/16 0525 Results 24 hrs Laboratory Tests Test 11/17/16 05:25 White Blood Count 4.4 #L Red Blood Count 4.28 L Hemoglobin 12.7 L Hematocrit 37.7 L Mean Corpuscular Volume 88.1 Mean Corpuscular Hemoglobin 29.7 Mean Corpuscular Hemoglobin Concent 33.7 Red Cell Distribution Width 12.0 Platelet Count 186 Mean Platelet Volume 9.3 Neutrophils % 48.1 Lymphocytes % 42.2 Monocytes % 7.0 Eosinophils % 2.3 Basophils % 0.2 Nucleated Red Blood Cells % 0.0 Neutrophils # 2.1 Lymphocytes # 1.9 Monocytes # 0.3 Eosinophils # 0.1 Basophils # 0.0 Nucleated Red Blood Cells # 0.0 Sodium Level 144 Potassium Level 5.2 H Chloride Level 99 Carbon Dioxide Level 30 Anion Gap 20 H Blood Urea Nitrogen 5 L Creatinine 0.97 Glucose Level 98 Calcium Level 9.4 Phosphorus Level 4.9 Magnesium Level 2.0 Total Bilirubin 0.2 Direct Bilirubin 0.00 Indirect Bilirubin 0.2 Aspartate Amino Transf (AST/SGOT) 25 Alanine Aminotransferase (ALT/SGPT) 40 Alkaline Phosphatase 39 L Total Protein 7.0 Albumin 4.3 Globulin 2.70 Albumin/Globulin Ratio 1.59 Thyroid Stimulating Hormone (TSH) 7.260 H Medications Medications Current Medications Sodium Chloride (NS) 1,000 ml @ 100 mls/hr Q10H IV Last administered on 09:18; Admin Dose 100 MLS/HR; Start 11/14/16 at 21:00 Ondansetron HCl (Zofran Inj) 4 mg Q6H PRN IV NAUSEA AND/OR VOMITING Last administered on 11/17/16 07:53; Admin Dose 4 MG; Start 11/14/16 at 21:00 Acetaminophen (Tylenol Tab) 650 mg Q6H PRN PO PAIN LEVEL 1-3 OR FEVER Last administered on 11/17/16 07:52; Admin Dose 650 MG; Start 11/14/16 at 21:00 Enoxaparin Sodium 40 mg 40 mg DAILY SC ; Start 11/15/16 at 09:00 Piperacillin Sod/ Tazobactam Sod (Zosyn 3.375gm/ 100 ml (Pmx)) 100 ml @ 200 mls /hr Q6 IVPB Last administered on 11/17/16 12:10; Admin Dose 200 MLS/HR; Start 11/15/16 at 12:00 Hydromorphone HCl (Dilaudid) 1.5 mg Q2H PRN IV SEVERE PAIN LEVEL 7-10 Last administered on 11/17/16 10:41; Admin Dose 1.5 MG; Start 11/16/16 at 15:00 Famotidine (Pepcid Iv) 20 mg DAILY IV Last administered on 11/17/16 09:18; Admin Dose 20 MG; Start 11/16/16 at 18:30 STEFAN ROCHA MD Nov 17, 2016 12:42
[2016-11-17] MEDS ORDERED: DEXTROSE 5%-0.45% NACL 1,000 ML IV SCH (13:00)
--- NOTE | 2016-11-17 13:37 | RADRPT ---
PROCEDURE: XR Abdomen. CLINICAL INDICATION: Nausea with abdominal pain. Follow-up diverticulitis with micro perforation. TECHNIQUE: AP views of the abdomen is available for review. COMPARISON: 11/14/2016 CT FINDINGS: The bowel gas pattern is unremarkable with gas and stool in the colon rectum. There is no evidence o f obstruction. There are no abnormal calcifications overlying the urinary tracts. There is no signif icant pneumoperitoneum. The osseus structures are unremarkable. RPTAT: QQ IMPRESSION: 1. Unremarkable abdomen x-ray series. .Mervat Hendrickson MD, MD Date Time Electronically viewed and signed by .Mervat Hendrickson MD, MD on 11/17/2016 13:36 .T/
[2016-11-17] MEDS: DEXTROSE 5%-0.45% NACL 500 ML IV SCH ×2 (14:54→19:28)
[2016-11-17 19:42] VITALS: BP 130/81; RESP 18
[2016-11-18] MEDS: HYDROmorphONE 2 MG/ML SYG IV PRN ×11 (00:36→23:14)
[2016-11-18] MEDS: DEXTROSE 5%-0.45% NACL 500 ML IV SCH ×6 (00:46→23:13)
[2016-11-18] MEDS: ONDANSETRON 4 MG INJ IV PRN ×3 (02:30→19:02)
[2016-11-18 05:30] LABS: ADD SCAN DIFF NO
[2016-11-18 05:34] LABS: BASOPHILS % 0.2 % (0.0-2.0); EOSINOPHILS # 0.1 10^3/ul (0.0-0.5); EOSINOPHILS % 1.9 % (0.0-7.0); HEMATOCRIT 36.9 % (42.0-52.0); HEMOGLOBIN 12.5 g/dl (14.0-18.0); LYMPHOCYTES # 1.8 10^3/ul (0.8-2.9); MEAN CORPUSCULAR HEMOGLOBIN 29.1 pg (29.0-33.0); MEAN CORPUSCULAR HGB CONC 33.9 g/dl (32.0-37.0); MEAN PLATELET VOLUME 8.9 fl (7.4-10.4); MONOCYTE # 0.4 10^3/ul (0.3-0.9); MONOCYTES % 7.6 % (0.0-11.0); NEUTROPHIL # 2.5 10^3/ul (1.6-7.5); NEUTROPHILS % 52.1 % (39.0-77.0); PLATELET COUNT 207 10^3/UL (140-415); RED BLOOD COUNT 4.29 10^6/ul (4.70-6.10); RED CELL DISTRIBUTION WIDTH 11.8 % (11.5-14.5); WHITE BLOOD COUNT 4.8 10^3/ul (4.8-10.8)
[2016-11-18 05:49] LABS: INR 1.07; PROTIME 13.9 Sec (12.2-14.2); PT RATIO 1.1
[2016-11-18] MEDS: PIPER-TAZO 3.375 GM IV (PMX) 100 ML IVPB SCH ×4 (06:05→23:13)
[2016-11-18 06:19] LABS: ALBUMIN 4.4 g/dl (3.3-4.9); ALBUMIN/GLOBULIN RATIO 1.51; BILIRUBIN,INDIRECT 0.4 mg/dl (0-1.1); BILIRUBIN,TOTAL 0.4 mg/dl (0.2-1.3); CALCIUM 9.5 mg/dl (8.4-10.2); CREATININE 0.93 mg/dl (0.61-1.24); PHOSPHORUS 4.5 mg/dl (2.5-4.9); POTASSIUM 4.1 mmol/L (3.5-5.1); TOTAL PROTEIN 7.3 g/dl (6.1-8.1)
[2016-11-18] MEDS: ACETAMINOPHEN 325 MG TAB PO PRN ×2 (06:32→13:16)
[2016-11-18 07:36] VITALS: BP 108/69; RESP 16
[2016-11-18] MEDS: ENOXAPARIN 40 MG/0.4 ML SYG SC SCH (09:00)
[2016-11-18] MEDS: FAMOTIDINE 20 MG INJ IV SCH (09:02)
[2016-11-18] MEDS ORDERED: METOCLOPRAMIDE 10 MG INJ IV ONE (13:00)
[2016-11-18] MEDS ORDERED: IBUPROFEN 800 MG TAB PO PRN (13:00)
--- NOTE | 2016-11-18 13:04 | PN ---
Date/Time of Note Date/Time of Note DATE: 11/18/16 TIME: 13:00 Assessment/Plan VTE Prophylaxis VTE Prophylaxis Intervention: LMWH Lines/Catheters IV Catheter Type (from Nrs): Peripheral IV Urinary Cath still in place: No Assessment/Plan Chief Complaint/Hosp Course S: 11/16 less abd pain. Vomited this am. No hematemesis. Positive flatus. No dyspnea fever. Positive headache when he is not eating. Throbbing occipital without any photophobia or phonophobia. Ambulating well. 11/17 states his pain is a little better however asking for narcotics on around- the-clock. Positive flatus. Vomited once this am. No hematemesis. 11/17 still complains of abdominal pain. Nausea with activity. No fever. Ongoing "headache". --Nursing staff noted:MEDICATED EVERY 2 HOURS ON THE CLOCK WITH DILAUDID ORDERED, PATIENT ASKING DOSAGE AND REQUESTING MEDICATION TO BE FLUSHED AFTER GIVEN. O: Vss. Pain still 9/10 KUB ok- Gas and stool noted PE No pallor Regular Clear Bs +/ diminished; mild diffuse tender. No r/r/g No edema Assessment and plan 1. Acute recurrent sigmoid diverticulitis. Stable cont antibiotics/ pain control/ clear liquids for now. May need Relistor; TPN if worse. -GI consult. KUB looks ok. Present pain -crampy, probably more due to gas and stool/narcotic induced gastroparesis.. 2. Possible micro-perforation; contained. No sepsis, cont supportive care. Outpt general surgery or GI referral. 3. Tobacco abuse status post counseling, offered patch 4. Cephalgia possible migraine. 1 dose Reglan. Continue Excedrin or Motrin. 5. Chronic pain/pain seeking behavior? Problems: Exam/Review of Systems Vital Signs Vitals Vital Signs Date Time Temp Pulse Resp B/P Pulse Ox O2 Delivery O2 Flow Rate FiO2 11/18/16 07:36 98.1 61 16 108/69 92 11/17/16 20:00 Room Air Intake and Output 11/17/16 11/17/16 11/18/16 15:00 23:00 07:00 Intake Total 500 ml 2720 ml 1640 ml Output Total 1950 ml Balance 500 ml 770 ml 1640 ml Results Result Diagram: 11/18/16 0510 11/18/16 0510 Results 24 hrs Laboratory Tests Test 11/18/16 05:10 White Blood Count 4.8 Red Blood Count 4.29 L Hemoglobin 12.5 L Hematocrit 36.9 L Mean Corpuscular Volume 86.0 Mean Corpuscular Hemoglobin 29.1 Mean Corpuscular Hemoglobin Concent 33.9 Red Cell Distribution Width 11.8 Platelet Count 207 Mean Platelet Volume 8.9 Neutrophils % 52.1 Lymphocytes % 38.0 Monocytes % 7.6 Eosinophils % 1.9 Basophils % 0.2 Nucleated Red Blood Cells % 0.0 Neutrophils # 2.5 Lymphocytes # 1.8 Monocytes # 0.4 Eosinophils # 0.1 Basophils # 0.0 Nucleated Red Blood Cells # 0.0 Prothrombin Time 13.9 Prothrombin Time Ratio 1.1 INR International Normalized Ratio 1.07 Sodium Level 144 Potassium Level 4.1 Chloride Level 96 L Carbon Dioxide Level 31 Anion Gap 21 H Blood Urea Nitrogen 5 L Creatinine 0.93 Glucose Level 80 Calcium Level 9.5 Phosphorus Level 4.5 Magnesium Level 2.0 Total Bilirubin 0.4 Direct Bilirubin 0.00 Indirect Bilirubin 0.4 Aspartate Amino Transf (AST/SGOT) 27 Alanine Aminotransferase (ALT/SGPT) 39 Alkaline Phosphatase 36 L Total Protein 7.3 Albumin 4.4 Globulin 2.90 Albumin/Globulin Ratio 1.51 Free Thyroxine 0.81 Medications Medications Current Medications Ondansetron HCl (Zofran Inj) 4 mg Q6H PRN IV NAUSEA AND/OR VOMITING Last administered on 11/18/16 11:09; Admin Dose 4 MG; Start 11/14/16 at 21:00 Acetaminophen (Tylenol Tab) 650 mg Q6H PRN PO PAIN LEVEL 1-3 OR FEVER Last administered on 11/18/16 06:32; Admin Dose 650 MG; Start 11/14/16 at 21:00 Enoxaparin Sodium 40 mg 40 mg DAILY SC ; Start 11/15/16 at 09:00 Piperacillin Sod/ Tazobactam Sod (Zosyn 3.375gm/ 100 ml (Pmx)) 100 ml @ 200 mls /hr Q6 IVPB Last administered on 11/18/16 11:09; Admin Dose 200 MLS/HR; Start 11/15/16 at 12:00 Hydromorphone HCl (Dilaudid) 1.5 mg Q2H PRN IV SEVERE PAIN LEVEL 7-10 Last administered on 11/18/16 11:12; Admin Dose 1.5 MG; Start 11/16/16 at 15:00 Famotidine 20 mg 20 mg DAILY IV Last administered on 11/18/16 09:02; Admin Dose 20 MG; Start 11/16/16 at 18:30 Dextrose/Sodium Chloride (D5-1/2ns) 500 ml @ 100 mls/hr Q5H IV Last administered on 11/18/16 06:05; Admin Dose 100 MLS/HR; Start 11/18/16 at 01:00 Ibuprofen (Motrin) 800 mg Q6H PRN PO MODERATE PAIN LEVEL 4-6; Start 11/18/16 at 13:00; Status STEFAN ROBERTSON MD Nov 18, 2016 13:04
--- NOTE | 2016-11-18 14:00 | CONS ---
Date/Time of Note Date/Time of Note DATE: 11/18/16 TIME: 13:49 Assessment/Plan Assessment/Plan Additional Assessment/Plan Assessment * Abdominal pain Diverticulitis sigmoid Plan * pain control * antibiotics as ordered * surgery referral * case was discussed with Dr. Ribeiro * Further orders will depend on clinical course Consultation Date/Type/Reason Admit Date/Time Date of Consultation: Nov 18, 2016 Type of Consultation: Gasrroenterology Reason for Consultation diverticulitis Referring Provider: STEFAN ROCHA MD Hx of Present Illness 26 year old with past medical history of recurrent sigmoid diverticulitis presented on the emergency room complaining of generalized abdominal pain.Present condition started 3 rowan ago as diffuse abdominal pain with nausea vomiting and diarrhea.Patient was previously admitted 3 weeks ago because of diverticulitis discharged improved.Patient is awaiting 6 weeks for colonoscopy but pain recurred .CT scan of abdomen/pelvis Colonic diverticula with a focus of prominent thickening and mesenteric stranding in the mid sigmoid colon, likely due to acute diverticulitis. A possible contain microperforation is noted without evidence of a drainable fluid collection.Normal appendix. Presently ,patient complains on and off abdominal pain ,afebrile ,and receiving antibiotics Constitutional: improved, no complaints Eyes: no complaints ENT: no complaints Respiratory: no complaints Cardiovascular: no complaints Gastrointestinal: diarrhea, flatus, nausea, pain Genitourinary: no complaints Musculoskeletal: no complaints Skin: no complaints Neurologic: no complaints Endocrine: no complaints Lymphatic: no complaints Psychological: nl mood/affect, no complaints Immunologic: no complaints Past Medical History Medical History: diverticulitis Past Surgical History Past Surgical Hx: other Social History Alcohol Use: none Smoking Status: Former smoker Drug Use: none Exam/Review of Systems Vital Signs Vitals Vital Signs Date Time Temp Pulse Resp B/P Pulse Ox O2 Delivery O2 Flow Rate FiO2 11/18/16 07:36 98.1 61 16 108/69 92 11/17/16 20:00 Room Air Intake and Output 11/17/16 11/17/16 11/18/16 15:00 23:00 07:00 Intake Total 500 ml 2720 ml 1640 ml Output Total 1950 ml Balance 500 ml 770 ml 1640 ml Exam Constitutional: alert, oriented, well developed Psych: nl mood/affect, no complaints Head: atraumatic, normocephalic Eyes: EOMI, PERRL, nl conjunctiva, nl lids, nl sclera ENMT: nl external ears & nose, nl lips & teeth, nl nasal mucosa & septum Neck: non-tender, supple Respiratory: clear to auscultation, normal air movement Cardiovascular: nl pulses, regular rate and rhythm Gastrointestinal: nl liver, spleen, non-tender, soft Musculoskeletal: nl extremities to inspection, nl gait and stance Extremities: normal pulses Neurological: nl speech, nl strength Skin: nl turgor, No rash or lesions Lymph: nl lymph nodes Results Result Diagram: 11/18/1650911/18/16509 Results 24 hrs Laboratory Tests Test 11/18/16 05:10 White Blood Count 4.8 Red Blood Count 4.29 L Hemoglobin 12.5 L Hematocrit 36.9 L Mean Corpuscular Volume 86.0 Mean Corpuscular Hemoglobin 29.1 Mean Corpuscular Hemoglobin Concent 33.9 Red Cell Distribution Width 11.8 Platelet Count 207 Mean Platelet Volume 8.9 Neutrophils % 52.1 Lymphocytes % 38.0 Monocytes % 7.6 Eosinophils % 1.9 Basophils % 0.2 Nucleated Red Blood Cells % 0.0 Neutrophils # 2.5 Lymphocytes # 1.8 Monocytes # 0.4 Eosinophils # 0.1 Basophils # 0.0 Nucleated Red Blood Cells # 0.0 Prothrombin Time 13.9 Prothrombin Time Ratio 1.1 INR International Normalized Ratio 1.07 Sodium Level 144 Potassium Level 4.1 Chloride Level 96 L Carbon Dioxide Level 31 Anion Gap 21 H Blood Urea Nitrogen 5 L Creatinine 0.93 Glucose Level 80 Calcium Level 9.5 Phosphorus Level 4.5 Magnesium Level 2.0 Total Bilirubin 0.4 Direct Bilirubin 0.00 Indirect Bilirubin 0.4 Aspartate Amino Transf (AST/SGOT) 27 Alanine Aminotransferase (ALT/SGPT) 39 Alkaline Phosphatase 36 L Total Protein 7.3 Albumin 4.4 Globulin 2.90 Albumin/Globulin Ratio 1.51 Free Thyroxine 0.81 Medications Medications Current Medications Ondansetron HCl (Zofran Inj) 4 mg Q6H PRN IV NAUSEA AND/OR VOMITING Last administered on 11/18/16 11:09; Admin Dose 4 MG; Start 11/14/16 at 21:00 Acetaminophen (Tylenol Tab) 650 mg Q6H PRN PO PAIN LEVEL 1-3 OR FEVER Last administered on 11/18/16 13:16; Admin Dose 650 MG; Start 11/14/16 at 21:00 Enoxaparin Sodium 40 mg 40 mg DAILY SC ; Start 11/15/16 at 09:00 Piperacillin Sod/ Tazobactam Sod (Zosyn 3.375gm/ 100 ml (Pmx)) 100 ml @ 200 mls /hr Q6 IVPB Last administered on 11/18/16 11:09; Admin Dose 200 MLS/HR; Start 11/15/16 at 12:00 Hydromorphone HCl (Dilaudid) 1.5 mg Q2H PRN IV SEVERE PAIN LEVEL 7-10 Last administered on 11/18/16 13:16; Admin Dose 1.5 MG; Start 11/16/16 at 15:00 Famotidine 20 mg 20 mg DAILY IV Last administered on 11/18/16 09:02; Admin Dose 20 MG; Start 11/16/16 at 18:30 Dextrose/Sodium Chloride (D5-1/2ns) 500 ml @ 100 mls/hr Q5H IV Last administered on 11/18/16 13:17; Admin Dose 100 MLS/HR; Start 11/18/16 at 01:00 Ibuprofen (Motrin) 800 mg Q6H PRN PO MODERATE PAIN LEVEL 4-6; Start 11/18/16 at 13:00 Levothyroxine Sodium (Synthroid) 25 mcg DAILY@06 PO ; Start 11/19/16 at 06:00 MOISES PAZ NP Nov 18, 2016 13:59
[2016-11-18] MEDS: IBUPROFEN 400 MG TAB PO PRN (18:20)
[2016-11-18 19:27] VITALS: BP 123/73; RESP 18
[2016-11-19] MEDS: ONDANSETRON 4 MG INJ IV PRN ×3 (01:19→19:09)
[2016-11-19] MEDS: HYDROmorphONE 2 MG/ML SYG IV PRN ×10 (01:20→23:07)
[2016-11-19] MEDS: IBUPROFEN 400 MG TAB PO PRN ×3 (02:18→15:16)
[2016-11-19] MEDS: DEXTROSE 5%-0.45% NACL 500 ML IV SCH ×5 (05:24→23:14)
[2016-11-19] MEDS: PIPER-TAZO 3.375 GM IV (PMX) 100 ML IVPB SCH ×3 (05:24→17:44)
[2016-11-19] MEDS: LEVOTHYROXINE 25 MCG TAB PO SCH (05:31)
[2016-11-19 05:36] LABS: ADD SCAN DIFF NO
[2016-11-19 05:50] LABS: BASOPHILS % 0.3 % (0.0-2.0); EOSINOPHILS # 0.1 10^3/ul (0.0-0.5); EOSINOPHILS % 1.7 % (0.0-7.0); HEMATOCRIT 39.8 % (42.0-52.0); HEMOGLOBIN 13.6 g/dl (14.0-18.0); LYMPHOCYTES # 2.1 10^3/ul (0.8-2.9); LYMPHOCYTES % 31.6 % (15.0-51.0); MEAN CORPUSCULAR HEMOGLOBIN 29.2 pg (29.0-33.0); MEAN CORPUSCULAR HGB CONC 34.2 g/dl (32.0-37.0); MEAN CORPUSCULAR VOLUME 85.6 fl (82.0-101.0); MEAN PLATELET VOLUME 9.1 fl (7.4-10.4); MONOCYTE # 0.4 10^3/ul (0.3-0.9); MONOCYTES % 5.4 % (0.0-11.0); NEUTROPHILS % 60.8 % (39.0-77.0); PLATELET COUNT 215 10^3/UL (140-415); RED BLOOD COUNT 4.65 10^6/ul (4.70-6.10); RED CELL DISTRIBUTION WIDTH 11.8 % (11.5-14.5); WHITE BLOOD COUNT 6.5 10^3/ul (4.8-10.8)
[2016-11-19 06:14] LABS: ALBUMIN 4.5 g/dl (3.3-4.9); ALBUMIN/GLOBULIN RATIO 1.5; BILIRUBIN,INDIRECT 0.4 mg/dl (0-1.1); BILIRUBIN,TOTAL 0.4 mg/dl (0.2-1.3); CALCIUM 9.7 mg/dl (8.4-10.2); CREATININE 0.97 mg/dl (0.61-1.24); PHOSPHORUS 4.8 mg/dl (2.5-4.9); POTASSIUM 4.5 mmol/L (3.5-5.1); TOTAL PROTEIN 7.5 g/dl (6.1-8.1)
[2016-11-19 07:24] VITALS: BP 125/70; RESP 18
[2016-11-19] MEDS: FAMOTIDINE 20 MG INJ IV SCH (08:59)
[2016-11-19] MEDS: ENOXAPARIN 40 MG/0.4 ML SYG SC SCH (08:59)
--- NOTE | 2016-11-19 13:10 | PN ---
Date/Time of Note Date/Time of Note DATE: 11/19/16 TIME: 13:07 Assessment/Plan VTE Prophylaxis VTE Prophylaxis Intervention: ambulation Lines/Catheters IV Catheter Type (from Nrs): Peripheral IV Urinary Cath still in place: No Assessment/Plan Assessment/Plan Assessment * Abdominal pain Diverticulitis sigmoid Plan * pain control * advanced iet to soft * antibiotics as ordered * case was discussed with Dr. Ribeiro * Further orders will depend on clinical course Subjective 24 Hr Interval Summary Free Text/Dictation * course reviewed with RN * Patient seen and examined * no untoward events overnight Exam/Review of Systems Vital Signs Vitals Vital Signs Date Time Temp Pulse Resp B/P Pulse Ox O2 Delivery O2 Flow Rate FiO2 11/19/16 07:24 97.8 57 18 125/70 98 11/17/16 20:00 Room Air Intake and Output 11/18/16 11/18/16 11/19/16 15:00 23:00 07:00 Intake Total 800 ml 1080 ml 1700 ml Output Total 1950 ml Balance 800 ml -870 ml 1700 ml Exam Constitutional: alert, oriented Head: normocephalic Eyes: nl conjunctiva Neck: non-tender, supple Respiratory: clear to auscultation, normal air movement Cardiovascular: nl pulses, regular rate and rhythm Gastrointestinal: nl liver, spleen, non-tender, soft Musculoskeletal: nl extremities to inspection, nl gait and stance Extremities: normal pulses Neurological: nl speech, nl strength Skin: nl turgor, No rash or lesions Lymph: nl lymph nodes Results Result Diagram: 11/19/16 0515 11/19/16 0515 Results 24 hrs Laboratory Tests Test 11/19/16 05:15 White Blood Count 6.5 # Red Blood Count 4.65 L Hemoglobin 13.6 L Hematocrit 39.8 L Mean Corpuscular Volume 85.6 Mean Corpuscular Hemoglobin 29.2 Mean Corpuscular Hemoglobin Concent 34.2 Red Cell Distribution Width 11.8 Platelet Count 215 Mean Platelet Volume 9.1 Neutrophils % 60.8 Lymphocytes % 31.6 Monocytes % 5.4 Eosinophils % 1.7 Basophils % 0.3 Nucleated Red Blood Cells % 0.0 Neutrophils # 4.0 Lymphocytes # 2.1 Monocytes # 0.4 Eosinophils # 0.1 Basophils # 0.0 Nucleated Red Blood Cells # 0.0 Sodium Level 145 H Potassium Level 4.5 Chloride Level 99 Carbon Dioxide Level 33 H Anion Gap 18 H Blood Urea Nitrogen 4 L Creatinine 0.97 Glucose Level 74 Calcium Level 9.7 Phosphorus Level 4.8 Magnesium Level 2.0 Total Bilirubin 0.4 Direct Bilirubin 0.00 Indirect Bilirubin 0.4 Aspartate Amino Transf (AST/SGOT) 46 # Alanine Aminotransferase (ALT/SGPT) 48 Alkaline Phosphatase 39 L Total Protein 7.5 Albumin 4.5 Globulin 3.00 Albumin/Globulin Ratio 1.50 Medications Medications Current Medications Ondansetron HCl (Zofran Inj) 4 mg Q6H PRN IV NAUSEA AND/OR VOMITING Last administered on 11/19/16 12:30; Admin Dose 4 MG; Start 11/14/16 at 21:00 Acetaminophen (Tylenol Tab) 650 mg Q6H PRN PO PAIN LEVEL 1-3 OR FEVER Last administered on 11/18/16 13:16; Admin Dose 650 MG; Start 11/14/16 at 21:00 Enoxaparin Sodium 40 mg 40 mg DAILY SC ; Start 11/15/16 at 09:00 Piperacillin Sod/ Tazobactam Sod (Zosyn 3.375gm/ 100 ml (Pmx)) 100 ml @ 200 mls /hr Q6 IVPB Last administered on 11/19/16 12:05; Admin Dose 200 MLS/HR; Start 11/15/16 at 12:00 Hydromorphone HCl (Dilaudid) 1.5 mg Q2H PRN IV SEVERE PAIN LEVEL 7-10 Last administered on 11/19/16 12:32; Admin Dose 1.5 MG; Start 11/16/16 at 15:00 Famotidine 20 mg 20 mg DAILY IV Last administered on 11/19/16 08:59; Admin Dose 20 MG; Start 11/16/16 at 18:30 Dextrose/Sodium Chloride (D5-1/2ns) 500 ml @ 100 mls/hr Q5H IV Last administered on 11/19/16 10:37; Admin Dose 100 MLS/HR; Start 11/18/16 at 01:00 Levothyroxine Sodium (Synthroid) 25 mcg DAILY@06 PO Last administered on 05:31; Admin Dose 25 MCG; Start 11/19/16 at 06:00 Ibuprofen (Motrin) 800 mg Q6H PRN PO MODERATE PAIN LEVEL 4-6 Last administered on 11/19/16 09:00; Admin Dose 800 MG; Start 11/18/16 at 16:30 MOISES PAZ NP Nov 19, 2016 13:09
--- NOTE | 2016-11-19 16:25 | PN ---
Date/Time of Note Date/Time of Note DATE: 11/19/16 TIME: 16:22 Assessment/Plan VTE Prophylaxis VTE Prophylaxis Intervention: LMWH Lines/Catheters IV Catheter Type (from Nrs): Peripheral IV Urinary Cath still in place: No Assessment/Plan Chief Complaint/Hosp Course S: 11/16 less abd pain. Vomited this am. No hematemesis. Positive flatus. No dyspnea fever. Positive headache when he is not eating. Throbbing occipital without any photophobia or phonophobia. Ambulating well. 11/17 states his pain is a little better however asking for narcotics on around- the-clock. Positive flatus. Vomited once this am. No hematemesis. 11/17 still complains of abdominal pain. Nausea with activity. No fever. Ongoing "headache". --Nursing staff noted:MEDICATED EVERY 2 HOURS ON THE CLOCK WITH DILAUDID ORDERED, PATIENT ASKING DOSAGE AND REQUESTING MEDICATION TO BE FLUSHED AFTER GIVEN. 11/19: Somewhat less pain apparently. Positive nausea headache. No fever dyspnea. Tolerating soft diet. O: Vss. Pain KUB ok- Gas and stool noted PE No pallor Regular Clear Bs +/ diminished; mild diffuse tender. No r/r/g No edema A/P 1. Acute recurrent sigmoid diverticulitis. Stable cont antibiotics. Advance to soft diet. May need Relistor; TPN if worse. 2. Possible micro-perforation; contained. No sepsis, cont supportive care. Outpt general surgery or GI referral. 3. Tobacco abuse status post counseling, offered patch 4. Cephalgia possible migraine. 1 dose Reglan. Continue Excedrin or Motrin. 5. Chronic pain/pain seeking behavior? 6. Hypothyroidism- symptomatic? Started treatment. 7. 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 Problems: Exam/Review of Systems Vital Signs Vitals Vital Signs Date Time Temp Pulse Resp B/P Pulse Ox O2 Delivery O2 Flow Rate FiO2 11/19/16 07:24 97.8 57 18 125/70 98 11/17/16 20:00 Room Air Intake and Output 11/18/16 11/18/16 11/19/16 15:00 23:00 07:00 Intake Total 800 ml 1080 ml 1700 ml Output Total 1950 ml Balance 800 ml -870 ml 1700 ml Results Result Diagram: 11/19/16 0515 11/19/16 0515 Results 24 hrs Laboratory Tests Test 11/19/16 05:15 White Blood Count 6.5 # Red Blood Count 4.65 L Hemoglobin 13.6 L Hematocrit 39.8 L Mean Corpuscular Volume 85.6 Mean Corpuscular Hemoglobin 29.2 Mean Corpuscular Hemoglobin Concent 34.2 Red Cell Distribution Width 11.8 Platelet Count 215 Mean Platelet Volume 9.1 Neutrophils % 60.8 Lymphocytes % 31.6 Monocytes % 5.4 Eosinophils % 1.7 Basophils % 0.3 Nucleated Red Blood Cells % 0.0 Neutrophils # 4.0 Lymphocytes # 2.1 Monocytes # 0.4 Eosinophils # 0.1 Basophils # 0.0 Nucleated Red Blood Cells # 0.0 Sodium Level 145 H Potassium Level 4.5 Chloride Level 99 Carbon Dioxide Level 33 H Anion Gap 18 H Blood Urea Nitrogen 4 L Creatinine 0.97 Glucose Level 74 Calcium Level 9.7 Phosphorus Level 4.8 Magnesium Level 2.0 Total Bilirubin 0.4 Direct Bilirubin 0.00 Indirect Bilirubin 0.4 Aspartate Amino Transf (AST/SGOT) 46 # Alanine Aminotransferase (ALT/SGPT) 48 Alkaline Phosphatase 39 L Total Protein 7.5 Albumin 4.5 Globulin 3.00 Albumin/Globulin Ratio 1.50 Medications Medications Current Medications Ondansetron HCl (Zofran Inj) 4 mg Q6H PRN IV NAUSEA AND/OR VOMITING Last administered on 11/19/16 12:30; Admin Dose 4 MG; Start 11/14/16 at 21:00 Acetaminophen (Tylenol Tab) 650 mg Q6H PRN PO PAIN LEVEL 1-3 OR FEVER Last administered on 11/18/16 13:16; Admin Dose 650 MG; Start 11/14/16 at 21:00 Enoxaparin Sodium 40 mg 40 mg DAILY SC ; Start 11/15/16 at 09:00 Piperacillin Sod/ Tazobactam Sod (Zosyn 3.375gm/ 100 ml (Pmx)) 100 ml @ 200 mls /hr Q6 IVPB Last administered on 11/19/16 12:05; Admin Dose 200 MLS/HR; Start 11/15/16 at 12:00 Hydromorphone HCl (Dilaudid) 1.5 mg Q2H PRN IV SEVERE PAIN LEVEL 7-10 Last administered on 11/19/16 14:35; Admin Dose 1.5 MG; Start 11/16/16 at 15:00 Famotidine 20 mg 20 mg DAILY IV Last administered on 11/19/16 08:59; Admin Dose 20 MG; Start 11/16/16 at 18:30 Dextrose/Sodium Chloride (D5-1/2ns) 500 ml @ 100 mls/hr Q5H IV Last administered on 11/19/16 10:37; Admin Dose 100 MLS/HR; Start 11/18/16 at 01:00 Levothyroxine Sodium (Synthroid) 25 mcg DAILY@06 PO Last administered on 05:31; Admin Dose 25 MCG; Start 11/19/16 at 06:00 Ibuprofen (Motrin) 800 mg Q6H PRN PO MODERATE PAIN LEVEL 4-6 Last administered on 11/19/16 15:16; Admin Dose 800 MG; Start 11/18/16 at 16:30 STEFAN ROCHA MD Nov 19, 2016 16:24
[2016-11-19] MEDS: ACETAMINOPHEN 325 MG TAB PO PRN (17:44)
[2016-11-19 20:30] VITALS: BP 119/78; RESP 19
[2016-11-20] MEDS: PIPER-TAZO 3.375 GM IV (PMX) 100 ML IVPB SCH ×3 (00:02→11:35)
[2016-11-20] MEDS: ONDANSETRON 4 MG INJ IV PRN (01:03)
[2016-11-20] MEDS: HYDROmorphONE 2 MG/ML SYG IV PRN ×8 (01:06→15:24)
[2016-11-20 02:00] VITALS: BP 126/81; RESP 19
[2016-11-20] MEDS: DEXTROSE 5%-0.45% NACL 500 ML IV SCH ×2 (05:10→08:00)
[2016-11-20] MEDS: LEVOTHYROXINE 25 MCG TAB PO SCH (06:02)
[2016-11-20 07:32] VITALS: BP 104/67; RESP 16
[2016-11-20] MEDS: FAMOTIDINE 20 MG INJ IV SCH (08:27)
[2016-11-20] MEDS: ENOXAPARIN 40 MG/0.4 ML SYG SC SCH (08:30)
[2016-11-20] MEDS: ACETAMINOPHEN 325 MG TAB PO PRN (08:45)
[2016-11-20] MEDS ORDERED: DEXTROSE 5%-0.45% NACL 1,000 ML IV SCH (11:00)
--- NOTE | 2016-11-20 12:35 | PDOCDIS ---
Discharge Instructions DIAGNOSIS Discharge Diagnosis colitis CONDITION Patient Condition: Good HOME CARE INSTRUCTIONS: Special Diet: soft, may advance to regular. no nuts/seeds or fiber. ACTIVITY: Activity Restrictions: Slowly Increase Activity Do not Drive FOLLOW UP/APPOINTMENTS Follow-up Plan PCP 1wk ANDRADE Castro or Gema 1wk STEFAN ROCHA MD Nov 20, 2016 12:34
[2016-11-20] MEDS ORDERED: ACET325T40 PO (12:38)
[2016-11-20] MEDS ORDERED: CIPR500T4 PO (12:38)
[2016-11-20] MEDS ORDERED: LEVO25TA53 PO (12:38)
[2016-11-20] MEDS ORDERED: IBUP400T22 PO (12:38)
[2016-11-20] MEDS ORDERED: METR500T PO (12:38)
--- NOTE | 2016-11-20 13:29 | DS ---
Date/Time of Note Date/Time of Note DATE: 11/20/16 TIME: 13:25 Discharge Summary Admission/Discharge Info Admit Date/Time Nov 14, 2016 at 20:41 Discharge Date/Time 11/20/16 Discharge Diagnosis colitis Hx of Present Illness cc: abdominal pain 26-year-old male presents here in emergency department for complaints of generalized abdominal pain nausea and vomiting diarrhea for the last 3 days. Patient has history of chronic diverticulitis, as already seen a GI specialist, is scheduled to have colonic enemas while waiting for appointment. Patient has been admitted here 3 weeks ago for the same problem, has been admitted here in the hospital multiple times for the same problem. Patient does not have any history of any abscess. Patient complaining of generalized abdominal pain and cramping pains 9/10 scale, comminuted with vomiting diarrhea. Patient denies any blood in the stool or black stool. Patient denies any flank pain. Patient denies any fever or chills. Patient to Tylenol No. 4 home to help with symptoms only mild relief. . allergies: nkda meds: see [facility] Hospital Course Hospital course: Evaluated and managed for colitis. Probable recurrent diverticulitis. Tolerating diet and antibiotics. Stable and fit for discharge. No sepsis. Seen by GI. Last KUB shows a lot of stool and gas. I think he is has some pain seeking behavior, and this narcotic use is contributing to narcotic-induced gastroparesis. I am not going to send him out on narcotics. I recommended he take Motrin for pain. Cipro and Flagyl for finishing outpatient therapy. He has a scheduled appointment Dr. Castro/ GI for probably water-soluble enema. May need full colonoscopy. Before considering surgical eval/colectomy. 11/16 less abd pain. Vomited this am. No hematemesis. Positive flatus. No dyspnea fever. Positive headache when he is not eating. Throbbing occipital without any photophobia or phonophobia. Ambulating well. 11/17 states his pain is a little better however asking for narcotics on around- the-clock. Positive flatus. Vomited once this am. No hematemesis. 11/17 still complains of abdominal pain. Nausea with activity. No fever. Ongoing "headache". --Nursing staff noted:MEDICATED EVERY 2 HOURS ON THE CLOCK WITH DILAUDID ORDERED, PATIENT ASKING DOSAGE AND REQUESTING MEDICATION TO BE FLUSHED AFTER GIVEN. 11/19: Somewhat less pain apparently. Positive nausea headache. No fever dyspnea. Tolerating soft diet. 11/20, less pain, tolerating diet. Stable and fit for discharge. O: Vss. Pain KUB ok- Gas and stool noted PE No pallor Regular Clear Bs +; mild diffuse tender. No r/r/g No edema A/P 1. Acute recurrent sigmoid diverticulitis. Stable finish antibiotics. May need Relistor/TPN if worse in future. 2. Possible micro-perforation; contained. No sepsis, cont supportive care. Outpt general surgery or GI referral. 3. Tobacco abuse status post counseling, offered patch 4. Cephalgia. No loss of speech/ vision or suggestion of migraine at this time. 1 dose Reglan. Continue Excedrin or Motrin. 5. Chronic pain/pain seeking behavior? 6. Hypothyroidism- symptomatic? Started treatment. 7. 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 Discharge plan Appointment primary 1 week Appointment GI 1 week Diet: Soft bland no nuts or seeds Activity as tolerated no driving dizzy Allergies none CODE STATUS full Condition stable Barriers to discharge not Pending test on Functional status patient awake alert agrees plan of care DME none New medications Synthroid 50 mcg daily Ciprofloxacin 500 twice daily 1 week Flagyl 500 3 times daily one week Motrin 800 every 6 hours as needed Tylenol as needed for pain Home Meds Active Scripts Ibuprofen* (Ibuprofen*) 400 Mg Tablet, 800 MG PO Q6H Y for MODERATE PAIN LEVEL 4 -6 for 7 Days, #30 TAB Prov:STEFAN ROCHA MD 11/20/16 Acetaminophen (MAPAP) 325 Mg Tablet, 650 MG PO Q6H Y for PAIN LEVEL 1-3 OR FEVER for 1 Day, #1 TAB Prov:STEFAN ROCHA MD 11/20/16 Metronidazole* (Flagyl*) 500 Mg Tablet, 500 MG PO Q8 for 7 Days, #22 TAB Prov:STEFAN ROCHA MD 11/20/16 Ciprofloxacin Hcl* (Ciprofloxacin Hcl*) 500 Mg Tablet, 500 MG PO BID@06,18 for 7 Days, #14 TAB Prov:STEFAN ROCHA MD 11/20/16 Levothyroxine Sodium* (Levothyroxine Sodium*) 25 Mcg Tablet, 25 MCG PO DAILY@06 for 30 Days, #30 TAB 1 Refill Prov:STEFAN ROCHA MD 11/20/16 Metoclopramide* (Reglan*) 10 Mg Tablet, 10 MG PO Q6H Y for NAUSEA AND OR VOMITING, #30 TAB Prov:CHERRI CARR MD 10/27/16 Ciprofloxacin Hcl* (Ciprofloxacin Hcl*) 500 Mg Tablet, 500 MG PO BID, #20 TAB Prov:CHERRI CARR MD 10/27/16 Metronidazole (Flagyl) 500 Mg Tab, 500 MG PO TID for 10 Days, #30 TAB Prov:CHERRI CARR MD 10/27/16 Reported Medications Multivits,Ca,Min/Iron/FA/Lycop (Centrum Men's Tablet) 1 Each Tablet, 1 EACH PO, TAB 10/23/16 Discontinued Scripts Hydromorphone Hcl* (Dilaudid*) 2 Mg Tablet, 2 MG PO Q4H Y for SEVERE PAIN LEVEL 7-10, #30 TAB Prov:CHERRI CARR MD 10/27/16 Primary Care Provider MD AJ Buenrostro ANAND K MD Nov 20, 2016 13:29
--- NOTE | 2016-11-20 13:31 | PN ---
Date/Time of Note Date/Time of Note DATE: 11/20/16 TIME: 13:28 Assessment/Plan VTE Prophylaxis VTE Prophylaxis Intervention: ambulation Lines/Catheters IV Catheter Type (from Nrs): Peripheral IV Urinary Cath still in place: No Assessment/Plan Assessment/Plan Assessment * Abdominal pain improved Diverticulitis sigmoid Plan * Stable for outpatient management * case was discussed with Dr. Ribeiro * Further orders will depend on clinical course Subjective 24 Hr Interval Summary Free Text/Dictation * Course reviewed * No untoward incident overnight * Patient seen and examined * Denies abdominal pain Exam/Review of Systems Vital Signs Vitals Vital Signs Date Time Temp Pulse Resp B/P Pulse Ox O2 Delivery O2 Flow Rate FiO2 11/20/16 07:32 97.9 72 16 104/67 94 11/17/16 20:00 Room Air Intake and Output 11/19/16 11/19/16 11/20/16 15:00 23:00 07:00 Intake Total 500 ml 1580 ml 2160 ml Balance 500 ml 1580 ml 2160 ml Exam Constitutional: alert, oriented Eyes: nl sclera ENMT: mucosa pink and moist Neck: non-tender, supple Respiratory: clear to auscultation, normal air movement Cardiovascular: nl pulses, regular rate and rhythm Gastrointestinal: non-tender, soft Musculoskeletal: nl extremities to inspection, nl gait and stance Extremities: normal pulses Neurological: nl speech, nl strength Skin: nl turgor, No rash or lesions Lymph: nl lymph nodes Results Result Diagram: 11/19/16 0515 11/19/16 0515 Medications Medications Current Medications Ondansetron HCl (Zofran Inj) 4 mg Q6H PRN IV NAUSEA AND/OR VOMITING Last administered on 11/20/16 01:03; Admin Dose 4 MG; Start 11/14/16 at 21:00 Acetaminophen (Tylenol Tab) 650 mg Q6H PRN PO PAIN LEVEL 1-3 OR FEVER Last administered on 11/20/16 08:45; Admin Dose 650 MG; Start 11/14/16 at 21:00 Enoxaparin Sodium (Lovenox) 40 mg DAILY SC ; Start 11/15/16 at 09:00 Hydromorphone HCl (Dilaudid) 1.5 mg Q2H PRN IV SEVERE PAIN LEVEL 7-10 Last administered on 11/20/16 11:36; Admin Dose 1.5 MG; Start 11/16/16 at 15:00 Levothyroxine Sodium (Synthroid) 25 mcg DAILY@06 PO Last administered on 06:02; Admin Dose 25 MCG; Start 11/19/16 at 06:00 Ibuprofen (Motrin) 800 mg Q6H PRN PO MODERATE PAIN LEVEL 4-6 Last administered on 11/19/16 15:16; Admin Dose 800 MG; Start 11/18/16 at 16:30 Ciprofloxacin (Cipro) 500 mg BID@06,18 PO ; Start 11/20/16 at 18:00 Metronidazole (Flagyl) 500 mg Q8 PO ; Start 11/20/16 at 14:00 MOISES PZA NP Nov 20, 2016 13:31
[2016-11-20] MEDS ORDERED: metroNIDAZOLE 500 MG TAB PO SCH (14:00)
[2016-11-20] MEDS ORDERED: CIPROFLOXACIN 500 MG TAB PO ONE (14:00)
[2016-11-20] MEDS ORDERED: CIPROFLOXACIN 500 MG TAB PO SCH (18:00)
== END 2016-11-20 16:05 | disposition home or self-care (01) | DRG 392 ==
LOC: FTE 18:03 → MS2 20:41
PROVIDERS: ADMIT Family Medicine; ATTEND Family Medicine
DX: K52.9 Noninfective gastroenteritis and colitis, unspecified (principal); K57.92 Diverticulitis of intestine, part unspecified, without perforation or abscess without bleeding; F17.200 Nicotine dependence, unspecified, uncomplicated; R51 Headache; G89.29 Other chronic pain; E03.9 Hypothyroidism, unspecified
CPT/HCPCS: 36415; 74000; 74177; 80053; 81003; 83690; 83735; 84100; 84439; 84443; 85025; 85610; 96374; 96375; C9113; J0692; J1170; J1650; J1885; J2405; J2543; J2765; J3030; J7030; J7042; Q9967

== ENCOUNTER 2016-11-30 20:35 | Inpatient (IN) | payer OTHER ==
[~2016-11-30] VITALS: Ht 177.8 cm; Wt 91.5 kg
[~2016-11-30 20:35] MED LIST changes: -HYDR-3605 PO
[2016-11-30 20:58] VITALS: Ht 177.8 cm; Wt 91.5 kg
[2016-11-30] MEDS ORDERED: VANCOMYCIN 1 GM (PMX) 250 ML IVPB STA (21:43)
[2016-11-30] MEDS ORDERED: ONDANSETRON 4 MG INJ IV STA (21:43)
[2016-11-30] MEDS ORDERED: metroNIDAZOLE 500 MG/NS (PMX) 100 ML IVPB STA (21:43)
[2016-11-30] MEDS ORDERED: morphine 4 MG/ML VIAL IV STA (21:43)
--- NOTE | 2016-11-30 21:43 | ERD ---
ER Documentation Chief Complaint Date/Time DATE: 11/30/16 TIME: 21:41 Chief Complaint ABD PAIN FOR 3 DAYS WITH N/V/DIARRHEA (NO ACTIVE VOMITING) HPI This pleasant 26-year-old male patient presents to the emergency department with abdominal pain radiating to his back, patient reports the pain is severe 10 out of 10, throbbing, sharp, patient reports intermittent fever and chills, history of diverticulitis last treated here at [facility]. Patient reports that he was hospitalized November 14 and discharged November 20 sent home on oral antibiotics. Patient reports he took full course of antibiotics as prescribed. Patient states he is followed by gastroenterology Chart review 11/14/16 CLINICAL INDICATION: Abdominal Pain TECHNIQUE: CT scan of the abdomen and pelvis with intravenous contrast was performed on a multislice CT scanner. 3-D sagittal and coronal reformatted images were obtained from the axial source images. DLP 961.36 mGycm CTDIvol 15.14 mGy One or more of the following dose reduction techniques were used: - Automated exposure control. - Adjustment of the mA and/or kV according to patient size. - Use of iterative reconstruction technique. COMPARISON: None. FINDINGS: The visualized lung bases are unremarkable. The liver is homogenous in attenuation. There are no focal liver lesions. There is no intrahepatic or extrahepatic biliary ductal dilatation. The gallbladder is within normal limits. The spleen, pancreas, and adrenal glands are within normal limits. The kidneys are symmetric and without focal lesions. There are no renal calculi. There is no obstructive uropathy. There are no dilated or thickened loops of small bowel. The appendix is within normal limits. There are colonic diverticula with a focus of prominent thickening and surrounding mesenteric stranding in the redundant mid sigmoid colon on series 3 , image 150, likely due to diverticulitis. 2 tiny foci of adjacent air are noted on axial image 162 which may be extraluminal, indicating a possible contains microperforation. No drainable fluid collections are identified. The aorta is within normal limits. There are no enlarged mesenteric, periaortic , or retroperitoneal lymph nodes. The bladder is within normal limits. There is no free air. There is no free fluid. There are no enlarged intrapelvic or inguinal lymph nodes. Osseous and soft tissue structures are unremarkable. IMPRESSION: Colonic diverticula with a focus of prominent thickening and mesenteric stranding in the mid sigmoid colon, likely due to acute diverticulitis. A possible contain microperforation is noted without evidence of a drainable fluid collection. Normal appendix. RPTAT: EE Rick Mckeon Physician Date Time Electronically viewed and signed by Rick Mckeon, Physician on 11/14/2016 20:25 art review ROS All systems reviewed and are negative except as per history of present illness. Medications Home Meds Active Scripts Ibuprofen* (Ibuprofen*) 400 Mg Tablet, 800 MG PO Q6H Y for MODERATE PAIN LEVEL 4 -6 for 7 Days, #30 TAB Prov:STEFAN ROCHA MD 11/20/16 Acetaminophen (MAPAP) 325 Mg Tablet, 650 MG PO Q6H Y for PAIN LEVEL 1-3 OR FEVER for 1 Day, #1 TAB Prov:STEFAN ROCHA MD 11/20/16 Metronidazole* (Flagyl*) 500 Mg Tablet, 500 MG PO Q8 for 7 Days, #22 TAB Prov:STEFAN ROCHA MD 11/20/16 Ciprofloxacin Hcl* (Ciprofloxacin Hcl*) 500 Mg Tablet, 500 MG PO BID@06,18 for 7 Days, #14 TAB Prov:STEFAN ROCHA MD 11/20/16 Levothyroxine Sodium* (Levothyroxine Sodium*) 25 Mcg Tablet, 25 MCG PO DAILY@06 for 30 Days, #30 TAB 1 Refill Prov:STEFAN ROCHA MD 11/20/16 Metronidazole (Flagyl) 500 Mg Tab, 500 MG PO TID for 10 Days, #30 TAB Prov:CHERRI CARR MD 10/27/16 Reported Medications Levothyroxine Sodium* (Levothyroxine Sodium*) 25 Mcg Tablet, 25 MCG PO BEFORE BREAKFAST, #30 TAB 12/01/16 Multivits,Ca,Min/Iron/FA/Lycop (Centrum Men's Tablet) 1 Each Tablet, 1 EACH PO, TAB 10/23/16 Discontinued Scripts Metoclopramide* (Reglan*) 10 Mg Tablet, 10 MG PO Q6H Y for NAUSEA AND OR VOMITING, #30 TAB Prov:CHERRI CARR MD 10/27/16 Ciprofloxacin Hcl* (Ciprofloxacin Hcl*) 500 Mg Tablet, 500 MG PO BID, #20 TAB Prov:CHERRI CARR MD 10/27/16 Allergies Allergies: Coded Allergies: No Known Allergy (Unverified , 12/01/16) PMhx/Soc History of Surgery: Yes (hernia repair) Anesthesia Reaction: No Hx Neurological Disorder: No Hx Respiratory Disorders: No Hx Cardiac Disorders: No Hx Psychiatric Problems: No Hx Miscellaneous Medical Probl: Yes Hx Alcohol Use: Yes (occasional use) Hx Substance Use: No Hx Tobacco Use: No Physical Exam Vitals Vital Signs Date Time Temp Pulse Resp B/P Pulse Ox O2 Delivery O2 Flow Rate FiO2 11/30/16 23:04 98.7 68 16 129/78 98 Room Air 11/30/16 20:58 96.9 92 20 141/84 98 Vitals stable, triage notes reviewed Physical Exam Const: [] Head: Atraumatic Eyes: Normal Conjunctiva ENT: Normal External Ears, Nose and Mouth. Neck: Full range of motion..~ No meningismus. Resp: Clear to auscultation bilaterally Cardio: Regular rate and rhythm, no murmurs Abd: Soft, non tender, non distended. Normal bowel sounds Skin: No petechiae or rashes Back: No midline or flank tenderness Ext: No cyanosis, or edema Neur: Awake and alert Psych: Normal Mood and Affect Result Diagram: 11/30/16224211/30/163 Results 24 hrs Laboratory Tests Test 11/30/16 22:05 11/30/16 22:43 Urine Color YELLOW Urine Clarity CLEAR Urine pH 6.0 Urine Specific [place] 1.039 Urine Ketones NEGATIVEmg/dL Urine Nitrite NEGATIVEmg/dL Urine Bilirubin NEGATIVEmg/dL Urine Urobilinogen NEGATIVEmg/dL Urine Leukocyte Esterase NEGATIVELeu/ul Urine Microscopic RBC 2/HPF Urine Microscopic WBC 2/HPF Urine Mucus MODERATE/HPF Urine Hemoglobin NEGATIVEmg/dL Urine Glucose NEGATIVEmg/dL Urine Total Protein 1+mg/dl White Blood Count 14.310^3/ul Red Blood Count 5.0210^6/ul Hemoglobin 14.8g/dl Hematocrit 42.9% Mean Corpuscular Volume 85.5fl Mean Corpuscular Hemoglobin 29.5pg Mean Corpuscular Hemoglobin Concent 34.5g/dl Red Cell Distribution Width 11.7% Platelet Count 78078^3/UL Mean Platelet Volume 9.4fl Neutrophils % 70.3% Lymphocytes % 22.7% Monocytes % 6.2% Eosinophils % 0.2% Basophils % 0.2% Nucleated Red Blood Cells % 0.0/100WBC Neutrophils # 10.110^3/ul Lymphocytes # 3.210^3/ul Monocytes # 0.910^3/ul Eosinophils # 0.010^3/ul Basophils # 0.010^3/ul Nucleated Red Blood Cells # 0.010^3/ul Sodium Level 144mmol/L Potassium Level 4.0mmol/L Chloride Level 103mmol/L Carbon Dioxide Level 25mmol/L Anion Gap 20 Blood Urea Nitrogen 18mg/dl Creatinine 0.84mg/dl Glucose Level 77mg/dl Calcium Level 9.7mg/dl Total Bilirubin 0.1mg/dl Direct Bilirubin 0.00mg/dl Indirect Bilirubin 0.1mg/dl Aspartate Amino Transf (AST/SGOT) 18IU/L Alanine Aminotransferase (ALT/SGPT) 33IU/L Alkaline Phosphatase 45IU/L Total Protein 8.4g/dl Albumin 4.5g/dl Globulin 3.90g/dl Albumin/Globulin Ratio 1.15 Lipase 42U/L Current Medications Medications (Trade) Dose Ordered Sig/Bernie Route PRN Reason Start Time Stop Time Status Last Admin Dose Admin Morphine Sulfate (morphine) 4 mg ONCE STAT IV 11/30/16 21:43 11/30/16 21:52 DC 11/30/16 22:42 Ondansetron HCl 4 mg 4 mg ONCE STAT IV 11/30/16 21:43 11/30/16 21:52 DC 11/30/16 22:42 Vancomycin HCl 250 ml @ 125 mls/hr ONCE STAT IVPB 11/30/16 21:43 11/30/16 23:42 DC 12/01/16 00:16 Metronidazole 100 ml @ 100 mls/hr ONCE STAT IVPB 11/30/16 21:43 11/30/16 22:42 DC 11/30/16 21:43 Sodium Chloride (NS) 1,000 ml @ 1,000 mls/hr Q1H ONCE IV 11/30/16 22:00 11/30/16 22:59 DC 11/30/16 22:37 Interpretation text CBC shows no evidence of hemorrhage , leukocytosis at 14.3 Chemistry shows no evidence of significant electrolyte abnormalities or renal insufficiency Liver function tests shows no evidence of acute biliary or hepatic dysfunction Lipase shows no evidence of acute pancreatitis Urinalysis negative for evidence of infection, no leukocytosis, microscopic hematuria or nitrates Procedures/MDM This 26-year-old male patient presents to emergency department with chronic diverticulitis exacerbation with outpatient treatment failure after recent hospitalization. Patient is fully evaluated, IV fluids started, pain control with IV morphine, vancomycin, Flagyl initiated. Case discussed with supervising physician Dr Bynum, chronic diverticulitis with outpatient treatment failure. Patient will be admitted. Patient transferred to ED 1. Departure Diagnosis: Primary Impression: Diverticular disease Diverticulosis site: diverticulosis of large intestine Diverticulosis bleeding: diverticulosis without bleeding Qualified Code: K57.30 - Diverticulosis of large intestine without hemorrhage Condition: Good Comments Admission pending, all care turned over to EDVIN Lockett Nov 30, 2016 21:42
[2016-11-30] MEDS ORDERED: SOD CHLORIDE 0.9% 1,000 ML IV ONE (22:00)
[2016-11-30 22:43] LABS: ADD UMIC YES; UR ASCORBIC ACID NEGATIVE (NEGATIVE); UR BILIRUBIN (Dip) NEGATIVE (NEGATIVE); UR BLOOD (Dip) NEGATIVE (NEGATIVE); UR CLARITY CLEAR (CLEAR); UR COLOR YELLOW (YELLOW); UR GLUCOSE (Dip) NEGATIVE (NEGATIVE); UR KETONES (Dip) NEGATIVE (NEGATIVE); UR LEUKOCYTE ESTERASE (Dip) NEGATIVE Leu/ul (NEGATIVE); UR MUCUS MODERATE /HPF (NONE SEEN); UR NITRITE (Dip) NEGATIVE (NEGATIVE); UR RBC 2 /HPF (0-5); UR SPECIFIC GRAVITY (Dip) 1.039 (1.003-1.030); UR TOTAL PROTEIN (Dip) 1+ mg/dl (NEGATIVE); UR UROBILINOGEN (Dip) NEGATIVE (NEGATIVE)
[2016-11-30 23:02] LABS: ADD SCAN DIFF NO
[2016-11-30 23:06] LABS: BASOPHILS % 0.2 % (0.0-2.0); EOSINOPHILS % 0.2 % (0.0-7.0); HEMATOCRIT 42.9 % (42.0-52.0); HEMOGLOBIN 14.8 g/dl (14.0-18.0); LYMPHOCYTES # 3.2 10^3/ul (0.8-2.9); LYMPHOCYTES % 22.7 % (15.0-51.0); MEAN CORPUSCULAR HEMOGLOBIN 29.5 pg (29.0-33.0); MEAN CORPUSCULAR HGB CONC 34.5 g/dl (32.0-37.0); MEAN CORPUSCULAR VOLUME 85.5 fl (82.0-101.0); MEAN PLATELET VOLUME 9.4 fl (7.4-10.4); MONOCYTE # 0.9 10^3/ul (0.3-0.9); MONOCYTES % 6.2 % (0.0-11.0); NEUTROPHIL # 10.1 10^3/ul (1.6-7.5); NEUTROPHILS % 70.3 % (39.0-77.0); PLATELET COUNT 349 10^3/UL (140-415); RED BLOOD COUNT 5.02 10^6/ul (4.70-6.10); RED CELL DISTRIBUTION WIDTH 11.7 % (11.5-14.5); WHITE BLOOD COUNT 14.3 10^3/ul (4.8-10.8)
[2016-11-30 23:24] LABS: ALBUMIN 4.5 g/dl (3.3-4.9); ALBUMIN/GLOBULIN RATIO 1.15; BILIRUBIN,INDIRECT 0.1 mg/dl (0-1.1); BILIRUBIN,TOTAL 0.1 mg/dl (0.2-1.3); CALCIUM 9.7 mg/dl (8.4-10.2); CREATININE 0.84 mg/dl (0.61-1.24); TOTAL PROTEIN 8.4 g/dl (6.1-8.1)
[2016-11-30] MEDS ORDERED: HYDROmorphONE 1 MG/ML SYG IV STA (23:45)
[2016-12-01 00:16] VITALS: TEMP 98.5
[2016-12-01] MEDS ORDERED: LEVO25TA53 PO (00:32)
[2016-12-01 00:56] VITALS: BP 122/78; RESP 20
[2016-12-01] MEDS ORDERED: ONDANSETRON 4 MG INJ IV PRN (01:30)
[2016-12-01] MEDS: DEXTROSE 5%-0.45% NACL 1,000 ML IV SCH ×5 (01:53→20:44)
[2016-12-01] MEDS: morphine 4 MG/ML VIAL IV PRN ×6 (01:54→23:12)
[2016-12-01] MEDS: PIPER-TAZO 3.375 GM IV (PMX) 100 ML IVPB SCH ×5 (02:48→18:07)
[2016-12-01 06:23] LABS: ADD SCAN DIFF NO
[2016-12-01 06:27] LABS: BASOPHILS % 0.2 % (0.0-2.0); EOSINOPHILS % 0.4 % (0.0-7.0); HEMATOCRIT 36.4 % (42.0-52.0); LYMPHOCYTES # 3.4 10^3/ul (0.8-2.9); LYMPHOCYTES % 31.4 % (15.0-51.0); MEAN CORPUSCULAR HEMOGLOBIN 28.8 pg (29.0-33.0); MEAN CORPUSCULAR VOLUME 87.5 fl (82.0-101.0); MEAN PLATELET VOLUME 9.5 fl (7.4-10.4); MONOCYTE # 0.7 10^3/ul (0.3-0.9); MONOCYTES % 6.6 % (0.0-11.0); NEUTROPHIL # 6.5 10^3/ul (1.6-7.5); NEUTROPHILS % 61.1 % (39.0-77.0); PLATELET COUNT 258 10^3/UL (140-415); RED BLOOD COUNT 4.16 10^6/ul (4.70-6.10); RED CELL DISTRIBUTION WIDTH 12.1 % (11.5-14.5); WHITE BLOOD COUNT 10.7 10^3/ul (4.8-10.8)
[2016-12-01 06:51] LABS: ALBUMIN 3.6 g/dl (3.3-4.9); ALBUMIN/GLOBULIN RATIO 1.12; BILIRUBIN,INDIRECT 0.2 mg/dl (0-1.1); BILIRUBIN,TOTAL 0.2 mg/dl (0.2-1.3); CALCIUM 9.2 mg/dl (8.4-10.2); CREATININE 0.83 mg/dl (0.61-1.24); PHOSPHORUS 4.3 mg/dl (2.5-4.9); POTASSIUM 3.5 mmol/L (3.5-5.1); TOTAL PROTEIN 6.8 g/dl (6.1-8.1)
[2016-12-01 07:39] VITALS: BP 105/56; RESP 18
[2016-12-01] MEDS: HEPARIN 5,000 UNIT/0.5 ML VIAL SC SCH ×2 (10:30→20:44)
--- NOTE | 2016-12-01 10:33 | PN ---
Date/Time of Note Date/Time of Note DATE: 12/01/16 TIME: 10:30 Assessment/Plan VTE Prophylaxis VTE Prophylaxis Intervention: heparin Lines/Catheters IV Catheter Type (from [facility]): Peripheral IV Assessment/Plan Chief Complaint/Hosp Course Assessment and plan: 26-year-old male history of recurrent diverticulitis, presents with abdominal pain again. 1. Abdominal pain: Likely secondary to patient's history of diverticulitis. -Keep patient n.p.o., pain control medications, IV fluids. Consult GI team as well. 2. GI prophylaxis: PPI 3. DVT prophylaxis: Heparin subcutaneous Problems: Subjective 24 Hr Interval Summary Free Text/Dictation Patient still with some abdominal pain, denies any lower GI bleeding. Asking for Dilaudid, although explained the risks of taking that medicine at this point. Exam/Review of Systems Vital Signs Vitals Vital Signs Date Time Temp Pulse Resp B/P Pulse Ox O2 Delivery O2 Flow Rate FiO2 12/01/16 07:39 98.8 73 18 105/56 97 12/01/16 00:16 Room Air Intake and Output 11/30/16 11/30/16 12/01/16 15:00 23:00 07:00 Intake Total 600 ml Balance 600 ml Exam Gen: Alert, answering questions appropriately Head: Atraumatic Eyes: Normal Conjunctiva ENT: Normal External Ears, Nose and Mouth. Neck: Full range of motion..~ No meningismus. Resp: Clear to auscultation bilaterally Cardio: Regular rate and rhythm, no murmurs Abd: Soft, mildly tender to palpation, non distended. Normal bowel sounds Skin: No petechiae or rashes Back: No midline or flank tenderness Ext: No cyanosis, or edema Neur: Awake and alert Psych: Normal Mood and Affect Results Result Diagram: 12/01/16 0551 12/01/16 0551 Results 24 hrs Laboratory Tests Test 11/30/16 22:05 11/30/16 22:43 12/01/16 05:51 Urine Color YELLOW Urine Clarity CLEAR Urine pH 6.0 Urine Specific [place] 1.039 H Urine Ketones NEGATIVE Urine Nitrite NEGATIVE Urine Bilirubin NEGATIVE Urine Urobilinogen NEGATIVE Urine Leukocyte Esterase NEGATIVE Urine Microscopic RBC 2 Urine Microscopic WBC 2 Urine Mucus MODERATE Urine Hemoglobin NEGATIVE Urine Glucose NEGATIVE Urine Total Protein 1+ H White Blood Count 14.3 #H 10.7 # Red Blood Count 5.02 4.16 L Hemoglobin 14.8 12.0 L Hematocrit 42.9 36.4 L Mean Corpuscular Volume 85.5 87.5 Mean Corpuscular Hemoglobin 29.5 28.8 L Mean Corpuscular Hemoglobin Concent 34.5 33.0 Red Cell Distribution Width 11.7 12.1 Platelet Count 349 # 258 # Mean Platelet Volume 9.4 9.5 Neutrophils % 70.3 61.1 Lymphocytes % 22.7 31.4 Monocytes % 6.2 6.6 Eosinophils % 0.2 0.4 Basophils % 0.2 0.2 Nucleated Red Blood Cells % 0.0 0.0 Neutrophils # 10.1 H 6.5 Lymphocytes # 3.2 H 3.4 H Monocytes # 0.9 0.7 Eosinophils # 0.0 0.0 Basophils # 0.0 0.0 Nucleated Red Blood Cells # 0.0 0.0 Sodium Level 144 145 H Potassium Level 4.0 3.5 Chloride Level 103 104 Carbon Dioxide Level 25 25 Anion Gap 20 H 20 H Blood Urea Nitrogen 18 13 Creatinine 0.84 0.83 Glucose Level 77 97 Calcium Level 9.7 9.2 Total Bilirubin 0.1 L 0.2 Direct Bilirubin 0.00 0.00 Indirect Bilirubin 0.1 0.2 Aspartate Amino Transf (AST/SGOT) 18 20 Alanine Aminotransferase (ALT/SGPT) 33 28 Alkaline Phosphatase 45 33 L Total Protein 8.4 H 6.8 # Albumin 4.5 3.6 Globulin 3.90 H 3.20 Albumin/Globulin Ratio 1.15 1.12 Lipase 42 Phosphorus Level 4.3 Magnesium Level 2.0 Medications Medications Current Medications Dextrose/Sodium Chloride (D5-1/2ns) 1,000 ml @ 125 mls/hr Q8H IV Last administered on 12/01/16 01:53; Admin Dose 125 MLS/HR; Start 12/01/16 at 01:30 Ketorolac Tromethamine 15 mg 15 mg Q6H PRN IV PAIN; Start 12/01/16 at 01:30; Stop 12/04/16 at 01:29 Piperacillin Sod/ Tazobactam Sod (Zosyn 3.375gm/ 100 ml (Pmx)) 100 ml @ 200 mls /hr Q6 IVPB Last administered on 12/01/16 06:59; Admin Dose 200 MLS/HR; Start 12/01/16 at 01:30 Ondansetron HCl (Zofran Inj) 4 mg Q6H PRN IV NAUSEA AND/OR VOMITING; Start at 01:30 Morphine Sulfate (morphine) 1 mg Q4H PRN IV PAIN; Start 12/01/16 at 13:30; Status UNV Acetaminophen/ Hydrocodone Bitart ([place] (7.5-325)) 1 tab Q6H PRN PO PAIN LEVEL 4-7; Start 12/01/16 at 10:30; Status UNV BABS HUERTAS Dec 01, 2016 10:33
[2016-12-01] MEDS: KETOROLAC 15 MG INJ IV PRN ×2 (13:27→20:44)
--- NOTE | 2016-12-01 13:32 | CONS ---
Date/Time of Note Date/Time of Note DATE: 12/01/16 TIME: 13:24 Assessment/Plan Assessment/Plan Additional Assessment/Plan Assessment * Abdominal pain Diverticulitis Plan * Pain management * will start clear liquids * continue present management Consultation Date/Type/Reason Admit Date/Time Nov 30, 2016 at 23:26 Date of Consultation: Dec 01, 2016 Type of Consultation: gastroenterology Reason for Consultation diverticulitis Referring Provider: BABS HUERTAS Hx of Present Illness 26 year old male with past medical history of recurrent diverticulitis last admission was November was seen at emergency room complaining of abdominal pain.patient claims to have Barium enema as outpatient yesterday,causing left lower quadrant pain with no nausea nor vomiting,fever nor hematochezia. Emergency room revealed. leucocytosis of 14.2 now 10.2.Presently patient denies any episode of pain and claims to be feeling hungry.A review of Barium enema Extremely limited study as the patient was unable to tolerate contrast in the colon. . Only in the rectosigmoid region was opacified and appears normal. Constitutional: improved, no complaints Eyes: no complaints ENT: no complaints Respiratory: no complaints Cardiovascular: no complaints Gastrointestinal: pain Genitourinary: no complaints Musculoskeletal: no complaints Skin: no complaints Neurologic: no complaints Endocrine: no complaints Lymphatic: no complaints Psychological: nl mood/affect, no complaints Immunologic: no complaints Past Medical History Medical History: diverticulitis Past Surgical History Past Surgical Hx: no surgical history, other Family History Significant Family History: no pertinent family hx Social History Smoking Status: Former smoker Exam/Review of Systems Vital Signs Vitals Vital Signs Date Time Temp Pulse Resp B/P Pulse Ox O2 Delivery O2 Flow Rate FiO2 12/01/16 07:39 98.8 73 18 105/56 97 12/01/16 00:16 Room Air Intake and Output 11/30/16 11/30/16 12/01/16 15:00 23:00 07:00 Intake Total 600 ml Balance 600 ml Exam Constitutional: alert, oriented, well developed Psych: nl mood/affect, no complaints Head: atraumatic, normocephalic Eyes: PERRL, nl conjunctiva, nl sclera ENMT: nl nasal mucosa & septum Neck: non-tender, supple Respiratory: clear to auscultation, normal air movement Cardiovascular: nl pulses, regular rate and rhythm Gastrointestinal: bowel sounds, nl liver, spleen, non-tender, soft, No rebound or guarding Musculoskeletal: nl extremities to inspection, nl gait and stance Extremities: normal pulses Neurological: nl mental status, nl speech, nl strength Skin: nl turgor, No rash or lesions Lymph: nl lymph nodes Results Result Diagram: 12/01/16 0551 12/01/16 0551 Results 24 hrs Laboratory Tests Test 11/30/16 22:05 11/30/16 22:43 12/01/16 05:51 Urine Color YELLOW Urine Clarity CLEAR Urine pH 6.0 Urine Specific [place] 1.039 H Urine Ketones NEGATIVE Urine Nitrite NEGATIVE Urine Bilirubin NEGATIVE Urine Urobilinogen NEGATIVE Urine Leukocyte Esterase NEGATIVE Urine Microscopic RBC 2 Urine Microscopic WBC 2 Urine Mucus MODERATE Urine Hemoglobin NEGATIVE Urine Glucose NEGATIVE Urine Total Protein 1+ H White Blood Count 14.3 #H 10.7 # Red Blood Count 5.02 4.16 L Hemoglobin 14.8 12.0 L Hematocrit 42.9 36.4 L Mean Corpuscular Volume 85.5 87.5 Mean Corpuscular Hemoglobin 29.5 28.8 L Mean Corpuscular Hemoglobin Concent 34.5 33.0 Red Cell Distribution Width 11.7 12.1 Platelet Count 349 # 258 # Mean Platelet Volume 9.4 9.5 Neutrophils % 70.3 61.1 Lymphocytes % 22.7 31.4 Monocytes % 6.2 6.6 Eosinophils % 0.2 0.4 Basophils % 0.2 0.2 Nucleated Red Blood Cells % 0.0 0.0 Neutrophils # 10.1 H 6.5 Lymphocytes # 3.2 H 3.4 H Monocytes # 0.9 0.7 Eosinophils # 0.0 0.0 Basophils # 0.0 0.0 Nucleated Red Blood Cells # 0.0 0.0 Sodium Level 144 145 H Potassium Level 4.0 3.5 Chloride Level 103 104 Carbon Dioxide Level 25 25 Anion Gap 20 H 20 H Blood Urea Nitrogen 18 13 Creatinine 0.84 0.83 Glucose Level 77 97 Calcium Level 9.7 9.2 Total Bilirubin 0.1 L 0.2 Direct Bilirubin 0.00 0.00 Indirect Bilirubin 0.1 0.2 Aspartate Amino Transf (AST/SGOT) 18 20 Alanine Aminotransferase (ALT/SGPT) 33 28 Alkaline Phosphatase 45 33 L Total Protein 8.4 H 6.8 # Albumin 4.5 3.6 Globulin 3.90 H 3.20 Albumin/Globulin Ratio 1.15 1.12 Lipase 42 Phosphorus Level 4.3 Magnesium Level 2.0 Medications Medications Current Medications Dextrose/Sodium Chloride (D5-1/2ns) 1,000 ml @ 125 mls/hr Q8H IV Last administered on 12/01/16 11:45; Admin Dose 125 MLS/HR; Start 12/01/16 at 01:30 Ketorolac Tromethamine 15 mg 15 mg Q6H PRN IV PAIN; Start 12/01/16 at 01:30; Stop 12/04/16 at 01:29 Piperacillin Sod/ Tazobactam Sod (Zosyn 3.375gm/ 100 ml (Pmx)) 100 ml @ 200 mls /hr Q6 IVPB Last administered on 12/01/16 12:57; Admin Dose 200 MLS/HR; Start 12/01/16 at 01:30 Ondansetron HCl (Zofran Inj) 4 mg Q6H PRN IV NAUSEA AND/OR VOMITING; Start at 01:30 Morphine Sulfate (morphine) 1 mg Q4H PRN IV PAIN; Start 12/01/16 at 13:30 Acetaminophen/ Hydrocodone Bitart ([place] (7.5-325)) 1 tab Q6H PRN PO PAIN LEVEL 4-7; Start 12/01/16 at 10:30 Heparin Sodium (Porcine) (Heparin (5000 Units/0.5 ml)) 5,000 unit BID SC ; Start 12/01/16 at 10:30 Pantoprazole (Protonix Iv) 40 mg DAILY@06 IV ; Start 12/02/16 at 06:00 SKYE FORD MD Dec 01, 2016 13:32
[2016-12-01 13:53] VITALS: BP 117/65; RESP 20
[2016-12-01 19:33] VITALS: BP 123/70; RESP 18
[2016-12-01] MEDS: HYDROCODONE/APAP (7.5/325) TAB PO PRN (23:11)
[2016-12-02] MEDS: PIPER-TAZO 3.375 GM IV (PMX) 100 ML IVPB SCH ×2 (00:20→06:11)
[2016-12-02 02:24] VITALS: BP 114/62; RESP 18
--- NOTE | 2016-12-02 03:48 | HP ---
DATE OF ADMISSION: 11/30/2016 CHIEF COMPLAINT: Abdominal pain. HISTORY OF PRESENT ILLNESS: The patient is a 26-year-old male with a history of recurrent diverticulitis and multiple admissions for same, who presented to the emergency department complaining of abdominal pain, nausea, vomiting, and diarrhea. He was recently admitted for same complaints and was discharged 10 days ago. At that time a KUB was unremarkable except for gas and stool in the colon and rectum. Once the patient's pain was adequately controlled and he was able to tolerate a diet, he was discharged to complete his course of Cipro and Flagyl. He was scheduled to follow up with Dr Castro, the geriatric physical therapist, for a barium enema. I am actually looking at the radiology report, and he actually had the barium enema study done today, which unfortunately was an extremely limited study as the patient was unable to tolerate contrast in the colon, and only the rectosigmoid region was opacified, and it is reported that it appears normal. Patient now is still complaining of abdominal pain despite Dilaudid that was given in the ER. He was also specifically asking for Dilaudid, and it is worth mentioning that on his last discharge summary it was mentioned that the patient did appear to show narcotic-seeking behavior. He stated that currently he is not actively having vomiting, and his diarrhea reported at times as watery with no blood in it. He denied any fever or chills. Laboratory values today show a WBC of 14.3. Otherwise the rest of his CBC and CMP is within acceptable range. REVIEW OF SYSTEMS: All performed, negative except as noted in HPI. PAST MEDICAL HISTORY: Per HPI. PAST SURGICAL HISTORY: Bilateral inguinal hernia surgery. SOCIAL HISTORY: Denied history of tobacco, alcohol, or illicit drug use. ALLERGIES: NO KNOW DRUG ALLERGIES. HOME MEDICATIONS: 1. He recently completed Cipro and Flagyl. 2. Synthroid. 3. Tylenol. 4. Ibuprofen. PHYSICAL EXAMINATION: VITALS: Stable. GENERAL: The patient is lying in bed in no acute distress. He is answering questions appropriately and able to speak in full sentences. HEENT: No obvious deformity. CARDIOVASCULAR: Regular rate and rhythm with extra sound. LUNGS: Clear. ABDOMEN: Soft. There is some tenderness diffusely to palpation with no guarding, rebound tenderness, or rigidity. EXTREMITIES: No edema. NEUROLOGIC: No focal deficits. LABORATORY: WBC 14.3. Otherwise CBC and CMP are within acceptable ranges. IMAGING: Barium enema, as mentioned in the HPI. IMPRESSION: 1. Abdominal pain, probably from recurrent diverticulitis. 2. Sepsis, as evidenced by leukocytosis and tachycardia, likely secondary to recurrent diverticulitis. 3. History of hypothyroidism. PLAN: We will keep him npo. He will placed on IV fluids. He will be started on Zosyn. Will notify Dr Castro about the patient's admission and to comment on the barium enema study or if there is any additional inpatient workup that needs to be done. Will provide pain medication as needed and will continue his Synthroid when he is no longer npo. clinical course. Dictated By: Godwin Sepulveda MD /john/paul /Document#: [id number]
[2016-12-02] MEDS ORDERED: PANTOPRAZOLE 40 MG INJ IV SCH (06:00)
[2016-12-02] MEDS: DEXTROSE 5%-0.45% NACL 1,000 ML IV SCH (06:11)
[2016-12-02] MEDS: morphine 4 MG/ML VIAL IV PRN ×2 (06:12→10:15)
[2016-12-02] MEDS: HYDROCODONE/APAP (7.5/325) TAB PO PRN (06:12)
[2016-12-02 06:22] LABS: ADD SCAN DIFF NO
[2016-12-02 06:27] LABS: BASOPHILS % 0.1 % (0.0-2.0); EOSINOPHILS % 0.6 % (0.0-7.0); HEMATOCRIT 36.8 % (42.0-52.0); HEMOGLOBIN 12.3 g/dl (14.0-18.0); LYMPHOCYTES # 2.4 10^3/ul (0.8-2.9); LYMPHOCYTES % 33.4 % (15.0-51.0); MEAN CORPUSCULAR HEMOGLOBIN 29.1 pg (29.0-33.0); MEAN CORPUSCULAR HGB CONC 33.4 g/dl (32.0-37.0); MEAN CORPUSCULAR VOLUME 87.2 fl (82.0-101.0); MEAN PLATELET VOLUME 9.1 fl (7.4-10.4); MONOCYTE # 0.5 10^3/ul (0.3-0.9); MONOCYTES % 6.7 % (0.0-11.0); NEUTROPHIL # 4.1 10^3/ul (1.6-7.5); NEUTROPHILS % 58.8 % (39.0-77.0); PLATELET COUNT 274 10^3/UL (140-415); RED BLOOD COUNT 4.22 10^6/ul (4.70-6.10); RED CELL DISTRIBUTION WIDTH 11.6 % (11.5-14.5)
[2016-12-02 07:20] LABS: CREATININE 0.84 mg/dl (0.61-1.24); POTASSIUM 3.8 mmol/L (3.5-5.1)
[2016-12-02 08:00] VITALS: BP 100/56; PULSE 67; RESP 18
[2016-12-02 08:19] VITALS: BP 113/74; RESP 18
[2016-12-02] MEDS: KETOROLAC 15 MG INJ IV PRN (08:46)
[2016-12-02] MEDS: HEPARIN 5,000 UNIT/0.5 ML VIAL SC SCH (09:00)
--- NOTE | 2016-12-02 09:27 | PDOCDIS ---
Discharge Instructions CONDITION Patient Condition: Stable HOME CARE INSTRUCTIONS: Special Diet: soft diet ACTIVITY: Activity Restrictions: Slowly Increase Activity FOLLOW UP/APPOINTMENTS Follow-up Plan Please take your medications as prescribed. Please follow-up with your GI doctor in the clinic in the next 1 week. BABS HUERTAS Dec 02, 2016 09:27
[2016-12-02] MEDS ORDERED: HYDR-3605 PO (09:29)
--- NOTE | 2016-12-02 09:32 | DS ---
Date/Time of Note Date/Time of Note DATE: 12/02/16 TIME: 09:29 Discharge Summary Admission/Discharge Info Admit Date/Time Nov 30, 2016 at 23:26 Discharge Date/Time Discharge Diagnosis 1. Recurrent diverticulitis 2. Possible drug-seeking behavior Patient Condition: Stable Hospital Course 26 year old male with past medical history of recurrent diverticulitis last admission was November was seen at emergency room complaining of abdominal pain.patient claims to have Barium enema as outpatient right before this admission by his outpatient GI doctor,,causing left lower quadrant pain with no nausea nor vomiting,fever nor hematochezia. He came to the emergency room, workup revealed. leucocytosis of 14.2. Patient was admitted to medical surgical unit, seen by GI team. He was treated conservatively for his abdominal pain, thought to be secondary to recurrent diverticulitis. He had no leukocytosis on the day of discharge, his vital signs are stable, he was tolerating p.o. diet. He is recommended to continue medical management as an outpatient and follow-up with his GI doctor in the clinic in the next 1 week. Home Meds Active Scripts Hydrocodone/Acetaminophen (Hydrocodon-Acetaminoph 7.5-325) 1 Each Tablet, 1 TAB PO Q6H Y for PAIN LEVEL 4-7 for 14 Days, TAB Prov:BABS HUERTAS 12/02/16 Ibuprofen* (Ibuprofen*) 400 Mg Tablet, 800 MG PO Q6H Y for MODERATE PAIN LEVEL 4 -6 for 7 Days, #30 TAB Prov:STEFAN ROCHA MD 11/20/16 Acetaminophen (MAPAP) 325 Mg Tablet, 650 MG PO Q6H Y for PAIN LEVEL 1-3 OR FEVER for 1 Day, #1 TAB Prov:STEFAN ROCHA MD 11/20/16 Levothyroxine Sodium* (Levothyroxine Sodium*) 25 Mcg Tablet, 25 MCG PO DAILY@06 for 30 Days, #30 TAB 1 Refill Prov:STEFAN ROCHA MD 11/20/16 Reported Medications Levothyroxine Sodium* (Levothyroxine Sodium*) 25 Mcg Tablet, 25 MCG PO BEFORE BREAKFAST, #30 TAB 12/01/16 Multivits,Ca,Min/Iron/FA/Lycop (Centrum Men's Tablet) 1 Each Tablet, 1 EACH PO, TAB 10/23/16 Discontinued Scripts Metronidazole* (Flagyl*) 500 Mg Tablet, 500 MG PO Q8 for 7 Days, #22 TAB Prov:STEFAN ROCHA MD 11/20/16 Ciprofloxacin Hcl* (Ciprofloxacin Hcl*) 500 Mg Tablet, 500 MG PO BID@06,18 for 7 Days, #14 TAB Prov:STEFAN ROCHA MD 11/20/16 Metronidazole (Flagyl) 500 Mg Tab, 500 MG PO TID for 10 Days, #30 TAB Prov:CHERRI CARR MD 10/27/16 Metoclopramide* (Reglan*) 10 Mg Tablet, 10 MG PO Q6H Y for NAUSEA AND OR VOMITING, #30 TAB Prov:CHERRI CARR MD 10/27/16 Ciprofloxacin Hcl* (Ciprofloxacin Hcl*) 500 Mg Tablet, 500 MG PO BID, #20 TAB Prov:CHERRI CARR MD 10/27/16 Primary Care Provider Jayce Dent MD Time spent on discharge: > 30 minutes Pending Labs Laboratory Tests Test 12/02/16 05:50 White Blood Count 7.010^3/ul (4.8-10.8) Red Blood Count 4.2210^6/ul (4.70-6.10) Hemoglobin 12.3g/dl (14.0-18.0) Hematocrit 36.8% (42.0-52.0) Mean Corpuscular Volume 87.2fl (82.0-101.0) Mean Corpuscular Hemoglobin 29.1pg (29.0-33.0) Mean Corpuscular Hemoglobin Concent 33.4g/dl (32.0-37.0) Red Cell Distribution Width 11.6% (11.5-14.5) Platelet Count 96517^3/UL (140-415) Mean Platelet Volume 9.1fl (7.4-10.4) Neutrophils % 58.8% (39.0-77.0) Lymphocytes % 33.4% (15.0-51.0) Monocytes % 6.7% (0.0-11.0) Eosinophils % 0.6% (0.0-7.0) Basophils % 0.1% (0.0-2.0) Nucleated Red Blood Cells % 0.0/100WBC (0.0-0.0) Neutrophils # 4.110^3/ul (1.6-7.5) Lymphocytes # 2.410^3/ul (0.8-2.9) Monocytes # 0.510^3/ul (0.3-0.9) Eosinophils # 0.010^3/ul (0.0-0.5) Basophils # 0.010^3/ul (0.0-0.1) Nucleated Red Blood Cells # 0.010^3/ul (0.0-0.0) Sodium Level 146mmol/L (135-144) Potassium Level 3.8mmol/L (3.5-5.1) Chloride Level 104mmol/L (97-110) Carbon Dioxide Level 26mmol/L (21-31) Anion Gap 20 (8-16) Blood Urea Nitrogen 5mg/dl (7-20) Creatinine 0.84mg/dl (0.61-1.24) Glucose Level 81mg/dl (70-220) Calcium Level 9.0mg/dl (8.4-10.2) BABS HUERTAS Dec 02, 2016 09:31
== END 2016-12-02 11:20 | disposition home or self-care (01) | DRG 872 ==
LOC: FTE 20:35 → MS2 23:26
PROVIDERS: ADMIT Internal Medicine; ATTEND Internal Medicine
DX: A41.9 Sepsis, unspecified organism (principal); K57.92 Diverticulitis of intestine, part unspecified, without perforation or abscess without bleeding; E03.9 Hypothyroidism, unspecified; Z76.5 Malingerer [conscious simulation]
CPT/HCPCS: 80048; 80053; 81001; 83690; 83735; 84100; 85025; 87081; C9113; J1170; J1644; J1885; J2270; J2405; J2543; J3370; J7030; J7042

== ENCOUNTER → 2016-11-30 | Outpatient (CLI) | payer OTHER ==
[~2016-11-30] MED LIST changes: +ACET325T40 PO; +HYDR-3605 PO; -HYDR2TAB15 PO; +IBUP400T22 PO; +LEVO25TA53 PO; +METR500T PO
--- NOTE | 2016-11-30 22:58 | RADRPT ---
PROCEDURE: Barium enema. CLINICAL INDICATION: History of diverticulitis. Abdomen pain. TECHNIQUE: Barium was administered via a rectal tube and several spot and overhead radiographs wer e obtained. COMPARISON: CT scan of the abdomen and pelvis dated 11/14/2016 which demonstrated a probable acute diverticulitis of the sigmoid colon. FINDINGS: On the preliminary radiograph, there is normal bowel gas pattern with no evidence of obstruction. This is an extremely limited study as the patient was unable to tolerate barium in the colon. Only the rectosigmoid region was opacified. There is no diverticulosis demonstrated in the short segment of colon which was opacified. There is no mass. There is no extravasation of contrast. IMPRESSION: 1. Extremely limited study as the patient was unable to tolerate contrast in the colon. 2. Only in the rectosigmoid region was opacified and appears normal. RPTAT: QQ .Damian Isaacs MD, MD Date Time Electronically viewed and signed by .Damian Isaacs MD, on 11/30/2016 22:57 .R/
== END | disposition home or self-care (01) ==
LOC: RAD 09:56
PROVIDERS: ATTEND Internal Medicine Gastroenterology
DX: R10.9 Unspecified abdominal pain (principal); K57.30 Diverticulosis of large intestine without perforation or abscess without bleeding
CPT/HCPCS: 74280

== ENCOUNTER 2016-12-11 15:09 | Emergency (ER) | payer OTHER ==
[~2016-12-11] VITALS: Wt 93.5 kg
[~2016-12-11 15:09] MED LIST changes: -CIPR500T4 PO; +HYDR-3605 PO; -METO10TA92 PO; -METR500T PO; -METR500T14 PO
[2016-12-11] MEDS ORDERED: SOD CHLORIDE 0.9% 1,000 ML IV STA (15:32)
[2016-12-11] MEDS ORDERED: morphine 4 MG/ML VIAL IV STA (15:32)
[2016-12-11] MEDS ORDERED: ONDANSETRON 4 MG INJ IV STA (15:32)
[2016-12-11 15:55] LABS: BASOPHILS % 0.1 % (0.0-2.0); EOSINOPHILS % 0.1 % (0.0-7.0); HEMATOCRIT 39.4 % (42.0-52.0); HEMOGLOBIN 14.1 g/dl (14.0-18.0); LYMPHOCYTES # 1.5 10^3/ul (0.8-2.9); LYMPHOCYTES % 10.4 % (15.0-51.0); MEAN CORPUSCULAR HEMOGLOBIN 30.3 pg (29.0-33.0); MEAN CORPUSCULAR HGB CONC 35.8 g/dl (32.0-37.0); MEAN CORPUSCULAR VOLUME 84.5 fl (82.0-101.0); MEAN PLATELET VOLUME 9.2 fl (7.4-10.4); MONOCYTE # 0.7 10^3/ul (0.3-0.9); MONOCYTES % 4.5 % (0.0-11.0); NEUTROPHIL # 12.5 10^3/ul (1.6-7.5); NEUTROPHILS % 84.6 % (39.0-77.0); PLATELET COUNT 277 10^3/UL (140-415); RED BLOOD COUNT 4.66 10^6/ul (4.70-6.10); RED CELL DISTRIBUTION WIDTH 12.2 % (11.5-14.5); WHITE BLOOD COUNT 14.7 10^3/ul (4.8-10.8)
[2016-12-11 16:19] LABS: ADD UMIC YES; ALBUMIN 4.8 g/dl (3.3-4.9); ALBUMIN/GLOBULIN RATIO 1.41; BILIRUBIN,INDIRECT 0.4 mg/dl (0-1.1); BILIRUBIN,TOTAL 0.4 mg/dl (0.2-1.3); CALCIUM 9.5 mg/dl (8.4-10.2); CREATININE 0.78 mg/dl (0.61-1.24); POTASSIUM 4.3 mmol/L (3.5-5.1); TOTAL PROTEIN 8.2 g/dl (6.1-8.1); UR ASCORBIC ACID NEGATIVE (NEGATIVE); UR BILIRUBIN (Dip) NEGATIVE (NEGATIVE); UR BLOOD (Dip) NEGATIVE (NEGATIVE); UR CLARITY CLEAR (CLEAR); UR COLOR AMBER (YELLOW); UR GLUCOSE (Dip) NEGATIVE (NEGATIVE); UR KETONES (Dip) NEGATIVE (NEGATIVE); UR LEUKOCYTE ESTERASE (Dip) NEGATIVE Leu/ul (NEGATIVE); UR MUCUS FEW /HPF (NONE SEEN); UR NITRITE (Dip) NEGATIVE (NEGATIVE); UR RBC 2 /HPF (0-5); UR TOTAL PROTEIN (Dip) 1+ mg/dl (NEGATIVE); UR UROBILINOGEN (Dip) 1+ mg/dL (NEGATIVE)
--- NOTE | 2016-12-11 16:41 | ERD ---
ER Documentation Chief Complaint Date/Time DATE: 12/11/16 TIME: 16:38 Chief Complaint nausea/vomiting x2 episodes/ lower abd/lower back pain since am HPI This 26-year-old male who presents the emergency department today complaining of left lower quadrant and back pain and vomiting and diarrhea that started today. Patient has a history of diverticulitis. Patient states that this is the same pain he always has but worse today. States he does not "want surgery" . States he is unsure if it was something that he ate and had eggs and coffee for breakfast. Denies any fevers or chills. ROS All systems reviewed and are negative except as per history of present illness. Medications Home Meds Active Scripts Metronidazole* (Flagyl*) 500 Mg Tablet, 500 MG PO TID for 7 Days, TAB Prov:MACARENA HERNANDEZ PA-C 12/11/16 Ciprofloxacin Hcl* (Ciprofloxacin Hcl*) 500 Mg Tablet, 500 MG PO BID for 7 Days , TAB Prov:MACARENA HERNANDEZ PA-C 12/11/16 Ondansetron Hcl* (Zofran*) 4 Mg Tablet, 4 MG PO Q6H for NAUSEA AND/OR VOMITING, #30 TAB Prov:MACARENA HERNANDEZ PA-C 12/11/16 Hydrocodone/Acetaminophen ([place] 5-325 Tablet) 1 Each Tablet, 1 TAB PO Q6H Y for PAIN, #7 TAB Prov:MACARENA HERNANDEZ PA-C 12/11/16 Hydrocodone/Acetaminophen (Hydrocodon-Acetaminoph 7.5-325) 1 Each Tablet, 1 TAB PO Q6H Y for PAIN LEVEL 4-7 for 14 Days, TAB Prov:BABS HUERTAS 12/02/16 Ibuprofen* (Ibuprofen*) 400 Mg Tablet, 800 MG PO Q6H Y for MODERATE PAIN LEVEL 4 -6 for 7 Days, #30 TAB Prov:STEFAN ROCHA MD 11/20/16 Acetaminophen (MAPAP) 325 Mg Tablet, 650 MG PO Q6H Y for PAIN LEVEL 1-3 OR FEVER for 1 Day, #1 TAB Prov:STEFAN ROCHA MD 11/20/16 Levothyroxine Sodium* (Levothyroxine Sodium*) 25 Mcg Tablet, 25 MCG PO DAILY@06 for 30 Days, #30 TAB 1 Refill Prov:STEFAN ROCHA MD 11/20/16 Reported Medications Levothyroxine Sodium* (Levothyroxine Sodium*) 25 Mcg Tablet, 25 MCG PO BEFORE BREAKFAST, #30 TAB 12/01/16 Multivits,Ca,Min/Iron/FA/Lycop (Centrum Men's Tablet) 1 Each Tablet, 1 EACH PO, TAB 10/23/16 Allergies Allergies: Coded Allergies: No Known Allergy (Unverified , 12/01/16) PMhx/Soc History of Surgery: Yes (Bilateral Inguinal Hernia surgery ) Anesthesia Reaction: No Hx Neurological Disorder: No Hx Respiratory Disorders: No Hx Cardiac Disorders: No Hx Psychiatric Problems: No Hx Miscellaneous Medical Probl: Yes (diviculitis) Hx Alcohol Use: No Hx Substance Use: No Hx Tobacco Use: No Smoking Status: Never smoker Physical Exam Vitals Vital Signs Date Time Temp Pulse Resp B/P Pulse Ox O2 Delivery O2 Flow Rate FiO2 12/11/16 15:15 98.5 94 20 122/64 96 Physical Exam Const: Sitting in wheelchair, no acute distress Head: Atraumatic Eyes: Normal Conjunctiva ENT: Normal External Ears, Nose and Mouth. Neck: Full range of motion..~ No meningismus. Resp: Clear to auscultation bilaterally Cardio: Regular rate and rhythm, no murmurs Abd: Soft, left lower quadrant tenderness non distended. Normal bowel sounds Skin: No petechiae or rashes Back: Lumbar spine no midline tenderness. Bilateral paraspinal tenderness. Ext: No cyanosis, or edema Neur: Awake and alert Psych: Normal Mood and Affect Result Diagram: 12/11/16 1545 12/11/16 1545 Results 24 hrs Laboratory Tests Test 12/11/16 15:45 White Blood Count 14.710^3/ul Red Blood Count 4.6610^6/ul Hemoglobin 14.1g/dl Hematocrit 39.4% Mean Corpuscular Volume 84.5fl Mean Corpuscular Hemoglobin 30.3pg Mean Corpuscular Hemoglobin Concent 35.8g/dl Red Cell Distribution Width 12.2% Platelet Count 69906^3/UL Mean Platelet Volume 9.2fl Neutrophils % 84.6% Lymphocytes % 10.4% Monocytes % 4.5% Eosinophils % 0.1% Basophils % 0.1% Nucleated Red Blood Cells % 0.0/100WBC Neutrophils # 12.510^3/ul Lymphocytes # 1.510^3/ul Monocytes # 0.710^3/ul Eosinophils # 0.010^3/ul Basophils # 0.010^3/ul Nucleated Red Blood Cells # 0.010^3/ul Urine Color CAMILA Urine Clarity CLEAR Urine pH 5.0 Urine Specific [place] 1.030 Urine Ketones NEGATIVEmg/dL Urine Nitrite NEGATIVEmg/dL Urine Bilirubin NEGATIVEmg/dL Urine Urobilinogen 1+mg/dL Urine Leukocyte Esterase NEGATIVELeu/ul Urine Microscopic RBC 2/HPF Urine Microscopic WBC 2/HPF Urine Calcium Oxalate Crystals FEW/HPF Urine Mucus FEW/HPF Urine Hemoglobin NEGATIVEmg/dL Urine Glucose NEGATIVEmg/dL Urine Total Protein 1+mg/dl Sodium Level 143mmol/L Potassium Level 4.3mmol/L Chloride Level 101mmol/L Carbon Dioxide Level 25mmol/L Anion Gap 21 Blood Urea Nitrogen 14mg/dl Creatinine 0.78mg/dl Glucose Level 106mg/dl Calcium Level 9.5mg/dl Total Bilirubin 0.4mg/dl Direct Bilirubin 0.00mg/dl Indirect Bilirubin 0.4mg/dl Aspartate Amino Transf (AST/SGOT) 25IU/L Alanine Aminotransferase (ALT/SGPT) 37IU/L Alkaline Phosphatase 42IU/L Total Protein 8.2g/dl Albumin 4.8g/dl Globulin 3.40g/dl Albumin/Globulin Ratio 1.41 Lipase 31U/L Current Medications Medications (Trade) Dose Ordered Sig/Bernie Route PRN Reason Start Time Stop Time Status Last Admin Dose Admin Sodium Chloride (NS) 1,000 ml @ 1,000 mls/hr Q1H STAT IV 12/11/16 15:32 12/11/16 16:31 DC 12/11/16 15:52 Morphine Sulfate (morphine) 4 mg ONCE STAT IV 12/11/16 15:32 12/11/16 15:36 DC 12/11/16 15:52 Ondansetron HCl (Zofran Inj) 4 mg ONCE STAT IV 12/11/16 15:32 12/11/16 15:36 DC 12/11/16 15:52 Procedures/MDM This is a 26-year-old male who presents to the emergency department today complaining of abdominal pain, back pain and vomiting and diarrhea that started this morning. Upon review of patient's medical records he has had 5 visits to this emergency room for diverticulitis. He has been admitted multiple times. He was last admitted on November 30, 2016 for likely failed outpatient management. Patient's last CT scan was done on November 14, 2016 that showed Colonic diverticula with a focus of prominent thickening and mesenteric stranding in the mid sigmoid colon, likely due to acute diverticulitis. A possible contain microperforation is noted without evidence of a drainable fluid collection. Did repeat laboratory workup today Laboratory workup shows an elevated white blood cell count of 14.7. This was similar to his last white count on his last admission approximately 10 days ago. He is not anemic. Platelets are within normal limits. Electrolytes are within normal limits. Glucose within normal limits. Liver enzymes are within normal limits. Lipase within normal limits. UA is negative for infection Patient recently had a CT scan and I do not feel that a repeat CT scan is necessary at this time I feel the risks outweigh the benefits. Patient was given morphine, Zofran and IV fluids here in the emergency department and stated that the morphine just made him "sleepy". States that it did not help his pain not much. States that he gets Dilaudid on the floor when he is admitted. I did ask Dr. Hood to see and evaluate the patient and he does not feel the patient requires admission at this time. Patient will be discharged home with Osmar, Kim, Atiya and Marco A to treat his diverticulitis. Patient's been instructed to follow-up with his GI specialist. At this time the patient is stable for discharge and outpatient management. Patient should follow up with their PCP in the next 1-2 days. They may return to the emergency department sooner for any persistent or worsening of symptoms. Patient understood and agreed with the plan. Departure Diagnosis: Primary Impression: Abdominal pain Abdominal location: left lower quadrant Qualified Code: R10.32 - Left lower quadrant pain Condition: MACARENA Griffith PA-C Dec 11, 2016 16:41
--- NOTE | 2016-12-11 17:33 | QN ---
Documentation Comment My independent concise history is left lower quadrant abdominal pain. My pertinent physical exam findings are left lower quadrant abdominal pain without fever. The plan is discharge home with Osmar, Atiya Alvarez, and Marco A. I do not want to readmit this patient in the hospital as he has had multiple admissions to the hospital. There may be an element of drug-seeking behavior here as well. He is requesting multiple doses of morphine. The patient is getting set up with a pain management doctor by his primary care doctor. He should see his primary doctor within 24-48 hours.. KEVAN ROBERTO MD Dec 11, 2016 17:33
[2016-12-11] MEDS ORDERED: ONDA4TAB8 PO (17:43)
[2016-12-11] MEDS ORDERED: HYDR-906 PO (17:43)
[2016-12-11] MEDS ORDERED: CIPR500T4 PO (17:43)
[2016-12-11] MEDS ORDERED: METR500T PO (17:44)
[2016-12-11] MEDS ORDERED: HYDR-902 PO (17:50)
[2016-12-11 17:53] VITALS: BP 128/72; PULSE 76; RESP 18; TEMP 98.7
== END 2016-12-11 17:54 | disposition home or self-care (01) ==
LOC: FTE 15:09
DX: R10.32 Left lower quadrant pain (principal)
CPT/HCPCS: 80053; 81001; 83690; 85025; J2270; J2405; J7030; 36415; 96361; 96374; 96375

== ENCOUNTER 2016-12-14 08:33 | Inpatient (IN) | payer OTHER ==
[~2016-12-14] VITALS: Ht 185.4 cm; Wt 92.8 kg
[~2016-12-14 08:33] MED LIST changes: +CIPR500T4 PO; +HYDR-902 PO; +METR500T PO; +ONDA4TAB8 PO
[2016-12-14 12:02] VITALS: BP 139/87; RESP 18
[2016-12-14 12:10] VITALS: Ht 185.4 cm; Wt 92.8 kg
[2016-12-14] MEDS ORDERED: morphine 2 MG INJ IV PRN (12:30)
[2016-12-14] MEDS ORDERED: NACL 0.9% 3 ML SYG IV SCH (12:30)
[2016-12-14] MEDS ORDERED: HYDROCODONE/APAP (7.5/325) TAB PO PRN (12:30)
[2016-12-14] MEDS ORDERED: ACETAMINOPHEN 650 MG SUPP PR PRN (12:30)
[2016-12-14] MEDS ORDERED: HYDROmorphONE 1 MG/ML SYG IV STA (12:31)
[2016-12-14] MEDS: SOD CHLORIDE 0.9% 1,000 ML IV SCH (12:37)
--- NOTE | 2016-12-14 12:39 | HP ---
Date/Time of Note Date/Time of Note DATE: 12/14/16 TIME: 12:36 Assessment/Plan VTE Prophylaxis VTE Prophylaxis Intervention: SCD's Assessment/Plan Chief Complaint/Hosp Course Impression and plan 1. Recurrent diverticulitis. Keep patient n.p.o. for now. Start IV fluids as well as analgesics and antibiotics. Will follow up with outpatient energy efficiency engineer results from barium enema. Will get surgeon pending clinical course. 2. Suspect drug seeking behavior. Will get pain management physician to follow to help with analgesic regimen. 3. Suspect UTI. Patient noted with positive leukocyte esterase test. Follow- up on urine culture. 4. Hypothyroidism. Patient resumed on similar medication once able to tolerate p.o. intake Admission process 40 minutes Discussed plan of care with Dr. Murrieta Problems: HPI/ROS Admit Date/Time Admit Date/Time Dec 14, 2016 at 11:36 Hx of Present Illness This is a 26-year-old male with multiple admissions for recurrent diverticulitis who again came to [facility] for recurrent diverticulitis. Of note patient did follow-up with his energy efficiency engineer roughly 1 week ago and did receive barium enema study. Matthew he does not know the results of the study. He does report that he was going to get referred to a surgeon after results of the study. Patient last night started to experience multiple episodes of emesis reportedly bilious nonbloody, With radiation of pain from left lower quadrant to lower back. He denies any dysuria. He also reports having subjective fevers and chills. He subsequently went to [facility] for further evaluation. Patient did receive abdominal x- ray and per imaging there is no evidence of bowel obstruction or free air under the diaphragm. He was noted to be an unremarkable abdominal series. He did not receive CT scan of the imaging because per report he previously received 14 CT scan of his abdomen. Patient was given diagnosis of diverticulitis of intestine without perforation or abscess. Due to insurance issue he was brought to [facility]. Of note upon review of his lab results from outside hospital he was seen with positive leukocyte esterase test. His other lab results were noted to be pending. We will evaluate him for the aformentiond issues ROS 12 point review of systems obtained entirely negative except that mentioned in history of present illness PMH/Family/Social Past Medical History Medical/surgical history 1. Reported inguinal hernia surgery 2. Hypothyroidism 3. Recurrent diverticulitis Past Surgical History Past Surgical Hx: no surgical history, other Family History Significant Family History: no pertinent family hx Social History Alcohol Use: occasionally Smoking Status: Never smoker Drug Use: none Exam/Review of Systems Vital Signs Vitals Vital Signs Date Time Temp Pulse Resp B/P Pulse Ox O2 Delivery O2 Flow Rate FiO2 12/14/16 12:02 98.0 67 18 139/87 98 Exam Constitutional: alert, oriented Psych: nl mood/affect Neck: non-tender Respiratory: clear to auscultation, normal air movement Cardiovascular: regular rate and rhythm Gastrointestinal: soft, tender Musculoskeletal: nl extremities to inspection, nl gait and stance Neurological: BIODIESEL PRODUCTION ASSOCIATE II-XII intact, nl mental status, nl speech Medications Medications Current Medications Acetaminophen/ Hydrocodone Bitart 1 tab 1 tab Q6H PRN PO PAIN LEVEL 4-7; Start 12/14/16 at 12:30 Sodium Chloride (NS) 1,000 ml @ 100 mls/hr Q10H IV ; Start 12/14/16 at 12:13 Ondansetron HCl (Zofran Inj) 4 mg Q6H PRN IV NAUSEA AND/OR VOMITING; Start at 12:30 Acetaminophen (Tylenol Tab) 650 mg Q6H PRN PO PAIN LEVEL 1-3 OR FEVER; Start at 12:30 Acetaminophen (Tylenol Supp) 650 mg Q6H PRN [place] PAIN LEVEL 1-3 OR FEVER; Start 12/14/16 at 12:30 Morphine Sulfate (morphine) 2 mg Q4H PRN IV SEVERE PAIN LEVEL 7-10; Start 12/14 at 12:30 Pantoprazole 40 mg 40 mg DAILY@06 IV ; Start 12/15/16 at 06:00 Ciprofloxacin/ Dextrose 200 ml @ 200 mls/hr Q12 IVPB ; Start 12/14/16 at 21:00 Metronidazole (Flagyl 500 Mg (Pmx)) 100 ml @ 100 mls/hr Q8 IVPB ; Start at 14:00 CAMILLE TANG Dec 14, 2016 12:39
[2016-12-14] MEDS: metroNIDAZOLE 500 MG/NS (PMX) 100 ML IVPB SCH ×2 (13:37→22:08)
[2016-12-14] MEDS ORDERED: morphine 4 MG/ML VIAL IV PRN (14:30)
[2016-12-14 15:12] VITALS: BP 115/58; RESP 20
[2016-12-14] MEDS: HYDROmorphONE 2 MG/ML SYG IV PRN ×2 (16:01→20:05)
[2016-12-14] MEDS: ONDANSETRON 4 MG INJ IV PRN (16:54)
[2016-12-14] MEDS: METHYLNALTREXONE 12 MG/0.6 ML VIAL SC SCH (17:45)
[2016-12-14] MEDS: CIPROFLOXACIN 400MG/D5W 200 ML IVPB SCH (20:50)
[2016-12-14 20:58] VITALS: BP 106/68; RESP 16
[2016-12-15] MEDS: HYDROmorphONE 2 MG/ML SYG IV PRN ×6 (00:07→20:07)
[2016-12-15] MEDS: ONDANSETRON 4 MG INJ IV PRN ×3 (00:08→14:55)
[2016-12-15] MEDS: SOD CHLORIDE 0.9% 1,000 ML IV SCH ×3 (00:09→12:09)
[2016-12-15 02:41] VITALS: BP 99/63; RESP 16
[2016-12-15] MEDS: metroNIDAZOLE 500 MG/NS (PMX) 100 ML IVPB SCH ×3 (05:37→21:29)
[2016-12-15] MEDS: PANTOPRAZOLE 40 MG INJ IV SCH (05:37)
[2016-12-15 05:53] LABS: ALBUMIN/GLOBULIN RATIO 1.42; BILIRUBIN,INDIRECT 0.6 mg/dl (0-1.1); BILIRUBIN,TOTAL 0.6 mg/dl (0.2-1.3); CALCIUM 9.3 mg/dl (8.4-10.2); CHOL/HDL RATIO 5.9 RATIO; CREATININE 0.85 mg/dl (0.61-1.24); MAGNESIUM 1.8 mg/dl (1.7-2.5); PHOSPHORUS 4.2 mg/dl (2.5-4.9); POTASSIUM 4.3 mmol/L (3.5-5.1); TOTAL PROTEIN 6.8 g/dl (6.1-8.1)
[2016-12-15 06:12] LABS: T3 UPTAKE 32.6 % (23.5-40.5)
[2016-12-15 06:25] LABS: THYROID STIMULATING HORMONE 2.75 MIU/L (0.465-4.680)
[2016-12-15 07:33] VITALS: BP 119/74; RESP 20
[2016-12-15] MEDS: CIPROFLOXACIN 400MG/D5W 200 ML IVPB SCH ×2 (08:53→20:07)
[2016-12-15] MEDS: METOCLOPRAMIDE 10 MG INJ IV SCH ×2 (11:46→17:52)
[2016-12-15] MEDS: ACETAMINOPHEN 325 MG TAB PO PRN (11:46)
[2016-12-15] MEDS ORDERED: METOCLOPRAMIDE 10 MG INJ IV SCH (12:00)
[2016-12-15 14:12] VITALS: BP 124/56; RESP 20
--- NOTE | 2016-12-15 14:44 | PN ---
Date/Time of Note Date/Time of Note DATE: 12/15/16 TIME: 14:41 Assessment/Plan VTE Prophylaxis VTE Prophylaxis Intervention: ambulation Assessment/Plan Chief Complaint/Hosp Course Impression and plan 1. Recurrent diverticulitis. Keep patient n.p.o. for now. Continue on analgesics and antibiotics. Monitor for clinical improved 2. Suspect drug seeking behavior. Pain management physician following. Continue with analgesics. 3. Suspect UTI. Empirically on antibiotics for now. 4. Hypothyroidism. Patient resumed on similar medication once able to tolerate p.o. intake Disposition plan: Continue with analgesics as needed as well as antibiotics. Await for clinical improvement of diverticulitis. Will start on diet once a pain subsides. Discussed plan of care with Dr. Murrieta Problems: Subjective 24 Hr Interval Summary Free Text/Dictation still reports some abdominal pain but little bit less today. Exam/Review of Systems Vital Signs Vitals Vital Signs Date Time Temp Pulse Resp B/P Pulse Ox O2 Delivery O2 Flow Rate FiO2 12/15/16 14:12 98.4 73 20 124/56 97 Intake and Output 12/14/16 12/14/16 12/15/16 15:00 23:00 07:00 Intake Total 1090 ml 1070 ml Balance 1090 ml 1070 ml Exam Constitutional: alert, oriented Psych: nl mood/affect Respiratory: clear to auscultation, normal air movement Cardiovascular: regular rate and rhythm Gastrointestinal: soft, tender Musculoskeletal: nl extremities to inspection Neurological: MEDICAL DIRECTOR OF HOSPICE II-XII intact, nl mental status, nl speech Results Result Diagram: 12/15/16 0501 Results 24 hrs Laboratory Tests Test 12/15/16 05:01 Sodium Level 144 Potassium Level 4.3 Chloride Level 98 Carbon Dioxide Level 31 Anion Gap 19 H Blood Urea Nitrogen 12 Creatinine 0.85 Glucose Level 90 Hemoglobin A1c 4.5 Calcium Level 9.3 Phosphorus Level 4.2 Magnesium Level 1.8 Total Bilirubin 0.6 Direct Bilirubin 0.00 Indirect Bilirubin 0.6 Aspartate Amino Transf (AST/SGOT) 18 Alanine Aminotransferase (ALT/SGPT) 41 Alkaline Phosphatase 43 Total Protein 6.8 Albumin 4.0 Globulin 2.80 Albumin/Globulin Ratio 1.42 Triglycerides Level 252 H Cholesterol Level 155 LDL Cholesterol, Calculated 79 HDL Cholesterol 26 L Cholesterol/HDL Ratio 5.9 Lipase 20 L Thyroid Stimulating Hormone (TSH) 2.750 Free Thyroxine Index 2.45 Thyroxine (T4) 7.5 Triiodothyronine (T3) Uptake 32.6 Medications Medications Current Medications Sodium Chloride (NS) 1,000 ml @ 100 mls/hr Q10H IV Last administered on 12:09; Admin Dose 100 MLS/HR; Start 12/14/16 at 12:13 Ondansetron HCl (Zofran Inj) 4 mg Q6H PRN IV NAUSEA AND/OR VOMITING Last administered on 12/15/16 08:12; Admin Dose 4 MG; Start 12/14/16 at 12:30 Acetaminophen (Tylenol Tab) 650 mg Q6H PRN PO PAIN LEVEL 1-3 OR FEVER Last administered on 12/15/16 11:46; Admin Dose 650 MG; Start 12/14/16 at 12:30 Acetaminophen (Tylenol Supp) 650 mg Q6H PRN [place] PAIN LEVEL 1-3 OR FEVER; Start 12/14/16 at 12:30 Pantoprazole 40 mg 40 mg DAILY@06 IV Last administered on 12/15/16 05:37; Admin Dose 40 MG; Start 12/15/16 at 06:00 Ciprofloxacin/ Dextrose 200 ml @ 200 mls/hr Q12 IVPB Last administered on 08:53; Admin Dose 200 MLS/HR; Start 12/14/16 at 21:00 Metronidazole (Flagyl 500 Mg (Pmx)) 100 ml @ 100 mls/hr Q8 IVPB Last administered on 12/15/16 05:37; Admin Dose 100 MLS/HR; Start 12/14/16 at 14:00 Hydromorphone HCl (Dilaudid) 3 mg Q4H PRN IV PAIN Last administered on 12:09; Admin Dose 3 MG; Start 12/14/16 at 16:00 Methylnaltrexone [place] (Relistor) 12 mg Q48H SC Last administered on 17:45; Admin Dose 12 MG; Start 12/14/16 at 18:00 Metoclopramide HCl (Reglan) 5 mg Q6 IV Last administered on 12/15/16 11:46; Admin Dose 5 MG; Start 12/15/16 at 11:43 CAMILLE TANG Dec 15, 2016 14:44
[2016-12-15 19:37] VITALS: BP 114/69; RESP 20
[2016-12-16] MEDS: METOCLOPRAMIDE 10 MG INJ IV SCH ×4 (00:07→18:06)
[2016-12-16] MEDS: HYDROmorphONE 2 MG/ML SYG IV PRN ×6 (00:08→20:39)
[2016-12-16] MEDS: SOD CHLORIDE 0.9% 1,000 ML IV SCH ×2 (01:46→13:57)
[2016-12-16 02:58] VITALS: BP 115/80; RESP 19
[2016-12-16] MEDS: metroNIDAZOLE 500 MG/NS (PMX) 100 ML IVPB SCH ×3 (05:14→22:08)
[2016-12-16] MEDS: PANTOPRAZOLE 40 MG INJ IV SCH (05:14)
[2016-12-16 05:34] LABS: BASOPHILS % 0.1 % (0.0-2.0); EOSINOPHILS # 0.1 10^3/ul (0.0-0.5); EOSINOPHILS % 0.7 % (0.0-7.0); HEMATOCRIT 35.9 % (42.0-52.0); HEMOGLOBIN 12.2 g/dl (14.0-18.0); LYMPHOCYTES # 2.2 10^3/ul (0.8-2.9); LYMPHOCYTES % 29.9 % (15.0-51.0); MEAN CORPUSCULAR HEMOGLOBIN 29.5 pg (29.0-33.0); MEAN CORPUSCULAR VOLUME 86.9 fl (82.0-101.0); MEAN PLATELET VOLUME 9.2 fl (7.4-10.4); MONOCYTE # 0.5 10^3/ul (0.3-0.9); MONOCYTES % 6.7 % (0.0-11.0); NEUTROPHIL # 4.5 10^3/ul (1.6-7.5); NEUTROPHILS % 62.5 % (39.0-77.0); PLATELET COUNT 199 10^3/UL (140-415); RED BLOOD COUNT 4.13 10^6/ul (4.70-6.10); WHITE BLOOD COUNT 7.3 10^3/ul (4.8-10.8)
[2016-12-16 06:14] LABS: CALCIUM 9.2 mg/dl (8.4-10.2); CREATININE 0.88 mg/dl (0.61-1.24); POTASSIUM 4.4 mmol/L (3.5-5.1)
[2016-12-16 07:53] VITALS: BP 124/75; RESP 18
[2016-12-16] MEDS: CIPROFLOXACIN 400MG/D5W 200 ML IVPB SCH ×2 (08:06→20:38)
--- NOTE | 2016-12-16 10:53 | PN ---
Date/Time of Note Date/Time of Note DATE: 12/16/16 TIME: 10:51 Assessment/Plan VTE Prophylaxis VTE Prophylaxis Intervention: ambulation, SCD's Lines/Catheters IV Catheter Type (from Nrsg): Peripheral IV Assessment/Plan Chief Complaint/Hosp Course Impression and plan 1. Recurrent diverticulitis. Keep patient n.p.o. for now. Continue on analgesics and antibiotics. Per pain management physician recommendations. Still with pain. Await for clinical improvement 2. Suspect drug seeking behavior. Pain management physician following. Continue with analgesics 3. Suspect UTI. Empirically on antibiotics for now. Appears to be improving at present. 4. Hypothyroidism. Patient resumed on similar medication once able to tolerate p.o. intake Disposition and plan: Still with reported abdominal pain. Await for clinical improvement of diverticulitis. Continue with antibiotics and analgesics. Discussed plan of care with Dr. Murrieta Problems: Subjective 24 Hr Interval Summary Free Text/Dictation Still reports having abdominal pain 8 out of 10 intensity nonradiating more in left lower abdominal quadrant. Exam/Review of Systems Vital Signs Vitals Vital Signs Date Time Temp Pulse Resp B/P Pulse Ox O2 Delivery O2 Flow Rate FiO2 12/16/16 07:53 98.2 79 18 124/75 97 Intake and Output 12/15/16 12/15/16 12/16/16 15:00 23:00 07:00 Intake Total 1000 ml 500 ml 1300 ml Output Total 0 ml Balance 1000 ml 500 ml 1300 ml Exam Constitutional: alert, oriented Psych: nl mood/affect Head: normocephalic Respiratory: clear to auscultation Cardiovascular: regular rate and rhythm Gastrointestinal: soft, tender Musculoskeletal: nl extremities to inspection Neurological: ELEMENTARY SUBSTITUTE TEACHER II-XII intact, nl mental status, nl speech Results Result Diagram: 12/16/1612 12/16/16 0512 Results 24 hrs Laboratory Tests Test 12/16/16 05:12 White Blood Count 7.3 # Red Blood Count 4.13 L Hemoglobin 12.2 L Hematocrit 35.9 L Mean Corpuscular Volume 86.9 Mean Corpuscular Hemoglobin 29.5 Mean Corpuscular Hemoglobin Concent 34.0 Red Cell Distribution Width 12.0 Platelet Count 199 # Mean Platelet Volume 9.2 Neutrophils % 62.5 Lymphocytes % 29.9 Monocytes % 6.7 Eosinophils % 0.7 Basophils % 0.1 Nucleated Red Blood Cells % 0.0 Neutrophils # 4.5 Lymphocytes # 2.2 Monocytes # 0.5 Eosinophils # 0.1 Basophils # 0.0 Nucleated Red Blood Cells # 0.0 Sodium Level 144 Potassium Level 4.4 Chloride Level 96 L Carbon Dioxide Level 34 H Anion Gap 18 H Blood Urea Nitrogen 8 Creatinine 0.88 Glucose Level 79 Calcium Level 9.2 Medications Medications Current Medications Sodium Chloride (NS) 1,000 ml @ 100 mls/hr Q10H IV Last administered on 01:46; Admin Dose 100 MLS/HR; Start 12/14/16 at 12:13 Ondansetron HCl (Zofran Inj) 4 mg Q6H PRN IV NAUSEA AND/OR VOMITING Last administered on 12/15/16 14:55; Admin Dose 4 MG; Start 12/14/16 at 12:30 Acetaminophen (Tylenol Tab) 650 mg Q6H PRN PO PAIN LEVEL 1-3 OR FEVER Last administered on 12/15/16 11:46; Admin Dose 650 MG; Start 12/14/16 at 12:30 Acetaminophen (Tylenol Supp) 650 mg Q6H PRN [place] PAIN LEVEL 1-3 OR FEVER; Start 12/14/16 at 12:30 Pantoprazole 40 mg 40 mg DAILY@06 IV Last administered on 12/16/16 05:14; Admin Dose 40 MG; Start 12/15/16 at 06:00 Ciprofloxacin/ Dextrose 200 ml @ 200 mls/hr Q12 IVPB Last administered on 08:06; Admin Dose 200 MLS/HR; Start 12/14/16 at 21:00 Metronidazole (Flagyl 500 Mg (Pmx)) 100 ml @ 100 mls/hr Q8 IVPB Last administered on 12/16/16 05:14; Admin Dose 100 MLS/HR; Start 12/14/16 at 14:00 Hydromorphone HCl (Dilaudid) 3 mg Q4H PRN IV PAIN Last administered on 08:07; Admin Dose 3 MG; Start 12/14/16 at 16:00 Methylnaltrexone [place] (Relistor) 12 mg Q48H SC Last administered on 17:45; Admin Dose 12 MG; Start 12/14/16 at 18:00 Metoclopramide HCl (Reglan) 5 mg Q6 IV Last administered on 12/16/16t 05:14; Admin Dose 5 MG; Start 12/15/16 at 11:43 CAMILLE TANG Dec 16, 2016 10:53
[2016-12-16] MEDS: ONDANSETRON 4 MG INJ IV PRN ×2 (10:57→20:46)
[2016-12-16] MEDS: ACETAMINOPHEN 325 MG TAB PO PRN (10:57)
--- NOTE | 2016-12-16 12:42 | CONS ---
Date/Time of Note Date/Time of Note DATE: 12/16/16 TIME: 12:36 Assessment/Plan Assessment/Plan Additional Assessment/Plan Recurrent diverticulitis Pain secondary to diverticular Nausea and vomiting secondary to the Will begin low-dose of Dilaudid with relistor and follow his clinical course. Recommend discharge as soon is patient clinically stable. Consultation Date/Type/Reason Admit Date/Time Dec 14, 2016 at 11:36 Date of Consultation: Dec 15, 2016 Type of Consultation: pain management Hx of Present Illness 26-year-old gentleman who is well to me from prior hospitalization for recurrent diverticulitis. Last hospital admission was a prolonged stay secondary to continued pain has been seen as an outpatient by surgical consultation and reassess once again on admission and has been advised in the past to have colectomy. This hospitalization low-grade nausea without vomiting low-grade fevers chills denies shortness of breath. In speaking with him he states this is a similar presentation, severity and located compared to prior episodes. Psychological: nl mood/affect Past Surgical History Past Surgical Hx: no surgical history, other Social History Alcohol Use: occasionally Smoking Status: Never smoker Drug Use: none Exam/Review of Systems Vital Signs Vitals Vital Signs Date Time Temp Pulse Resp B/P Pulse Ox O2 Delivery O2 Flow Rate FiO2 12/16/16 07:53 98.2 79 18 124/75 97 Intake and Output 12/15/16 12/15/16 12/16/16 15:00 23:00 07:00 Intake Total 1000 ml 500 ml 1300 ml Output Total 0 ml Balance 1000 ml 500 ml 1300 ml Exam Constitutional: alert, oriented, well developed Psych: nl mood/affect, no complaints Eyes: EOMI, PERRL, nl conjunctiva, nl lids, nl sclera ENMT: No intubated, No mucosa pink and moist, No nl external ears & nose, No nl lips & teeth, No nl nasal mucosa & septum, No other, No tympanic membranes Neck: No bruits, No jvd, No masses, No non-tender, No nuchal rigidity, No other , No supple, No thyromegaly Respiratory: No clear to auscultation, No congested cough, No crackles/rales, No diminished breath sounds, No intercostal retraction, No labored breathing, No normal air movement, No other, No respirations, No tactile fremitus, No wheezing Cardiovascular: No S3, No S4, No bruits, No diastolic murmur, No edema, No gallop, No irregular rhythm, No jugular venous distention (JVD), No murmurs/ extra sounds, No nl pulses, No other, No regular rate and rhythm, No rub, No systolic murmur Gastrointestinal: bowel sounds, other (Without rebound or peritoneal sign), tender Extremities: No calf tenderness, No clubbing, No cyanosis, No edema, No normal pulses, No other, No palpable cord, No pitting pedal edema, No tenderness Results Result Diagram: 12/16/1651112/16/16511 Results 24 hrs Laboratory Tests Test 12/16/16 05:12 White Blood Count 7.3 # Red Blood Count 4.13 L Hemoglobin 12.2 L Hematocrit 35.9 L Mean Corpuscular Volume 86.9 Mean Corpuscular Hemoglobin 29.5 Mean Corpuscular Hemoglobin Concent 34.0 Red Cell Distribution Width 12.0 Platelet Count 199 # Mean Platelet Volume 9.2 Neutrophils % 62.5 Lymphocytes % 29.9 Monocytes % 6.7 Eosinophils % 0.7 Basophils % 0.1 Nucleated Red Blood Cells % 0.0 Neutrophils # 4.5 Lymphocytes # 2.2 Monocytes # 0.5 Eosinophils # 0.1 Basophils # 0.0 Nucleated Red Blood Cells # 0.0 Sodium Level 144 Potassium Level 4.4 Chloride Level 96 L Carbon Dioxide Level 34 H Anion Gap 18 H Blood Urea Nitrogen 8 Creatinine 0.88 Glucose Level 79 Calcium Level 9.2 Medications Medications Current Medications Sodium Chloride (NS) 1,000 ml @ 100 mls/hr Q10H IV Last administered on 01:46; Admin Dose 100 MLS/HR; Start 12/14/16 at 12:13 Ondansetron HCl (Zofran Inj) 4 mg Q6H PRN IV NAUSEA AND/OR VOMITING Last administered on 12/16/16 10:57; Admin Dose 4 MG; Start 12/14/16 at 12:30 Acetaminophen (Tylenol Tab) 650 mg Q6H PRN PO PAIN LEVEL 1-3 OR FEVER Last administered on 12/16/16 10:57; Admin Dose 650 MG; Start 12/14/16 at 12:30 Acetaminophen (Tylenol Supp) 650 mg Q6H PRN [place] PAIN LEVEL 1-3 OR FEVER; Start 12/14/16 at 12:30 Pantoprazole 40 mg 40 mg DAILY@06 IV Last administered on 12/16/16 05:14; Admin Dose 40 MG; Start 12/15/16 at 06:00 Ciprofloxacin/ Dextrose 200 ml @ 200 mls/hr Q12 IVPB Last administered on 08:06; Admin Dose 200 MLS/HR; Start 12/14/16 at 21:00 Metronidazole (Flagyl 500 Mg (Pmx)) 100 ml @ 100 mls/hr Q8 IVPB Last administered on 12/16/16 05:14; Admin Dose 100 MLS/HR; Start 12/14/16 at 14:00 Hydromorphone HCl (Dilaudid) 3 mg Q4H PRN IV PAIN Last administered on 12:31; Admin Dose 3 MG; Start 12/14/16 at 16:00 Methylnaltrexone [place] (Relistor) 12 mg Q48H SC Last administered on 17:45; Admin Dose 12 MG; Start 12/14/16 at 18:00 Metoclopramide HCl (Reglan) 5 mg Q6 IV Last administered on 12/16/16 12:33; Admin Dose 5 MG; Start 12/15/16 at 11:43 ALEXANDER NELSON Dec 16, 2016 12:41
[2016-12-16 14:44] VITALS: BP 124/65; RESP 18
[2016-12-16] MEDS: METHYLNALTREXONE 12 MG/0.6 ML VIAL SC SCH (18:06)
[2016-12-16 19:33] VITALS: BP 126/82; RESP 20
[2016-12-17] MEDS: METOCLOPRAMIDE 10 MG INJ IV SCH ×4 (00:24→17:36)
[2016-12-17] MEDS: HYDROmorphONE 2 MG/ML SYG IV PRN ×6 (00:27→20:15)
[2016-12-17 01:38] VITALS: BP 110/60; RESP 20
[2016-12-17] MEDS: SOD CHLORIDE 0.9% 1,000 ML IV SCH ×3 (02:36→15:03)
[2016-12-17] MEDS: metroNIDAZOLE 500 MG/NS (PMX) 100 ML IVPB SCH ×3 (05:10→21:58)
[2016-12-17] MEDS: PANTOPRAZOLE 40 MG INJ IV SCH (05:10)
[2016-12-17 06:41] LABS: BASOPHILS % 0.3 % (0.0-2.0); EOSINOPHILS # 0.1 10^3/ul (0.0-0.5); EOSINOPHILS % 1.1 % (0.0-7.0); HEMATOCRIT 39.7 % (42.0-52.0); HEMOGLOBIN 13.4 g/dl (14.0-18.0); LYMPHOCYTES # 2.3 10^3/ul (0.8-2.9); LYMPHOCYTES % 31.7 % (15.0-51.0); MEAN CORPUSCULAR HEMOGLOBIN 29.4 pg (29.0-33.0); MEAN CORPUSCULAR HGB CONC 33.8 g/dl (32.0-37.0); MEAN CORPUSCULAR VOLUME 87.1 fl (82.0-101.0); MEAN PLATELET VOLUME 9.7 fl (7.4-10.4); MONOCYTE # 0.5 10^3/ul (0.3-0.9); MONOCYTES % 6.9 % (0.0-11.0); NEUTROPHIL # 4.3 10^3/ul (1.6-7.5); NEUTROPHILS % 59.7 % (39.0-77.0); PLATELET COUNT 235 10^3/UL (140-415); RED BLOOD COUNT 4.56 10^6/ul (4.70-6.10); RED CELL DISTRIBUTION WIDTH 12.5 % (11.5-14.5); WHITE BLOOD COUNT 7.2 10^3/ul (4.8-10.8)
[2016-12-17 07:12] LABS: CALCIUM 9.2 mg/dl (8.4-10.2); CREATININE 0.89 mg/dl (0.61-1.24)
[2016-12-17 07:22] VITALS: BP 109/67; RESP 20
[2016-12-17] MEDS: ONDANSETRON 4 MG INJ IV PRN ×2 (08:46→20:17)
[2016-12-17] MEDS: CIPROFLOXACIN 400MG/D5W 200 ML IVPB SCH ×2 (08:46→20:20)
--- NOTE | 2016-12-17 14:27 | PN ---
Date/Time of Note Date/Time of Note DATE: 12/17/16 TIME: 14:25 Assessment/Plan VTE Prophylaxis VTE Prophylaxis Intervention: SCD's Lines/Catheters IV Catheter Type (from Nrsg): Peripheral IV Assessment/Plan Chief Complaint/Hosp Course Impression and plan 1. Recurrent diverticulitis. Start on clear liquid diet. Continue on analgesics and antibiotics. Analgesics per pain management physician recommendations. Less pain now 2. Suspect drug seeking behavior. Pain management physician following. Continue with analgesics 3. Suspect UTI. Empirically on antibiotics for now. Appears to be improving at present. 4. Hypothyroidism. Patient resumed on similar medication once able to tolerate p.o. intake Disposition and plan: Less pain today. Start on clear liquid diet and advance as tolerated. Will discharge when it will tolerate regular oral intake. Discussed plan of care with Dr. Murrieta Problems: Subjective 24 Hr Interval Summary Free Text/Dictation Reports little less pain in his abdomen at this time. Exam/Review of Systems Vital Signs Vitals Vital Signs Date Time Temp Pulse Resp B/P Pulse Ox O2 Delivery O2 Flow Rate FiO2 12/17/16 07:22 98.0 60 20 109/67 95 Intake and Output 12/16/16 12/16/16 12/17/16 15:00 23:00 07:00 Intake Total 900 ml 600 ml 1250 ml Balance 900 ml 600 ml 1250 ml Exam Constitutional: alert, oriented Psych: nl mood/affect Head: normocephalic Respiratory: normal air movement Cardiovascular: nl pulses Gastrointestinal: soft, tender (Less today) Musculoskeletal: nl extremities to inspection Neurological: [employer]PL[employer] II-XII intact, nl mental status, nl speech Results Result Diagram: 12/17/1622 12/17/16 0522 Results 24 hrs Laboratory Tests Test 12/17/16 05:22 White Blood Count 7.2 Red Blood Count 4.56 L Hemoglobin 13.4 L Hematocrit 39.7 L Mean Corpuscular Volume 87.1 Mean Corpuscular Hemoglobin 29.4 Mean Corpuscular Hemoglobin Concent 33.8 Red Cell Distribution Width 12.5 Platelet Count 235 Mean Platelet Volume 9.7 Neutrophils % 59.7 Lymphocytes % 31.7 Monocytes % 6.9 Eosinophils % 1.1 Basophils % 0.3 Nucleated Red Blood Cells % 0.0 Neutrophils # 4.3 Lymphocytes # 2.3 Monocytes # 0.5 Eosinophils # 0.1 Basophils # 0.0 Nucleated Red Blood Cells # 0.0 Sodium Level 146 H Potassium Level 4.0 Chloride Level 98 Carbon Dioxide Level 31 Anion Gap 21 H Blood Urea Nitrogen 7 Creatinine 0.89 Glucose Level 75 Calcium Level 9.2 Medications Medications Current Medications Sodium Chloride (NS) 1,000 ml @ 100 mls/hr Q10H IV Last administered on 02:36; Admin Dose 100 MLS/HR; Start 12/14/16 at 12:13 Ondansetron HCl (Zofran Inj) 4 mg Q6H PRN IV NAUSEA AND/OR VOMITING Last administered on 12/17/16 08:46; Admin Dose 4 MG; Start 12/14/16 at 12:30 Acetaminophen (Tylenol Tab) 650 mg Q6H PRN PO PAIN LEVEL 1-3 OR FEVER Last administered on 12/16/16 10:57; Admin Dose 650 MG; Start 12/14/16 at 12:30 Acetaminophen (Tylenol Supp) 650 mg Q6H PRN [place] PAIN LEVEL 1-3 OR FEVER; Start 12/14/16 at 12:30 Pantoprazole 40 mg 40 mg DAILY@06 IV Last administered on 12/17/16 05:10; Admin Dose 40 MG; Start 12/15/16 at 06:00 Ciprofloxacin/ Dextrose 200 ml @ 200 mls/hr Q12 IVPB Last administered on 08:46; Admin Dose 200 MLS/HR; Start 12/14/16 at 21:00 Metronidazole (Flagyl 500 Mg (Pmx)) 100 ml @ 100 mls/hr Q8 IVPB Last administered on 12/17/16 05:10; Admin Dose 100 MLS/HR; Start 12/14/16 at 14:00 Hydromorphone HCl (Dilaudid) 3 mg Q4H PRN IV PAIN Last administered on 12:30; Admin Dose 3 MG; Start 12/14/16 at 16:00 Methylnaltrexone [place] (Relistor) 12 mg Q48H SC Last administered on 18:06; Admin Dose 12 MG; Start 12/14/16 at 18:00 Metoclopramide HCl (Reglan) 5 mg Q6 IV Last administered on 12/17/16 12:29; Admin Dose 5 MG; Start 12/15/16 at 11:43 CAMILLE TANG Dec 17, 2016 14:27
[2016-12-17] MEDS ORDERED: ACETAMINOPHEN 325 MG TAB PO PRN (15:30)
[2016-12-17] MEDS ORDERED: ATENOLOL 50 MG TAB PO SCH (15:30)
[2016-12-17 16:02] VITALS: BP 112/66; RESP 18
[2016-12-17 18:12] VITALS: BP 171/91; PULSE 84
[2016-12-17 19:33] VITALS: BP 124/75; RESP 20
[2016-12-18] MEDS: METOCLOPRAMIDE 10 MG INJ IV SCH ×4 (00:02→17:58)
[2016-12-18] MEDS: HYDROmorphONE 2 MG/ML SYG IV PRN ×3 (00:02→08:00)
[2016-12-18 01:58] VITALS: BP 123/76; RESP 20
[2016-12-18] MEDS: SOD CHLORIDE 0.9% 1,000 ML IV SCH ×3 (04:02→16:13)
[2016-12-18] MEDS: ONDANSETRON 4 MG INJ IV PRN ×2 (04:02→10:22)
[2016-12-18 05:49] LABS: EOSINOPHILS # 0.1 10^3/ul (0.0-0.5); EOSINOPHILS % 0.8 % (0.0-7.0); HEMATOCRIT 36.2 % (42.0-52.0); HEMOGLOBIN 12.6 g/dl (14.0-18.0); LYMPHOCYTES # 1.5 10^3/ul (0.8-2.9); LYMPHOCYTES % 19.9 % (15.0-51.0); MEAN CORPUSCULAR HEMOGLOBIN 29.8 pg (29.0-33.0); MEAN CORPUSCULAR HGB CONC 34.8 g/dl (32.0-37.0); MEAN CORPUSCULAR VOLUME 85.6 fl (82.0-101.0); MONOCYTE # 0.6 10^3/ul (0.3-0.9); MONOCYTES % 7.7 % (0.0-11.0); NEUTROPHIL # 5.4 10^3/ul (1.6-7.5); NEUTROPHILS % 71.2 % (39.0-77.0); PLATELET COUNT 194 10^3/UL (140-415); RED BLOOD COUNT 4.23 10^6/ul (4.70-6.10); RED CELL DISTRIBUTION WIDTH 12.1 % (11.5-14.5); WHITE BLOOD COUNT 7.5 10^3/ul (4.8-10.8)
[2016-12-18 06:05] LABS: CREATININE 0.9 mg/dl (0.61-1.24); POTASSIUM 4.4 mmol/L (3.5-5.1)
[2016-12-18] MEDS: PANTOPRAZOLE 40 MG INJ IV SCH (06:08)
[2016-12-18] MEDS: metroNIDAZOLE 500 MG/NS (PMX) 100 ML IVPB SCH ×2 (06:09→14:18)
[2016-12-18] MEDS: CIPROFLOXACIN 400MG/D5W 200 ML IVPB SCH (08:00)
[2016-12-18 08:11] VITALS: BP 116/67; RESP 18
--- NOTE | 2016-12-18 09:45 | CONS ---
Date/Time of Note Date/Time of Note DATE: 12/18/16 TIME: 09:41 Assessment/Plan Assessment/Plan Chief Complaint/Hosp Course 26-year-old gentleman who is well to me from prior hospitalization for recurrent diverticulitis. Last hospital admission was a prolonged stay secondary to continued pain has been seen as an outpatient by surgical consultation and reassess once again on admission and has been advised in the past to have colectomy. This hospitalization low-grade nausea without vomiting low-grade fevers chills denies shortness of breath. In speaking with him he states this is a similar presentation, severity and located compared to prior episodes. Problems: Additional Assessment/Plan More comfortable today,,, tolerating soft diet.. Denies side effects of pain medications. Pain 07/24 now 02/23 at admission.. not seeking higher doses or more frequent dosing. Consultation Date/Type/Reason Admit Date/Time Dec 14, 2016 at 11:36 Initial Consult Date 12/15/16 Type of Consultation: pain management Exam/Review of Systems Vital Signs Vitals Vital Signs Date Time Temp Pulse Resp B/P Pulse Ox O2 Delivery O2 Flow Rate FiO2 12/18/16 08:11 98.6 66 18 116/67 95 Intake and Output 12/17/16 12/17/16 12/18/16 15:00 23:00 07:00 Intake Total 750 ml 1840 ml 1040 ml Balance 750 ml 1840 ml 1040 ml Exam Constitutional: alert, oriented, well developed Cardiovascular: nl pulses, regular rate and rhythm Gastrointestinal: nl liver, spleen, other (mnimally tender no rebound or peritoneal signs), soft Results Result Diagram: 12/18/16 0532 12/18/16 0532 Results 24 hrs Laboratory Tests Test 12/18/16 05:32 White Blood Count 7.5 Red Blood Count 4.23 L Hemoglobin 12.6 L Hematocrit 36.2 L Mean Corpuscular Volume 85.6 Mean Corpuscular Hemoglobin 29.8 Mean Corpuscular Hemoglobin Concent 34.8 Red Cell Distribution Width 12.1 Platelet Count 194 Mean Platelet Volume 9.0 Neutrophils % 71.2 Lymphocytes % 19.9 Monocytes % 7.7 Eosinophils % 0.8 Basophils % 0.0 Nucleated Red Blood Cells % 0.0 Neutrophils # 5.4 Lymphocytes # 1.5 Monocytes # 0.6 Eosinophils # 0.1 Basophils # 0.0 Nucleated Red Blood Cells # 0.0 Sodium Level 143 Potassium Level 4.4 Chloride Level 100 Carbon Dioxide Level 31 Anion Gap 16 Blood Urea Nitrogen 6 L Creatinine 0.90 Glucose Level 80 Calcium Level 9.0 Medications Medications Current Medications Sodium Chloride (NS) 1,000 ml @ 100 mls/hr Q10H IV Last administered on 04:02; Admin Dose 100 MLS/HR; Start 12/14/16 at 12:13 Ondansetron HCl (Zofran Inj) 4 mg Q6H PRN IV NAUSEA AND/OR VOMITING Last administered on 12/18/16 04:02; Admin Dose 4 MG; Start 12/14/16 at 12:30 Acetaminophen (Tylenol Tab) 650 mg Q6H PRN PO PAIN LEVEL 1-3 OR FEVER Last administered on 12/16/16 10:57; Admin Dose 650 MG; Start 12/14/16 at 12:30 Acetaminophen (Tylenol Supp) 650 mg Q6H PRN [place] PAIN LEVEL 1-3 OR FEVER; Start 12/14/16 at 12:30 Pantoprazole 40 mg 40 mg DAILY@06 IV Last administered on 12/18/16 06:08; Admin Dose 40 MG; Start 12/15/16 at 06:00 Ciprofloxacin/ Dextrose 200 ml @ 200 mls/hr Q12 IVPB Last administered on 08:00; Admin Dose 200 MLS/HR; Start 12/14/16 at 21:00 Metronidazole (Flagyl 500 Mg (Pmx)) 100 ml @ 100 mls/hr Q8 IVPB Last administered on 12/18/16 06:09; Admin Dose 100 MLS/HR; Start 12/14/16 at 14:00 Hydromorphone HCl (Dilaudid) 3 mg Q4H PRN IV PAIN Last administered on 08:00; Admin Dose 3 MG; Start 12/14/16 at 16:00 Methylnaltrexone [place] (Relistor) 12 mg Q48H SC Last administered on 18:06; Admin Dose 12 MG; Start 12/14/16 at 18:00 Metoclopramide HCl (Reglan) 5 mg Q6 IV Last administered on 12/18/16 06:08; Admin Dose 5 MG; Start 12/15/16 at 11:43 ALEXANDER NELSON Dec 18, 2016 09:45
[2016-12-18] MEDS: HYDROmorphONE 2 MG TAB PO PRN ×2 (10:18→14:18)
[2016-12-18] MEDS: ACETAMINOPHEN 325 MG TAB PO PRN (12:02)
--- NOTE | 2016-12-18 12:12 | CONS ---
Date/Time of Note Date/Time of Note DATE: 12/18/16 TIME: 12:09 Assessment/Plan Assessment/Plan Chief Complaint/Hosp Course 26-year-old gentleman who is well to me from prior hospitalization for recurrent diverticulitis. Last hospital admission was a prolonged stay secondary to continued pain has been seen as an outpatient by surgical consultation and reassess once again on admission and has been advised in the past to have colectomy. This hospitalization low-grade nausea without vomiting low-grade fevers chills denies shortness of breath. In speaking with him he states this is a similar presentation, severity and located compared to prior episodes. Problems: Consultation Date/Type/Reason Admit Date/Time Dec 14, 2016 at 11:36 Initial Consult Date 12/15/16 Type of Consultation: pain management 24 HR Interval Summary Free Text/Dictation Since leaving patient's room he is asked the nurse to call me twice to have IV opioids reinstituted. I have refused, patient is taking orals at this point and can tolerate oral pain medication there is no indications to continue with IV Dilaudid his pain control was 2/10 when he visited the room is not telling nurses his pain is out of control visually it was not impairing his physical function or sleeping pattern. Unfortunate this time patient is requesting change in her right of administration early renewals on his opioids. Although he complains of severe pain visually he does not appear to be in distress. Exam/Review of Systems Vital Signs Vitals Vital Signs Date Time Temp Pulse Resp B/P Pulse Ox O2 Delivery O2 Flow Rate FiO2 12/18/16 08:11 98.6 66 18 116/67 95 Intake and Output 12/17/16 12/17/16 12/18/16 14:59 22:59 06:59 Intake Total 100 ml 2490 ml 1140 ml Balance 100 ml 2490 ml 1140 ml Results Result Diagram: 12/18/16 0532 12/18/16 0532 Results 24 hrs Laboratory Tests Test 12/18/16 05:32 White Blood Count 7.5 Red Blood Count 4.23 L Hemoglobin 12.6 L Hematocrit 36.2 L Mean Corpuscular Volume 85.6 Mean Corpuscular Hemoglobin 29.8 Mean Corpuscular Hemoglobin Concent 34.8 Red Cell Distribution Width 12.1 Platelet Count 194 Mean Platelet Volume 9.0 Neutrophils % 71.2 Lymphocytes % 19.9 Monocytes % 7.7 Eosinophils % 0.8 Basophils % 0.0 Nucleated Red Blood Cells % 0.0 Neutrophils # 5.4 Lymphocytes # 1.5 Monocytes # 0.6 Eosinophils # 0.1 Basophils # 0.0 Nucleated Red Blood Cells # 0.0 Sodium Level 143 Potassium Level 4.4 Chloride Level 100 Carbon Dioxide Level 31 Anion Gap 16 Blood Urea Nitrogen 6 L Creatinine 0.90 Glucose Level 80 Calcium Level 9.0 Medications Medications Current Medications Sodium Chloride (NS) 1,000 ml @ 100 mls/hr Q10H IV Last administered on 04:02; Admin Dose 100 MLS/HR; Start 12/14/16 at 12:13 Ondansetron HCl (Zofran Inj) 4 mg Q6H PRN IV NAUSEA AND/OR VOMITING Last administered on 12/18/16 10:22; Admin Dose 4 MG; Start 12/14/16 at 12:30 Acetaminophen (Tylenol Tab) 650 mg Q6H PRN PO PAIN LEVEL 1-3 OR FEVER Last administered on 12/18/16 12:02; Admin Dose 650 MG; Start 12/14/16 at 12:30 Acetaminophen (Tylenol Supp) 650 mg Q6H PRN [place] PAIN LEVEL 1-3 OR FEVER; Start 12/14/16 at 12:30 Pantoprazole 40 mg 40 mg DAILY@06 IV Last administered on 12/18/16 06:08; Admin Dose 40 MG; Start 12/15/16 at 06:00 Ciprofloxacin/ Dextrose 200 ml @ 200 mls/hr Q12 IVPB Last administered on 08:00; Admin Dose 200 MLS/HR; Start 12/14/16 at 21:00 Metronidazole (Flagyl 500 Mg (Pmx)) 100 ml @ 100 mls/hr Q8 IVPB Last administered on 12/18/16 06:09; Admin Dose 100 MLS/HR; Start 12/14/16 at 14:00 Methylnaltrexone [place] (Relistor) 12 mg Q48H SC Last administered on 18:06; Admin Dose 12 MG; Start 12/14/16 at 18:00 Metoclopramide HCl (Reglan) 5 mg Q6 IV Last administered on 12/18/16 12:02; Admin Dose 5 MG; Start 12/15/16 at 11:43 Hydromorphone HCl (Dilaudid) 2 mg Q4H PRN PO PAIN Last administered on t 10:18; Admin Dose 2 MG; Start 12/18/16 at 10:00 ALEXANDER NELSON Dec 18, 2016 12:12
[2016-12-18] MEDS ORDERED: CIPR500T4 PO (14:41)
[2016-12-18] MEDS ORDERED: ONDA-43 PO (14:41)
[2016-12-18] MEDS ORDERED: METR500T PO (14:41)
[2016-12-18] MEDS ORDERED: ONDA4TAB8 PO (14:41)
[2016-12-18] MEDS ORDERED: PANT40TA3 PO (14:41)
[2016-12-18] MEDS ORDERED: HYDR-3605 PO (14:41)
--- NOTE | 2016-12-18 14:45 | PDOCDIS ---
Discharge Instructions DIAGNOSIS Discharge Diagnosis 1. Recurrent diverticulitis. 2. Suspect UTI. 3. Hypothyroidism. CONDITION Patient Condition: Stable HOME CARE INSTRUCTIONS: Diet Instructions: Low Fat /Cholesterol FOLLOW UP/APPOINTMENTS Follow-up Plan Follow-up with your primary care provider within a week CAMILLE TANG Dec 18, 2016 14:45
--- NOTE | 2016-12-18 14:57 | PN ---
Date/Time of Note Date/Time of Note DATE: 12/18/16 TIME: 14:55 Assessment/Plan VTE Prophylaxis VTE Prophylaxis Intervention: ambulation Lines/Catheters IV Catheter Type (from Nrsg): Peripheral IV Assessment/Plan Chief Complaint/Hosp Course Impression and plan 1. Recurrent diverticulitis. Transition to regular diet.. Continue on analgesics and antibiotics. Analgesics per pain management physician recommendations. Less pain now 2. Suspect drug seeking behavior. Pain management physician following. Continue with analgesics 3. Suspect UTI. Empirically on antibiotics for now. Appears to be improving at present. 4. Hypothyroidism. Patient resumed on similar medication once able to tolerate p.o. intake Disposition and plan: We will try a regular diet. Anticipate discharge if able to tolerate. Continue with analgesics per pain management physician recommendations Discussed plan of care with Dr. Murrieta Problems: Subjective 24 Hr Interval Summary Free Text/Dictation Still reports having some minimal pain at this time on abdomen Exam/Review of Systems Vital Signs Vitals Vital Signs Date Time Temp Pulse Resp B/P Pulse Ox O2 Delivery O2 Flow Rate FiO2 12/18/16 08:11 98.6 66 18 116/67 95 Intake and Output 12/17/16 12/17/16 12/18/16 14:59 22:59 06:59 Intake Total 100 ml 2490 ml 1140 ml Balance 100 ml 2490 ml 1140 ml Exam Constitutional: alert, oriented Psych: nl mood/affect Head: normocephalic Respiratory: normal air movement Cardiovascular: regular rate and rhythm Gastrointestinal: soft, tender (Less today) Musculoskeletal: nl extremities to inspection Neurological: MARKET [employer]OR II-XII intact, nl mental status, nl speech Results Result Diagram: 12/18/16 0532 12/18/16 0532 Results 24 hrs Laboratory Tests Test 12/18/16 05:32 White Blood Count 7.5 Red Blood Count 4.23 L Hemoglobin 12.6 L Hematocrit 36.2 L Mean Corpuscular Volume 85.6 Mean Corpuscular Hemoglobin 29.8 Mean Corpuscular Hemoglobin Concent 34.8 Red Cell Distribution Width 12.1 Platelet Count 194 Mean Platelet Volume 9.0 Neutrophils % 71.2 Lymphocytes % 19.9 Monocytes % 7.7 Eosinophils % 0.8 Basophils % 0.0 Nucleated Red Blood Cells % 0.0 Neutrophils # 5.4 Lymphocytes # 1.5 Monocytes # 0.6 Eosinophils # 0.1 Basophils # 0.0 Nucleated Red Blood Cells # 0.0 Sodium Level 143 Potassium Level 4.4 Chloride Level 100 Carbon Dioxide Level 31 Anion Gap 16 Blood Urea Nitrogen 6 L Creatinine 0.90 Glucose Level 80 Calcium Level 9.0 Medications Medications Current Medications Sodium Chloride (NS) 1,000 ml @ 100 mls/hr Q10H IV Last administered on 04:02; Admin Dose 100 MLS/HR; Start 12/14/16 at 12:13 Ondansetron HCl (Zofran Inj) 4 mg Q6H PRN IV NAUSEA AND/OR VOMITING Last administered on 12/18/16 10:22; Admin Dose 4 MG; Start 12/14/16 at 12:30 Acetaminophen (Tylenol Tab) 650 mg Q6H PRN PO PAIN LEVEL 1-3 OR FEVER Last administered on 12/18/16 12:02; Admin Dose 650 MG; Start 12/14/16 at 12:30 Acetaminophen (Tylenol Supp) 650 mg Q6H PRN [place] PAIN LEVEL 1-3 OR FEVER; Start 12/14/16 at 12:30 Pantoprazole 40 mg 40 mg DAILY@06 IV Last administered on 12/18/16 06:08; Admin Dose 40 MG; Start 12/15/16 at 06:00 Ciprofloxacin/ Dextrose 200 ml @ 200 mls/hr Q12 IVPB Last administered on 08:00; Admin Dose 200 MLS/HR; Start 12/14/16 at 21:00 Metronidazole (Flagyl 500 Mg (Pmx)) 100 ml @ 100 mls/hr Q8 IVPB Last administered on 12/18/16 14:18; Admin Dose 100 MLS/HR; Start 12/14/16 at 14:00 Methylnaltrexone [place] (Relistor) 12 mg Q48H SC Last administered on 18:06; Admin Dose 12 MG; Start 12/14/16 at 18:00 Metoclopramide HCl (Reglan) 5 mg Q6 IV Last administered on 12/18/16 12:02; Admin Dose 5 MG; Start 12/15/16 at 11:43 Hydromorphone HCl (Dilaudid) 2 mg Q4H PRN PO PAIN Last administered on 14:18; Admin Dose 2 MG; Start 12/18/16 at 10:00 CAMILLE TANG Dec 18, 2016 14:57
[2016-12-18 15:33] VITALS: BP 116/67; RESP 18
[2016-12-18] MEDS: METHYLNALTREXONE 12 MG/0.6 ML VIAL SC SCH (17:57)
== END 2016-12-18 18:45 | disposition home or self-care (01) | DRG 392 ==
LOC: PP2 11:36 → MS2 12-15 07:07
PROVIDERS: ADMIT Family Medicine; ATTEND Family Medicine
DX: K57.92 Diverticulitis of intestine, part unspecified, without perforation or abscess without bleeding (principal); N39.0 Urinary tract infection, site not specified; E03.9 Hypothyroidism, unspecified; Z76.5 Malingerer [conscious simulation]
CPT/HCPCS: 80048; 80053; 80061; 83036; 83690; 83735; 84100; 84436; 84443; 84479; 85025; 87040; 87081; 87086; C9113; J0744; J1170; J2270; J2405; J2765; J7030

== ENCOUNTER 2016-12-19 21:06 | Inpatient (IN) | payer OTHER ==
[~2016-12-19] VITALS: Ht 185.4 cm; Wt 90.7 kg
[~2016-12-19 21:06] MED LIST changes: -HYDR-902 PO; -IBUP400T22 PO; +ONDA-43 PO; +PANT40TA3 PO
[2016-12-19] MEDS ORDERED: SOD CHLORIDE 0.9% 1,000 ML IV STA (21:18)
[2016-12-19] MEDS ORDERED: HYDROmorphONE 1 MG/ML SYG IV STA (21:18)
[2016-12-19] MEDS ORDERED: ONDANSETRON 4 MG INJ IV STA (21:18)
[2016-12-19 21:50] VITALS: PULSE 86; TEMP 98
[2016-12-19 21:54] LABS: BASOPHILS % 0.1 % (0.0-2.0); EOSINOPHILS % 0.3 % (0.0-7.0); HEMATOCRIT 40.7 % (42.0-52.0); HEMOGLOBIN 14.5 g/dl (14.0-18.0); LYMPHOCYTES # 1.7 10^3/ul (0.8-2.9); LYMPHOCYTES % 15.5 % (15.0-51.0); MEAN CORPUSCULAR HGB CONC 35.6 g/dl (32.0-37.0); MEAN CORPUSCULAR VOLUME 84.1 fl (82.0-101.0); MEAN PLATELET VOLUME 9.8 fl (7.4-10.4); MONOCYTE # 0.7 10^3/ul (0.3-0.9); MONOCYTES % 6.7 % (0.0-11.0); NEUTROPHIL # 8.2 10^3/ul (1.6-7.5); NEUTROPHILS % 77.2 % (39.0-77.0); PLATELET COUNT 295 10^3/UL (140-415); RED BLOOD COUNT 4.84 10^6/ul (4.70-6.10); RED CELL DISTRIBUTION WIDTH 12.5 % (11.5-14.5); WHITE BLOOD COUNT 10.6 10^3/ul (4.8-10.8)
[2016-12-19] MEDS ORDERED: ACETAMINOPHEN 325 MG TAB PO PRN (22:00)
[2016-12-19] MEDS ORDERED: ONDANSETRON 4 MG INJ IV PRN (22:00)
[2016-12-19 22:38] LABS: ALBUMIN 4.9 g/dl (3.3-4.9); ALBUMIN/GLOBULIN RATIO 1.25; BILIRUBIN,INDIRECT 0.6 mg/dl (0-1.1); BILIRUBIN,TOTAL 0.6 mg/dl (0.2-1.3); CALCIUM 9.9 mg/dl (8.4-10.2); CREATININE 1.06 mg/dl (0.61-1.24); POTASSIUM 3.9 mmol/L (3.5-5.1); TOTAL PROTEIN 8.8 g/dl (6.1-8.1)
--- NOTE | 2016-12-19 22:53 | ERA ---
ER Documentation Chief Complaint Date/Time DATE: 12/19/16 TIME: 22:52 Chief Complaint abdominal pain and nausea and vomiting. Was just discharged yesterday HPI Patient is a 26-year-old male with diverticulitis who presents with abdominal pain and vomiting. He was discharged yesterday after being admitted for a few days for similar. He says "I cannot hold anything down". He said it was worse over the past 1 hour. He said that even when he drinks water he is vomiting this. ROS All systems reviewed and are negative except as per history of present illness. Medications Home Meds Active Scripts Pantoprazole* (Protonix*) 40 Mg Tablet.dr, 40 MG PO DAILY, #30 TAB Prov:CAMILLE TANG 12/18/16 Ondansetron Hcl* (Zofran*) 4 Mg Tab, 4 MG PO Q4H Y for NAUSEA AND OR VOMITING, # 30 TAB Prov:CAMILLE TANG 12/18/16 Metronidazole* (Flagyl*) 500 Mg Tablet, 500 MG PO TID for 7 Days, TAB Prov:CAMILLE TANG 12/18/16 Ciprofloxacin Hcl* (Ciprofloxacin Hcl*) 500 Mg Tablet, 500 MG PO BID for 7 Days , TAB Prov:CAMILLE TANG 12/18/16 Ondansetron Hcl* (Zofran*) 4 Mg Tablet, 4 MG PO Q6H for NAUSEA AND/OR VOMITING, #30 TAB Prov:CAMILLE TANG 12/18/16 Hydrocodone/Acetaminophen (Hydrocodon-Acetaminoph 7.5-325) 1 Each Tablet, 1 TAB PO Q6H Y for PAIN LEVEL 4-7, #25 TAB Prov:CAMILLE TANG 12/18/16 Acetaminophen (MAPAP) 325 Mg Tablet, 650 MG PO Q6H Y for PAIN LEVEL 1-3 OR FEVER for 1 Day, #1 TAB Prov:STEFAN ROCHA MD 11/20/16 Levothyroxine Sodium* (Levothyroxine Sodium*) 25 Mcg Tablet, 25 MCG PO DAILY@06 for 30 Days, #30 TAB 1 Refill Prov:STEFAN ROCHA MD 11/20/16 Reported Medications Levothyroxine Sodium* (Levothyroxine Sodium*) 25 Mcg Tablet, 25 MCG PO BEFORE BREAKFAST, #30 TAB 12/01/16 Multivits,Ca,Min/Iron/FA/Lycop (Centrum Men's Tablet) 1 Each Tablet, 1 EACH PO, TAB 10/23/16 Discontinued Scripts Hydrocodone/Acetaminophen ([place] 10-325 Tablet) 1 Each Tablet, 1 TAB PO Q6H Y for PAIN, #7 TAB Prov:MACARENA HERNANDEZ PA-C 12/11/16 Ibuprofen* (Ibuprofen*) 400 Mg Tablet, 800 MG PO Q6H Y for MODERATE PAIN LEVEL 4 -6 for 7 Days, #30 TAB Prov:STEFAN ROCHA MD 11/20/16 Allergies Allergies: Coded Allergies: No Known Allergy (Unverified , 12/01/16) PMhx/Soc History of Surgery: Yes (inguinal hernia) Anesthesia Reaction: No Hx Neurological Disorder: No Hx Respiratory Disorders: No Hx Cardiac Disorders: No Hx Psychiatric Problems: No Hx Miscellaneous Medical Probl: Yes (DIVERTICULITIS) Hx Alcohol Use: Yes (socially) Hx Substance Use: No Hx Tobacco Use: No Smoking Status: Never smoker FmHx Family History: No diabetes Physical Exam Vitals Vital Signs Date Time Temp Pulse Resp B/P Pulse Ox O2 Delivery O2 Flow Rate FiO2 12/19/16 21:09 97.7 100 20 161/88 96 Physical Exam Const: Moderate distress secondary to pain in my Head: Atraumatic Eyes: Normal Conjunctiva ENT: Normal External Ears, Nose and Mouth. Neck: Full range of motion..~ No meningismus. Resp: Clear to auscultation bilaterally Cardio: Regular rate and rhythm, no murmurs Abd: Diffuse abdominal pain without rebound or guarding Skin: No petechiae or rashes Back: No midline or flank tenderness Ext: No cyanosis, or edema Neur: Awake and alert Psych: Normal Mood and Affect Result Diagram: 12/19/16212912/19/162129 Results 24 hrs Laboratory Tests Test 12/19/16 21:30 White Blood Count 10.610^3/ul Red Blood Count 4.8410^6/ul Hemoglobin 14.5g/dl Hematocrit 40.7% Mean Corpuscular Volume 84.1fl Mean Corpuscular Hemoglobin 30.0pg Mean Corpuscular Hemoglobin Concent 35.6g/dl Red Cell Distribution Width 12.5% Platelet Count 76434^3/UL Mean Platelet Volume 9.8fl Neutrophils % 77.2% Lymphocytes % 15.5% Monocytes % 6.7% Eosinophils % 0.3% Basophils % 0.1% Nucleated Red Blood Cells % 0.0/100WBC Neutrophils # 8.210^3/ul Lymphocytes # 1.710^3/ul Monocytes # 0.710^3/ul Eosinophils # 0.010^3/ul Basophils # 0.010^3/ul Nucleated Red Blood Cells # 0.010^3/ul Sodium Level 148mmol/L Potassium Level 3.9mmol/L Chloride Level 104mmol/L Carbon Dioxide Level 25mmol/L Anion Gap 23 Blood Urea Nitrogen 11mg/dl Creatinine 1.06mg/dl Glucose Level 89mg/dl Calcium Level 9.9mg/dl Total Bilirubin 0.6mg/dl Direct Bilirubin 0.00mg/dl Indirect Bilirubin 0.6mg/dl Aspartate Amino Transf (AST/SGOT) 25IU/L Alanine Aminotransferase (ALT/SGPT) 45IU/L Alkaline Phosphatase 51IU/L Total Protein 8.8g/dl Albumin 4.9g/dl Globulin 3.90g/dl Albumin/Globulin Ratio 1.25 Lipase 33U/L Current Medications Medications (Trade) Dose Ordered Sig/Bernie Route PRN Reason Start Time Stop Time Status Last Admin Dose Admin Sodium Chloride (NS) 1,000 ml @ 1,000 mls/hr Q1H STAT IV 12/19/16 21:18 12/19/16 22:17 DC 12/19/16 21:45 Hydromorphone HCl (Dilaudid) 1 mg ONCE STAT IV 12/19/16 21:18 12/19/16 21:19 DC 12/19/16 21:47 Ondansetron HCl (Zofran Inj) 4 mg ONCE STAT IV 12/19/16 21:18 12/19/16 21:19 DC 12/19/16 21:47 Procedures/MDM Patient is a 26-year-old male presents with acute abdominal pain with intractable vomiting. The patient will be admitted to the care of Dr. Sepulveda from the panel team as he was recently discharged from the panel team yesterday. The patient was given Dilaudid and Zofran as well as fluids. The patient will be admitted to a medical surgical bed. Departure Diagnosis: Primary Impression: Abdominal pain Qualified Code: R10.84 - Generalized abdominal pain Additional Impression: Vomiting Qualified Code: R11.2 - Intractable vomiting with nausea, unspecified vomiting type Condition: KEVAN Huerta MD Dec 19, 2016 22:53
[2016-12-19 23:54] VITALS: Ht 185.4 cm; Wt 90.7 kg
[2016-12-20 00:07] VITALS: BP 123/72; RESP 18
[2016-12-20] MEDS: DEXTROSE 5%-0.45% NACL 1,000 ML IV SCH ×3 (00:33→20:32)
[2016-12-20] MEDS: morphine 4 MG/ML VIAL IV PRN ×6 (00:33→20:31)
[2016-12-20 02:00] VITALS: BP 110/66; RESP 18
[2016-12-20] MEDS: ONDANSETRON 4 MG INJ IV PRN ×2 (04:19→12:30)
--- NOTE | 2016-12-20 05:27 | HP ---
Date/Time of Note Date/Time of Note DATE: 12/20/16 TIME: 05:13 Assessment/Plan VTE Prophylaxis VTE Prophylaxis Intervention: SCD's Lines/Catheters IV Catheter Type (from Nrs): Peripheral IV Assessment/Plan Assessment/Plan IMPRESSION 1. Abdominal pain, probably from recurrent diverticulitis. 2. Hypernatremia 3. History of hypothyroidism. 4. Narcotic-seeking behavior PLAN Pain management. Will avoid Dilaudid. Place a consult with Dr. Huertas D5W IV fluid for correction of hyponatremia Continue Synthroid HPI/ROS Admit Date/Time Admit Date/Time Dec 19, 2016 at 21:34 Hx of Present Illness The patient is a 26-year-old male with a history of recurrent diverticulitis and multiple admissions for same, who presented to the emergency department complaining of abdominal pain, nausea, vomiting. Patient was just discharged yesterday after he was initially admitted for same symptoms. Previously, patient was evaluated by general surgery here and was told he needs colostomy but patient refused. He also follows up with his breastfeeding peer counselor, Dr Castro. He recently had the barium enema study done, which unfortunately was an extremely limited study as the patient was unable to tolerate contrast in the colon, and only the rectosigmoid region was opacified, and it is reported that it appears normal. During his recent admission, patient was seen in consultation was Dr. Huertas for pain management. Last nursing notes stated that, once his IV pain medication was stopped, patient requested to be discharged. Patient now is still complaining of abdominal pain despite Dilaudid that was given in the ER. He was also specifically asking for Dilaudid , and it is worth mentioning that on his last discharge summary it was mentioned that the patient did appear to show narcotic-seeking behavior. When presented to the ER, reportedly, he was gagging but not vomiting. His vitals were stable. Except a sodium of 148, CBC and CMP were also within acceptable range. PMH/Family/Social Past Surgical History Past Surgical Hx: no surgical history, other Social History Smoking Status: Never smoker Exam/Review of Systems Vital Signs Vitals Vital Signs Date Time Temp Pulse Resp B/P Pulse Ox O2 Delivery O2 Flow Rate FiO2 12/20/16 02:00 98.8 69 18 110/66 95 12/19/16 21:50 Room Air Exam Constitutional: alert, oriented, well developed Head: atraumatic, normocephalic Eyes: EOMI, PERRL Respiratory: clear to auscultation, normal air movement Cardiovascular: nl pulses, regular rate and rhythm Gastrointestinal: non-tender, soft Extremities: normal pulses Labs Result Diagram: 12/19/16212912/19/162129 Medications Medications Current Medications Dextrose/Sodium Chloride (D5-1/2ns) 1,000 ml @ 100 mls/hr Q10H IV Last administered on 12/20/16 00:33; Admin Dose 100 MLS/HR; Start 12/20/16 at 00:00 Morphine Sulfate (morphine) 4 mg Q4H PRN IV pain Last administered on 12/20/16 04:19; Admin Dose 4 MG; Start 12/20/16 at 00:00 Ondansetron HCl (Zofran Inj) 4 mg Q6H PRN IV NAUSEA AND/OR VOMITING Last administered on 12/20/16 04:19; Admin Dose 4 MG; Start 12/20/16 at 00:00 EUFEMIA GREENFIELD MD Dec 20, 2016 05:25
[2016-12-20 07:36] VITALS: BP 104/59; RESP 16
[2016-12-20 07:51] LABS: BASOPHILS % 0.3 % (0.0-2.0); EOSINOPHILS # 0.1 10^3/ul (0.0-0.5); EOSINOPHILS % 1.3 % (0.0-7.0); HEMATOCRIT 36.7 % (42.0-52.0); HEMOGLOBIN 12.5 g/dl (14.0-18.0); LYMPHOCYTES # 2.3 10^3/ul (0.8-2.9); MEAN CORPUSCULAR HEMOGLOBIN 29.3 pg (29.0-33.0); MEAN CORPUSCULAR HGB CONC 34.1 g/dl (32.0-37.0); MEAN CORPUSCULAR VOLUME 85.9 fl (82.0-101.0); MEAN PLATELET VOLUME 9.4 fl (7.4-10.4); MONOCYTE # 0.6 10^3/ul (0.3-0.9); MONOCYTES % 8.3 % (0.0-11.0); NEUTROPHIL # 3.8 10^3/ul (1.6-7.5); NEUTROPHILS % 55.8 % (39.0-77.0); PLATELET COUNT 229 10^3/UL (140-415); RED BLOOD COUNT 4.27 10^6/ul (4.70-6.10); RED CELL DISTRIBUTION WIDTH 12.8 % (11.5-14.5); WHITE BLOOD COUNT 6.9 10^3/ul (4.8-10.8)
[2016-12-20 08:21] LABS: ALBUMIN 4.1 g/dl (3.3-4.9); ALBUMIN/GLOBULIN RATIO 1.36; BILIRUBIN,INDIRECT 0.6 mg/dl (0-1.1); BILIRUBIN,TOTAL 0.6 mg/dl (0.2-1.3); CALCIUM 9.1 mg/dl (8.4-10.2); CREATININE 0.9 mg/dl (0.61-1.24); MAGNESIUM 1.9 mg/dl (1.7-2.5); PHOSPHORUS 3.9 mg/dl (2.5-4.9); POTASSIUM 3.8 mmol/L (3.5-5.1); TOTAL PROTEIN 7.1 g/dl (6.1-8.1)
[2016-12-20 14:00] VITALS: BP 136/78; RESP 20
[2016-12-20 19:35] VITALS: BP 113/64; RESP 20
[2016-12-21] MEDS: ONDANSETRON 4 MG INJ IV PRN (00:36)
[2016-12-21] MEDS: morphine 4 MG/ML VIAL IV PRN ×3 (00:37→10:02)
[2016-12-21 02:19] VITALS: BP 92/51; RESP 20
[2016-12-21] MEDS: DEXTROSE 5%-0.45% NACL 1,000 ML IV SCH ×2 (06:01→15:53)
[2016-12-21 06:47] LABS: BASOPHILS % 0.2 % (0.0-2.0); EOSINOPHILS # 0.1 10^3/ul (0.0-0.5); EOSINOPHILS % 1.2 % (0.0-7.0); HEMATOCRIT 35.7 % (42.0-52.0); HEMOGLOBIN 12.2 g/dl (14.0-18.0); LYMPHOCYTES # 2.4 10^3/ul (0.8-2.9); LYMPHOCYTES % 37.1 % (15.0-51.0); MEAN CORPUSCULAR HEMOGLOBIN 29.4 pg (29.0-33.0); MEAN CORPUSCULAR HGB CONC 34.2 g/dl (32.0-37.0); MEAN PLATELET VOLUME 9.5 fl (7.4-10.4); MONOCYTE # 0.5 10^3/ul (0.3-0.9); MONOCYTES % 6.9 % (0.0-11.0); NEUTROPHIL # 3.6 10^3/ul (1.6-7.5); NEUTROPHILS % 54.4 % (39.0-77.0); PLATELET COUNT 216 10^3/UL (140-415); RED BLOOD COUNT 4.15 10^6/ul (4.70-6.10); RED CELL DISTRIBUTION WIDTH 12.6 % (11.5-14.5); WHITE BLOOD COUNT 6.5 10^3/ul (4.8-10.8)
[2016-12-21 07:26] LABS: CREATININE 0.8 mg/dl (0.61-1.24); POTASSIUM 3.6 mmol/L (3.5-5.1)
[2016-12-21 07:43] VITALS: BP 113/67; RESP 20
[2016-12-21 13:29] VITALS: BP 118/71; RESP 20
--- NOTE | 2016-12-21 15:39 | CONS ---
Date/Time of Note Date/Time of Note DATE: 12/21/16 TIME: 15:30 Assessment/Plan Assessment/Plan Additional Assessment/Plan Comfort Measures family will remain with Mr Gonzalez.. Consultation Date/Type/Reason Admit Date/Time Dec 19, 2016 at 21:34 Date of Consultation: Dec 21, 2016 Type of Consultation: Palliative care Hx of Present Illness Respiratory failure COPD Left lung opacification PNA Family at bedside and request no futher aggressive care... I asked pt the same he stated "I am ready to stop this". Family did not have any further questions , I explained the process of discontinuing care and comfort measures , they are in agreement. Will begin comfort measures.... Subjective hx not possible: pt critical (n distress), other Past Surgical History Past Surgical Hx: no surgical history, other Social History Smoking Status: Never smoker Exam/Review of Systems Vital Signs Vitals Vital Signs Date Time Temp Pulse Resp B/P Pulse Ox O2 Delivery O2 Flow Rate FiO2 12/21/16 13:29 97.7 61 20 118/71 96 12/19/16 21:50 Room Air Intake and Output 12/20/16 12/20/16 12/21/16 15:00 23:00 07:00 Intake Total 400 ml 960 ml 950 ml Balance 400 ml 960 ml 950 ml Exam Constitutional: alert, distress, frail, oriented Neck: No bruits, No jvd, No masses, No non-tender, No nuchal rigidity, No other , No supple, No thyromegaly Respiratory: congested cough, crackles/rales, diminished breath sounds, labored breathing, wheezing Cardiovascular: No S3, No S4, No bruits, No diastolic murmur, No edema, No gallop, No irregular rhythm, No jugular venous distention (JVD), No murmurs/ extra sounds, No nl pulses, No other, No regular rate and rhythm, No rub, No systolic murmur Gastrointestinal: No ascites, No bowel sounds, No distended, No firm, No hepatomegaly, No mass, No nl liver, spleen, No non-tender, No other, No rebound or guarding, No soft, No splenomegaly, No surgical scars, No tender Results Result Diagram: 12/21/16 0622 12/21/16 0622 Results 24 hrs Laboratory Tests Test 12/21/16 06:22 White Blood Count 6.5 Red Blood Count 4.15 L Hemoglobin 12.2 L Hematocrit 35.7 L Mean Corpuscular Volume 86.0 Mean Corpuscular Hemoglobin 29.4 Mean Corpuscular Hemoglobin Concent 34.2 Red Cell Distribution Width 12.6 Platelet Count 216 Mean Platelet Volume 9.5 Neutrophils % 54.4 Lymphocytes % 37.1 Monocytes % 6.9 Eosinophils % 1.2 Basophils % 0.2 Nucleated Red Blood Cells % 0.0 Neutrophils # 3.6 Lymphocytes # 2.4 Monocytes # 0.5 Eosinophils # 0.1 Basophils # 0.0 Nucleated Red Blood Cells # 0.0 Sodium Level 145 H Potassium Level 3.6 Chloride Level 103 Carbon Dioxide Level 28 Anion Gap 18 H Blood Urea Nitrogen 6 L Creatinine 0.80 Glucose Level 80 Calcium Level 9.0 Medications Medications Current Medications Dextrose/Sodium Chloride (D5-1/2ns) 1,000 ml @ 100 mls/hr Q10H IV Last administered on 12/21/16 06:01; Admin Dose 100 MLS/HR; Start 12/20/16 at 00:00 Ondansetron HCl (Zofran Inj) 4 mg Q6H PRN IV NAUSEA AND/OR VOMITING Last administered on 12/21/16 00:36; Admin Dose 4 MG; Start 12/20/16 at 00:00 ALEXANDER NELSON Dec 21, 2016 15:39
--- NOTE | 2016-12-21 17:18 | DS ---
Date/Time of Note Date/Time of Note DATE: 12/21/16 TIME: 17:17 Discharge Summary Admission/Discharge Info Admit Date/Time Dec 19, 2016 at 21:34 Discharge Date/Time Discharge Diagnosis Opiate dependence, abdominal pain Patient Condition: Good Hx of Present Illness The patient is a 26-year-old male with a history of recurrent diverticulitis and multiple admissions for same, who presented to the emergency department complaining of abdominal pain, nausea, vomiting. Patient was just discharged yesterday after he was initially admitted for same symptoms. Previously, patient was evaluated by general surgery here and was told he needs colostomy but patient refused. He also follows up with his advocacy director, Dr Castro. He recently had the barium enema study done, which unfortunately was an extremely limited study as the patient was unable to tolerate contrast in the colon, and only the rectosigmoid region was opacified, and it is reported that it appears normal. During his recent admission, patient was seen in consultation was Dr. Huertas for pain management. Last nursing notes stated that, once his IV pain medication was stopped, patient requested to be discharged. Patient now is still complaining of abdominal pain despite Dilaudid that was given in the ER. He was also specifically asking for Dilaudid , and it is worth mentioning that on his last discharge summary it was mentioned that the patient did appear to show narcotic-seeking behavior. When presented to the ER, reportedly, he was gagging but not vomiting. His vitals were stable. Except a sodium of 148, CBC and CMP were also within acceptable range. Hospital Course Patient's symptosm improved. Tolerating PO. Unliekly this was 2/2 diverticulitis. Patient likely with opiate withdrawal causing abdominal pain. Advised patient that I would not provide further opiates on demand. He has an appointment pending with a pain coordinator as an outpatient Home Meds Active Scripts Pantoprazole* (Protonix*) 40 Mg Tablet., 40 MG PO DAILY, #30 TAB Prov:CAMILLE TANG 12/18/16 Metronidazole* (Flagyl*) 500 Mg Tablet, 500 MG PO TID for 7 Days, TAB Prov:REGCAMILLE DOSS 12/18/16 Ciprofloxacin Hcl* (Ciprofloxacin Hcl*) 500 Mg Tablet, 500 MG PO BID for 7 Days , TAB Prov:CAMILLE TANG 12/18/16 Hydrocodone/Acetaminophen (Hydrocodon-Acetaminoph 7.5-325) 1 Each Tablet, 1 TAB PO Q6H Y for PAIN LEVEL 4-7, #25 TAB Prov:CAMILLE TANG 12/18/16 Discontinued Reported Medications Levothyroxine Sodium* (Levothyroxine Sodium*) 25 Mcg Tablet, 25 MCG PO BEFORE BREAKFAST, #30 TAB 12/01/16 Multivits,Ca,Min/Iron/FA/Lycop (Centrum Men's Tablet) 1 Each Tablet, 1 EACH PO, TAB 10/23/16 Discontinued Scripts Ondansetron Hcl* (Zofran*) 4 Mg Tab, 4 MG PO Q4H Y for NAUSEA AND OR VOMITING, # 30 TAB Prov:CAMILLE TANG 12/18/16 Ondansetron Hcl* (Zofran*) 4 Mg Tablet, 4 MG PO Q6H for NAUSEA AND/OR VOMITING, #30 TAB Prov:CAMILLE TANG 12/18/16 Acetaminophen (MAPAP) 325 Mg Tablet, 650 MG PO Q6H Y for PAIN LEVEL 1-3 OR FEVER for 1 Day, #1 TAB Prov:STEFAN ROCHA MD 11/20/16 Levothyroxine Sodium* (Levothyroxine Sodium*) 25 Mcg Tablet, 25 MCG PO DAILY@06 for 30 Days, #30 TAB 1 Refill Prov:TSEFAN ROCHA MD 11/20/16 Hydrocodone/Acetaminophen ([place] 10-325 Tablet) 1 Each Tablet, 1 TAB PO Q6H Y for PAIN, #7 TAB Prov:MACARENA HERNANDEZ PA-C 12/11/16 Ibuprofen* (Ibuprofen*) 400 Mg Tablet, 800 MG PO Q6H Y for MODERATE PAIN LEVEL 4 -6 for 7 Days, #30 TAB Prov:STEFAN ROCHA MD 11/20/16 Primary Care Provider Jayce Dent MD Pending Labs Laboratory Tests Test 12/21/16 06:22 White Blood Count 6.510^3/ul (4.8-10.8) Red Blood Count 4.1510^6/ul (4.70-6.10) Hemoglobin 12.2g/dl (14.0-18.0) Hematocrit 35.7% (42.0-52.0) Mean Corpuscular Volume 86.0fl (82.0-101.0) Mean Corpuscular Hemoglobin 29.4pg (29.0-33.0) Mean Corpuscular Hemoglobin Concent 34.2g/dl (32.0-37.0) Red Cell Distribution Width 12.6% (11.5-14.5) Platelet Count 72456^3/UL (140-415) Mean Platelet Volume 9.5fl (7.4-10.4) Neutrophils % 54.4% (39.0-77.0) Lymphocytes % 37.1% (15.0-51.0) Monocytes % 6.9% (0.0-11.0) Eosinophils % 1.2% (0.0-7.0) Basophils % 0.2% (0.0-2.0) Nucleated Red Blood Cells % 0.0/100WBC (0.0-0.0) Neutrophils # 3.610^3/ul (1.6-7.5) Lymphocytes # 2.410^3/ul (0.8-2.9) Monocytes # 0.510^3/ul (0.3-0.9) Eosinophils # 0.110^3/ul (0.0-0.5) Basophils # 0.010^3/ul (0.0-0.1) Nucleated Red Blood Cells # 0.010^3/ul (0.0-0.0) Sodium Level 145mmol/L (135-144) Potassium Level 3.6mmol/L (3.5-5.1) Chloride Level 103mmol/L (97-110) Carbon Dioxide Level 28mmol/L (21-31) Anion Gap 18 (8-16) Blood Urea Nitrogen 6mg/dl (7-20) Creatinine 0.80mg/dl (0.61-1.24) Glucose Level 80mg/dl (70-220) Calcium Level 9.0mg/dl (8.4-10.2) FRANCESCA VORA MD Dec 21, 2016 17:18
== END 2016-12-21 18:20 | disposition home or self-care (01) | DRG 897 ==
LOC: E/R 21:06 → MS1 21:34 → MS2 22:50
PROVIDERS: ADMIT Internal Medicine; ATTEND Internal Medicine
DX: F11.20 Opioid dependence, uncomplicated (principal); E87.0 Hyperosmolality and hypernatremia; R10.84 Generalized abdominal pain; R11.2 Nausea with vomiting, unspecified; E03.9 Hypothyroidism, unspecified; Z76.5 Malingerer [conscious simulation]; T40.2X5A Adverse effect of other opioids, initial encounter; Y92.230 Patient room in hospital as the place of occurrence of the external cause
CPT/HCPCS: 36415; 80048; 80053; 83690; 83735; 84100; 85025; 86706; 86803; 87081; 87340; 96374; 96375; J1170; J2270; J2405; J7030; J7042

== ENCOUNTER 2017-01-07 12:38 | Emergency (ER) | payer OTHER ==
[~2017-01-07] VITALS: Ht 185.4 cm; Wt 88.5 kg
[2017-01-07 13:15] VITALS: Ht 185.4 cm; Wt 88.5 kg
[2017-01-07 13:28] VITALS: BP 121/91; PULSE 81; RESP 18; TEMP 98.4
[2017-01-07] MEDS ORDERED: SOD CHLORIDE 0.9% 1,000 ML IV STA (13:37)
[2017-01-07] MEDS ORDERED: HYDROmorphONE 1 MG/ML SYG IV STA ×2 (13:37→15:45)
[2017-01-07] MEDS ORDERED: ONDANSETRON 4 MG INJ IV STA (13:37)
--- NOTE | 2017-01-07 13:58 | ERA ---
ER Documentation Chief Complaint Date/Time DATE: 01/07/17 TIME: 13:54 Chief Complaint sent by pmd for acute diverticulitis abd and back pain with n/v/d since sat HPI Patient is a 26-year-old male with history of recurrent diverticulitis who presents with gradual onset, constant, moderate to severe left lower quadrant abdominal pain for 4 days. He states that he has had multiple episodes of vomiting. He reports that he has had diarrhea with small amount of blood. He denies dark stools. He denies coffee-ground emesis. He denies fever. He states that his symptoms are identical to prior episodes of diverticulitis. ROS All systems reviewed and are negative except as per history of present illness. Medications Home Meds Active Scripts Ondansetron (Ondansetron Odt) 4 Mg Tab.rapdis, 4 MG PO Q6H Y for NAUSEA AND/OR VOMITING, #12 TAB Prov:FRANCESCA WILDE MD 01/07/17 Oxycodone HCl/Acetaminophen (Percocet 5-325 mg Tablet) 1 Each Tablet, 1 EACH PO Q4H WHILE AWAKE Y for PAIN LEVEL 7-10, #14 TAB Prov:FRANCESCA WILDE MD 01/07/17 Metronidazole (Flagyl) 500 Mg Tab, 500 MG PO Q8 for 14 Days, TAB Prov:FRANCESCA WILDE MD 01/07/17 Ciprofloxacin Hcl* (Ciprofloxacin Hcl*) 500 Mg Tablet, 500 MG PO BID for 14 Days , TAB Prov:FRANCESCA WILDE MD 01/07/17 Allergies Allergies: Coded Allergies: No Known Allergy (Unverified , 01/07/17) PMhx/Soc Past medical history: Recurrent diverticulitis Past surgical history: Hernia repair Social history: Former alcohol and tobacco use, no current drugs, alcohol or tobacco. History of Surgery: Yes (hernia surgery) Anesthesia Reaction: No Hx Neurological Disorder: No Hx Respiratory Disorders: No Hx Cardiac Disorders: No Hx Psychiatric Problems: No Hx Miscellaneous Medical Probl: Yes (Diverticulitis) Hx Alcohol Use: No Hx Substance Use: No Hx Tobacco Use: No Smoking Status: Former smoker FmHx Family History: No coronary disease, No diabetes Physical Exam Vitals Vital Signs Date Time Temp Pulse Resp B/P Pulse Ox O2 Delivery O2 Flow Rate FiO2 01/07/17 13:28 98.4 81 18 121/91 98 Room Air 01/07/17 13:15 97.5 -17.7792 18 132/85 97 01/07/17 12:45 97.5 93 18 132/85 97 Physical Exam Const: Alert, no acute distress Head: Atraumatic Eyes: Normal Conjunctiva, no pallor, no icterus ENT: Normal External Ears, Nose and Mouth. Mucous membranes moist Neck: Full range of motion..~ No meningismus. Resp: Clear to auscultation bilaterally, no wheezes, no rales Cardio: Regular rate and rhythm, no murmurs Abd: Soft, diffuse tenderness, maximal in left lower quadrant with guarding. No rebound. Skin: No petechiae or rashes Back: No midline or flank tenderness Ext: No cyanosis, or edema Neur: Awake and alert, cranial nerves II through XII intact bilaterally, straight sensation full in 4 extremity's Psych: Normal Mood and Affect Result Diagram: 01/07/17 1320 01/07/17 1320 Results 24 hrs Laboratory Tests Test 01/07/17 13:00 01/07/17 13:20 Urine Color YELLOW Urine Clarity CLEAR Urine pH 5.0 Urine Specific [place] 1.021 Urine Ketones NEGATIVEmg/dL Urine Nitrite NEGATIVEmg/dL Urine Bilirubin NEGATIVEmg/dL Urine Urobilinogen NEGATIVEmg/dL Urine Leukocyte Esterase NEGATIVELeu/ul Urine Hemoglobin NEGATIVEmg/dL Urine Glucose NEGATIVEmg/dL Urine Total Protein NEGATIVEmg/dl White Blood Count 7.310^3/ul Red Blood Count 4.8110^6/ul Hemoglobin 14.5g/dl Hematocrit 42.6% Mean Corpuscular Volume 88.6fl Mean Corpuscular Hemoglobin 30.1pg Mean Corpuscular Hemoglobin Concent 34.0g/dl Red Cell Distribution Width 12.3% Platelet Count 87034^3/UL Mean Platelet Volume 9.8fl Neutrophils % 70.3% Lymphocytes % 24.0% Monocytes % 5.4% Eosinophils % 0.1% Basophils % 0.1% Nucleated Red Blood Cells % 0.0/100WBC Neutrophils # (Manual) 5.210^3/ul Lymphocytes # 1.810^3/ul Monocytes # 0.410^3/ul Eosinophils # 0.010^3/ul Basophils # 0.010^3/ul Nucleated Red Blood Cells # 0.010^3/ul Sodium Level 146mmol/L Potassium Level 4.5mmol/L Chloride Level 102mmol/L Carbon Dioxide Level 27mmol/L Anion Gap 22 Blood Urea Nitrogen 15mg/dl Creatinine 0.78mg/dl Glucose Level 79mg/dl Calcium Level 10.3mg/dl Total Bilirubin 0.5mg/dl Direct Bilirubin 0.00mg/dl Indirect Bilirubin 0.5mg/dl Aspartate Amino Transf (AST/SGOT) 22IU/L Alanine Aminotransferase (ALT/SGPT) 34IU/L Alkaline Phosphatase 52IU/L Total Protein 8.7g/dl Albumin 4.6g/dl Globulin 4.10g/dl Albumin/Globulin Ratio 1.12 Lipase 38U/L Current Medications Medications (Trade) Dose Ordered Sig/Bernie Route PRN Reason Start Time Stop Time Status Last Admin Dose Admin Sodium Chloride (NS) 1,000 ml @ 1,000 mls/hr Q1H STAT IV 01/07/17 13:37 01/07/17 14:36 DC 01/07/17 13:52 Hydromorphone HCl (Dilaudid) 1 mg ONCE STAT IV 01/07/17 13:37 01/07/17 13:39 DC 01/07/17 13:52 Ondansetron HCl (Zofran Inj) 4 mg ONCE STAT IV 01/07/17 13:37 01/07/17 13:39 DC 01/07/17 13:52 IV Flush 10 ml 10 ml STK-MED ONCE .ROUTE 01/07/17 14:58 01/07/17 14:59 DC Sodium Chloride (NS) 100 ml @ ud STK-MED ONCE .ROUTE 01/07/17 14:58 01/07/17 14:59 DC Iohexol (Omnipaque 300mg/ ml) 150 ml STK-MED ONCE .ROUTE 01/07/17 14:58 01/07/17 14:59 DC Hydromorphone HCl (Dilaudid) 1 mg ONCE STAT IV 01/07/17 15:45 01/07/17 15:46 DC 01/07/17 15:53 Procedures/MDM MDM: Patient is a 26-year-old male with history of recurrent diverticulitis who presents to the ER with 4 days of left-sided abdominal pain and vomiting. He has tenderness on exam. CT is consistent with diverticulitis without evidence for perforation or abscess. His pain was significantly improved after 2 doses of IV Dilaudid. The patient is afebrile and has no significant leukocytosis. He is tolerating oral intake in the ER. His repeat abdominal exam is improved. I believe he is stable for outpatient treatment with ciprofloxacin and Flagyl for 2 weeks. I will also prescribe him a short course of Percocet for severe pain and Zofran for nausea. I advised him to arrange close follow-up with his PMD, and to obtain referral to colorectal surgery and/or gastroenterology. I advised him carefully on return precautions. Departure Diagnosis: Primary Impression: Diverticulitis Qualified Code: K57.33 - Diverticulitis of large intestine without perforation or abscess with bleeding Condition: FRANCESCA Conde MD Jan 07, 2017 13:57
[2017-01-07 13:59] LABS: BASOPHILS % 0.1 % (0.0-2.0); EOSINOPHILS % 0.1 % (0.0-7.0); HEMATOCRIT 42.6 % (42.0-52.0); HEMOGLOBIN 14.5 g/dl (14.0-18.0); LYMPHOCYTES # 1.8 10^3/ul (0.8-2.9); MEAN CORPUSCULAR HEMOGLOBIN 30.1 pg (29.0-33.0); MEAN CORPUSCULAR VOLUME 88.6 fl (82.0-101.0); MEAN PLATELET VOLUME 9.8 fl (7.4-10.4); MONOCYTE # 0.4 10^3/ul (0.3-0.9); MONOCYTES % 5.4 % (0.0-11.0); NEUTROPHILS % 70.3 % (39.0-77.0); PLATELET COUNT 251 10^3/UL (140-415); RED BLOOD COUNT 4.81 10^6/ul (4.70-6.10); RED CELL DISTRIBUTION WIDTH 12.3 % (11.5-14.5); WHITE BLOOD COUNT 7.3 10^3/ul (4.8-10.8)
[2017-01-07 14:02] LABS: ADD UMIC NO; UR ASCORBIC ACID NEGATIVE (NEGATIVE); UR BILIRUBIN (Dip) NEGATIVE (NEGATIVE); UR BLOOD (Dip) NEGATIVE (NEGATIVE); UR CLARITY CLEAR (CLEAR); UR COLOR YELLOW (YELLOW); UR GLUCOSE (Dip) NEGATIVE (NEGATIVE); UR KETONES (Dip) NEGATIVE (NEGATIVE); UR LEUKOCYTE ESTERASE (Dip) NEGATIVE Leu/ul (NEGATIVE); UR NITRITE (Dip) NEGATIVE (NEGATIVE); UR SPECIFIC GRAVITY (Dip) 1.021 (1.003-1.030); UR TOTAL PROTEIN (Dip) NEGATIVE (NEGATIVE); UR UROBILINOGEN (Dip) NEGATIVE (NEGATIVE)
[2017-01-07 14:24] LABS: ALBUMIN 4.6 g/dl (3.3-4.9); ALBUMIN/GLOBULIN RATIO 1.12; BILIRUBIN,INDIRECT 0.5 mg/dl (0-1.1); BILIRUBIN,TOTAL 0.5 mg/dl (0.2-1.3); CALCIUM 10.3 mg/dl (8.4-10.2); CREATININE 0.78 mg/dl (0.61-1.24); POTASSIUM 4.5 mmol/L (3.5-5.1); TOTAL PROTEIN 8.7 g/dl (6.1-8.1)
[2017-01-07] MEDS ORDERED: SOD CHLORIDE 0.9% 100 ML ONE (14:58)
[2017-01-07] MEDS ORDERED: IOHEXOL 300MG/ML 150 ML BTL ONE (14:58)
--- NOTE | 2017-01-07 15:31 | RADRPT ---
PROCEDURE: CT abdomen and pelvis with contrast. CLINICAL INDICATION: Abdominal pain TECHNIQUE: CT scan of the abdomen and pelvis with contrast was performed on a multi-slice CT [facility]. The patient was scanned following the uncomplicated intravenous administration 100 cc of Omnipa que 300. Coronal and sagittal reformatted images were obtained from the axial source images. One or more of the following does reduction techniques were used: Automated exposure control; adjustment of the mA and/or kV according to patient size; use of the aorta of reconstruction technique. Images were reviewed on a high-resolution PACS workstation. The total exam CTDI equals 15.2 mGy and the tot al exam DLP equals 1017.23 mGy-cm. COMPARISON: CT abdomen pelvis 11/14/2016 FINDINGS: The lung bases are clear. The heart size is normal, without pericardial thickening or effusion. The liver, spleen, and pancreas are normal. The gallbladder is normal. The adrenal glands are symmetric and normal. The kidneys show normal and symmetric enhancement. No renal calculus or obstructive uropathy is seen. The aorta is of normal caliber. There is no retroperitoneal lymph node enlargment. There is no evidence of large or small bowel obstruction. There are a few scattered sigmoid divertic stephani. There is marked thickening of the sigmoid colon with adjacent inflammatory change compatible w ith diverticulitis. There is no evidence of pneumoperitoneum. There is no fluid collection. There is trace amounts of adjacent free fluid there are no other areas of inflammation or wall thickening. A normal appendix is identified. There is no evidence of pelvic sidewall lymph node enlargement. There is moderate wall thickening of the superior aspect of the bladder which is abutting at least a short segment of colon which may be adherent. There is no gas within the urinary bladder. There are small amounts of reactive pelv ic free fluid. There are no enlarged pelvic sidewall lymph nodes. The inguinal regions are within normal limits. The osseous structures are intact. IMPRESSION: 1. Limited diverticulosis with marked thickening of the sigmoid colon with adjacent inflammatory ch hola compatible with diverticulitis. There is a short segment of colon which is abutting the superi or aspect of the thickened bladder wall which may be adherent. Recommend colonoscopy after resoluti on of acute symptoms to exclude neoplastic involvement as clinically indicated. Small areas of free fluid without associated fluid collection. RPTAT: KK .Benigno Sanchez MD, MD Date Time Electronically viewed and signed by .Benigno Sanchez MD, MD on 01/07/2017 15:31 .B/
[2017-01-07] MEDS ORDERED: METR500T14 PO (16:43)
[2017-01-07] MEDS ORDERED: ONDA4TAB14 PO (16:43)
[2017-01-07] MEDS ORDERED: OXYC-279 PO (16:43)
[2017-01-07] MEDS ORDERED: CIPR500T4 PO (16:43)
== END 2017-01-07 17:27 | disposition home or self-care (01) ==
LOC: E/R 12:38
DX: K57.33 Diverticulitis of large intestine without perforation or abscess with bleeding (principal); R11.10 Vomiting, unspecified; Z87.891 Personal history of nicotine dependence
CPT/HCPCS: 36415; 74177; 80053; 81003; 83690; 85025; 96374; 96375; 96376; J1170; J2405; J7030; Q9967; Z7502; Z7610

== ENCOUNTER 2017-02-06 12:07 | Emergency (ER) | payer OTHER ==
[~2017-02-06] VITALS: Ht 185.4 cm; Wt 91.5 kg
[~2017-02-06 12:07] MED LIST changes: -ACET325T40 PO; -HYDR-3605 PO; -LEVO25TA53 PO; -METR500T PO; +METR500T14 PO; -MULT-861 PO; -ONDA-43 PO; +ONDA4TAB14 PO; -ONDA4TAB8 PO; +OXYC-279 PO; -PANT40TA3 PO
[2017-02-06 12:08] VITALS: Ht 185.4 cm; Wt 91.5 kg
[2017-02-06] MEDS ORDERED: ONDANSETRON 4 MG INJ IV STA (12:32)
[2017-02-06] MEDS ORDERED: KETOROLAC 30 MG INJ IV STA (12:32)
[2017-02-06 12:59] LABS: BASOPHILS % 0.3 % (0.0-2.0); EOSINOPHILS # 0.1 10^3/ul (0.0-0.5); HEMATOCRIT 41.7 % (42.0-52.0); HEMOGLOBIN 14.4 g/dl (14.0-18.0); LYMPHOCYTES # 1.7 10^3/ul (0.8-2.9); LYMPHOCYTES % 27.4 % (15.0-51.0); MEAN CORPUSCULAR HGB CONC 34.5 g/dl (32.0-37.0); MEAN CORPUSCULAR VOLUME 86.9 fl (82.0-101.0); MEAN PLATELET VOLUME 9.2 fl (7.4-10.4); MONOCYTE # 0.4 10^3/ul (0.3-0.9); MONOCYTES % 6.7 % (0.0-11.0); NEUTROPHILS % 64.4 % (39.0-77.0); PLATELET COUNT 251 10^3/UL (140-415); RED CELL DISTRIBUTION WIDTH 11.7 % (11.5-14.5); WHITE BLOOD COUNT 6.1 10^3/ul (4.8-10.8)
[2017-02-06 13:04] LABS: ADD UMIC NO; UR ASCORBIC ACID NEGATIVE (NEGATIVE); UR BILIRUBIN (Dip) NEGATIVE (NEGATIVE); UR BLOOD (Dip) NEGATIVE (NEGATIVE); UR CLARITY CLEAR (CLEAR); UR COLOR YELLOW (YELLOW); UR GLUCOSE (Dip) NEGATIVE (NEGATIVE); UR KETONES (Dip) NEGATIVE (NEGATIVE); UR LEUKOCYTE ESTERASE (Dip) NEGATIVE Leu/ul (NEGATIVE); UR NITRITE (Dip) NEGATIVE (NEGATIVE); UR TOTAL PROTEIN (Dip) NEGATIVE (NEGATIVE); UR UROBILINOGEN (Dip) NEGATIVE (NEGATIVE)
[2017-02-06 13:20] LABS: ALBUMIN 4.6 g/dl (3.3-4.9); ALBUMIN/GLOBULIN RATIO 1.21; BILIRUBIN,INDIRECT 0.2 mg/dl (0-1.1); BILIRUBIN,TOTAL 0.2 mg/dl (0.2-1.3); CALCIUM 9.3 mg/dl (8.4-10.2); CREATININE 0.76 mg/dl (0.61-1.24); POTASSIUM 4.2 mmol/L (3.5-5.1); TOTAL PROTEIN 8.4 g/dl (6.1-8.1)
--- NOTE | 2017-02-06 13:42 | ERD ---
ER Documentation Chief Complaint Date/Time DATE: 02/06/17 TIME: 13:39 Chief Complaint HAS AP HAS HX OF DEVIRTICULITIS HPI This is a 26-year-old male presents the emergency department today complaining of abdominal pain for the past few days and low back pain. States he has a history of diverticulitis. States he does have a GI doctor. States he has an appointment with pain management doctor March 02. States a couple days ago he had diarrhea now he has more constipation. States he takes Tylenol with codeine at home. Denies any fevers or chills. ROS All systems reviewed and are negative except as per history of present illness. Medications Home Meds Active Scripts Ondansetron (Ondansetron Odt) 4 Mg Tab.rapdis, 4 MG PO Q6H Y for NAUSEA AND/OR VOMITING, #12 TAB Prov:FRANCESCA WILDE MD 01/07/17 Oxycodone HCl/Acetaminophen (Percocet 5-325 mg Tablet) 1 Each Tablet, 1 EACH PO Q4H WHILE AWAKE Y for PAIN LEVEL 7-10, #14 TAB Prov:FRANCESCA WILDE MD 01/07/17 Metronidazole (Flagyl) 500 Mg Tab, 500 MG PO Q8 for 14 Days, TAB Prov:FRANCESCA WILDE MD 01/07/17 Ciprofloxacin Hcl* (Ciprofloxacin Hcl*) 500 Mg Tablet, 500 MG PO BID for 14 Days , TAB Prov:FRANCESCA WILDE MD 01/07/17 Allergies Allergies: Coded Allergies: No Known Allergy (Unverified , 02/06/17) PMhx/Soc History of Surgery: Yes (hernia surgery) Anesthesia Reaction: No Hx Neurological Disorder: No Hx Respiratory Disorders: No Hx Cardiac Disorders: No Hx Psychiatric Problems: No Hx Miscellaneous Medical Probl: Yes (Diverticulitis) Hx Alcohol Use: No Hx Substance Use: No Hx Tobacco Use: No Smoking Status: Never smoker Physical Exam Vitals Vital Signs Date Time Temp Pulse Resp B/P Pulse Ox O2 Delivery O2 Flow Rate FiO2 02/06/17 12:08 98.2 70 18 121/76 95 Physical Exam Const: NAD Head: Atraumatic Eyes: Normal Conjunctiva ENT: Normal External Ears, Nose and Mouth. Neck: Full range of motion..~ No meningismus. Resp: Clear to auscultation bilaterally Cardio: Regular rate and rhythm, no murmurs Abd: Soft, diffuse abdominal tenderness worse left lower quadrant non distended. Normal bowel sounds. No specific tenderness at McBurney's Skin: No petechiae or rashes Back: No midline or flank tenderness Ext: No cyanosis, or edema Neur: Awake and alert Psych: Normal Mood and Affect Result Diagram: 02/06/17 1250 02/06/17 1250 Results 24 hrs Laboratory Tests Test 02/06/17 12:44 02/06/17 12:50 Urine Color YELLOW Urine Clarity CLEAR Urine pH 8.0 Urine Specific [place] 1.020 Urine Ketones NEGATIVEmg/dL Urine Nitrite NEGATIVEmg/dL Urine Bilirubin NEGATIVEmg/dL Urine Urobilinogen NEGATIVEmg/dL Urine Leukocyte Esterase NEGATIVELeu/ul Urine Hemoglobin NEGATIVEmg/dL Urine Glucose NEGATIVEmg/dL Urine Total Protein NEGATIVEmg/dl White Blood Count 6.110^3/ul Red Blood Count 4.8010^6/ul Hemoglobin 14.4g/dl Hematocrit 41.7% Mean Corpuscular Volume 86.9fl Mean Corpuscular Hemoglobin 30.0pg Mean Corpuscular Hemoglobin Concent 34.5g/dl Red Cell Distribution Width 11.7% Platelet Count 68723^3/UL Mean Platelet Volume 9.2fl Neutrophils % 64.4% Lymphocytes % 27.4% Monocytes % 6.7% Eosinophils % 1.0% Basophils % 0.3% Nucleated Red Blood Cells % 0.0/100WBC Neutrophils # 4.010^3/ul Lymphocytes # 1.710^3/ul Monocytes # 0.410^3/ul Eosinophils # 0.110^3/ul Basophils # 0.010^3/ul Nucleated Red Blood Cells # 0.010^3/ul Sodium Level 142mmol/L Potassium Level 4.2mmol/L Chloride Level 102mmol/L Carbon Dioxide Level 29mmol/L Anion Gap 15 Blood Urea Nitrogen 12mg/dl Creatinine 0.76mg/dl Glucose Level 90mg/dl Calcium Level 9.3mg/dl Total Bilirubin 0.2mg/dl Direct Bilirubin 0.00mg/dl Indirect Bilirubin 0.2mg/dl Aspartate Amino Transf (AST/SGOT) 26IU/L Alanine Aminotransferase (ALT/SGPT) 38IU/L Alkaline Phosphatase 52IU/L Total Protein 8.4g/dl Albumin 4.6g/dl Globulin 3.80g/dl Albumin/Globulin Ratio 1.21 Lipase 46U/L Current Medications Medications (Trade) Dose Ordered Sig/Bernie Route PRN Reason Start Time Stop Time Status Last Admin Dose Admin Ondansetron HCl (Zofran Inj) 4 mg ONCE STAT IV 02/06/17 12:32 02/06/17 12:35 DC 02/06/17 12:54 Ketorolac Tromethamine (Toradol) 30 mg ONCE STAT IV 02/06/17 12:32 02/06/17 12:35 DC 02/06/17 12:54 Procedures/MDM This is a 26-year-old male presents to the emergency department today complaining of abdominal pain and some back pain for the past couple of days. Patient has a history of diverticulitis. Upon review of an ERIKA report and patient's medical records patient has had 21 visits to the emergency department this year mostly for abdominal related pain complaint. Recently had a CT scan last month and I do not feel it is beneficial at this time. Patient is afebrile and otherwise well-appearing. I did repeat laboratory workup Laboratory workup shows no elevated white blood cell count. Patient is not anemic. Platelets are within normal limits. Electrolytes are within normal limits. Glucose within normal limits. Liver enzymes are within normal limits. Lipase within normal limits. UA is negative for infection or hematuria Patient has a history of chronic pain. He is sitting up in no acute distress and I did not feel that he required narcotics at this time. Patient was given Toradol for pain. He stated that his pain improved. Patient was requesting more pain medication I do not feel that that is required at this time as patient is sitting up comfortably in the chair playing on his cell phone. He is walked around the emergency department in no acute distress. Do not feel patient would benefit from prescription for narcotics at this time. Indicated that he takes Tylenol with codeine at home. Symptoms at this time is consistent with chronic abdominal pain. Explained to the patient that he may take his usual pain medication at home. He was instructed to keep his appointment March [address] Benton Girard and to follow up with his GI specialist as well. I have low suspicion that patient has acute diverticulitis at this time . Low suspicion for perforation or abscess. I do not feel he requires antibiotics at this time. Low suspicion for acute surgical abdomen. He has no specific tenderness at McBurney's. Discussed the patient with Dr. Hood and he is in agreement with this plan. At this time the patient is stable for discharge and outpatient management. Patient should follow up with their PCP in the next 1-2 days. They may return to the emergency department sooner for any persistent or worsening of symptoms. Patient understood and agreed with the plan. Departure Diagnosis: Primary Impression: Abdominal pain Abdominal location: generalized Qualified Code: R10.84 - Generalized abdominal pain Condition: Fair MACARENA HERNANDEZ PA-C Feb 06, 2017 13:42
== END 2017-02-06 14:17 | disposition home or self-care (01) ==
LOC: FTE 12:07
DX: R10.84 Generalized abdominal pain (principal)
CPT/HCPCS: 36415; 80053; 81003; 83690; 85025; 96374; 96375; J1885; J2405; Z7502

== ENCOUNTER 2017-02-19 19:31 | Emergency (ER) | payer OTHER ==
[~2017-02-19] VITALS: Ht 177.8 cm; Wt 93.0 kg
[2017-02-19 19:33] VITALS: Ht 177.8 cm; Wt 93.0 kg
--- NOTE | 2017-02-19 20:49 | ERD ---
ER Documentation Chief Complaint Date/Time DATE: 02/19/17 TIME: 20:47 Chief Complaint mid abd pain radaiting to back x 2 days HPI 26-year-old male with a history of diverticulitis, chronic abdominal pain presents with lower abdominal pain in the left quadrant that radiates to his back for the past 2 days. He describes sharp, achy, moderate to severe and is worse with movement, not improving with ibuprofen. He states that the temperature maximum at home was 99.8 and he took ibuprofen prior to coming in. Secondarily also comes in with a painful rash to his penis which she has had for 2 days. He denies dysuria, urgency or frequency. He was seen at [place] [facility] last week and he was told that he had a white blood cell count of 15 and although did not did not do a CT scan of the abdomen he was given a prescription for Cipro and Flagyl and he decided to take it only for 2- 3 days. ROS All systems reviewed and are negative except as per history of present illness. Medications Home Meds Active Scripts Acyclovir* (Acyclovir*) 400 Mg Tablet, 400 MG PO TID for 7 Days, TAB Prov:RAYRAY GRIMES PA-C 02/19/17 Ondansetron (Ondansetron Odt) 4 Mg Tab.rapdis, 4 MG PO Q6H Y for NAUSEA AND/OR VOMITING, #10 TAB Prov:RAYRAY GRIMES PA-C 02/19/17 Tramadol HCl (Tramadol HCl) 50 Mg Tablet, 50 MG PO Q4 Y for PAIN, #20 TAB Prov:RAYRAY GRIMES PA-C 02/19/17 Ondansetron (Ondansetron Odt) 4 Mg Tab.rapdis, 4 MG PO Q6H Y for NAUSEA AND/OR VOMITING, #12 TAB Prov:FRANCESCA WILDE MD 01/07/17 Oxycodone HCl/Acetaminophen (Percocet 5-325 mg Tablet) 1 Each Tablet, 1 EACH PO Q4H WHILE AWAKE Y for PAIN LEVEL 7-10, #14 TAB Prov:FRANCESCA WILDE MD 01/07/17 Metronidazole (Flagyl) 500 Mg Tab, 500 MG PO Q8 for 14 Days, TAB Prov:FRANCESCA WILDE MD 01/07/17 Ciprofloxacin Hcl* (Ciprofloxacin Hcl*) 500 Mg Tablet, 500 MG PO BID for 14 Days , TAB Prov:FRANCESCA WILDE MD 01/07/17 Allergies Allergies: Coded Allergies: No Known Allergy (Unverified , 02/06/17) PMhx/Soc History of Surgery: Yes (hernia surgery) Anesthesia Reaction: No Hx Neurological Disorder: No Hx Respiratory Disorders: No Hx Cardiac Disorders: No Hx Psychiatric Problems: No Hx Miscellaneous Medical Probl: Yes (Diverticulitis) Hx Alcohol Use: No Hx Substance Use: No Hx Tobacco Use: No Smoking Status: Never smoker Physical Exam Vitals Vital Signs Date Time Temp Pulse Resp B/P Pulse Ox O2 Delivery O2 Flow Rate FiO2 02/19/17 22:29 98.3 98 16 113/67 96 Room Air 02/19/17 19:33 97.5 77 20 128/75 98 Physical Exam General: Well-developed, well-nourished. The patient appears in no acute distress. HEENT: Head is normocephalic, atraumatic. No scleral icterus. Neck: Supple. Nontender. Lungs: Clear to auscultation. Normal air movement. Heart: Regular rate and rhythm. S1 and S2 are normal. No murmurs, gallops, or rubs. Abdomen: Soft, definite tenderness in the left lower quadrant, no rebound pain or guarding. Nondistended. Bowel sounds are normoactive. U: There are red vesicular lesions at the glans penis. Extremities: No clubbing or cyanosis. Normal pulses. Moving extremities x 4. No weakness. Neurologic: Alert and oriented 3. No focal deficits. Skin: Normal turgor. No rash or lesions. Result Diagram: 02/19/17210202/19/172102 Results 24 hrs Laboratory Tests Test 02/19/17 21:03 White Blood Count 5.910^3/ul Red Blood Count 4.3410^6/ul Hemoglobin 12.7g/dl Hematocrit 38.0% Mean Corpuscular Volume 87.6fl Mean Corpuscular Hemoglobin 29.3pg Mean Corpuscular Hemoglobin Concent 33.4g/dl Red Cell Distribution Width 12.0% Platelet Count 68367^3/UL Mean Platelet Volume 9.5fl Neutrophils % 49.9% Lymphocytes % 38.5% Monocytes % 8.7% Eosinophils % 2.4% Basophils % 0.3% Nucleated Red Blood Cells % 0.0/100WBC Neutrophils # 2.910^3/ul Lymphocytes # 2.310^3/ul Monocytes # 0.510^3/ul Eosinophils # 0.110^3/ul Basophils # 0.010^3/ul Nucleated Red Blood Cells # 0.010^3/ul Urine Color CAMILA Urine Clarity SLIGHTLY CLOUDY Urine pH 5.0 Urine Specific [place] 1.031 Urine Ketones NEGATIVEmg/dL Urine Nitrite NEGATIVEmg/dL Urine Bilirubin NEGATIVEmg/dL Urine Urobilinogen NEGATIVEmg/dL Urine Leukocyte Esterase TRACELeu/ul Urine Microscopic RBC 0/HPF Urine Microscopic WBC 0/HPF Urine Mucus FEW/HPF Urine Hemoglobin NEGATIVEmg/dL Urine Glucose NEGATIVEmg/dL Urine Total Protein 1+mg/dl Sodium Level 141mmol/L Potassium Level 4.1mmol/L Chloride Level 101mmol/L Carbon Dioxide Level 30mmol/L Anion Gap 14 Blood Urea Nitrogen 14mg/dl Creatinine 0.87mg/dl Glucose Level 75mg/dl Calcium Level 9.3mg/dl Total Bilirubin 0.2mg/dl Direct Bilirubin 0.00mg/dl Indirect Bilirubin 0.2mg/dl Aspartate Amino Transf (AST/SGOT) 41IU/L Alanine Aminotransferase (ALT/SGPT) 67IU/L Alkaline Phosphatase 43IU/L Total Protein 8.0g/dl Albumin 4.3g/dl Globulin 3.70g/dl Albumin/Globulin Ratio 1.16 Lipase 36U/L Current Medications Medications (Trade) Dose Ordered Sig/Bernie Route PRN Reason Start Time Stop Time Status Last Admin Dose Admin Tramadol HCl (Ultram) 50 mg ONCE ONCE PO 02/19/17 21:00 02/19/17 21:01 DC 02/19/17 20:49 Ondansetron HCl (Zofran Odt) 4 mg ONCE STAT ODT 02/19/17 21:57 02/19/17 21:58 DC 02/19/17 22:02 Procedures/MDM ED course: I reviewed patient's electronic medical record, this patient frequency emergency department, was also here in February 06 for chronic abdominal pain. Medical decision makin-year-old male presents with chronic abdominal pain, also complains of left lower quadrant pain for 2 days and appears to be HSV. Patient's abdominal pain appears to be a chronic process. He was treated in the emergency department with Ultram, as well as Zofran. He was ambulatory emergency department on any guarding or difficulty with ambulation. Blood work shows no evidence of leukocytosis, evidence of electrolyte abnormalities, pancreatitis, transaminitis. This patient frequency emergency department, he also states that he has been to nearby ERs who treated with antibiotics. Clinically does not have any signs or symptoms of acute appendicitis, bowel obstruction, testicular torsion, ileus, volvulus, intra-abdominal abscess, perforation secondary to diverticulitis. I believe the patient's symptoms should be managed on an outpatient basis at this time, he would most likely need a colonoscopy that can be done outpatient. He has told me that he has an appointment to see a pain management doctor in approximately 2 weeks, he has been asked to follow-up with his pain doctor for continuing care as well as pain control. Departure Diagnosis: Primary Impression: Abdominal pain Additional Impression: HSV infection Condition: RAYRAY Head PA-C Feb 19, 2017 20:49
[2017-02-19] MEDS ORDERED: traMADol 50 MG TAB PO ONE (21:00)
[2017-02-19 21:30] LABS: BASOPHILS % 0.3 % (0.0-2.0); EOSINOPHILS # 0.1 10^3/ul (0.0-0.5); EOSINOPHILS % 2.4 % (0.0-7.0); HEMOGLOBIN 12.7 g/dl (14.0-18.0); LYMPHOCYTES # 2.3 10^3/ul (0.8-2.9); LYMPHOCYTES % 38.5 % (15.0-51.0); MEAN CORPUSCULAR HEMOGLOBIN 29.3 pg (29.0-33.0); MEAN CORPUSCULAR HGB CONC 33.4 g/dl (32.0-37.0); MEAN CORPUSCULAR VOLUME 87.6 fl (82.0-101.0); MEAN PLATELET VOLUME 9.5 fl (7.4-10.4); MONOCYTE # 0.5 10^3/ul (0.3-0.9); MONOCYTES % 8.7 % (0.0-11.0); NEUTROPHIL # 2.9 10^3/ul (1.6-7.5); NEUTROPHILS % 49.9 % (39.0-77.0); PLATELET COUNT 260 10^3/UL (140-415); RED BLOOD COUNT 4.34 10^6/ul (4.70-6.10); WHITE BLOOD COUNT 5.9 10^3/ul (4.8-10.8)
[2017-02-19 21:36] LABS: ADD UMIC YES; UR ASCORBIC ACID 40 mg/dL (NEGATIVE); UR BILIRUBIN (Dip) NEGATIVE (NEGATIVE); UR BLOOD (Dip) NEGATIVE (NEGATIVE); UR CLARITY SLIGHTLY CLOUDY (CLEAR); UR COLOR AMBER (YELLOW); UR GLUCOSE (Dip) NEGATIVE (NEGATIVE); UR KETONES (Dip) NEGATIVE (NEGATIVE); UR LEUKOCYTE ESTERASE (Dip) TRACE Leu/ul (NEGATIVE); UR MUCUS FEW /HPF (NONE SEEN); UR NITRITE (Dip) NEGATIVE (NEGATIVE); UR RBC 0 /HPF (0-5); UR SPECIFIC GRAVITY (Dip) 1.031 (1.003-1.030); UR TOTAL PROTEIN (Dip) 1+ mg/dl (NEGATIVE); UR UROBILINOGEN (Dip) NEGATIVE (NEGATIVE)
[2017-02-19] MEDS ORDERED: ONDANSETRON (ODT) 4 MG TAB ODT STA (21:57)
[2017-02-19 22:08] LABS: ALBUMIN 4.3 g/dl (3.3-4.9); ALBUMIN/GLOBULIN RATIO 1.16; BILIRUBIN,INDIRECT 0.2 mg/dl (0-1.1); BILIRUBIN,TOTAL 0.2 mg/dl (0.2-1.3); CALCIUM 9.3 mg/dl (8.4-10.2); CREATININE 0.87 mg/dl (0.61-1.24); POTASSIUM 4.1 mmol/L (3.5-5.1)
[2017-02-19] MEDS ORDERED: ONDA4TAB14 PO (22:25)
[2017-02-19] MEDS ORDERED: TRAM50TA2 PO (22:25)
[2017-02-19] MEDS ORDERED: ACYC400T2 PO (22:25)
[2017-02-19 22:29] VITALS: BP 113/67; PULSE 98; RESP 16; TEMP 98.3
== END 2017-02-19 22:33 | disposition home or self-care (01) ==
LOC: FTE 19:31
DX: R10.32 Left lower quadrant pain (principal); B00.9 Herpesviral infection, unspecified
CPT/HCPCS: 36415; 80053; 81001; 83690; 85025; Z7502; Z7610; 99284

== ENCOUNTER 2017-04-29 17:29 | Emergency (ER) | payer OTHER ==
[~2017-04-29] VITALS: Ht 185.4 cm; Wt 90.9 kg
[~2017-04-29 17:29] MED LIST changes: +ACYC400T2 PO; +TRAM50TA2 PO
[2017-04-29 17:34] VITALS: Ht 185.4 cm; Wt 90.9 kg
[2017-04-29] MEDS ORDERED: ONDANSETRON 4 MG INJ IV STA (18:23)
[2017-04-29] MEDS ORDERED: morphine 4 MG/ML VIAL IV STA ×2 (18:23→20:13)
[2017-04-29] MEDS ORDERED: SOD CHLORIDE 0.9% 1,000 ML IV STA (18:23)
--- NOTE | 2017-04-29 18:23 | ERD ---
ER Documentation Chief Complaint Chief Complaint lower abd pain rad. to back. Hx: Diverticulitis HPI 26-year-old male with a history of diverticulitis, chronic abdominal pain presents with lower abdominal pain that radiates to his back .symptoms started this AM. He describes sharp, achy, pain is 10/10 worse with movement, not improving pt reports fluffy BM to watery stool, denies blood in stool. denies n /v/f/c/ . laste seen and treated in ED 02/19/17. CT done at that time . Chart review February 19, 2017 PROCEDURE: CT abdomen and pelvis with contrast. CLINICAL INDICATION: Abdominal pain TECHNIQUE: CT scan of the abdomen and pelvis with contrast was performed on a multi-slice CT scanner. The patient was scanned following the uncomplicated intravenous administration 100 cc of Omnipaque 300. Coronal and sagittal reformatted images were obtained from the axial source images. One or more of the following does reduction techniques were used: Automated exposure control; adjustment of the mA and/or kV according to patient size; use of the aorta of reconstruction technique. Images were reviewed on a high-resolution PACS workstation. The total exam CTDI equals 15.2 mGy and the total exam DLP equals 1017.23 mGy-cm. COMPARISON: CT abdomen pelvis 11/14/2016 FINDINGS: The lung bases are clear. The heart size is normal, without pericardial thickening or effusion. The liver, spleen, and pancreas are normal. The gallbladder is normal. The adrenal glands are symmetric and normal. The kidneys show normal and symmetric enhancement. No renal calculus or obstructive uropathy is seen. The aorta is of normal caliber. There is no retroperitoneal lymph node enlargment. There is no evidence of large or small bowel obstruction. There are a few scattered sigmoid diverticula. There is marked thickening of the sigmoid colon with adjacent inflammatory change compatible with diverticulitis. There is no evidence of pneumoperitoneum. There is no fluid collection. There is trace amounts of adjacent free fluid there are no other areas of inflammation or wall thickening. A normal appendix is identified. There is no evidence of pelvic sidewall lymph node enlargement. There is moderate wall thickening of the superior aspect of the bladder which is abutting at least a short segment of colon which may be adherent. There is no gas within the urinary bladder. There are small amounts of reactive pelvic free fluid. There are no enlarged pelvic sidewall lymph nodes. The inguinal regions are within normal limits. The osseous structures are intact. IMPRESSION: 1. Limited diverticulosis with marked thickening of the sigmoid colon with adjacent inflammatory change compatible with diverticulitis. There is a short segment of colon which is abutting the superior aspect of the thickened bladder wall which may be adherent. Recommend colonoscopy after resolution of acute symptoms to exclude neoplastic involvement as clinically indicated. Small areas of free fluid without associated fluid collection. RPTAT: KK .Benigno Snachez MD, MD Date Time Electronically viewed and signed by .Benigno Sanchez MD, MD on 2016 15:31 ROS All systems reviewed and are negative except as per history of present illness. Medications Home Meds Active Scripts Acyclovir* (Acyclovir*) 400 Mg Tablet, 400 MG PO TID for 7 Days, TAB Prov:RAYRAY GRIMES PA-C 02/19/17 Ondansetron (Ondansetron Odt) 4 Mg Tab.rapdis, 4 MG PO Q6H Y for NAUSEA AND/OR VOMITING, #10 TAB Prov:RAYRAY GRIMES PA-C 02/19/17 Tramadol HCl (Tramadol HCl) 50 Mg Tablet, 50 MG PO Q4 Y for PAIN, #20 TAB Prov:RAYRAY GRIMES PA-C 02/19/17 Ondansetron (Ondansetron Odt) 4 Mg Tab.rapdis, 4 MG PO Q6H Y for NAUSEA AND/OR VOMITING, #12 TAB Prov:FRANCESCA WILDE MD 01/07/17 Oxycodone HCl/Acetaminophen (Percocet 5-325 mg Tablet) 1 Each Tablet, 1 EACH PO Q4H WHILE AWAKE Y for PAIN LEVEL 7-10, #14 TAB Prov:FRANCESCA WILDE MD 01/07/17 Metronidazole (Flagyl) 500 Mg Tab, 500 MG PO Q8 for 14 Days, TAB Prov:FRANCESCA WILDE MD 01/07/17 Ciprofloxacin Hcl* (Ciprofloxacin Hcl*) 500 Mg Tablet, 500 MG PO BID for 14 Days , TAB Prov:FRANCESCA WILDE MD 01/07/17 Allergies Allergies: Coded Allergies: No Known Allergy (Unverified , 9/23/17) PMhx/Soc History of Surgery: Yes (hernia surgery) Anesthesia Reaction: No Hx Neurological Disorder: No Hx Respiratory Disorders: No Hx Cardiac Disorders: No Hx Psychiatric Problems: No Hx Miscellaneous Medical Probl: Yes (Diverticulitis) Hx Alcohol Use: No Hx Substance Use: No Hx Tobacco Use: No Physical Exam Vitals Vital Signs Date Time Temp Pulse Resp B/P Pulse Ox O2 Delivery O2 Flow Rate FiO2 04/29/17 17:34 97.6 77 20 132/79 97 Vitals stable, triage notes reviewed Physical Exam Const: Nourished, well-hydrated, well-appearing 26-year-old male patient obvious discomfort no acute distress Head: Atraumatic Eyes: Normal Conjunctiva ENT: Normal External Ears, Nose and Mouth. Neck: Full range of motion..~ No meningismus. Resp: Clear to auscultation bilaterally Cardio: Regular rate and rhythm, no murmurs Abd: Soft, non tender, non distended. Normal bowel sounds Skin: No petechiae or rashes Back: No midline or flank tenderness Ext: No cyanosis, or edema Neur: Awake and alert Psych: Normal Mood and Affect Result Diagram: 04/29/17 3630 Results 24 hrs Laboratory Tests Test 04/29/17 18:39 04/29/17 18:55 04/29/17 19:08 Urine Color YELLOW Urine Clarity CLEAR Urine pH 6.0 Urine Specific [place] 1.014 Urine Ketones NEGATIVEmg/dL Urine Nitrite NEGATIVEmg/dL Urine Bilirubin NEGATIVEmg/dL Urine Urobilinogen NEGATIVEmg/dL Urine Leukocyte Esterase NEGATIVELeu/ul Urine Hemoglobin NEGATIVEmg/dL Urine Glucose NEGATIVEmg/dL Urine Total Protein NEGATIVEmg/dl White Blood Count 10.810^3/ul Red Blood Count 4.9010^6/ul Hemoglobin 15.0g/dl Hematocrit 43.2% Mean Corpuscular Volume 88.2fl Mean Corpuscular Hemoglobin 30.6pg Mean Corpuscular Hemoglobin Concent 34.7g/dl Red Cell Distribution Width 12.1% Platelet Count 22401^3/UL Mean Platelet Volume 9.5fl Neutrophils % 74.3% Lymphocytes % 19.0% Monocytes % 5.6% Eosinophils % 0.5% Basophils % 0.3% Nucleated Red Blood Cells % 0.0/100WBC Neutrophils # 8.010^3/ul Lymphocytes # 2.110^3/ul Monocytes # 0.610^3/ul Eosinophils # 0.110^3/ul Basophils # 0.010^3/ul Nucleated Red Blood Cells # 0.010^3/ul Bedside Urine pH (LAB) 6.0 Bedside Urine Protein (LAB) Negative Bedside Urine Glucose (UA) Negative Bedside Urine Ketones (LAB) Negative Bedside Urine Blood Negative Bedside Urine Nitrite (LAB) Negative Bedside Urine Leukocyte Esterase (L Negative Current Medications Medications (Trade) Dose Ordered Sig/Bernie Route PRN Reason Start Time Stop Time Status Last Admin Dose Admin Sodium Chloride (NS) 1,000 ml @ 1,000 mls/hr Q1H STAT IV 04/29/17 18:23 04/29/17 19:22 DC 04/29/17 18:52 Morphine Sulfate (morphine) 4 mg ONCE STAT IV 04/29/17 18:23 04/29/17 18:27 DC 04/29/17 18:48 Ondansetron HCl (Zofran Inj) 4 mg ONCE STAT IV 04/29/17 18:23 04/29/17 18:27 DC 04/29/17 18:48 Pantoprazole (Protonix Iv) 40 mg ONCE ONCE IV 04/29/17 18:30 04/29/17 18:31 DC 04/29/17 18:48 Urinalysis negative for evidence of leukocytosis, microscopic hematuria or nitrates suggestive of infection. Procedures/MDM This 26-year-old male patient presents to emergency department with chronic abdominal pain, history of multiple diverticulitis attacks, last attack was in February, patient was seen and treated here in emergency department with Atiya Strickland, had a full evaluation including labs, CAT scan, and pain control, patient 's CAT scan showed diverticulitis, recommended colonoscopy, patient reports he has not had a colonoscopy, patient reports pain is 10/10, reports dizziness, states he has not eaten today but he does feel hungry, denies nausea, or vomiting, fever, or chills, emergency room course includes history and physical exam, generalized abdominal tenderness, this case discussed with supervising physician Dr. Singh, patient's last CAT scan was 3 months ago, patient will be given the opportunity to choose if he wants CAT scan or not, shared decision making with patient, at first agrees to have CAT scan, and then reclines, states that he remembered a physician telling him he has had 12 CAT scans over the last year. Urinalysis negative for evidence of infection,plan to treat patient prophylactically with Flagyl 500 mg 1 tab p.o. 3 times daily 7 days, Cipro 500 mg 1 tab p.o. twice daily 7 days. Diet restriction, clear liquid diet advance as tolerated, diverticulosis diet reviewed. Patient pain treated while in emergency department with 4 mg of intravenous morphine, 2 over emergency room stay. Patient is stable with no new complaints during ER course , clinically there is no current evidence to suggest meningitis, sepsis, perforated diverticulum, urinary tract infection, pyelonephritis or any other emergent condition appearing to require further evaluation or hospitalization. I feel the patient is stable for discharge at this time. I have discussed results, examination findings, the treatment plan with the patient and family present prior to discharge. Indications for emergent reevaluation, side effects of medication were also discussed. All questions were answered. Patient verbalizes understanding and agrees with plan of care. Departure Diagnosis: Primary Impression: Abdominal pain Abdominal location: generalized Qualified Code: R10.84 - Generalized abdominal pain Additional Impression: Hx of diverticulitis of colon Condition: Good Patient Instructions: Abdominal Pain, Understanding Diverticulosis and Diverticulitis Additional Instructions: Thank you for for coming to [facility] for your care today. Please ask your nurse or provider if you have questions about your care today and do not leave until all your questions have been answered. Please use any medications given as directed and follow-up with your doctor (or the doctor you were referred to) in the next 2-3 days. If you do not have a primary care doctor you may follow up at the [facility] (listed below). You may also use motrin and tylenol as needed for fever and/or pain unless instructed otherwise by your provider or nurse. Indications for more urgent follow-up have been discussed, but you may return to the Emergency Department at ANY time for any worrisome or worsening symptoms. If you have abdominal pain, please know that no test or exam you received is perfect and you should follow up within 8 hours for continued pain. If you had any imaging studies today, such as an X-Ray or CT Scan, these studies will be reviewed later by a radiologist. You will be called if there are important findings that were not identified today, so make sure the contact information you provided at registration is correct. If you received any narcotic pain control medicine today, such as Vicodin, Morphine or Dilaudid, your coordination and judgment may be affected for a number of hours. Please do not drive or operate heavy machinery, and you may want someone to assist you at home. If you were given a prescription for narcotic medication, be aware that it is very addictive- use sparingly and only if necessary. EDVIN CEVALLOS Apr 29, 2017 18:22
[2017-04-29] MEDS ORDERED: PANTOPRAZOLE 40 MG INJ IV ONE (18:30)
[2017-04-29 19:07] LABS: URINE BLOOD (Dip) POC Negative (NEGATIVE)
[2017-04-29 19:23] LABS: ADD UMIC NO; UR ASCORBIC ACID 20 mg/dL (NEGATIVE); UR BILIRUBIN (Dip) NEGATIVE (NEGATIVE); UR BLOOD (Dip) NEGATIVE (NEGATIVE); UR CLARITY CLEAR (CLEAR); UR COLOR YELLOW (YELLOW); UR GLUCOSE (Dip) NEGATIVE (NEGATIVE); UR KETONES (Dip) NEGATIVE (NEGATIVE); UR LEUKOCYTE ESTERASE (Dip) NEGATIVE Leu/ul (NEGATIVE); UR NITRITE (Dip) NEGATIVE (NEGATIVE); UR SPECIFIC GRAVITY (Dip) 1.014 (1.003-1.030); UR TOTAL PROTEIN (Dip) NEGATIVE (NEGATIVE); UR UROBILINOGEN (Dip) NEGATIVE (NEGATIVE)
[2017-04-29 19:42] LABS: BASOPHILS % 0.3 % (0.0-2.0); EOSINOPHILS # 0.1 10^3/ul (0.0-0.5); EOSINOPHILS % 0.5 % (0.0-7.0); HEMATOCRIT 43.2 % (42.0-52.0); LYMPHOCYTES # 2.1 10^3/ul (0.8-2.9); MEAN CORPUSCULAR HEMOGLOBIN 30.6 pg (29.0-33.0); MEAN CORPUSCULAR HGB CONC 34.7 g/dl (32.0-37.0); MEAN CORPUSCULAR VOLUME 88.2 fl (82.0-101.0); MEAN PLATELET VOLUME 9.5 fl (7.4-10.4); MONOCYTE # 0.6 10^3/ul (0.3-0.9); MONOCYTES % 5.6 % (0.0-11.0); NEUTROPHILS % 74.3 % (39.0-77.0); PLATELET COUNT 282 10^3/UL (140-415); RED CELL DISTRIBUTION WIDTH 12.1 % (11.5-14.5); WHITE BLOOD COUNT 10.8 10^3/ul (4.8-10.8)
[2017-04-29] MEDS ORDERED: METR500T PO (20:10)
[2017-04-29] MEDS ORDERED: HYDR-906 PO (20:11)
[2017-04-29] MEDS ORDERED: CIPR500T4 PO (20:11)
== END 2017-04-29 20:42 | disposition home or self-care (01) ==
LOC: FTE 17:29
DX: R10.84 Generalized abdominal pain (principal); Z87.19 Personal history of other diseases of the digestive system
CPT/HCPCS: 36415; 81003; 85025; 96361; 96374; 96375; 96376; C9113; J2270; J2405; J7030; Z7502

== ENCOUNTER 2017-06-02 06:26 | Inpatient (IN) | END 2017-06-02 16:02 | disposition left against medical advice (07) | DRG 392 ==

== ENCOUNTER 2017-06-22 14:59 | Emergency (ER) | END 2017-06-23 02:05 | disposition home or self-care (01) ==

== ENCOUNTER 2017-09-07 23:17 | Emergency (ER) | END 2017-09-08 04:51 | disposition home or self-care (01) ==

== ENCOUNTER 2017-09-13 21:12 | Emergency (ER) | END 2017-09-14 00:45 | disposition home or self-care (01) ==

== ENCOUNTER 2017-09-17 18:58 | Inpatient (IN) | END 2017-09-17 23:30 | disposition left against medical advice (07) | DRG 392 ==

== ENCOUNTER 2017-09-21 02:45 | Emergency (ER) | END 2017-09-21 10:24 | disposition home or self-care (01) ==

== ENCOUNTER 2017-09-22 06:31 | Inpatient (IN) | END 2017-09-22 22:00 | disposition left against medical advice (07) | DRG 392 ==

== ENCOUNTER 2018-01-24 01:41 | Inpatient (IN) | END 2018-01-28 19:45 | disposition EXP | DRG 330 ==